=== PATIENT | female | born 1985 | race Two or more races ===

== ENCOUNTER 2020-07-13 16:27 | Emergency (ER) | payer OTHER, SELFPAY ==
[2020-07-13 17:40] VITALS: BP 117/70; PULSE 75; RESP 16; TEMP 37.1; O2SAT 98; BMI 28.8
--- NOTE | 2020-07-13 18:06 | ECG_ITS ---
Test Reason : BACK PAIN Blood Pressure : / mmHG Vent. Rate : 062 BPM Atrial Rate : 062 BPM P-R Int : 142 ms QRS Dur : 094 ms QT Int : 420 ms P-R-T Axes : 009 070 051 degrees QTc Int : 426 ms Normal sinus rhythm Normal ECG When compared with ECG of 04-APR-2009 21:45, No significant change was found Referred By: Lilo Cerda Electronically Signed By:ANGEL HOUSTON MD
--- NOTE | 2020-07-13 18:08 | ED_ITS ---
HPI - Back Pain/Injury General Chief Complaint: Back Pain/Injury <JIMMY Andujar - Last Filed: 07/13/20 19:07> Stated Complaint: BACK PAIN <JIMMY Andujar Last Filed: 07/13/20 19:07> Time Seen by Provider: 07/13/20 18:06 <JIMMY Andujar - Last Filed: 07/13/20 19:07> Source: patient <JIMMY Andujar Last Filed: 07/13/20 19:07> Mode of arrival: ambulatory <JIMMY Andujar - Last Filed: 07/13/20 19:07> History of Present Illness HPI Narrative: 35-year-old female with a past medical history of scoliosis, back surgery presented to ED complaining of 1 week of left-sided mid /upper back pain radiating down left arm /to chest. Reports pain worse with movement, deep breathing, lying on left side. Has been taking naproxen, and tramadol at home without relief. Denies known trauma / injury. denies numbness, tingling, weakness, incontinence, retention <JIMMY Andujar - Last Filed: 07/13/20 19:07> MD elicited complaint: back pain <JIMMY Andujar Last Filed: 07/13/20 19:07> Related Data Home Medications: Previous Rx's Medication Instructions Recorded acetaminophen [Tylenol Extra 500 mg PO Q6H PRN #20 tab 07/13/20 Strength] cyclobenzaprine 5 mg PO Q8H PRN 5 Days #14 tab 07/13/20 lidocaine [Lidoderm] 1 patch TOPICAL DAILY PRN #30 ea 07/13/20 MDD remove after 12 hours <JIMMY Andujar - Last Filed: 07/13/20 19:07> Allergies/Adverse Reactions: Allergies Allergy/AdvReac Type Severity Reaction Status Date / Time Penicillins Allergy Intermediate RASH Unverified 06/14/20 15:30 penicillin V Allergy Unknown unsure Verified 02/29/20 00:00 (childhood) penicillin Allergy Unknown Uncoded 04/30/20 00:00 <JIMMY Andujar Last Filed: 07/13/20 19:07> Review of Systems Review of Systems: Constitutional: No Weight loss, No Fever, No Chills Cardiovascular: No Chest Pain, No SOB Respiratory: No Cough, No Sputum Genitourinary: no urinary incontinence or retention Musculoskeletal: + back pain Skin: No Skin Lesions, No rash Neuro: No Weakness, No Numbness, No Paresthesias <JIMMY Andujar - Last Filed: 07/13/20 19:07> Yes all other systems are reviewed and are negative <JIMMY Andujar - Last Filed: 07/13/20 19:07> Neurologic: Denies Sensory deficit (Neuro) <JIMMY Andujar - Last Filed: 07/13/20 19:07> [facility] Past Medical History Attestation statement: The following information was validated with the patient. <JIMMY Andujar - Last Filed: 07/13/20 19:07> Medical History: Medical History (Updated 07/14/20 @ 00:01 by Ministerio Angel) Scoliosis <JIMMY Andujar - Last Filed: 07/13/20 19:07> Surgical History: Surgical History (Updated 07/13/20 @ 17:43 by Georgie Flor) Previous back surgery <JIMMY Andujar - Last Filed: 07/13/20 19:07> Social History Social History: Social History Advance Directives: No Advance Directives Information Provided: No <JIMMY Andujar - Last Filed: 07/13/20 19:07> Physical Exam Vital Signs: Vital Signs: Vital Signs Temp Pulse Resp BP Pulse Ox 07/13/20 17:40 98.7 F 75 16 117/70 98 Body Mass Index 28.8 <JIMMY Andujar - Last Filed: 07/13/20 19:07> Vital Signs: Vital Signs Temp Pulse Resp BP Pulse Ox 07/13/20 17:40 98.7 F 75 16 117/70 98 Body Mass Index 28.8 <Stephen Montgomery MD - Last Filed: 07/17/20 15:02> Const: General: cooperative and healthy appearing <JIMMY Andujar - Last Filed: 07/13/20 19:07> Orientation/consciousness: patient oriented x3 <JIMMY Andujar - Last Filed: 07/13/20 19:07> Limitations: no limitations <JIMMY Andujar - Last Filed: 07/13/20 19:07> HENMT: Head: Yes normal to inspection <Lilo Cerda, PA - Last Filed: 07/13/20 19:07> Ears: hearing grossly normal bilaterally <Lilo Cerda, PA - Last Filed: 07/13/20 19:07> General nose exam: Normal external nose present <Lilo Cerda PA - Last Filed: 07/13/20 19:07> Face and sinus: Yes normal facial exam <Lilo Cerda, PA - Last Filed: 07/13/20 19:07> Eyes: General: appearance normal, both eyes and all related structures <Lilo Zaida, PA - Last Filed: 07/13/20 19:07> EOM: EOMs intact bilaterally <Lilo Cerda, PA - Last Filed: 07/13/20 19:07> Neck: Other: no midline cervical spinous tenderness <Lilo Cerda, PA - Last Filed: 07/13/20 19:07> Neck: Yes normal visual inspection <Lilo Cerda PA - Last Filed: 07/13/20 19:07> Resp: Effort & Inspection: normal respiratory effort <Lilo Cerda, PA - Last Filed: 07/13/20 19:07> Cardio: Peripheral pulses: Peripheral pulses 2+ throughout <Lilo Cerda, PA - Last Filed: 07/13/20 19:07> Back/Spine/Pelvis: Other: old surgical scar noted. + left upper/ mid MSK back tenderness, reproducing patient's subjective complaint. No deformity. No midline thoracic / lumbar spinous tenderness <Lilo Cerda, PA - Last Filed: 07/13/20 19:07> Neuro: Other: No saddle anesthesia <Lilo Zaida, PA - Last Filed: 07/13/20 19:07> General: patient oriented x3 <Lilo Cerda, PA - Last Filed: 07/13/20 19:07> Gait exam (Neuro): Normal gait present <Lilo Cerda, PA - Last Filed: 07/13/20 19:07> Motor exam (neuro): 5/5 motor strength present throughout <Lilo Cerda PA - Last Filed: 07/13/20 19:07> Sensory Exam: No Sensory deficit (Neuro) <Lilo Zaida, PA - Last Filed: 07/13/20 19:07> Extrem: General: Yes normal to inspection <JIMMY Andujar - Last Filed: 07/13/20 19:07> Course Course Course Narrative: I have reviewed the chart <Stephen Montgomery MD - Last Filed: 07/17/20 15:02> MDM - Back Pain/Injury MDM Narrative Medical decision making narrative: likely MSK pain. Low concern for cauda equina / cord compression. Low concern for PE/ACS. will obtain EKG, give symptomatic treatment and DC home to follow up with PCP/case management <JIMMY Andujar - Last Filed: 07/13/20 19:07> ECG Data Attestation: I personally reviewed and interpreted this ECG as follows: <JIMMY Andujar - Last Filed: 07/13/20 19:07> ECG interpretation date: 07/13/20 <JIMMY Andujar - Last Filed: 07/13/20 19:07> Interpretation: normal sinus rhythm. Rate 62. no ischemic changes. Good tracing <JIMMY Andujar - Last Filed: 07/13/20 19:07> Discharge Plan Discharge Clinical Impression: Thoracic back pain <JIMMY Andujar - Last Filed: 07/13/20 19:07> Patient Disposition: Home, Self-Care <JIMMY Andujar - Last Filed: 07/13/20 19:07> Instructions: Back Pain (ED) <JIMMY Andujar - Last Filed: 07/13/20 19:07> Additional Instructions: your pain is likely musculoskeletal Continue taking naproxen at home You may also continue taking tramadol when pain is severe Flexeril as a muscle relaxer, take at night as it makes you drowsy, do not drive, drink alcohol, or operate machinery while taking In addition Lidoderm patches or numbing patches, apply to painful area Apply heating packs area If he develops numbness, tingling, weakness, urinary incontinence or retention return to the ED You to follow-up with her doctor and pain management <JIMMY Andujar - Last Filed: 07/13/20 19:07> Prescriptions: New acetaminophen [Tylenol Extra Strength] 500 mg tablet 500 mg PO Q6H PRN (Reason: pain or fever) Qty: 20 RF: 0 lidocaine [Lidoderm] 5 % adhesive patch,medicated 1 patch topical DAILY MDD remove after 12 hours PRN (Reason: pain) Qty: 30 RF: 0 cyclobenzaprine 5 mg tablet 5 mg PO Q8H PRN (Reason: pain (scale score 7-10)) 5 Days Qty: 14 RF: 0 <JIMMY Andujar - Last Filed: 07/13/20 19:07> Referrals: Erika Bowman MD [Primary Care Provider] - 2 days <JIMMY Andujar - Last Filed: 07/13/20 19:07> Interventions: ED Discharge Assessment Last Done: 07/13/20 19:31 <JIMMY Andujar - Last Filed: 07/13/20 19:07> Discharge Date/Time: 07/13/20 19:00 <JIMMY Andujar - Last Filed: 07/13/20 19:07>
[2020-07-13] MEDS: Cyclobenzaprine HCl 10 MG TABLET PO (18:39)
[2020-07-13] MEDS: Lidocaine 4 % Patch ADH..PATCH 1 PATCH TRANSDERMA (18:40)
== END 2020-07-13 19:00 | disposition home or self-care (01) ==
PROVIDERS: Emergency Provider Emergency Medicine; PCP Internal Medicine
DX: M41.9 Scoliosis, unspecified (principal); M54.6 Pain in thoracic spine; Z79.899 Other long term (current) drug therapy
CPT/HCPCS: 93005; 99283; 99284

== ENCOUNTER → 2020-07-19 14:46 | Outpatient (BNVA) | payer OTHER, SELFPAY | PROVIDERS: PCP Internal Medicine; Visit Provider Anesthesiology | DX: M96.1 Postlaminectomy syndrome, not elsewhere classified (principal); G89.4 Chronic pain syndrome; Z87.39 Personal history of other diseases of the musculoskeletal system and connective tissue; Z79.891 Long term (current) use of opiate analgesic | CPT/HCPCS: 99214 ==

== ENCOUNTER → 2020-08-09 14:28 | Outpatient (BNVA) | payer OTHER, SELFPAY | PROVIDERS: PCP Internal Medicine; Visit Provider Anesthesiology | DX: G89.4 Chronic pain syndrome (principal); M96.1 Postlaminectomy syndrome, not elsewhere classified; Z79.891 Long term (current) use of opiate analgesic; Z87.39 Personal history of other diseases of the musculoskeletal system and connective tissue | CPT/HCPCS: 99212 ==

== ENCOUNTER → 2020-08-20 15:22 | Outpatient (BNVA) | payer OTHER, SELFPAY | PROVIDERS: PCP Internal Medicine; Visit Provider Anesthesiology | DX: G89.4 Chronic pain syndrome (principal); M96.1 Postlaminectomy syndrome, not elsewhere classified; Z79.891 Long term (current) use of opiate analgesic; Z87.39 Personal history of other diseases of the musculoskeletal system and connective tissue | CPT/HCPCS: 99212 ==

== ENCOUNTER 2021-01-07 04:49 | Emergency (ER) | payer OTHER, SELFPAY ==
--- NOTE | ~2021-01-07 | CT_ITS ---
EXAMINATION: CT ABDOMEN AND PELVIS WITHOUT CONTRAST CLINICAL INFORMATION: Flank pain. COMPARISON: None. TECHNIQUE: Multidetector volumetric imaging was performed from the superior aspect of the liver through the pubic symphysis. Sagittal and coronal reformatted images were obtained on the technologist's workstation. This CT examination was performed using dose optimization techniques as appropriate, variously including the following: *Automated exposure control *Adjustment of mA and/or kV according to patient size (this includes techniques or standardized protocols for targeted exams where dose is matched to indication/reason for exam; i.e. extremities or head) *Use of iterative reconstruction technique DLP: 783 mGy-cm FINDINGS: LUNG BASES: The lung bases are clear. Heart size is normal. LIVER, GALLBLADDER, AND BILIARY TREE: The liver is normal in size, shape, and attenuation. No focal hepatic lesion or biliary ductal dilatation is present. There are multiple gallstones with central gas within the stones. No wall thickening seen. PANCREAS: Unremarkable. SPLEEN: Unremarkable. ADRENAL GLANDS: Unremarkable. KIDNEYS AND URETERS: The kidneys are normal in size, shape, and attenuation. No hydronephrosis, hydroureter, or calculi seen. No perinephric stranding. BLADDER: Unremarkable. GASTROINTESTINAL TRACT: There is scattered stool and gas seen throughout the colon without any significant distention. The small bowel loops are normal caliber. Appendix is normal caliber. ABDOMINAL WALL: No significant hernia is appreciated. LYMPH NODES: Normal. VASCULAR: Unremarkable. PELVIC VISCERA: There are tubal sterilization changes in the uterus is anteverted no free air or free fluid seen. OSSEOUS STRUCTURES: There are 2 Huizar rods in the thoracolumbar spine. Inferior end of the rods terminate at L2-L3 disc level. The cephalad extension of these rods is not in the [id number]. There is a mild dextroscoliosis. No lytic or sclerotic process seen. CT/CT abdomen pelvis wo con IMPRESSION: Cholelithiasis without wall thickening. No radiopaque renal calculi or hydronephrosis seen. Mild constipation.
[2021-01-07 05:03] VITALS: BP 131/61; PULSE 84; RESP 16; TEMP 36.9; O2SAT 97; BMI 28.8
[2021-01-07 06:11] LABS: Glucose Urine UA NEG (NEG); Leukocyte Esterase Urine NEG (NEG); Nitrite Urine NEG (NEG); Specific Gravity - Urine 1.025 (1.005-1.025); Urine Blood 1+ (NEG); Urine Ketones NEG (NEG); Urine Protein NEG (NEG-TRACE)
[2021-01-07 06:13] LABS: Appearance Urine CLEAR; Color Urine YELLOW
[2021-01-07 06:14] LABS: UPreg QC Valid YES; Urine Pregnancy NEGATIVE (NEGATIVE)
[2021-01-07 06:17] LABS: Bacteria Urine 1+ /LPF; RBC Urine 0-2 /HPF (0); Squamous Epithelial Cell Urine 3+ /LPF; WBC Urine 0-2 /HPF (0-4)
--- NOTE | 2021-01-07 06:54 | PC.NURSE ---
patient ambulated to CT at this time with a steady gait.
[2021-01-07 07:18] VITALS: BP 106/73; PULSE 69; RESP 15; TEMP 36.9; O2SAT 96
[2021-01-07] MEDS: Acetaminophen 325 MG TABLET 975 MG PO (07:22)
[2021-01-07] MEDS: Ketorolac Tromethamine 15 MG/ML VIAL IM (07:24)
[2021-01-07] MEDS: Lidocaine 4 % Patch ADH..PATCH 1 PATCH TRANSDERMA (07:25)
--- NOTE | 2021-01-07 07:55 | ED_ITS ---
HPI - Back Pain/Injury General Chief Complaint: Back Pain/Injury Stated Complaint: Back pain/Abd pain Time Seen by Provider: 01/07/21 04:56 Source: patient Mode of arrival: ambulatory History of Present Illness HPI Narrative: 35-year-old female with history of lower back pain now presents with acute exacerbation, atraumatic, denies any fevers, chills, nausea, vomiting, diarrhea, urinary pain/burning/frequency. In addition, she denies any urinary or fecal dysfunction. Related Data Previous Rx's Medication Instructions Recorded acetaminophen [Tylenol Extra 500 mg PO Q6H PRN #20 tab 07/13/20 Strength] cyclobenzaprine 5 mg PO Q8H PRN 5 Days #14 tab 07/13/20 oxycodone 5 mg tablet 5 mg PO TID PRN 30 Days #90 tab 08/20/20 ketorolac 10 mg PO Q6H PRN 5 Days #20 tab 01/07/21 Allergies Allergy/AdvReac Type Severity Reaction Status Date / Time Penicillins Allergy Intermediate RASH Verified 07/17/20 17:34 Review of Systems Review of Systems: Pertinent positives and negatives as stated in HPI and 10 point review of systems otherwise negative. [facility] Past Medical History Source: nursing notes reviewed Medical History Chronic back pain greater than 3 months duration Chronic pain syndrome prison (current) use of opiate analgesic Personal history of other diseases of the musculoskeletal system and connective tissue Postlaminectomy syndrome, not elsewhere classified Scoliosis Surgical History Previous back surgery Social History Social History Alcohol intake: never Smoking Status: Never smoker Use of substances other than those prescribed or required for medical reasons: No Advance Directives: No Advance Directives Information Provided: No Physical Exam Vital Signs: Vital Signs: Last Vital Signs Temp 98.4 F 01/07/21 07:18 Pulse 61 01/07/21 08:29 Resp 16 01/07/21 08:40 BP 120/67 01/07/21 08:29 Pulse Ox 99 01/07/21 08:29 Body Mass Index 28.8 VITAL SIGNS: Reviewed. GENERAL: Well developed, well nourished, mild distress. HEAD: Normocephalic/atraumatic EYES: PERRLA, EOMI OROPHARYNX: no oral lesions noted, posterior pharynx clear NECK: Supple, no adenopathy LUNGS: Normal breath sounds. No adventitious sounds or accessory muscle use. SpO2<99> CARDIOVASCULAR: Regular rate and rhythm without noted murmurs ABDOMEN: Soft, non-tender, non-distended with bowel sounds. BACK: NEUROLOGIC: Alert and oriented x 4. Strength and sensation to light touch were grossly intact x 4. Course Course Course Narrative: 35-year-old female with history and clinical presentation most consistent with acute on chronic lower back exacerbation. Patient had prior involvement with pain management but was suspended in August for missing an appointment and has not had any narcotic prescriptions since that time. She was provided with combination analgesics and initially was not getting much pain relief, however on secondary re-evaluation patient is noted be resting comfortably in her gurney. Urinalysis is negative for acute findings other than some trace blood so the decision was made to do a dry CT scan was done which was negative for any renal calculi. Patient was discharged home in stable [facility] - Back Pain/Injury Lab Data Labs: Lab Results 01/07/21 01/07/21 Range/Units 06:05 06:05 Urine Color YELLOW Urine Appearance CLEAR Urine pH 6.0 (5.0-8.0) Ur Specific [place] 1.025 (1.005-1.025) Urine Protein NEG (NEG-TRACE) MG/DL Urine Glucose (UA) NEG (NEG) MG/DL Urine Ketones NEG (NEG) MG/DL Urine Blood 1+ H (NEG) Urine Nitrite NEG (NEG) Ur Leukocyte Esterase NEG (NEG) Urine RBC 0-2 (0) /HPF Urine WBC 0-2 (0-4) /HPF Ur Squamous Epith Cells 3+ /LPF Urine Bacteria 1+ /LPF Urine Test NEGATIVE (NEGATIVE) Discharge Plan Discharge Clinical Impression: Acute exacerbation of chronic low back pain Patient Disposition: Home, Self-Care Additional Instructions: 1. Tylenol 1000 mg, orally, every 6 hours as needed for pain control. Do not exceed 4000 mg within 24 hours. 2. Lidocaine patch, these are available at every [facility]/[employer], apply to area of maximal tenderness as directed on the outside packaging. 3. Please follow up with primary care provider in the next 1-2 days for re- evaluation and discussion regarding management of your back pain. Do not hesitate to return to the emergency department should you experience any acute worsening of your symptoms. Prescriptions: New ketorolac 10 mg tablet 10 mg PO Q6H PRN (Reason: pain) 5 Days Qty: 20 RF: 0 No Action acetaminophen [Tylenol Extra Strength] 500 mg tablet 500 mg PO Q6H PRN (Reason: pain or fever) Qty: 20 RF: 0 cyclobenzaprine 5 mg tablet 5 mg PO Q8H PRN (Reason: pain (scale score 7-10)) 5 Days Qty: 14 RF: 0 oxycodone 5 mg tablet 5 mg PO TID PRN (Reason: pain) 30 Days Qty: 90 RF: 0 Referrals: Erika Bowman MD [Primary Care Provider] - 2 days (Re-evaluation outpatient management of acute on chronic lower back pain.) Interventions: ED Discharge Assessment Last Done: 01/07/21 09:11 Discharge Date/Time: 01/07/21 09:13 Print Language: Azeri
[2021-01-07 08:29] VITALS: BP 120/67; PULSE 61; RESP 20; O2SAT 99
[2021-01-07 08:39] VITALS: RESP 16
[2021-01-07 08:40] VITALS: RESP 16
== END 2021-01-07 09:13 | disposition home or self-care (01) ==
PROVIDERS: Emergency Provider Student in an Organized Health Care Education/Training Program; PCP Internal Medicine
DX: G89.11 Acute pain due to trauma (principal); G89.29 Other chronic pain; M54.5 Low back pain; Z79.891 Long term (current) use of opiate analgesic
CPT/HCPCS: 74176; 81001; 81025; 96372; 99284; J1885

== ENCOUNTER 2021-04-08 10:59 | Outpatient (REF) | payer OTHER, SELFPAY | END 2021-04-08 11:00 | disposition home or self-care (01) | LOC: HO.LAB 10:59 | PROVIDERS: PCP Internal Medicine; Visit Provider Anesthesiology | DX: G89.4 Chronic pain syndrome (principal); M96.1 Postlaminectomy syndrome, not elsewhere classified; M54.9 Dorsalgia, unspecified; Z87.891 Personal history of nicotine dependence; Z79.891 Long term (current) use of opiate analgesic; Z87.39 Personal history of other diseases of the musculoskeletal system and connective tissue | CPT/HCPCS: 99212 ==

== ENCOUNTER → 2021-04-24 10:06 | Outpatient (BNVA) | payer OTHER, SELFPAY | PROVIDERS: PCP Internal Medicine; Visit Provider Anesthesiology | DX: M96.1 Postlaminectomy syndrome, not elsewhere classified (principal); M54.9 Dorsalgia, unspecified; G89.29 Other chronic pain; G89.4 Chronic pain syndrome; Z79.891 Long term (current) use of opiate analgesic; Z87.39 Personal history of other diseases of the musculoskeletal system and connective tissue | CPT/HCPCS: 99212 ==

== ENCOUNTER → 2021-05-01 14:24 | Outpatient (BNVA) | payer OTHER, SELFPAY | PROVIDERS: PCP Internal Medicine; Referring Provider Internal Medicine; Visit Provider Surgery | DX: K80.20 Calculus of gallbladder without cholecystitis without obstruction (principal) | CPT/HCPCS: 99202 ==

== ENCOUNTER → 2021-05-09 08:03 | Outpatient (BNVA) | payer OTHER, SELFPAY | PROVIDERS: PCP Internal Medicine; Visit Provider Nurse Practitioner Family | DX: M96.1 Postlaminectomy syndrome, not elsewhere classified (principal); M54.9 Dorsalgia, unspecified; G89.29 Other chronic pain; Z79.891 Long term (current) use of opiate analgesic | CPT/HCPCS: 99212 ==

== ENCOUNTER 2021-05-31 06:48 | Day surgery (SDC) | payer OTHER, SELFPAY ==
[2021-05-27 10:38] VITALS: BMI 30.4
--- NOTE | 2021-05-30 09:22 | HO.ANESPROP2 ---
Documented by User: Bruna Woods NP 05/30/21 09:24 HPI - Anesthesia Eval Consult details Narrative: 36yo F for Cholecystectomy Laparoscopic, Poss Open opioids, chronic back pain PMFSH Active Problems Active Problems: All Active Problems (Updated 05/27/21 @ 10:37 by Liliya Godfrey RN) Obese (Acute) Cholelithiasis (Acute) Insomnia (Acute) [facility] (current) use of opiate analgesic (Acute) Personal history of other diseases of the musculoskeletal system and connective tissue (Acute) Chronic pain syndrome (Acute) Postlaminectomy syndrome, not elsewhere classified (Acute) Chronic back pain greater than 3 months duration (Acute) Past Medical History Medical History Anxiety Cholelithiasis Chronic back pain greater than 3 months duration Chronic pain syndrome Insomnia [facility] (current) use of opiate analgesic Obese Personal history of other diseases of the musculoskeletal system and connective tissue Postlaminectomy syndrome, not elsewhere classified Scoliosis Family History Family History Mother No problems noted. Father Diabetes Surgical History Surgical History (Updated 05/31/21 @ 06:54 by Radha Camilo RN) Hx of tubal ligation Previous back surgery Social History Social History (Updated 05/27/21 @ 10:35 by Liliya Godfrey RN) Housing: Apartment Are you a primary memory care program resident to a significant other at home: Yes (children ages-7,11,18) Do you presently have visiting nurse or other home services: Yes (Mon-Sat 1 hour per day) Alcohol intake: current Alcohol intake frequency: a few times a month Alcohol type: beer and hard liquor Patient Tobacco Use Status: Former Tobacco user Quit Date: 2010 Tobacco use type: Cigarette e-Cigarette/Vaping Use: Never Used Second Hand Smoke Exposure: No Use of substances other than those prescribed or required for medical reasons: No Have you been hit, kicked, punched, or otherwise hurt by someone within the past year? If so, by whom?: No Are you DNR?: No Advance Directives: No Advance Directives Information Provided: No Advance Directives on File: No Recently lost weight without trying: No Patient : No FDLMP: 05/09/2021 : No Poor oral hygiene: No (upper and lower partials) service: No Current occupational status: unemployed Meds Allergies Allergy/AdvReac Type Severity Reaction Status Date / Time Penicillins Allergy Unknown RASH Verified 05/31/21 06:54 Exam Exam Date and Time: May 30, [id number] Height,Weight and Vital Signs: Height 5 ft 8 in Weight 90.718 kg Narrative Narrative: EKG 06/2020 Vent. Rate : 062 BPM ? ? Atrial Rate : 062 BPM ?? P-R Int : 142 ms? QRS Dur : 094 ms ? ? QT Int : 420 ms ? ? ? P-R-T Axes : 009 070 051 degrees ?? QTc Int : 426 ms ? Normal sinus rhythm Normal ECG When compared with ECG of 04-APR-2009 21:45, No significant change was found Assessment and Plan Assessment Anesthesia Assessment: Chart Reviewed Documented by User: Miguelina Flores MD 05/31/21 07:30 [facility] Past Medical History Medical History Anxiety Cholelithiasis Chronic back pain greater than 3 months duration Chronic pain syndrome Insomnia [facility] (current) use of opiate analgesic Obese Personal history of other diseases of the musculoskeletal system and connective tissue Postlaminectomy syndrome, not elsewhere classified Scoliosis Functional capacity: independent ambulation Patient : No Family History Family History Mother No problems noted. Father Diabetes Family history of problems with anesthesia: No Surgical History Surgical History (Updated 05/31/21 @ 06:54 by Radha Camilo RN) Hx of tubal ligation Previous back surgery History of Problems with Anesthesia: No Social History Social History (Updated 05/27/21 @ 10:35 by Liliya Godfrey RN) Housing: Apartment Are you a primary memory care program resident to a significant other at home: Yes (children ages-7,11,18) Do you presently have visiting nurse or other home services: Yes (Mon-Sat 1 hour per day) Alcohol intake: current Alcohol intake frequency: a few times a month Alcohol type: beer and hard liquor Patient Tobacco Use Status: Former Tobacco user Quit Date: 2010 Tobacco use type: Cigarette e-Cigarette/Vaping Use: Never Used Second Hand Smoke Exposure: No Use of substances other than those prescribed or required for medical reasons: No Have you been hit, kicked, punched, or otherwise hurt by someone within the past year? If so, by whom?: No Are you DNR?: No Advance Directives: No Advance Directives Information Provided: No Advance Directives on File: No Recently lost weight without trying: No Patient : No FDLMP: 05/09/2021 : No Poor oral hygiene: No (upper and lower partials) service: No Current occupational status: unemployed Meds Allergies Allergy/AdvReac Type Severity Reaction Status Date / Time Penicillins Allergy Unknown RASH Verified 05/31/21 06:54 Exam Airway Mallampati Class: II TM Dist: >3cm Heart: RRR Lungs: CTA Assessment and Plan Final Anesthetic Review Family History of Problems with Anesthesia: No History of Problems with Anesthesia: No
[2021-05-31] VITALS (15 sets, daily range): BP systolic 102–128; BP diastolic 58–82; PULSE 63–77; RESP 13–20; TEMP 36.2–36.8; O2SAT 94–98
[2021-05-31] MEDS: Acetaminophen 325 MG TABLET 650 MG PO (07:23)
--- NOTE | 2021-05-31 07:30 | MHC.SHP ---
Pre-Procedural Eval Section A Date of Service: 05/31/21 Section B Chief Complaint: Cholelithiasis Allergies: Allergies Allergy/AdvReac Type Severity Reaction Status Date / Time Penicillins Allergy Unknown RASH Verified 05/31/21 06:54 Plan I have reviewed the history and physical and performed a pertinent physical examination on my patient. No changes have occurred unless specified.
[2021-05-31 07:31] LABS: COVID-19 Test Negative (Negative); IDNOW Serial# 55D5AD1C
[2021-05-31] MEDS: Lactated Ringers 1,000 ML 100 ML IVCONT (07:40)
[2021-05-31] MEDS: Scopolamine 1.5 MG PATCH.TD.3 EAR-BEHIND (08:20)
--- NOTE | 2021-05-31 09:52 | W.PM.OPN ---
Operative Note Operative Note Date of Service: 05/31/21 Narrative: Preop diagnosis: Symptomatic gallstones Postop diagnosis: the same Procedure: Laparoscopic cholecystectomy Surgeon: Dav Wiseman MD Mine Wedge Sawyer: IFEANYI Serrato The patient is a 36-year-old female who had in the ER at some point with abdominal pain and was noted gallstones. She did describe some occasional pain in the right upper quadrant so she wanted proceed with cholecystectomy. She understood the technique of laparoscopic cholecystectomy possible open. She was aware of the risks, benefits, and alternatives She was brought to the operating room placed supine on the table under general anesthesia via endotracheal tube. The abdomen was prepped and draped in the usual sterile fashion. A surgical time-out was done. The patient received Cefotan 2 g IV preoperatively I made a short incision on the supraumbilical margin using a blade 15. And this was carried down through the full-thickness of the skin and subcutaneous fat down to the fascia. The fascia was incised. The peritoneum was entered. Through this incision a Herb port was introduced. Pneumoperitoneum was introduced to a pressure of 15 mm hg. From here on, the rest of the procedure was done under vision with the laparoscope. With laparoscopic visualization, I placed a 5/12 mm port in the epigastric area below the subcostal margin through a small stab incision. 5 mm ports introduced through small incisions below the subcostal margin along the anterior axillary line and the midclavicular line. Graspers were placed through these working ports. The patient was placed in a head up and [id number] position. The gallbladder was seen. This was not inflamed nor distended. I applied a grasper at the fundus and this was used to retract the gallbladder cephalad. By doing so was able to expose the neck and the pouch of the gallbladder. Another grasper was applied on the pouch and this was used to retract the gallbladder laterally. At this point therefore the gallbladder was being retracted in a lateral and cephalad fashion to put the area of the cystic duct on stretch. I then proceeded to carefully dissect the neck of the gallbladder by stripping off its peritoneal layer and some fibrous tissue using the Maryland dissector. By doing so, I was able to see the cystic duct. We carefully dissected the cystic duct with the [place] dissector to confirm its confluence with the neck of the gallbladder. By doing so I was also able to achieve a critical view of the hepato cystic triangle. I could see what appeared to be the cystic artery within this triangle. There were no other structures. With confirmation of the cystic duct achieved, I proceeded to applyclips on this with 2 clips being applied distally. The cystic duct was transected between clips using Endo scissors. I then applied clips on the cystic artery as well with 2 clips being applied distally in the cystic artery and this was transected between clips with Endo scissors. We then continued to do this dissection with the Maryland dissector on the hilum to make sure that there were no other or vessels. There was 1 smaller band that appeared to be a branch fine branch of the cystic artery which we clipped and divided as well with Endo scissors. I then proceeded to divide across the hilum with electrocautery using the electrocautery spatula. I reached the interface of the gallbladder and the liver bed. I incised the peritoneum with electrocautery. I then proceeded to define a plane of dissection between the gallbladder wall and the liver bed. I proceeded to separate the gallbladder along this well-defined plane using a combination of blunt dissection with the tip of the spatula as well as electrocautery itself. I proceeded with this dissection all the way to the fundus until the entire gallbladder was completely and I retrieved the gallbladder through an endobag through the umbilical incision. I re-insufflated and reinserted all ports. There was note of some bile leak from a tear in the gallbladder wall earlier so we irrigated and suctioned this out. I then lifted the liver edge and we confirmed good hemostasis. I observed all 4 quadrants as well and there was no other pathology or any suggestion of any bowel injury I then re-examined the subhepatic space, and once hemostasis was ensured I desufflated through the port sites. I removed all ports under vision with the laparoscope. The umbilical port was removed last. The fascia of the umbilical incision was closed with [id number] Dexon 0 stitch. Skin closure was achieved on all incisions using Dexon 4-0 subcuticular running sutures. Steri-Strips and dressings were applied. All incisions were infiltrated with Marcaine 0.5% for postop analgesia and the procedure was completed. The patient tolerated the procedure well. There were no complications noted. Initial and final counts of sponges and instruments were correct. Estimated blood loss about 20 cc. The patient was extubated without difficulty and transferred to the recovery room with stable vital signs.
--- NOTE | 2021-05-31 10:01 | P.BOP_ITS ---
Brief Operative Note Date of Service: 05/31/21 Pre-op diagnosis: Symptomatic gallstones Post-op diagnosis: same Procedure: Laparoscopic cholecystectomy Surgeon: Dav Wiseman MD Anesthesia: GETA Was an Business Editor used for this Procedure?: No Estimated blood loss (mL): 20 Pathology: other (Gallbladder) Condition: stable Disposition: PACU
[2021-05-31] MEDS: ondansetron HCL 4 MG/2 ML VIAL IVPUSH (10:05)
[2021-05-31] MEDS: fentaNYL citrate/PF 100 MCG/2 ML VIAL 50 MCG IVPUSH ×3 (10:17→10:40)
[2021-05-31] MEDS: oxyCODONE HCl Immed Release 5 MG TABLET 10 MG PO (11:26)
== END 2021-05-31 13:50 | disposition home or self-care (01) ==
PROVIDERS: PCP Internal Medicine; Visit Provider Surgery
PROC: 0FT44ZZ Resection of Gallbladder, Percutaneous Endoscopic Approach (ICD-10-PCS; CPT 47562; principal; 2021-05-31 08:20)
DX: K80.10 Calculus of gallbladder with chronic cholecystitis without obstruction (principal); Z20.822 Contact with and (suspected) exposure to COVID-19
CPT/HCPCS: 47562; 36415; 87635; 88304; J1100; J1885; J2250; J2405; J2550; J3010

== ENCOUNTER 2021-06-04 16:19 | Emergency (ER) | payer OTHER, SELFPAY ==
--- NOTE | ~2021-06-04 | CT_ITS ---
EXAMINATION: CT ABDOMEN AND PELVIS WITH CONTRAST CLINICAL INFORMATION: Pain and fevers status post cholecystectomy. COMPARISON: CT abdomen pelvis January 07, 2021 TECHNIQUE: Multidetector volumetric images were obtained from the superior aspect of the liver through the pubic symphysis following administration 85 mL of Omnipaque 350 intravenous contrast. Sagittal and coronal reformatted images were obtained on the technologist's workstation. This CT examination was performed using dose optimization techniques as appropriate, variously including the following: *Automated exposure control *Adjustment of mA and/or kV according to patient size (this includes techniques or standardized protocols for targeted exams where dose is matched to indication/reason for exam; i.e. extremities or head) *Use of iterative reconstruction technique DLP: 658 mGy-cm FINDINGS: Visualized lung bases are well aerated. The liver demonstrates normal size, contour and attenuation. The gallbladder is surgically absent. There is some mild soft tissue stranding within the gallbladder fossa, however, no focal fluid collection is present. The pancreas, spleen and adrenal glands are unremarkable. Symmetrically enhancing kidneys. No hydronephrosis bilaterally. Normal caliber loops of small and large bowel. Normal appendix. Similar tiny fat-containing umbilical hernia. Normal caliber abdominal aorta. No retroperitoneal lymphadenopathy. The bladder is normal in appearance. Unremarkable CT appearance of the uterus. Trace free pelvic fluid, likely physiologic. Shotty bilateral inguinal lymph nodes. Scoliotic and degenerative changes of the spine. Partially visualized Huizar rods. CT/CT abdomen pelvis w con IMPRESSION: The gallbladder is surgically absent. There is some mild soft tissue stranding within the gallbladder fossa, however, no focal fluid collection is present.
[2021-06-04 16:58] VITALS: BP 115/66; PULSE 66; RESP 18; TEMP 36.1; O2SAT 100; BMI 30.4
[2021-06-04 17:29] LABS: Imm Gran Abs Auto 0.02 X10*3/uL (0.00-0.03); MANUAL DIFF FLAG NO; PLT CLUMP 1; Red Cell Distribution Width 12.1 % (11.0-16.0); SCAN SMEAR FLAG 1
[2021-06-04 17:31] LABS: Basophils Percent Auto 0.3 % (0-2); Eosinophils Absolute Auto 0.1 X10*3/uL (0.0-0.4); Eosinophils Percent Auto 1.4 % (0-4); Hematocrit 37.6 % (37-47); Hemoglobin 12.6 g/dl (12.0-16.0); Imm Gran Pct Auto 0.3 % (0.0-0.4); Lymphocytes Percent Auto 25.2 % (20-40); Mean Corpuscular HGB Conc 33.5 g/dl (31.0-35.0); Mean Corpuscular Volume 86.6 fL (80-98); Mean Platelet Volume 11.4 fL (9.4-12.3); Monocytes Absolute Auto 0.5 X10*3/uL (0.1-1.2); Monocytes Percent Auto 6.1 % (2-11); Neutrophils Absolute Auto 5.3 X10*3/uL (2.0-8.3); Neutrophils Percent Auto 66.7 % (45-73); Red Blood Count 4.34 X10*6/uL (4.20-5.50)
[2021-06-04 17:53] LABS: Alanine Aminotransferase 20 U/L (0-31); Albumin Level 4.1 g/dL (3.5-5.0); Alkaline Phosphatase 96 U/L (39-117); Anion Gap 11 (12-20); Aspartate Amino Transferase 15 U/L (5-31); Bilirubin Total 0.3 mg/dL (0.0-1.0); Blood Urea Nitrogen 13 mg/dL (9-16); Calcium 9.5 mg/dL (8.4-10.2); Carbon Dioxide 26 mmol/L (22-29); Chloride 104 mmol/L (96-108); Creatinine Clr Calc Pharmacy 136.7; Estimated Glomerular Filt Rate > 60; Glucose Random 86 mg/dL (60-115); Potassium 4.4 mmol/L (3.3-5.1); Sodium 137 mmol/L (135-145); Total Protein 7.4 g/dL (6.5-8.0)
[2021-06-04 18:02] LABS: Platelet Count 191 X10*3/uL (160-400)
--- NOTE | 2021-06-04 20:08 | ED.ABDPAIN ---
HPI - Abdominal Pain General Chief Complaint: Abdominal Pain Stated Complaint: post op pain Time Seen by Provider: 06/04/21 20:01 Source: patient Mode of arrival: ambulatory Limitations: no limitations History of Present Illness HPI narrative: 36-year-old female here with complaints of abdominal pain, nausea, subjective fevers, weakness for several days. Patient had a lap choly on May [address] Wiseman. She has been taking oxycodone every 6 hours 5 mg for pain as needed. She denies any vomiting. Her last bowel movement was yesterday and normal. Denies any urinary symptoms or upper respiratory symptoms. Related Data Previous Rx's Medication Instructions Recorded amitriptyline 25 mg tablet 25 mg PO BEDTIME 90 Days #90 tab 04/04/21 oxycodone 5 mg tablet 5 mg PO TID PRN 30 Days #90 tab 05/09/21 ibuprofen 600 mg tablet 600 mg PO Q6H PRN #30 tab 05/31/21 oxycodone-acetaminophen 5 mg-325 1 tab PO Q4-6H PRN #30 tab 05/31/21 mg tablet (Percocet) ondansetron 4 mg disintegrating 4 mg PO Q6H PRN #10 tab 06/04/21 tablet Allergies Allergy/AdvReac Type Severity Reaction Status Date / Time Penicillins Allergy Unknown RASH Verified 05/31/21 06:54 Review of Systems Review of Systems Yes all other systems are reviewed and are negative Constitutional: Reports no additional constitutional complaints, Denies body ache(s), Denies chills, Reports fever(s) (subjective ), Denies headache(s) and Reports weakness Eyes: Reports no additional eye complaints and Denies change in vision Reports system reviewed and no additional complaints, except as documented, Denies dizziness, Denies headache(s), Denies nasal congestion, Denies nasal discharge and Denies neck pain Cardiovascular: Reports no additional cardiovascular complaints, Denies chest pain, Denies leg edema and Denies dyspnea Respiratory: Reports no additional respiratory complaints, Denies cough and Denies dyspnea Gastrointestinal: Reports no additional gastrointestinal complaints, Reports abdominal pain, Denies diarrhea, Reports nausea and Denies vomiting Genitourinary: Reports no additional female genitourinary complaints and Denies urinary incontinence Musculoskeletal: Reports no additional musculoskeletal complaints, Denies back pain, Denies arthralgias, Denies joint swelling, Denies neck pain, Denies numbness and Denies tingling Skin/Breast: Reports system reviewed and no additional complaints, except as docu and Denies rash Reports system reviewed and no additional complaints, except as documented, Denies Abnormal speech present, Denies dizziness, Denies headache(s), Denies numbness, Denies tingling and Reports weakness Physical Exam Vital Signs: Vital Signs: Last Vital Signs Temp 98 F 06/04/21 22:26 Pulse 60 06/04/21 22:26 Resp 18 06/04/21 22:26 BP 114/68 06/04/21 22:26 Pulse Ox 98 06/04/21 22:26 Body Mass Index 30.4 Const: General: cooperative, healthy appearing, comfortable and no acute distress Orientation/consciousness: patient oriented x3 Limitations: no limitations HENMT: Head: Yes normal to inspection Ears: hearing grossly normal bilaterally General nose exam: Normal external nose present Face and sinus: Yes normal facial exam Mouth: Normal oral and palatal mucosa present Throat: Yes posterior oropharynx normal Eyes: General: appearance normal, both eyes and all related structures Pupils: Equal, round and reactive pupils present Neck: Neck: Yes normal visual inspection Chest: Chest palpation & inspection: normal inspection of the chest Resp: Effort & Inspection: normal respiratory effort Auscultation: clear to auscultation bilaterally Cardio: Rate: regular rate Rhythm: regular rhythm Peripheral pulses: Peripheral pulses 2+ throughout GI: Other: incision sites noted with no erythema, warmth Inspection: Yes normal to inspection Palpation (GI): Soft to palpation and Tenderness to palpation present (GI) (diffusely tender ) Auscultation: normal bowel sounds Back/Spine/Pelvis: Thoracic/Lumbar Spine: thoracic and lumbar spine normal to inspection Skin: General skin exam: no rashes or lesions noted Neuro: General: patient oriented x3, no focal motor deficits and normal sensation to monofilament Cranial nerves: Yes Equal, round and reactive pupils present Cognition (Neuro): normal cognition Speech: No Abnormal speech present Gait exam (Neuro): Normal gait present Motor exam (neuro): 5/5 motor strength present throughout Extrem: General: Yes normal to inspection, Yes no pedal edema and Yes no calf tenderness Course Course Course Narrative: 36 yo female here POD 4 after lap roxie here with complaints of diffuse abdominal pain, nausea, subjective fevers, gen weakness for several days. Exam mild diffuse tenderness. No fever here. Will check labs, UA, COVID screen. 2130-labs unremarkable. Urine screen is negative. COVID screen is negative. Discussed patient with Dr. Wiseman is from general surgery who recommended obtaining a CT abdomen and pelvis 2300- CT IMPRESSION: The gallbladder is surgically absent. There is some mild soft tissue stranding within the gallbladder fossa, however, no focal fluid collection is present.? Discussed with Dr. Wiseman. Patient can follow-up tomorrow in the office. I re-examined the patient. Her abdomen is soft. She does have some mild diffuse tenderness but is tolerating p.o.. She tells me she has adequate oxycodone at home. Reviewed worrisome signs and symptoms of when to return to the emergency department. Comfortable discharge home. MDM - Abdominal Pain Medical Records Attestation: I reviewed the patient's medical records. Lab Data Attestation: I reviewed the patient's lab results. Result diagrams: 06/04/21 17:24 06/04/21 17:24 Labs: Lab Results 06/04/21 06/04/21 06/04/21 Range/Units 17:24 17:24 20:39 WBC 8.0 (4.8-10.8) X10*3/uL RBC 4.34 (4.20-5.50) X10*6/uL Hgb 12.6 (12.0-16.0) g/dl Hct 37.6 (37-47) % MCV 86.6 (80-98) fL MCH 29.0 (27.0-33.0) pg MCHC 33.5 (31.0-35.0) g/dl RDW 12.1 (11.0-16.0) % Plt Count 191 (160-400) X10*3/uL MPV 11.4 (9.4-12.3) fL Immature Gran % (Auto) 0.3 (0.0-0.4) % Neut % (Auto) 66.7 (45-73) % Lymph % (Auto) 25.2 (20-40) % Hyde % (Auto) 6.1 (2-11) % Eos % (Auto) 1.4 (0-4) % Baso % (Auto) 0.3 (0-2) % Lymph # (Auto) 2.0 (1.2-4.9) X10*3/uL Hyde # (Auto) 0.5 (0.1-1.2) X10*3/uL Eos # (Auto) 0.1 (0.0-0.4) X10*3/uL Baso # (Auto) 0.0 (0.0-0.2) X10*3/uL Abs Immat Gran (auto) 0.02 (0.00-0.03) X10*3/uL Absolute Neuts (auto) 5.3 (2.0-8.3) X10*3/uL Absolute Nucleated RBC 0.000 (0.0-0.012) X10*3/uL Nucleated RBC % (auto) 0.0 (0.0-0.2) /100WBC Sodium 137 (135-145) mmol/L Potassium 4.4 (3.3-5.1) mmol/L Chloride 104 (96-108) mmol/L Carbon Dioxide 26 (22-29) mmol/L Anion Gap 11 L (12-20) BUN 13 (9-16) mg/dL Creatinine 0.67 (0.5-1.4) mg/dL Estim Creat Clear Calc 136.7 Estimated GFR > 60 Random Glucose 86 (60-115) mg/dL Calcium 9.5 (8.4-10.2) mg/dL Total Bilirubin 0.3 (0.0-1.0) mg/dL AST 15 (5-31) U/L ALT 20 (0-31) U/L Alkaline Phosphatase 96 (39-117) U/L Total Protein 7.4 (6.5-8.0) g/dL Albumin 4.1 (3.5-5.0) g/dL Urine Color Urine Appearance Urine pH (5.0-8.0) Ur Specific [place] (1.005-1.025) Urine Protein (NEG-TRACE) MG/DL Urine Glucose (UA) (NEG) MG/DL Urine Ketones (NEG) MG/DL Urine Blood (NEG) Urine Nitrite (NEG) Ur Leukocyte Esterase (NEG) Urine Test (NEGATIVE) COVID-19 (LOW) Negative (Negative) COVID-19 Clin Com See Note 06/04/21 06/04/21 Range/Units 20:39 20:40 WBC (4.8-10.8) X10*3/uL RBC (4.20-5.50) X10*6/uL Hgb (12.0-16.0) g/dl Hct (37-47) % MCV (80-98) fL MCH (27.0-33.0) pg MCHC (31.0-35.0) g/dl RDW (11.0-16.0) % Plt Count (160-400) X10*3/uL MPV (9.4-12.3) fL Immature Gran % (Auto) (0.0-0.4) % Neut % (Auto) (45-73) % Lymph % (Auto) (20-40) % Hyde % (Auto) (2-11) % Eos % (Auto) (0-4) % Baso % (Auto) (0-2) % Lymph # (Auto) (1.2-4.9) X10*3/uL Hyde # (Auto) (0.1-1.2) X10*3/uL Eos # (Auto) (0.0-0.4) X10*3/uL Baso # (Auto) (0.0-0.2) X10*3/uL Abs Immat Gran (auto) (0.00-0.03) X10*3/uL Absolute Neuts (auto) (2.0-8.3) X10*3/uL Absolute Nucleated RBC (0.0-0.012) X10*3/uL Nucleated RBC % (auto) (0.0-0.2) /100WBC Sodium (135-145) mmol/L Potassium (3.3-5.1) mmol/L Chloride (96-108) mmol/L Carbon Dioxide (22-29) mmol/L Anion Gap (12-20) BUN (9-16) mg/dL Creatinine (0.5-1.4) mg/dL Estim Creat Clear Calc Estimated GFR Random Glucose (60-115) mg/dL Calcium (8.4-10.2) mg/dL Total Bilirubin (0.0-1.0) mg/dL AST (5-31) U/L ALT (0-31) U/L Alkaline Phosphatase (39-117) U/L Total Protein (6.5-8.0) g/dL Albumin (3.5-5.0) g/dL Urine Color YELLOW Urine Appearance HAZY Urine pH 6.5 (5.0-8.0) Ur Specific [place] 1.020 (1.005-1.025) Urine Protein NEG (NEG-TRACE) MG/DL Urine Glucose (UA) NEG (NEG) MG/DL Urine Ketones NEG (NEG) MG/DL Urine Blood NEG (NEG) Urine Nitrite NEG (NEG) Ur Leukocyte Esterase NEG (NEG) Urine Test NEGATIVE (NEGATIVE) COVID-19 (LOW) (Negative) COVID-19 Clin Com Imaging Data CT scan - abdomen: Attestation: I personally reviewed and interpreted this imaging study as follows: Radiologist's impression: EXAMINATION: CT ABDOMEN AND PELVIS WITH CONTRAST? CLINICAL INFORMATION: Pain and fevers status post cholecystectomy.? COMPARISON: CT abdomen pelvis January 07, 2021? TECHNIQUE: Multidetector volumetric images were obtained from the superior aspect of the liver through the pubic symphysis following administration 85 mL of Omnipaque 350 intravenous contrast. Sagittal and coronal reformatted images were obtained on the technologist's workstation.? This CT examination was performed using dose optimization techniques as appropriate, variously including the following: *Automated exposure control *Adjustment of mA and/or kV according to patient size (this includes techniques or standardized protocols for targeted exams where dose is matched to indication/reason for exam; i.e. extremities or head) *Use of iterative reconstruction technique DLP: 658 mGy-cm FINDINGS: Visualized lung bases are well aerated. The liver demonstrates normal size, contour and attenuation. The gallbladder is surgically absent. There is some mild soft tissue stranding within the gallbladder fossa, however, no focal fluid collection is present. The pancreas, spleen and adrenal glands are unremarkable. Symmetrically enhancing kidneys. No hydronephrosis bilaterally. Normal caliber loops of small and large bowel. Normal appendix. Similar tiny fat-containing umbilical hernia. Normal caliber abdominal aorta. No retroperitoneal lymphadenopathy. The bladder is normal in appearance. Unremarkable CT appearance of the uterus. Trace free pelvic fluid, likely physiologic. Shotty bilateral inguinal lymph nodes. Scoliotic and degenerative changes of the spine. Partially visualized Huizar rods. CT/CT abdomen pelvis w con IMPRESSION: The gallbladder is surgically absent. There is some mild soft tissue stranding within the gallbladder fossa, however, no focal fluid collection is present.? Discharge Plan Discharge Clinical Impression: Abdominal pain Patient Disposition: Home, Self-Care Instructions: Abdominal Pain (ED) Additional Instructions: See Dr. wiseman tomorrow Prescriptions: New ondansetron 4 mg tablet,disintegrating 4 mg PO Q6H PRN (Reason: nausea and vomiting) Qty: 10 RF: 0 No Action oxycodone-acetaminophen [Percocet] 5-325 mg tablet 1 tab PO Q4-6H PRN (Reason: pain) Qty: 30 RF: 0 ibuprofen 600 mg tablet 600 mg PO Q6H PRN (Reason: pain) Qty: 30 RF: 0 amitriptyline 25 mg tablet 25 mg PO BEDTIME 90 Days Qty: 90 RF: 3 oxycodone 5 mg tablet 5 mg PO TID PRN (Reason: pain) 30 Days Qty: 90 RF: 0 Referrals: Dav Wiseman MD [Physician] - 2 days Interventions: ED Discharge Assessment Last Done: 06/04/21 23:01 Discharge Date/Time: 06/04/21 23:02 [facility], [facility] Past Medical History Attestation statement: The following information was validated with the patient. Source: old records reviewed and nursing notes reviewed Medical History Anxiety Cholelithiasis Chronic back pain greater than 3 months duration Chronic pain syndrome Insomnia penitentiary (current) use of opiate analgesic Obese Personal history of other diseases of the musculoskeletal system and connective tissue Postlaminectomy syndrome, not elsewhere classified Scoliosis Surgical History Hx of tubal ligation Previous back surgery Family History Family History Mother No problems noted. Father Diabetes Social History Social History Housing: Apartment Are you a primary overnight caregiver to a significant other at home: Yes (children ages-7,11,18) Do you presently have visiting nurse or other home services: Yes (Mon-Sat 1 hour per day) Alcohol intake: current Alcohol intake frequency: does not drink Alcohol type: beer and hard liquor Patient Tobacco Use Status: Former Tobacco user Quit Date: 2010 Tobacco use type: Cigarette e-Cigarette/Vaping Use: Never Used Second Hand Smoke Exposure: No Use of substances other than those prescribed or required for medical reasons: No Advance Directives: No Advance Directives Information Provided: No Patient : No service: No Current occupational status: unemployed
[2021-06-04 20:30] VITALS: BP 126/81; PULSE 65; RESP 16; TEMP 36.5; O2SAT 99
[2021-06-04 20:47] LABS: Glucose Urine UA NEG (NEG); Leukocyte Esterase Urine NEG (NEG); Nitrite Urine NEG (NEG); PH 6.5 (5.0-8.0); Urine Blood NEG (NEG); Urine Ketones NEG (NEG); Urine Protein NEG (NEG-TRACE)
[2021-06-04 20:49] LABS: UPreg QC Valid YES; Urine Pregnancy NEGATIVE (NEGATIVE)
[2021-06-04 20:49] LABS: Appearance Urine HAZY; Color Urine YELLOW
[2021-06-04 21:09] LABS: COVID-19 Test Negative (Negative); IDNOW Serial# 9DD0AD1C
[2021-06-04] MEDS: ondansetron HCL 4 MG/2 ML VIAL IVPUSH (21:55)
[2021-06-04] MEDS: iohexoL 350 MG/ML 100 ML INFUS..BTL IV (21:55)
[2021-06-04 22:26] VITALS: BP 114/68; PULSE 60; RESP 18; TEMP 36.6; O2SAT 98
== END 2021-06-04 23:02 | disposition home or self-care (01) ==
PROVIDERS: Nurse Practitioner Family; Emergency Provider Emergency Medicine; PCP Internal Medicine
DX: R10.9 Unspecified abdominal pain (principal); Z20.822 Contact with and (suspected) exposure to COVID-19; R11.0 Nausea; R53.1 Weakness; Z79.891 Long term (current) use of opiate analgesic; Z90.49 Acquired absence of other specified parts of digestive tract
CPT/HCPCS: 36415; 74177; 80053; 81003; 81025; 85025; 87635; 96374; 99284; J2405; Q9967

== ENCOUNTER → 2021-06-06 09:00 | Outpatient (BNVA) | payer OTHER, SELFPAY | PROVIDERS: PCP Internal Medicine; Visit Provider Anesthesiology | DX: Z51.81 Encounter for therapeutic drug level monitoring (principal); M96.1 Postlaminectomy syndrome, not elsewhere classified; M54.9 Dorsalgia, unspecified; G89.4 Chronic pain syndrome; G89.29 Other chronic pain; Z79.891 Long term (current) use of opiate analgesic | CPT/HCPCS: 99212 ==

== ENCOUNTER → 2021-07-03 09:29 | Outpatient (BNVA) | payer OTHER, SELFPAY | PROVIDERS: PCP Internal Medicine; Visit Provider Anesthesiology | DX: Z51.81 Encounter for therapeutic drug level monitoring (principal); M96.1 Postlaminectomy syndrome, not elsewhere classified; M54.9 Dorsalgia, unspecified; G89.4 Chronic pain syndrome; G89.29 Other chronic pain; Z79.891 Long term (current) use of opiate analgesic | CPT/HCPCS: 99212 ==

== ENCOUNTER → 2021-08-14 16:10 | Outpatient (BNVA) | payer OTHER, SELFPAY | PROVIDERS: PCP Internal Medicine; Visit Provider Anesthesiology | DX: M96.1 Postlaminectomy syndrome, not elsewhere classified (principal); G89.4 Chronic pain syndrome; M54.9 Dorsalgia, unspecified; E66.3 Overweight; Z68.30 Body mass index [BMI] 30.0-30.9, adult; Z87.891 Personal history of nicotine dependence; Z88.0 Allergy status to penicillin; Z79.891 Long term (current) use of opiate analgesic; Z79.899 Other long term (current) drug therapy | CPT/HCPCS: 99212 ==

== ENCOUNTER 2021-08-29 09:43 | Outpatient (REF) | payer OTHER, SELFPAY ==
--- NOTE | ~2021-08-29 | XR_ITS ---
EXAMINATION: CERVICAL SPINE WITH FLEXION-EXTENSION VIEWS. BILATERAL SHOULDERS CLINICAL INFORMATION: Neck pain and shoulder pain. COMPARISON: None TECHNIQUE: Cervical spine 7 views. 4 views each shoulder. FINDINGS: CERVICAL SPINE: There is mild straightening of cervical lordosis. The vertebral heights, alignment and disc heights are normal. On flexion-extension views there is no subluxation seen. However the the flexion and extension is limited on the exam. No acute fracture or dislocation seen. The prevertebral and paravertebral soft tissues are normal. RIGHT SHOULDER: There is no visible acute fracture, dislocation or subluxation. No bony erosive changes. The soft tissues are normal. LEFT SHOULDER: There is no visible acute fracture, dislocation or subluxation. The glenohumeral joint space is normal. The AC joint space is normal. The soft tissues are normal. Incidental finding of 2 Huizar primitivo seen within the thoracic spine. XR/XR cervical spine w flex/ext IMPRESSION: There is mild straightening of cervical lordosis with no subluxation seen on flexion-extension views however limited. Unremarkable bilateral shoulder exam.
--- NOTE | ~2021-08-29 | XR_ITS ---
EXAMINATION: CERVICAL SPINE WITH FLEXION-EXTENSION VIEWS. BILATERAL SHOULDERS CLINICAL INFORMATION: Neck pain and shoulder pain. COMPARISON: None TECHNIQUE: Cervical spine 7 views. 4 views each shoulder. FINDINGS: CERVICAL SPINE: There is mild straightening of cervical lordosis. The vertebral heights, alignment and disc heights are normal. On flexion-extension views there is no subluxation seen. However the the flexion and extension is limited on the exam. No acute fracture or dislocation seen. The prevertebral and paravertebral soft tissues are normal. RIGHT SHOULDER: There is no visible acute fracture, dislocation or subluxation. No bony erosive changes. The soft tissues are normal. LEFT SHOULDER: There is no visible acute fracture, dislocation or subluxation. The glenohumeral joint space is normal. The AC joint space is normal. The soft tissues are normal. Incidental finding of 2 Huizar primitivo seen within the thoracic spine. XR/XR shoulder LT min 2V IMPRESSION: There is mild straightening of cervical lordosis with no subluxation seen on flexion-extension views however limited. Unremarkable bilateral shoulder exam.
--- NOTE | ~2021-08-29 | XR_ITS ---
EXAMINATION: CERVICAL SPINE WITH FLEXION-EXTENSION VIEWS. BILATERAL SHOULDERS CLINICAL INFORMATION: Neck pain and shoulder pain. COMPARISON: None TECHNIQUE: Cervical spine 7 views. 4 views each shoulder. FINDINGS: CERVICAL SPINE: There is mild straightening of cervical lordosis. The vertebral heights, alignment and disc heights are normal. On flexion-extension views there is no subluxation seen. However the the flexion and extension is limited on the exam. No acute fracture or dislocation seen. The prevertebral and paravertebral soft tissues are normal. RIGHT SHOULDER: There is no visible acute fracture, dislocation or subluxation. No bony erosive changes. The soft tissues are normal. LEFT SHOULDER: There is no visible acute fracture, dislocation or subluxation. The glenohumeral joint space is normal. The AC joint space is normal. The soft tissues are normal. Incidental finding of 2 Huizar primitivo seen within the thoracic spine. XR/XR shoulder RT min 2V IMPRESSION: There is mild straightening of cervical lordosis with no subluxation seen on flexion-extension views however limited. Unremarkable bilateral shoulder exam.
[2021-08-29 09:55] LABS: MANUAL DIFF FLAG NO
[2021-08-29 10:17] LABS: Basophils Percent Auto 0.4 % (0-2); Eosinophils Absolute Auto 0.1 X10*3/uL (0.0-0.4); Eosinophils Percent Auto 1.4 % (0-4); Hematocrit 38.5 % (37.0-47.0); Hemoglobin 12.5 g/dl (12.0-16.0); Imm Gran Abs Auto 0.01 X10*3/uL (0.00-0.03); Imm Gran Pct Auto 0.1 % (0.0-0.4); Lymphocytes Absolute Auto 1.7 X10*3/uL (1.2-4.9); Lymphocytes Percent Auto 23.9 % (20-40); Mean Corpuscular HGB Conc 32.5 g/dl (31.0-35.0); Mean Corpuscular Hemoglobin 28.9 pg (27.0-33.0); Mean Corpuscular Volume 88.9 fL (80.0-98.0); Mean Platelet Volume 11.3 fL (9.4-12.3); Monocytes Absolute Auto 0.5 X10*3/uL (0.1-1.2); Monocytes Percent Auto 6.7 % (2-11); Neutrophils Absolute Auto 4.9 x10*3/uL (2.0-8.3); Neutrophils Percent Auto 67.5 % (45-73); Platelet Count 233 X10*3/uL (160-400); Red Blood Count 4.33 X10*6/uL (4.20-5.50); Red Cell Distribution Width 11.9 % (11.0-16.0); White Blood Count 7.3 X10*3/uL (4.8-10.8)
[2021-08-29 10:51] LABS: Anion Gap 11 (12-20); Blood Urea Nitrogen 11 mg/dL (9-16); Calcium 9.5 mg/dL (8.4-10.2); Carbon Dioxide 28 mmol/L (22-29); Chloride 103 mmol/L (96-108); Estimated Glomerular Filt Rate > 60; Glucose Random 95 mg/dL (60-115); Potassium 4.3 mmol/L (3.3-5.1); Sodium 138 mmol/L (135-145)
== END 2021-08-29 09:44 | disposition home or self-care (01) ==
LOC: HO.XRAY 09:43
PROVIDERS: PCP Internal Medicine; Visit Provider Nurse Practitioner Acute Care
DX: M54.2 Cervicalgia (principal); M25.511 Pain in right shoulder; M25.512 Pain in left shoulder; Z79.891 Long term (current) use of opiate analgesic
CPT/HCPCS: 36415; 72052; 73030; 80048; 85025

== ENCOUNTER → 2021-09-11 16:04 | Outpatient (BNVA) | payer OTHER, SELFPAY | PROVIDERS: PCP Internal Medicine; Visit Provider Anesthesiology | DX: Z51.81 Encounter for therapeutic drug level monitoring (principal); F11.20 Opioid dependence, uncomplicated; M54.9 Dorsalgia, unspecified; G89.4 Chronic pain syndrome; G89.29 Other chronic pain; Z79.891 Long term (current) use of opiate analgesic | CPT/HCPCS: 99212 ==

== ENCOUNTER → 2021-10-09 16:18 | Outpatient (BNVA) | payer OTHER, SELFPAY | PROVIDERS: PCP Internal Medicine; Visit Provider Anesthesiology | DX: Z51.81 Encounter for therapeutic drug level monitoring (principal); F11.20 Opioid dependence, uncomplicated; M96.1 Postlaminectomy syndrome, not elsewhere classified; M54.9 Dorsalgia, unspecified; G89.29 Other chronic pain; G89.4 Chronic pain syndrome; Z79.891 Long term (current) use of opiate analgesic | CPT/HCPCS: 99212 ==

== ENCOUNTER → 2021-11-06 15:59 | Outpatient (BNVA) | payer OTHER, SELFPAY | PROVIDERS: PCP Internal Medicine; Visit Provider Anesthesiology | DX: Z51.81 Encounter for therapeutic drug level monitoring (principal); M96.1 Postlaminectomy syndrome, not elsewhere classified; M54.9 Dorsalgia, unspecified; G89.29 Other chronic pain; Z79.891 Long term (current) use of opiate analgesic | CPT/HCPCS: 99212 ==

== ENCOUNTER → 2021-12-04 16:05 | Outpatient (BNVA) | payer OTHER, SELFPAY | PROVIDERS: PCP Internal Medicine; Visit Provider Anesthesiology ==

== ENCOUNTER → 2022-01-01 16:03 | Outpatient (BNVA) | payer OTHER, SELFPAY | PROVIDERS: PCP Internal Medicine; Visit Provider Anesthesiology | DX: Z79.891 Long term (current) use of opiate analgesic (principal) | CPT/HCPCS: 99211 ==

== ENCOUNTER → 2022-01-28 09:51 | Outpatient (BNVA) | payer OTHER, SELFPAY | PROVIDERS: PCP Internal Medicine; Visit Provider Anesthesiology | DX: Z51.81 Encounter for therapeutic drug level monitoring (principal); Z79.891 Long term (current) use of opiate analgesic | CPT/HCPCS: 99211 ==

== ENCOUNTER → 2022-03-03 10:00 | Outpatient (BNVA) | payer OTHER, SELFPAY | PROVIDERS: PCP Internal Medicine; Visit Provider Anesthesiology | DX: Z51.81 Encounter for therapeutic drug level monitoring (principal); F11.20 Opioid dependence, uncomplicated | CPT/HCPCS: 99211 ==

== ENCOUNTER → 2022-04-07 10:12 | Outpatient (BNVA) | payer OTHER, SELFPAY | PROVIDERS: PCP Internal Medicine; Visit Provider Anesthesiology | DX: Z51.81 Encounter for therapeutic drug level monitoring (principal); G89.4 Chronic pain syndrome; M96.1 Postlaminectomy syndrome, not elsewhere classified; M54.9 Dorsalgia, unspecified; Z79.891 Long term (current) use of opiate analgesic | CPT/HCPCS: 99212 ==

== ENCOUNTER → 2022-05-07 14:56 | Outpatient (BNVA) | payer OTHER, SELFPAY | PROVIDERS: PCP Internal Medicine; Visit Provider Anesthesiology | DX: G89.4 Chronic pain syndrome (principal); M96.1 Postlaminectomy syndrome, not elsewhere classified; G89.29 Other chronic pain; M54.9 Dorsalgia, unspecified; M54.2 Cervicalgia; M47.812 Spondylosis without myelopathy or radiculopathy, cervical region; Z79.891 Long term (current) use of opiate analgesic | CPT/HCPCS: 99212 ==

== ENCOUNTER 2022-05-27 16:21 | Outpatient (REF) | payer OTHER, SELFPAY ==
--- NOTE | ~2022-05-27 | MR_ITS ---
MR CERVICAL SPINE WITHOUT CONTRAST CLINICAL INFORMATION: Spondylosis without myelopathy or radiculopathy. COMPARISON: Cervical spine radiographs 08/29/2021. TECHNIQUE: MRI of the cervical spine was obtained using routine sequences without contrast. FINDINGS: Cervical alignment is normal. The vertebral body heights are maintained. The disc volumes are preserved. There is no bone marrow edema. There are no acute fractures. There is metallic artifact within the upper thoracic spine from the thoracic Huizar rods. There is anterior subluxation of T2 on T3 that along with uncovered disc osteophyte and advanced facet arthropathy result in severe right-sided foraminal stenosis at T2-T3 with compression of the exiting right nerve root. Mild narrowing of the central canal at this level. Partially imaged intracranial compartment is unremarkable. Cervical arterial flow voids are maintained. No significant extraspinal soft tissue findings. No cord signal changes. The cervical disc contours remain within normal limits. There is no central canal stenosis and there is no foraminal stenosis within the cervical spine. MR/MR cervical spine wo con IMPRESSION: - The cervical disc contours remain within normal limits. There is no central canal stenosis and there is no foraminal stenosis within the cervical spine. There is no cervical cord compression and there are no signal changes within the cervical spinal cord. - There is metallic artifact within the upper thoracic spine from thoracic Huizar rods. There is anterior subluxation of T2 on T3 that along with uncovered disc osteophyte and advanced facet arthropathy result in severe right-sided foraminal stenosis at T2-T3 with compression of the exiting right nerve root. Mild narrowing of the central canal at this level.
== END 2022-05-27 16:22 | disposition home or self-care (01) ==
LOC: HO.MRI 16:21
PROVIDERS: Visit Provider Anesthesiology
DX: M47.812 Spondylosis without myelopathy or radiculopathy, cervical region (principal); M54.2 Cervicalgia
CPT/HCPCS: 72141

== ENCOUNTER → 2022-06-04 10:48 | Outpatient (BNVA) | payer OTHER, SELFPAY | PROVIDERS: PCP Internal Medicine; Visit Provider Anesthesiology | DX: Z51.81 Encounter for therapeutic drug level monitoring (principal); F11.20 Opioid dependence, uncomplicated | CPT/HCPCS: 99211 ==

== ENCOUNTER → 2022-06-09 08:22 | Outpatient (BNVA) | payer OTHER, SELFPAY | PROVIDERS: PCP Internal Medicine; Visit Provider Anesthesiology | DX: M54.2 Cervicalgia (principal); M47.812 Spondylosis without myelopathy or radiculopathy, cervical region; M96.1 Postlaminectomy syndrome, not elsewhere classified; M54.9 Dorsalgia, unspecified; G89.4 Chronic pain syndrome; Z79.891 Long term (current) use of opiate analgesic | CPT/HCPCS: 99212 ==

== ENCOUNTER → 2022-07-09 14:00 | Outpatient (BNVA) | payer OTHER, SELFPAY | PROVIDERS: PCP Internal Medicine; Visit Provider Anesthesiology | DX: G89.4 Chronic pain syndrome (principal); M96.1 Postlaminectomy syndrome, not elsewhere classified; M54.9 Dorsalgia, unspecified; M54.2 Cervicalgia; M47.812 Spondylosis without myelopathy or radiculopathy, cervical region; Z79.891 Long term (current) use of opiate analgesic | CPT/HCPCS: 99212 ==

== ENCOUNTER → 2022-08-06 13:15 | Outpatient (BNVA) | payer OTHER, SELFPAY | PROVIDERS: PCP Internal Medicine; Visit Provider Anesthesiology | DX: Z51.81 Encounter for therapeutic drug level monitoring (principal); F11.20 Opioid dependence, uncomplicated | CPT/HCPCS: 99211 ==

== ENCOUNTER 2022-09-03 13:42 | Outpatient (REF) | payer OTHER, SELFPAY ==
--- NOTE | ~2022-09-03 | XR_ITS ---
EXAMINATION: XR SHOULDER, LEFT CLINICAL INFORMATION: Pain COMPARISON: August 29, 2021 TECHNIQUE: AP external rotation, Grashey, scapular Y, and axillary views of the left shoulder. FINDINGS: The bones and soft tissues are normal. No fracture. Glenohumeral and acromioclavicular alignment is anatomic with normal joint space. No abnormal soft tissue calcifications. Huizar rods noted within the thoracic spine. XR/XR shoulder LT min 2V IMPRESSION: No significant left shoulder abnormality identified.
== END 2022-09-03 13:43 | disposition home or self-care (01) ==
LOC: HO.HMGCX 13:42
PROVIDERS: PCP Internal Medicine; Visit Provider Nurse Practitioner Family
DX: M25.512 Pain in left shoulder (principal)
CPT/HCPCS: 73030

== ENCOUNTER → 2022-09-08 13:14 | Outpatient (BNVA) | payer OTHER, SELFPAY | PROVIDERS: PCP Internal Medicine; Visit Provider Anesthesiology | DX: G89.4 Chronic pain syndrome (principal); M96.1 Postlaminectomy syndrome, not elsewhere classified; G89.29 Other chronic pain; M54.9 Dorsalgia, unspecified; M54.2 Cervicalgia; M47.812 Spondylosis without myelopathy or radiculopathy, cervical region; Z79.891 Long term (current) use of opiate analgesic | CPT/HCPCS: 99212 ==

== ENCOUNTER → 2022-10-13 13:17 | Outpatient (BNVA) | payer OTHER, SELFPAY | PROVIDERS: PCP Internal Medicine; Visit Provider Anesthesiology | DX: M96.1 Postlaminectomy syndrome, not elsewhere classified (principal); G89.4 Chronic pain syndrome; M54.2 Cervicalgia; M47.812 Spondylosis without myelopathy or radiculopathy, cervical region; M46.1 Sacroiliitis, not elsewhere classified; M53.3 Sacrococcygeal disorders, not elsewhere classified; Z79.891 Long term (current) use of opiate analgesic | CPT/HCPCS: 99212 ==

== ENCOUNTER 2022-10-17 13:01 | Outpatient (REF) | payer OTHER, SELFPAY ==
[2022-10-18 04:34] LABS: CT PCR NOT DETECTED (Not Detect.); NG PCR NOT DETECTED (Not Detect.)
[2022-10-18 13:31] LABS: BV Int Neg Control Negative (Negative); BV Int Pos Control Positive (Positive)
[2022-10-27 03:19] LABS: HPV 16 RNA NOT DETECTED (NOT DETECTED); HPV mRNA E6/E7 rflx Detected (Not Detected)
== END 2022-10-17 13:02 | disposition home or self-care (01) ==
LOC: HO.LNP 13:01
PROVIDERS: PCP Internal Medicine; Visit Provider Advanced Practice Midwife
DX: Z01.419 Encounter for gynecological examination (general) (routine) without abnormal findings (principal); Z11.51 Encounter for screening for human papillomavirus (HPV); N92.0 Excessive and frequent menstruation with regular cycle; M54.9 Dorsalgia, unspecified; G89.29 Other chronic pain
CPT/HCPCS: 0353U; 87480; 87510; 87624; 87625; 87660; 88142

== ENCOUNTER 2022-10-29 13:00 | Outpatient (REF) | payer OTHER, SELFPAY ==
--- NOTE | ~2022-10-29 | US_ITS ---
EXAMINATION: US PELVIS CLINICAL INFORMATION: Excessive and frequent menstruation with irregular cycle. COMPARISON: None. TECHNIQUE: Ultrasound of the pelvis is performed using both transabdominal and transvaginal transducers along with Doppler. Transvaginal imaging is performed due to inadequate visualization transabdominally. FINDINGS: Uterus: The uterus is anteverted, anteflexed and measures 11.1 cm in length, 5.2 mL in AP and 6.0 cm in transverse dimension. The double wall endometrial thickness measures 1.6 cm.. The uterus is smooth in contour and has normal myometrial echogenicity. No visible fibroid. There are small nabothian cysts in cervix. Minimal free fluid suspected in the cervix. Adnexa: Both ovaries are visualized. There is normal color flow to the adnexa. There is no ovarian torsion. There is no pelvic ascites or fluid collection. Right ovary measures 2.9 x 1.3 x 1.8 cm and volume 2.5 mL. No focal lesion seen. Previously right ovary measured 2.6 x 3.1 x 2.4 cm. Left ovary measures 3.6 x 1.8 x 2.6 cm and volume 8.8 mL. There is anechoic cyst measuring 2.3 x 1.9 x 1.5 cm. Previously it measured 2.5 x 3.0 x 2.1 cm. There is no free fluid in the cul-de-sac. US/US pelvic and transvaginal IMPRESSION: Unremarkable uterus. Nabothian cysts in the cervix. Minimal fluid in the cervix. Simple cyst left ovary measuring 2.3 cm. Unremarkable right ovary.
[2022-10-29 14:25] LABS: Hematocrit 38.6 % (37.0-47.0); Hemoglobin 12.7 g/dl (12.0-16.0); Mean Corpuscular HGB Conc 32.9 g/dl (31.0-35.0); Mean Corpuscular Volume 88.1 fL (80.0-98.0); Mean Platelet Volume 11.6 fL (9.4-12.3); Platelet Count 223 X10*3/uL (160-400); Red Blood Count 4.38 X10*6/uL (4.20-5.50); Red Cell Distribution Width 12.3 % (11.0-16.0); White Blood Count 7.8 X10*3/uL (4.8-10.8)
[2022-10-29 15:25] LABS: Vitamin D 25-OH Total 15.6 ng/mL (>30)
[2022-10-29 15:29] LABS: Thyroid Stimulating Hormone 0.79 uIU/mL (0.32-4.0)
[2022-10-29 16:15] LABS: Alanine Aminotransferase 22 U/L (0-31); Albumin Level 4.2 g/dL (3.5-5.0); Alkaline Phosphatase 85 U/L (39-117); Anion Gap 9 (12-20); Aspartate Amino Transferase 19 U/L (5-31); Bilirubin Total 0.4 mg/dL (0.0-1.0); Blood Urea Nitrogen 10 mg/dL (9-16); Calcium 9.5 mg/dL (8.4-10.2); Carbon Dioxide 29 mmol/L (22-29); Chloride 103 mmol/L (96-108); Cholesterol 220 mg/dL; Estimated Glomerular Filt Rate > 60; Glucose Fasting 86 mg/dL (60-99); HDL Cholesterol 80 mg/dL; LDL Cholesterol Calculated 133 mg/dl; Sodium 137 mmol/L (135-145); Total Protein 7.1 g/dL (6.5-8.0); Triglycerides 37 mg/dL
== END 2022-10-29 13:01 | disposition home or self-care (01) ==
LOC: HO.US 13:00
PROVIDERS: Absent Provider Internal Medicine; PCP Internal Medicine; Visit Provider Advanced Practice Midwife
DX: Z00.00 Encounter for general adult medical examination without abnormal findings (principal); N92.0 Excessive and frequent menstruation with regular cycle; E55.9 Vitamin D deficiency, unspecified
CPT/HCPCS: 36415; 76830; 76856; 80053; 80061; 82306; 84443; 85027

== ENCOUNTER → 2022-11-10 15:22 | Outpatient (BNVA) | payer OTHER, SELFPAY | PROVIDERS: PCP Internal Medicine; Visit Provider Anesthesiology | DX: M46.1 Sacroiliitis, not elsewhere classified (principal); M96.1 Postlaminectomy syndrome, not elsewhere classified; G89.4 Chronic pain syndrome; M54.9 Dorsalgia, unspecified; M54.2 Cervicalgia; M53.3 Sacrococcygeal disorders, not elsewhere classified; M41.9 Scoliosis, unspecified; M47.812 Spondylosis without myelopathy or radiculopathy, cervical region; Z79.891 Long term (current) use of opiate analgesic | CPT/HCPCS: 99212 ==

== ENCOUNTER → 2022-11-25 13:25 | Outpatient (BNVA) | payer OTHER, SELFPAY | PROVIDERS: PCP Internal Medicine; Visit Provider Advanced Practice Midwife | DX: Z12.4 Encounter for screening for malignant neoplasm of cervix (principal); N92.0 Excessive and frequent menstruation with regular cycle; N83.209 Unspecified ovarian cyst, unspecified side | CPT/HCPCS: 99212 ==

== ENCOUNTER 2022-11-27 11:52 | Day surgery (SDC) | payer OTHER, SELFPAY ==
[2022-11-24 10:45] VITALS: BMI 30.4
--- NOTE | 2022-11-26 11:03 | HO.ANESPROP2 ---
Documented by User: Bruna Woods NP 11/26/22 11:04 HPI - Anesthesia Eval Consult details Narrative: 37yo F for Diagnostic Sacroiliac Joint Steroid Injection PMFSH Active Problems Active Problems: All Active Problems (Updated 11/25/22 @ 14:22 by Maria R Talbot CNM) Simple ovarian cyst (Acute) Neck pain (Acute) Shoulder pain, bilateral (Acute) Cervicalgia (Acute) Spondylosis of cervical joint without myelopathy (Acute) Physical exam (Acute) Acne (Acute) Sacroiliitis (Acute) Sacroiliac joint pain (Acute) Menorrhagia (Acute) Well woman exam with routine gynecological exam (Acute) Cervical cancer screening (Acute) Obese (Acute) Cholelithiasis (Acute) 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 (Acute) 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 (Acute) Personal history of other diseases of the musculoskeletal system and connective tissue (Acute) Chronic pain syndrome (Acute) Postlaminectomy syndrome, not elsewhere classified (Acute) Chronic back pain greater than 3 months duration (Acute) Past Medical History Medical History Anxiety Cholelithiasis Chronic back pain greater than 3 months duration Chronic pain syndrome Insomnia group home (current) use of opiate analgesic Obese Personal history of other diseases of the musculoskeletal system and connective tissue Postlaminectomy syndrome, not elsewhere classified Scoliosis Family History Family History Mother No problems noted. 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 ages-7,11,18) Do you presently have visiting nurse or other home services: Yes (Mon-Sat 1 hour per day) Alcohol intake: current Alcohol intake frequency: holidays/special occasions only Alcohol type: beer and hard liquor Patient Tobacco Use Status: Former Tobacco user Quit Date: 2010 Tobacco use type: Cigarette e-Cigarette/Vaping Use: Never Used Second Hand Smoke Exposure: No Use of substances other than those prescribed or required for medical reasons: No Are you DNR?: No Advance Directives: No Advance Directives Information Provided: Yes Recently lost weight without trying: No Nutrition Risks: No Nutritional Risk service: No Current occupational status: unemployed Cognitive needs: No Hearing needs: No Vision needs: No Meds Allergies Allergy/AdvReac Type Severity Reaction Status Date / Time Penicillins Allergy Unknown Hives Verified 11/27/22 12:11 Exam Exam Date and Time: November 26, 2022 1103 Height,Weight and Vital Signs: Height 5 ft 8 in Weight 90.718 kg Pertinent Lab Results Pertinent Lab Results: Laboratory Tests 10/29/22 10/29/22 13:55 13:55 WBC 7.8 Hgb 12.7 Hct 38.6 Plt Count 223 Sodium 137 Potassium 4.0 Chloride 103 Carbon Dioxide 29 BUN 10 Creatinine 0.67 Assessment and Plan Assessment Anesthesia Assessment: Chart Reviewed Final Anesthetic Review Family History of Problems with Anesthesia: No History of Problems with Anesthesia: No Documented by User: Martin Ibarra MD 11/27/22 13:33 PMFSH Past Medical History Medical History Anxiety Cholelithiasis Chronic back pain greater than 3 months duration Chronic pain syndrome Insomnia group home (current) use of opiate analgesic Obese Personal history of other diseases of the musculoskeletal system and connective tissue Postlaminectomy syndrome, not elsewhere classified Scoliosis Family History Family History Mother No problems noted. 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 (children ages-7,11,18) Do you presently have visiting nurse or other home services: Yes (Mon-Sat 1 hour per day) Alcohol intake: current Alcohol intake frequency: holidays/special occasions only Alcohol type: beer and hard liquor Patient Tobacco Use Status: Former Tobacco user Quit Date: 2010 Tobacco use type: Cigarette e-Cigarette/Vaping Use: Never Used Second Hand Smoke Exposure: No Use of substances other than those prescribed or required for medical reasons: No Are you DNR?: No Advance Directives: No Advance Directives Information Provided: Yes Recently lost weight without trying: No Nutrition Risks: No Nutritional Risk service: No Current occupational status: unemployed Cognitive needs: No Hearing needs: No Vision needs: No Meds Allergies Allergy/AdvReac Type Severity Reaction Status Date / Time Penicillins Allergy Unknown Hives Verified 11/27/22 12:11 Exam Airway Mallampati Class: II TM Dist: >3cm Neck ROM: Full Loose/Missing/Broken Teeth: No Assessment and Plan Assessment Anesthesia Assessment: Anesthesia Plan Discussed Final Anesthetic Review NPO: Yes ASA Class: II Final Preanesthetic Review: No Changes in Pt Med Stat, Meds/Allgs Chart Reviewed, Consent Obtained/Reviewed and Anes Risks/Benef Reviewed Patient Risk: Low Procedure Risk: Low Anesthetic Plan Anesthetic Plan: MAC: Disposition: Standard PACU
--- NOTE | ~2022-11-27 | FL_ITS ---
EXAMINATION: XR FLUOROSCOPY WITH IMAGES CLINICAL INFORMATION: Pain. Right SI joint injection for pain management. COMPARISON: CT pelvis 06/04/2021 TECHNIQUE: Fluoroscopy Supervised By: Dr. Anderson Musa. Fluoroscopy Time: 0.2. Cumulative Dose: 4.93 mGy. DAP: 4.37 Gycm2. Images: 1. FINDINGS: Spinal needle overlies mid right SI joint. There is contrast in the periarticular soft tissues with probable early intra-articular contrast. FL/FL guidance in OR IMPRESSION: Fluoroscopy for pain management procedure.
[2022-11-27 12:11] VITALS: BMI 29.5
[2022-11-27 12:17] VITALS: BP 109/60; PULSE 67; RESP 16; TEMP 36.6; O2SAT 97
[2022-11-27] MEDS: Lactated Ringers 1,000 ML 100 ML IVCONT (12:42)
--- NOTE | 2022-11-27 13:25 | MHC.SHP ---
Pre-Procedural Eval Section A Date of Service: 11/27/22 The patient is an INPATIENT: No Changes since office visit: Yes Patient answered all questions The History & Physical has been completed within 30 days and I have reviewed it.: No Section B Chief Complaint: Sacroiliitis, not elsewhere classified Details of Present Illness: as above Relevant Family History (Specify if Yes): No Relevant Social History: None Present Medications: see Short Stay Collaborative assessment Medical History: No relevant PMH History of Previous Operations: No relevant previous surgery Allergies: Allergies Allergy/AdvReac Type Severity Reaction Status Date / Time Penicillins Allergy Unknown Hives Verified 11/27/22 12:11 Review of Systems Sugical H&P ROS: Negative: Constitution, Cardiovascular, Respiratory, Neurological, Psychiatric, Hem-Onc, Allergic/Immunologic, Gastrointestinal, Genitourinary, Musculoskeletal, Integumentary, Endocrine and Eyes/Ears/Nose/Throat Exam Surgical H&P Exam: Normal: HEENT, Normal: Heart, Normal: Lungs, Normal: Extremities, Normal: Abdomen, Normal: Skin and Normal: Neurological Plan Diagnosis/Plan: Unchanged I have reviewed the history and physical and performed a pertinent physical examination on my patient. No changes have occurred unless specified. Time Spent With Patient Time: Total time managing care of this patient today ____ minutes.
--- NOTE | 2022-11-27 14:11 | PM.OP ---
Brief Operative Note Date of Service: 11/27/22 Pre-op diagnosis: sacroiliitis, Right SI joint pain Post-op diagnosis: same Procedure: Sacroiliac joint injection right Implants: none Surgeon: Anderson Musa MD Anesthesia: MAC Was an Voice Network Engineer used for this Procedure?: No Estimated blood loss (mL): 0 Condition: stable Disposition: PACU
--- NOTE | 2022-11-27 14:12 | P.OP_ITS ---
Operative Note Operative Note Date of Service: 11/27/22 Narrative: Right diagnostic sacroiliac joint injection Informed consent was explained thoroughly to the patient. All questions about benefits and risks for the procedure were answered. Patient came to the operating room and was positioned prone on the operating table with the pillow under her pelvis. ASA monitors were applied the matient was deeply sedated. Time out was performed delineating name and of the patient, site and side of the procedure, nature of the procedure and potential patient?s risks. The lower back of the patient and upper buttocks was prepped with ChloraPrep prepped and draped with sterile utility drapes. C-arm was brought over the operating field and square picture of patient's pelvis was demonstrated on the screen. Right SI joint insuffisuency is noted. For the right joint tilting C- arm contralateral to the site of the joint the posterior joint silhouette was superimposed on the anterior silhouette. Skin projection of the joint was chosen as a target of the injection and it was injected slightly medial to the location of the joint with 25 gauge needle using local lidocaine 2% mixed with ropivacaine 1:1. After that 22 gauge 3 and 1/2 inch needle was driven to the joint silhouette in tunnel vision fashion. When needle entered the joint capsule injection of the contrast was performed demonstrating intra-articular spread of the contrast. After that 5 cc. of ropivacaine 0.5% was injected into the joint. Upon completion of the injections the needle was removed and sterile dressing was applied. Upon completion of the injection patient was taken outside of the o perating room to the recovery room where she recovered uneventfully
[2022-11-27 14:19] VITALS: BP 120/71; PULSE 68; RESP 16; TEMP 36.5; O2SAT 95
[2022-11-27 14:34] VITALS: BP 128/70; PULSE 60; RESP 14; O2SAT 100
[2022-11-27 14:49] VITALS: BP 126/74; PULSE 57; RESP 16; TEMP 36.4; O2SAT 100
== END 2022-11-27 15:25 | disposition home or self-care (01) ==
PROVIDERS: PCP Internal Medicine; Visit Provider Anesthesiology
PROC: 3E0U33Z Introduction of Anti-inflammatory into Joints, Percutaneous Approach (ICD-10-PCS; CPT 27096; principal; 2022-11-27 13:30)
DX: M46.1 Sacroiliitis, not elsewhere classified (principal); M53.3 Sacrococcygeal disorders, not elsewhere classified; M96.1 Postlaminectomy syndrome, not elsewhere classified; G89.4 Chronic pain syndrome; M41.9 Scoliosis, unspecified; Z79.891 Long term (current) use of opiate analgesic; Z79.899 Other long term (current) drug therapy; Z88.0 Allergy status to penicillin; Z87.891 Personal history of nicotine dependence
CPT/HCPCS: 27096; J2250; J2795; J3010; Q9967

== ENCOUNTER 2022-12-01 12:22 | Emergency (ER) | payer OTHER, SELFPAY ==
[2022-12-01 12:48] VITALS: BP 114/72; PULSE 88; RESP 18; TEMP 36.9; O2SAT 99; BMI 30.4
--- NOTE | 2022-12-01 12:49 | ED.BACK ---
HPI - Back Pain/Injury General Chief Complaint: Back Pain/Injury <JIMMY Ford - Last Filed: 12/01/22 12:51> Stated Complaint: Injection done thursday/Back pain <JIMMY Ford - Last Filed: 12/01/22 12:51> Time Seen by Provider: 12/01/22 17:42 <JIMMY Ford - Last Filed: 12/01/22 12:51> History of Present Illness HPI Narrative: 37-year-old female with history of chronic back pain presents with acute on chronic severe back pain.? The back pain is lumbar in nature.? Radiates down the right leg associated with decreased sensation down left leg.? Pain is worse with movement.? The pain is constant.? It is not associated with loss of bowel or bladder control.? She denies saddle paresthesias.? She denies any intravenous drug abuse or fevers.? She did have recent epidural injection performed by pain management.? She took 2 oxycodone at home earlier today without improvement in her symptoms.? Patient denies any new trauma, falls or twisting injuries. <Raffy Morocho MD - Last Filed: 12/01/22 18:57> Related Data Home Medications: Previous Rx's Medication Instructions Recorded amitriptyline 25 mg tablet 25 mg PO BEDTIME 90 days #90 tabs 02/26/22 cholecalciferol (vitamin D3) 50 50 mcg PO DAILY 90 days #90 caps 10/29/22 mcg (2,000 unit) capsule oxycodone 5 mg tablet 5 mg PO Q6H PRN pain 30 days #120 11/15/22 tabs doxycycline hyclate 100 mg tablet 100 mg PO BID 30 days #60 tabs 11/26/22 cyclobenzaprine 10 mg tablet 10 mg PO TID PRN muscle spasm #10 12/01/22 tabs hydromorphone 2 mg tablet 2 mg PO .bid prn PRN pain #7 tabs 12/01/22 (Dilaudid) lidocaine 5 % topical patch 1 patch topical DAILY #15 ea 12/01/22 methylprednisolone 4 mg tablets in 4 mg PO DAILY #21 ea 12/01/22 a dose pack (Medrol (Evelio)) <JIMMY Ford - Last Filed: 03/06/23 12:51> Allergies/Adverse Reactions: Allergies Allergy/AdvReac Type Severity Reaction Status Date / Time Penicillins Allergy Unknown Hives Verified 12/01/22 12:48 <JIMMY Ford - Last Filed: 12/01/22 12:51> [facility] Past Medical History Medical History: Medical History Anxiety Cholelithiasis Chronic back pain greater than 3 months duration Chronic pain syndrome Insomnia halfway (current) use of opiate analgesic Obese Personal history of other diseases of the musculoskeletal system and connective tissue Postlaminectomy syndrome, not elsewhere classified Scoliosis <JIMMY Ford - Last Filed: 12/01/22 12:51> Surgical History: Surgical History Hx of cholecystectomy Hx of tubal ligation Previous back surgery <JIMMY Ford - Last Filed: 12/01/22 12:51> Family History Family History: Family History Mother No problems noted. Father Diabetes <JIMMY Ford - Last Filed: 12/01/22 12:51> Social History Social History: Social History Housing: Apartment Are you a primary hearing care practitioner to a significant other at home: Yes (children ages-7,11,18) Do you presently have visiting nurse or other home services: Yes (Mon-Sat 1 hour per day) Alcohol intake: current Alcohol intake frequency: holidays/special occasions only Alcohol type: beer and hard liquor Patient Tobacco Use Status: Former Tobacco user Quit Date: 2010 Tobacco use type: Cigarette e-Cigarette/Vaping Use: Never Used Second Hand Smoke Exposure: No Advance Directives: No Advance Directives Information Provided: No service: No Current occupational status: unemployed Cognitive needs: No Hearing needs: No Vision needs: No <JIMMY Ford - Last Filed: 12/01/22 12:51> Physical Exam Vital Signs: Vital Signs: Last Vital Signs Temp 98.7 F 12/01/22 19:19 Pulse 84 12/01/22 19:19 Resp 16 12/01/22 19:19 BP 109/61 12/01/22 19:19 Pulse Ox 96 12/01/22 19:19 O2 Del Method 12/01/22 19:19 BMI result Body Mass Index 30.4 <JIMMY Ford - Last Filed: 12/01/22 12:51> Vital Signs: Last Vital Signs Temp 98.7 F 12/01/22 19:19 Pulse 84 12/01/22 19:19 Resp 16 12/01/22 19:19 BP 109/61 12/01/22 19:19 Pulse Ox 96 12/01/22 19:19 O2 Del Method 12/01/22 19:19 BMI result Body Mass Index 30.4 <Raffy Morocho MD - Last Filed: 12/01/22 18:57> GEN: Well developed, no acute distress, alert, oriented HEENT: Normocephalic, atraumatic, normal external ears, nose appears normal Eyes: Normal to appearance Neck: Supple, no lymphadenopathy Respiratory: Talks in complete sentences, no respiratory distress Extremities: No clubbing cyanosis or edema Neurologic: No focal neurologic deficits, cranial nerves 2-12 intact, gait normal Skin: No rash Back:? Previous scar from surgical approach, no midline tenderness, no erythematous skin changes or evidence of cellulitis, bilateral paraspinous tenderness, strength is 4/5 bilateral although the right is slightly weaker than the left.? She has negative Babinski, <Raffy Morocho MD - Last Filed: 12/01/22 18:57> Course Course Course Narrative: RME - 37 yo female presents to the ER for evaluation of worsening low back pain since she had injections with Dr. Musa on 11/27. Taking Percocet but no improvement in the pain. Pain is worse on the right side, worse with sitting, standing, walking and any movement. She has a phone appointment with Dr. Musa at 3:45 today. Plan - evaluate in [facility], follow up with Dr. Musa. She wants to stay in the ER despite having her phone appointment with Dr. Musa today. <JIMMY Ford - Last Filed: 12/01/22 12:51> Reevaluation(s) Reevaluation #1: 37-year-old female presents with severe lumbar radiculopathy.? Examination is consistent with radiculopathy.? She is followed by pain management.? There have been no new traumatic injuries.? She denies loss of bowel or bladder control or saddle paresthesias to suggest a diagnosis of acute cauda equina syndrome.? She has no fevers or chills no midline tenderness no obvious focal neurologic deficits to suggest epidural abscess.? At this point, I would recommend a course of aggressive pain management to see if we can get the patient discharged.? Treatment will include Dilaudid, Toradol, Tylenol, Lidoderm, Decadron, muscle relaxer. Patient is feeling much better at this time. She is ready to go home. We discussed the course of back pain and she is aware that her pain will be persistent over the next several days. Our goal of treatment is to manage her pain rather than to eliminate her pain. She should follow-up with her pain specialist over the next 48 hours. <Raffy Morocho MD - Last Filed: 12/01/22 18:57> Time: 18:53 <Raffy Morocho MD - Last Filed: 12/01/22 18:57> Medications Administered Discontinued Medications Generic Name Dose Route Start Last Admin Trade Name Freq PRN Reason Stop Dose Admin Acetaminophen 975 mg 12/01/22 17:53 12/01/22 18:20 Acetaminophen 325 Mg Tablet PO 12/01/22 17:54 975 mg ONCE ONE Administration Cyclobenzaprine HCl 10 mg 12/01/22 17:53 12/01/22 18:22 Cyclobenzaprine Hcl 10 Mg Tablet PO 12/01/22 17:54 10 mg ONCE ONE Administration Dexamethasone 10 mg 12/01/22 17:53 12/01/22 18:21 Dexamethasone 2 Mg Tablet PO 12/01/22 17:54 10 mg ONCE ONE Administration Hydromorphone HCl 1 mg 12/01/22 17:53 12/01/22 18:23 Hydromorphone Hcl 1 Mg/Ml Syringe IM 12/01/22 17:54 1 mg ONCE ONE Administration Protocol Ketorolac Tromethamine 30 mg 12/01/22 17:53 12/01/22 18:23 Ketorolac Tromethamine 30 Mg/Ml Vial IM 12/01/22 17:54 30 mg ONCE ONE Administration Lidocaine 2 patch 12/01/22 17:53 12/01/22 18:20 Lidocaine 4 % Patch Adh..Patch TRANSDERMA 12/01/22 17:54 2 patch ONCE ONE Administration Protocol <JIMMY Ford - Last Filed: 12/01/22 12:51> Medications Administered Discontinued Medications Generic Name Dose Route Start Last Admin Trade Name Cuca PRN Reason Stop Dose Admin Acetaminophen 975 mg 12/01/22 17:53 12/01/22 18:20 Acetaminophen 325 Mg Tablet PO 12/01/22 17:54 975 mg ONCE ONE Administration Cyclobenzaprine HCl 10 mg 12/01/22 17:53 12/01/22 18:22 Cyclobenzaprine Hcl 10 Mg Tablet PO 12/01/22 17:54 10 mg ONCE ONE Administration Dexamethasone 10 mg 12/01/22 17:53 12/01/22 18:21 Dexamethasone 2 Mg Tablet PO 12/01/22 17:54 10 mg ONCE ONE Administration Hydromorphone HCl 1 mg 12/01/22 17:53 12/01/22 18:23 Hydromorphone Hcl 1 Mg/Ml Syringe IM 12/01/22 17:54 1 mg ONCE ONE Administration Protocol Ketorolac Tromethamine 30 mg 12/01/22 17:53 12/01/22 18:23 Ketorolac Tromethamine 30 Mg/Ml Vial IM 12/01/22 17:54 30 mg ONCE ONE Administration Lidocaine 2 patch 12/01/22 17:53 12/01/22 18:20 Lidocaine 4 % Patch Adh..Patch TRANSDERMA 12/01/22 17:54 2 patch ONCE ONE Administration Protocol <Raffy Morocho MD - Last Filed: 12/01/22 18:57> Medical Decision Making Medical Decision Making MDM Narrative: 37-year-old female presents with severe lumbar radiculopathy.? Examination is consistent with radiculopathy.? She is followed by pain management.? There have been no new traumatic injuries.? She denies loss of bowel or bladder control or saddle paresthesias to suggest a diagnosis of acute cauda equina syndrome.? She has no fevers or chills no midline tenderness no obvious focal neurologic deficits to suggest epidural abscess.? At this point, I would recommend a course of aggressive pain management to see if we can get the patient discharged.? Treatment will include Dilaudid, Toradol, Tylenol, Lidoderm, Decadron, muscle relaxer. <Raffy Morocho MD - Last Filed: 12/01/22 18:57> Differential Diagnosis Differential Diagnoses: The differential diagnosis associated with the presentation includes (The differential diagnosis associated with the presentation includes (Lumbar radiculopathy, spinal stenosis, disc impingement, muscle spasm)) <Raffy Morocho MD - Last Filed: 12/01/22 18:57> Lumbar radiculopathy <Raffy Morocho MD - Last Filed: 12/01/22 18:57> Admission/Observation Consideration of admission/observation: Escalation of care including admission/observation considered <Raffy Morocho MD - Last Filed: 12/01/22 18:57> External Record Review External record reviewed: Office record and Outpatient record <Raffy Morocho MD - Last Filed: 12/01/22 18:57> Tests considered The following testing was considered but not selected: X-ray, MRI <Raffy Morocho MD - Last Filed: 12/01/22 18:57> Prescription Management I considered prescription management with: Pain Medication <Raffy Morocho MD - Last Filed: 12/01/22 18:57> Discharge Plan Discharge Clinical Impression: Sacroiliac joint pain, Postlaminectomy syndrome, not elsewhere classified, Lumbar radiculopathy <JIMMY Ford - Last Filed: 12/01/22 12:51> Patient Disposition: Home, Self-Care <JIMMY Ford - Last Filed: 12/01/22 12:51> Instructions: Acute Low Back Pain (ED), Lumbar Radiculopathy (ED), Sacroiliitis (ED) <JIMMY Ford - Last Filed: 12/01/22 12:51> Additional Instructions: You were seen today for lumbar radiculopathy, sacroiliitis and post-laminectomy syndrome. Her pain moderate to some degree while in the emergency department. We can expect her pain to persist over the next several days but hopefully this will moderate to point they are able to function better at home. For ear pain regimen, I am recommending the following treatment Options. 1. Meloxicam daily for 10 days 2. Tylenol 1000 mg every 6 hours as needed for additional pain relief 3. Cyclobenzaprine 10 mg every 8 hours as needed for muscle spasm, can cause drowsiness 4. Dilaudid 2 mg oral tablet every 12 hours as needed for severe pain, may cause drowsiness and constipation. Recommending a stool softener like MiraLax 1 capful daily in 8 oz of water 5. Lidocaine patches every 12 hours as needed for pain relief 6. Steroid Dosepak as prescribed 7. Heating pad 20-30 minutes on at a time, never fall asleep with a heating pad Additionally, I am recommending close follow-up with her pain specialist within 24-48 hours You have been given a prescription for oxycodone in the past, I am recommending not taking this medication while taking Dilaudid <JIMMY Ford - Last Filed: 12/01/22 12:51> Prescriptions: New hydromorphone [Dilaudid] 2 mg tablet 2 mg PO .bid prn PRN (Reason: pain) Qty: 7 0RF Rx Instructions: Partial Fill upon patient request. cyclobenzaprine 10 mg tablet 10 mg PO TID PRN (Reason: muscle spasm) Qty: 10 0RF methylprednisolone [Medrol (Evelio)] 4 mg tablets,dose pack 4 mg PO DAILY Qty: 21 0RF Rx Instructions: Take as directed lidocaine 5 % adhesive patch,medicated 1 patch topical DAILY Qty: 15 0RF Rx Instructions: leave on most painful area for up to 12 hrs No Action amitriptyline 25 mg tablet 25 mg PO BEDTIME 90 Days Qty: 90 3RF cholecalciferol (vitamin D3) 50 mcg (2,000 unit) capsule 50 mcg PO DAILY 90 Days Qty: 90 1RF doxycycline hyclate 100 mg tablet 100 mg PO BID 30 Days Qty: 60 0RF oxycodone 5 mg tablet 5 mg PO Q6H PRN (Reason: pain) 30 Days Qty: 120 0RF Rx Instructions: Do not fill till 11/28/2022 <JIMMY Ford - Last Filed: 12/01/22 12:51> Referrals: Erika Bowman MD [Primary Care Provider] - 2 days <JIMMY Ford - Last Filed: 12/01/22 12:51> Interventions: ED Discharge Assessment Last Done: 12/01/22 19:23 <JIMMY Ford - Last Filed: 12/01/22 12:51> Discharge Date/Time: 12/01/22 19:28 <JIMMY Ford - Last Filed: 12/01/22 12:51>
--- NOTE | 2022-12-01 16:21 | PC.NURSE ---
spoke w [facility] to get report from follow up appt, per clinic pt's appt was cancelled.
--- NOTE | 2022-12-01 17:56 | ED.BACK ---
HPI - Back Pain/Injury General Chief Complaint: Back Pain/Injury Stated Complaint: Injection done thursday/Back pain Time Seen by Provider: 12/01/22 17:42 Source: patient Mode of arrival: ambulatory Limitations: no limitations History of Present Illness HPI Narrative: 37-year-old female with history of chronic back pain presents with acute on chronic severe back pain. The back pain is lumbar in nature. Radiates down the right leg associated with decreased sensation down left leg. Pain is worse with movement. The pain is constant. It is not associated with loss of bowel or bladder control. She denies saddle paresthesias. She denies any intravenous drug abuse or fevers. She did have recent epidural injection performed by pain management. She took 2 oxycodone at home earlier today without improvement in her symptoms. Patient denies any new trauma, falls or twisting injuries. Related Data Previous Rx's Medication Instructions Recorded amitriptyline 25 mg tablet 25 mg PO BEDTIME 90 days #90 tabs 02/26/22 cholecalciferol (vitamin D3) 50 50 mcg PO DAILY 90 days #90 caps 10/29/22 mcg (2,000 unit) capsule oxycodone 5 mg tablet 5 mg PO Q6H PRN pain 30 days #120 11/15/22 tabs doxycycline hyclate 100 mg tablet 100 mg PO BID 30 days #60 tabs 11/26/22 cyclobenzaprine 10 mg tablet 10 mg PO TID PRN muscle spasm #10 12/01/22 tabs hydromorphone 2 mg tablet 2 mg PO .bid prn PRN pain #7 tabs 12/01/22 (Dilaudid) lidocaine 5 % topical patch 1 patch topical DAILY #15 ea 12/01/22 methylprednisolone 4 mg tablets in 4 mg PO DAILY #21 ea 12/01/22 a dose pack (Medrol (Evelio)) Allergies Allergy/AdvReac Type Severity Reaction Status Date / Time Penicillins Allergy Unknown Hives Verified 12/01/22 12:48 Review of Systems Review of Systems: CONSTITUTIONAL: Denies weight loss, fever and chills. HEENT: Denies changes in vision and hearing. RESPIRATORY: Denies SOB and cough. CV: Denies palpitations no CP. GI: Denies abdominal pain, nausea, vomiting and diarrhea. : Denies dysuria and urinary frequency. MSK: Denies myalgia and joint pain. Back pain SKIN: Denies rash and pruritus. NEUROLOGICAL: Denies headache and syncope. PSYCHIATRIC: Denies recent changes in mood. Denies anxiety and depression. All other ROS are negative unless in HPI PMFSH Past Medical History Medical History Anxiety Cholelithiasis Chronic back pain greater than 3 months duration Chronic pain syndrome Insomnia halfway (current) use of opiate analgesic Obese Personal history of other diseases of the musculoskeletal system and connective tissue Postlaminectomy syndrome, not elsewhere classified Scoliosis Surgical History Hx of cholecystectomy Hx of tubal ligation Previous back surgery Family History Family History Mother No problems noted. Father Diabetes Social History Social History Housing: Apartment Are you a primary long term acute care registered nurse to a significant other at home: Yes (children ages-7,11,18) Do you presently have visiting nurse or other home services: Yes (Mon-Sat 1 hour per day) Alcohol intake: current Alcohol intake frequency: holidays/special occasions only Alcohol type: beer and hard liquor Patient Tobacco Use Status: Former Tobacco user Quit Date: 2010 Tobacco use type: Cigarette e-Cigarette/Vaping Use: Never Used Second Hand Smoke Exposure: No Advance Directives: No Advance Directives Information Provided: No service: No Current occupational status: unemployed Cognitive needs: No Hearing needs: No Vision needs: No Physical Exam Vital Signs: Vital Signs: Last Vital Signs Temp 98.5 F 12/01/22 12:48 Pulse 88 12/01/22 12:48 Resp 18 12/01/22 12:48 BP 114/72 12/01/22 12:48 Pulse Ox 99 12/01/22 12:48 O2 Del Method 12/01/22 12:48 BMI result Body Mass Index 30.4 GEN: Well developed, no acute distress, alert, oriented HEENT: Normocephalic, atraumatic, normal external ears, nose appears normal Eyes: Normal to appearance Neck: Supple, no lymphadenopathy Respiratory: Talks in complete sentences, no respiratory distress Extremities: No clubbing cyanosis or edema Neurologic: No focal neurologic deficits, cranial nerves 2-12 intact, gait normal Skin: No rash Back: Previous scar from surgical approach, no midline tenderness, no erythematous skin changes or evidence of cellulitis, bilateral paraspinous tenderness, strength is 4/5 bilateral although the right is slightly weaker than the left. She has negative Babinski, Course Course Course Narrative: 37-year-old female presents with severe lumbar radiculopathy. Examination is consistent with radiculopathy. She is followed by pain management. There have been no new traumatic injuries. She denies loss of bowel or bladder control or saddle paresthesias to suggest a diagnosis of acute cauda equina syndrome. She has no fevers or chills no midline tenderness no obvious focal neurologic deficits to suggest epidural abscess. At this point, I would recommend a course of aggressive pain management to see if we can get the patient discharged. Treatment will include Dilaudid, Toradol, Tylenol, Lidoderm, Decadron, muscle relaxer. Reevaluation(s) Reevaluation #1: The workup is complete at this time. Patient is feeling mild to moderately improved. She is comfortable with being discharged. Her expectation is to manage pain as opposed to be pain free. I have recommended close follow-up with her animated cartoons painter. If discussed the pain management procedure at home that she can expect to have significant symptoms over the next 24-48 hours. Per new neurologic complaints, uncontrolled pain, patient was instructed to return to the emergency department. Time: 18:58 Medications Administered Discontinued Medications Generic Name Dose Route Start Last Admin Trade Name Cuca PRN Reason Stop Dose Admin Acetaminophen 975 mg 12/01/22 17:53 12/01/22 18:20 Acetaminophen 325 Mg Tablet PO 12/01/22 17:54 975 mg ONCE ONE Administration Cyclobenzaprine HCl 10 mg 12/01/22 17:53 12/01/22 18:22 Cyclobenzaprine Hcl 10 Mg Tablet PO 12/01/22 17:54 10 mg ONCE ONE Administration Dexamethasone 10 mg 12/01/22 17:53 12/01/22 18:21 Dexamethasone 2 Mg Tablet PO 12/01/22 17:54 10 mg ONCE ONE Administration Hydromorphone HCl 1 mg 12/01/22 17:53 12/01/22 18:23 Hydromorphone Hcl 1 Mg/Ml Syringe IM 12/01/22 17:54 1 mg ONCE ONE Administration Protocol Ketorolac Tromethamine 30 mg 12/01/22 17:53 12/01/22 18:23 Ketorolac Tromethamine 30 Mg/Ml Vial IM 12/01/22 17:54 30 mg ONCE ONE Administration Lidocaine 2 patch 12/01/22 17:53 12/01/22 18:20 Lidocaine 4 % Patch Adh..Patch TRANSDERMA 12/01/22 17:54 2 patch ONCE ONE Administration Protocol Medical Decision Making Medical Decision Making MDM Narrative: 37-year-old female presents with severe lumbar radiculopathy. Examination is consistent with radiculopathy. She is followed by pain management. There have been no new traumatic injuries. She denies loss of bowel or bladder control or saddle paresthesias to suggest a diagnosis of acute cauda equina syndrome. She has no fevers or chills no midline tenderness no obvious focal neurologic deficits to suggest epidural abscess. At this point, I would recommend a course of aggressive pain management to see if we can get the patient discharged. Treatment will include Dilaudid, Toradol, Tylenol, Lidoderm, Decadron, muscle relaxer. Differential Diagnosis Differential Diagnoses: The differential diagnosis associated with the presentation includes (Lumbar radiculopathy, spinal stenosis, disc impingement, muscle spasm) Post-laminectomy syndrome, lumbar radiculopathy, sacroiliitis Admission/Observation Consideration of admission/observation: Escalation of care including admission/observation considered (Pending response to medications) External Record Review External record reviewed: Office record (Therapeutic procedure on November 27, injection of SI joint, office visit 11/10/2022 patient likely has post laminectomy syndrome) Tests considered The following testing was considered but not selected: MRI Prescription Management I considered prescription management with: Pain Medication Discharge Plan Discharge Clinical Impression: Sacroiliac joint pain, Postlaminectomy syndrome, not elsewhere classified, Lumbar radiculopathy Patient Disposition: Home, Self-Care Instructions: Acute Low Back Pain (ED), Lumbar Radiculopathy (ED), Sacroiliitis (ED) Additional Instructions: You were seen today for lumbar radiculopathy, sacroiliitis and post-laminectomy syndrome. Her pain moderate to some degree while in the emergency department. We can expect her pain to persist over the next several days but hopefully this will moderate to point they are able to function better at home. For ear pain regimen, I am recommending the following treatment Options. 1. Meloxicam daily for 10 days 2. Tylenol 1000 mg every 6 hours as needed for additional pain relief 3. Cyclobenzaprine 10 mg every 8 hours as needed for muscle spasm, can cause drowsiness 4. Dilaudid 2 mg oral tablet every 12 hours as needed for severe pain, may cause drowsiness and constipation. Recommending a stool softener like MiraLax 1 capful daily in 8 oz of water 5. Lidocaine patches every 12 hours as needed for pain relief 6. Steroid Dosepak as prescribed 7. Heating pad 20-30 minutes on at a time, never fall asleep with a heating pad Additionally, I am recommending close follow-up with her pain specialist within 24-48 hours You have been given a prescription for oxycodone in the past, I am recommending not taking this medication while taking Dilaudid Prescriptions: New hydromorphone [Dilaudid] 2 mg tablet 2 mg PO .bid prn PRN (Reason: pain) Qty: 7 0RF Rx Instructions: Partial Fill upon patient request. cyclobenzaprine 10 mg tablet 10 mg PO TID PRN (Reason: muscle spasm) Qty: 10 0RF methylprednisolone [Medrol (Evelio)] 4 mg tablets,dose pack 4 mg PO DAILY Qty: 21 0RF Rx Instructions: Take as directed lidocaine 5 % adhesive patch,medicated 1 patch topical DAILY Qty: 15 0RF Rx Instructions: leave on most painful area for up to 12 hrs No Action amitriptyline 25 mg tablet 25 mg PO BEDTIME 90 Days Qty: 90 3RF cholecalciferol (vitamin D3) 50 mcg (2,000 unit) capsule 50 mcg PO DAILY 90 Days Qty: 90 1RF doxycycline hyclate 100 mg tablet 100 mg PO BID 30 Days Qty: 60 0RF oxycodone 5 mg tablet 5 mg PO Q6H PRN (Reason: pain) 30 Days Qty: 120 0RF Rx Instructions: Do not fill till 11/28/2022 Referrals: Erika Bowman MD [Primary Care Provider] - 2 days
[2022-12-01] MEDS: Lidocaine 4 % Patch ADH..PATCH 2 PATCH TRANSDERMA (18:20)
[2022-12-01] MEDS: Acetaminophen 325 MG TABLET 975 MG PO (18:20)
[2022-12-01] MEDS: dexAMETHasone 2 MG TABLET 10 MG PO (18:21)
[2022-12-01] MEDS: Cyclobenzaprine HCl 10 MG TABLET PO (18:22)
[2022-12-01] MEDS: HYDROmorphone HCl 1 MG/ML SYRINGE IM (18:23)
[2022-12-01] MEDS: Ketorolac Tromethamine 30 MG/ML VIAL IM (18:23)
[2022-12-01 19:19] VITALS: BP 109/61; PULSE 84; RESP 16; TEMP 37.1; O2SAT 96
== END 2022-12-01 19:28 | disposition home or self-care (01) ==
PROVIDERS: Emergency Provider Emergency Medicine; PCP Internal Medicine
DX: M53.3 Sacrococcygeal disorders, not elsewhere classified (principal); M54.16 Radiculopathy, lumbar region; M96.1 Postlaminectomy syndrome, not elsewhere classified; G89.29 Other chronic pain; M54.50 Low back pain, unspecified
CPT/HCPCS: 96372; 99284; J1170; J1885; J8540

== ENCOUNTER → 2022-12-10 14:28 | Outpatient (BNVA) | payer OTHER, SELFPAY | PROVIDERS: PCP Internal Medicine; Visit Provider Anesthesiology | DX: M46.1 Sacroiliitis, not elsewhere classified (principal); M96.1 Postlaminectomy syndrome, not elsewhere classified; G89.4 Chronic pain syndrome; M54.9 Dorsalgia, unspecified; M54.2 Cervicalgia; M47.812 Spondylosis without myelopathy or radiculopathy, cervical region; Z79.891 Long term (current) use of opiate analgesic | CPT/HCPCS: 99212 ==

== ENCOUNTER → 2023-01-07 13:10 | Outpatient (BNVA) | payer OTHER, SELFPAY | PROVIDERS: PCP Internal Medicine; Visit Provider Anesthesiology | DX: M96.1 Postlaminectomy syndrome, not elsewhere classified (principal); M47.812 Spondylosis without myelopathy or radiculopathy, cervical region; M46.1 Sacroiliitis, not elsewhere classified; M53.3 Sacrococcygeal disorders, not elsewhere classified; G89.4 Chronic pain syndrome; Z79.891 Long term (current) use of opiate analgesic | CPT/HCPCS: 99212 ==

== ENCOUNTER → 2023-02-04 13:00 | Outpatient (BNVA) | payer OTHER, SELFPAY | PROVIDERS: PCP Internal Medicine; Visit Provider Anesthesiology | DX: Z51.81 Encounter for therapeutic drug level monitoring (principal); F11.20 Opioid dependence, uncomplicated | CPT/HCPCS: 99211 ==

== ENCOUNTER 2023-02-20 14:06 | Outpatient (REF) | payer OTHER, SELFPAY | END 2023-02-20 14:07 | disposition home or self-care (01) | LOC: HO.LNP 14:06 | PROVIDERS: PCP Internal Medicine; Visit Provider Obstetrics & Gynecology | DX: R87.810 Cervical high risk human papillomavirus (HPV) DNA test positive (principal); R87.610 Atypical squamous cells of undetermined significance on cytologic smear of cervix (ASC-US) | CPT/HCPCS: 57454; 88305 ==

== ENCOUNTER → 2023-03-04 15:58 | Outpatient (BNVA) | payer OTHER, SELFPAY | PROVIDERS: PCP Internal Medicine; Visit Provider Obstetrics & Gynecology | DX: N87.1 Moderate cervical dysplasia (principal); Z98.890 Other specified postprocedural states | CPT/HCPCS: 99212 ==

== ENCOUNTER → 2023-03-11 13:18 | Outpatient (BNVA) | payer OTHER, SELFPAY | PROVIDERS: PCP Internal Medicine; Visit Provider Registered Nurse Emergency | DX: G89.4 Chronic pain syndrome (principal); M54.9 Dorsalgia, unspecified; M54.2 Cervicalgia; M47.812 Spondylosis without myelopathy or radiculopathy, cervical region; M96.1 Postlaminectomy syndrome, not elsewhere classified; M46.1 Sacroiliitis, not elsewhere classified; M53.3 Sacrococcygeal disorders, not elsewhere classified; Z79.891 Long term (current) use of opiate analgesic | CPT/HCPCS: 99212 ==

== ENCOUNTER 2023-04-10 11:13 | Day surgery (SDC) | payer OTHER, SELFPAY ==
[2023-04-08 09:47] VITALS: BMI 30.4
[2023-04-10] VITALS (7 sets, daily range): BP systolic 92–109; BP diastolic 50–62; PULSE 56–69; RESP 16–18; TEMP 36.3–36.7; O2SAT 97–100; BMI 28.9
--- NOTE | 2023-04-10 11:34 | P.CONAN_ITS ---
[facility] Active Problems Active Problems: All Active Problems (Updated 04/08/23 @ 09:43 by Aislinn Whitley RN) Neck pain (Acute) Shoulder pain, bilateral (Acute) Cervicalgia (Acute) Spondylosis of cervical joint without myelopathy (Acute) Physical exam (Acute) Acne (Acute) Sacroiliitis (Acute) Sacroiliac joint pain (Acute) Menorrhagia (Acute) Well woman exam with routine gynecological exam (Acute) Cervical cancer screening (Acute) Simple ovarian cyst (Acute) ASCUS with positive high risk HPV cervical (Acute) JEIMY II (cervical intraepithelial neoplasia II) (Acute) Obese (Acute) Cholelithiasis (Acute) Insomnia (Acute) nursing home (current) use of opiate analgesic (Acute) Personal history of other diseases of the musculoskeletal system and connective tissue (Acute) Chronic pain syndrome (Acute) Postlaminectomy syndrome, not elsewhere classified (Acute) Chronic back pain greater than 3 months duration (Acute) Past Medical History Medical History (Updated 04/08/23 @ 09:43 by Aislinn Whitley RN) Anxiety Cholelithiasis Chronic back pain greater than 3 months duration Chronic pain syndrome 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 Father Diabetes Family history of problems with anesthesia: No Surgical History Surgical History Hx of cholecystectomy Hx of tubal ligation Previous back surgery History of Problems with Anesthesia: No Social History Social History Housing: Apartment Are you a primary care program resident to a significant other at home: Yes (children ages-7,11,18) Do you presently have visiting nurse or other home services: Yes (Mon-Sat 1 hour per day) Alcohol intake: current Alcohol intake frequency: holidays/special occasions only Alcohol type: beer and hard liquor Patient Tobacco Use Status: Former Tobacco user Quit Date: 2010 Tobacco use type: Cigarette e-Cigarette/Vaping Use: Never Used Second Hand Smoke Exposure: No Advance Directives: No Advance Directives Information Provided: Yes service: No Current occupational status: unemployed Cognitive needs: No Hearing needs: No Vision needs: No Meds Allergies Allergy/AdvReac Type Severity Reaction Status Date / Time Penicillins Allergy Unknown Hives Verified 03/11/23 13:19 Active Medications: Current Medications Lactated Ringer's (Lr) 1,000 mls @ 100 mls/hr IVCONT .Q10H OBIE Exam Exam Date and Time: April 10, 2023 1134 Height,Weight and Vital Signs: Height 5 ft 8 in Weight 90.718 kg Airway Mallampati Class: I TM Dist: >3cm Neck ROM: Full Assessment and Plan Assessment Anesthesia Assessment: Anesthesia Plan Discussed and Chart Reviewed Final Anesthetic Review Family History of Problems with Anesthesia: No History of Problems with Anesthesia: No NPO: Yes ASA Class: II Final Preanesthetic Review: No Changes in Pt Med Stat, Meds/Allgs Chart Re viewed, Consent Obtained/Reviewed and Anes Risks/Benef Reviewed Patient Risk: Low Procedure Risk: Low Anesthetic Plan Anesthetic Plan: GA Disposition: Standard PACU
--- NOTE | 2023-04-10 11:46 | MHC.SHP ---
Pre-Procedural Eval Section A Date of Service: 04/10/23 The patient is an INPATIENT: No Changes since office visit: No Cold of Flu in the past 2 weeks, No New Medical Problems, No Changes in Medication and No Patient answered all questions The History & Physical has been completed within 30 days and I have reviewed it.: Yes Section B Chief Complaint: Moderate cervical dysplasia Allergies: Allergies Allergy/AdvReac Type Severity Reaction Status Date / Time Penicillins Allergy Unknown Hives Verified 03/11/23 13:19 Plan Diagnosis/Plan: Unchanged I have reviewed the history and physical and performed a pertinent physical examination on my patient. No changes have occurred unless specified. Time Spent With Patient Time: Total time managing care of this patient today ____ minutes.
--- NOTE | 2023-04-10 13:28 | P.BOP_ITS ---
Brief Operative Note Date of Service: 04/10/23 Pre-op diagnosis: JEIMY 2 Post-op diagnosis: same Procedure: LEEP cone was post cone ECC Surgeon: Jonny Anthony MD Anesthesia: GLMA and other (Paracervical block) Was an Overhead Crane Technician used for this Procedure?: No Estimated blood loss (mL): 0 Pathology: other (Anterior cervical lip, posterior cervical lip, endocervix, Post cone ECC) Condition: stable Disposition: other (Home)
--- NOTE | 2023-04-10 13:29 | P.OP_ITS ---
Operative Note Operative Note Date of Service: 04/10/23 Narrative: Pre op diagnosis: JEIMY 2 Operation: Colposcopy, Loop electrical excision procedure cone, with post cone ECC Postop diagnosis: the same Quantitative blood loss: 50 cc Surgeon: Jonny Anthony MD, FACOG Physics Technician: None Pathology: Anterior and posterior cervical lip, endo cervical excision, post cone endo cervical curettage Complications: none Anesthesia: GLMA and Para cervical block Procedure: The patient was put in a dorsal lithotomy position, scrubbed and draped in the usual sterile fashion. A speculum was inserted inside the patient's vagina. The cervix is assessed using the colposcope with acetic acid , the lesions were seen, and at least 1 cm of the squamocolumnar junction was observed. 20 x 5 mm size loop was selected based upon the diameter of the lesion. Lugol solution was used to outline the lesions and area of the transformation zone order to be removed 10 cc of xylocaine with epinephrine were injected submucosally into the surface of the cervix (ectocervix) at the 3, 6, 9, and 12 o'clock positions. The electrosurgical generator is set at 40 brown on blend 1. The loop is carefully passed simultaneously around and under the transformation zone, in order to ensure excising it making sure the lesion is at least 5 mm far from the specimen margins, for post anterior and posterior cervical lips . Additional tissue was excised from this area with a smaller-diameter loop , endo cervical excision was performed, then endo cervical curettage is performed following completion of excision, and hemostasis is obtained with a Ball electrode or regular tip cautery. At the end, Monsel's solution was applied to the cone bed. The patient tolerated the procedure well and, all instruments were taken out of the patient vaginal cavity, and the patient was transferred to the PACU in stable condition.
== END 2023-04-10 14:47 | disposition home or self-care (01) ==
PROVIDERS: PCP Internal Medicine; Visit Provider Obstetrics & Gynecology
PROC: 0UBC7ZZ Excision of Cervix, Via Natural or Artificial Opening (ICD-10-PCS; CPT 57522; principal; 2023-04-10 13:00)
DX: N87.1 Moderate cervical dysplasia (principal); F41.1 Generalized anxiety disorder; M54.9 Dorsalgia, unspecified; M41.9 Scoliosis, unspecified; G89.4 Chronic pain syndrome; M96.1 Postlaminectomy syndrome, not elsewhere classified; Z79.891 Long term (current) use of opiate analgesic; Z88.0 Allergy status to penicillin; Z98.890 Other specified postprocedural states; Z87.891 Personal history of nicotine dependence
CPT/HCPCS: 57461; 88305; 88307; J1100; J1885; J2250; J2405

== ENCOUNTER → 2023-04-10 11:13 | Outpatient (BNV) | payer OTHER, SELFPAY | PROVIDERS: PCP Internal Medicine; Visit Provider Obstetrics & Gynecology | DX: N87.1 Moderate cervical dysplasia (principal) | CPT/HCPCS: 57461 ==

== ENCOUNTER 2023-04-22 12:52 | Outpatient (AMB) | payer OTHER, SELFPAY ==
--- NOTE | 2023-04-22 13:08 | MHC.OFFVIS ---
Intake Vital Signs 04/22/23 13:09 Height 5 ft 8 in Weight 190 lb BMI 28.9 BP 120/74 Blood Pressure Location Lt brachial Position Sitting Respiration 18 Pulse 68 Pulse Source Pulse Oximeter Pulse Oximetry (%) 98 Oxygen Delivery Method Room Air Intake Visit Reasons: Pill count Allergies Penicillins Allergy (Unknown, Verified 04/22/23 13:35) Hives HPI HPI Comments History of Present Illness Details Tierra is a very pleasant 38 year old female who presents to the office for follow up chronic pain and chronic opioid therapy management. Patient is prescribed oxycodone 5mg tablets Q6H PRN. Patient arrived today with the expectation of having 52 pills, she presented 56 pills which were counted in the presence of two staff members and returned to the patient in the original prescription bottle. This demonstrates responsible attitude toward patient's opioid medications. Pain is reported today as 7/10 and last dose of pain medication was taken at 08:00 this morning. Pain is adequately managed on current opioid regimen. Patient denies any recent changes or exacerbations of chronic back pain and states she is able to engage in activities of daily living with minimal interruption due to chronic pain. Today patient also c/o bilateral upper back pain that has been ongoing for awhile . Denies inciting injury, denies recent fall or accident. She states no new physical activity or manual labor. Muscles are tight and tender to the touch. I feel like they need to be stretched . She has not been to PT for this pain and is not interested in PT at this time. 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 Father Diabetes Social History Housing: Apartment Are you a primary lead caregiver to a significant other at home: Yes (children ages-7,11,18) Do you presently have visiting nurse or other home services: Yes (Mon-Sat 1 hour per day) Alcohol intake: current Alcohol intake frequency: holidays/special occasions only Alcohol type: beer and hard liquor Patient Tobacco Use Status: Former Tobacco user Quit Date: 2010 Tobacco use type: Cigarette e-Cigarette/Vaping Use: Never Used Second Hand Smoke Exposure: No service: No Current occupational status: unemployed Cognitive needs: No Hearing needs: No Vision needs: No Female Reproductive History Menstrual Age of Menarche: 11 Review of Systems Const All systems reviewed & are unremarkable except as noted in HPI and below Physical Exam Vital Signs: Last Vital Signs Pulse 68 04/22/23 13:09 Resp 18 04/22/23 13:09 BP 120/74 04/22/23 13:09 Pulse Ox 98 04/22/23 13:09 Oxygen Delivery Method Room Air 04/22/23 13:09 BMI result Body Mass Index 28.9 General: awake, alert, oriented. Answers questions appropriately. Fully engaged in examination. Skin: warm, dry, intact without visible rashes or lesions. HEENT: Normocephalic. Conjuntivae clear without exudate. Sclera non-icteric. Hearing intact. Cardiac: External chest normal in appearance. Respiratory: No signs of trauma. No signs of respiratory distress. No cough, audible wheezing or stridor. Abdomen: without gross distension. MS: No obvious swelling or deformities. Ambulates with steady gait, unassisted. Tenderness to palpation across bilateral middle trapezius with palpable tight bands. Neurological: Oriented to person, place, time and situation. Thought process intact. No gait abnormalities appreciated. Psychiatric: Appropriate mood and affect. Good judgment and insight. 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 (2) Chronic pain syndrome: Code(s): G89.4 - Chronic pain syndrome (3) Postlaminectomy syndrome, not elsewhere classified: Code(s): M96.1 - Postlaminectomy syndrome, not elsewhere classified (4) Chronic back pain greater than 3 months duration: Code(s): M54.9 - Dorsalgia, unspecified; G89.29 - Other chronic pain (5) Cervicalgia: Code(s): M54.2 - Cervicalgia (6) Spondylosis of cervical joint without myelopathy: Code(s): M47.812 - Spondylosis without myelopathy or radiculopathy, cervical region (7) Sacroiliitis: Code(s): M46.1 - Sacroiliitis, not elsewhere classified (8) Sacroiliac joint pain: Code(s): M53.3 - Sacrococcygeal disorders, not elsewhere classified (9) Trapezius muscle strain: Code(s): S46.819A - Strain of other muscles, fascia and tendons at shoulder and upper arm level, unspecified arm, initial encounter [facility]. No obvious signs of diversion, abuse or misuse of the opioid medications. Will send in prescription for oxycodone 5mg po QID PRN with an advanced date of 05/06/2023. Patient declines PT for Trapezius muscle strain. Jessica tens/ifc unit ordered, instructions for use with handout provided to patient. Patient considering interventional management which was discussed previously with Dr Musa: Sacroiliac joint injection on the right resulted in 100% pain improvement from the lower back.? That improvement lasted for more than 6 hours.? I think major pain generator was found for her lower back and is right sacroiliac joint. Sacroiliac joint fusion versus SI joint innervation stimulation was offered to the patient. She declines scheduling at this time. Patient to follow-up in the office in 1 month, sooner if needed. All questions and concerns have been answered and patient agrees with the plan. 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
[2023-04-22 13:09] VITALS: BP 120/74; PULSE 68; RESP 18; O2SAT 98; BMI 28.9
== END 2023-04-22 13:08 | disposition home or self-care (01) ==
PROVIDERS: PCP Internal Medicine; Visit Provider Registered Nurse Emergency
DX: G89.4 Chronic pain syndrome (principal); Z79.891 Long term (current) use of opiate analgesic; M96.1 Postlaminectomy syndrome, not elsewhere classified; M54.9 Dorsalgia, unspecified; G89.29 Other chronic pain; M54.2 Cervicalgia; M47.812 Spondylosis without myelopathy or radiculopathy, cervical region; M46.1 Sacroiliitis, not elsewhere classified; M53.3 Sacrococcygeal disorders, not elsewhere classified; S46.819A Strain of other muscles, fascia and tendons at shoulder and upper arm level, unspecified arm, initial encounter
CPT/HCPCS: 99214

== ENCOUNTER → 2023-04-22 12:52 | Outpatient (BNVA) | payer OTHER, SELFPAY | PROVIDERS: PCP Internal Medicine; Visit Provider Registered Nurse Emergency | DX: N87.1 Moderate cervical dysplasia (principal); Z51.81 Encounter for therapeutic drug level monitoring; M96.1 Postlaminectomy syndrome, not elsewhere classified; M54.9 Dorsalgia, unspecified; M54.2 Cervicalgia; M47.812 Spondylosis without myelopathy or radiculopathy, cervical region; M46.1 Sacroiliitis, not elsewhere classified; M53.3 Sacrococcygeal disorders, not elsewhere classified; G89.29 Other chronic pain; Z79.891 Long term (current) use of opiate analgesic | CPT/HCPCS: 99212 ==

== ENCOUNTER 2023-04-22 13:17 | Outpatient (AMB) | payer OTHER, SELFPAY ==
[2023-04-22 13:32] VITALS: BP 112/66; BMI 28.9
--- NOTE | 2023-04-22 13:32 | MHC.OFFVIS ---
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 The patient has no complaints. Pathology showed the following: A. Cervix, anterior lip, LEEP excision: Mildly inflamed cervical transformation zone mucosa with reactive changes. B. Cervix, posterior lip, LEEP excision: Mildly inflamed endocervical and squamous mucosa with reactive changes. C. Endocervix, LEEP excision: Endocervical mucosa within normal limits. D. Endocervix, post cone curettage: Superficial strips of endocervical epithelium within normal limits. [facility] Medical History Anxiety Cholelithiasis Chronic back pain greater than 3 months duration Chronic pain syndrome Insomnia [facility] (current) use of opiate analgesic Obese Personal history of other diseases of the musculoskeletal system and connective tissue Postlaminectomy syndrome, not elsewhere classified Scoliosis Surgical History Hx of cholecystectomy Hx of tubal ligation Previous back surgery Family History Mother No problems noted. Father Diabetes Social History Housing: Apartment Are you a primary care information associate to a significant other at home: Yes (children ages-7,11,18) Do you presently have visiting nurse or other home services: Yes (Mon-Sat 1 hour per day) Alcohol intake: current Alcohol intake frequency: holidays/special occasions only Alcohol type: beer and hard liquor Patient Tobacco Use Status: Former Tobacco user Quit Date: 2010 Tobacco use type: Cigarette e-Cigarette/Vaping Use: Never Used Second Hand Smoke Exposure: No service: No Current occupational status: unemployed Cognitive needs: No Hearing needs: No Vision needs: No Female Reproductive History Menstrual Age of Menarche: 11 Date of last menstrual period: 04/21/23 Date of last pap smear: 10/20/22 Review of Systems Const All systems reviewed & are unremarkable except as noted in HPI and below Reports as per HPI and Reports no additional complaints GI Reports no additional complaints Reports no additional complaints Physical Exam Vital Signs: Last Vital Signs BP 112/66 04/22/23 13:32 BMI result Body Mass Index 28.9 Assessment & Plan Assessment & Plan (1) JEIMY II (cervical intraepithelial neoplasia II): Code(s): N87.1 - Moderate cervical dysplasia Plan: Discussed with the patient the results the pathology showing no evidence of residual disease, high-grade lesion, JEIMY 2+, as seen on colposcopic biopsy/ECC pathology. Explained to the patient the following data: -A negative LEEP following a biopsy diagnosis of JEIMY 2+ occurs 14-17% of the time. -Possible reasons include but not limited to: Complete removal of the lesion from the colposcopic biopsy, destruction or regression of the dysplasia by post biopsy inflammation, over reading of the colposcopic biopsy, failure to capture a dysplastic lesion by the LEEP -The risk of recurrence of JEIMY 2+ after LEEP is similar whether residual disease were present or not in the LEEP. It occurs in 13% of patients with residual disease in the LEEP versus 10% of patients with a negative LEEP. -Patients with and without residual disease in the LEEP pathology should be followed up within 6 months of Co testing. Instructions given the patient to schedule 6 months co testing appointment. All questions answered, the patient verbalized understanding, Coding Level of Care Code Est Pt Level 3 (58150) Diagnoses JEIMY II (cervical intraepithelial neoplasia II) N87.1
== END 2023-04-22 14:09 | disposition home or self-care (01) ==
LOC: HO.HWS 13:17
PROVIDERS: PCP Internal Medicine; Visit Provider Obstetrics & Gynecology
DX: N87.1 Moderate cervical dysplasia (principal)
CPT/HCPCS: 99213

== ENCOUNTER → 2023-05-20 12:48 | Outpatient (BNVA) | payer OTHER, SELFPAY | PROVIDERS: PCP Internal Medicine; Visit Provider Registered Nurse Emergency | DX: Z79.891 Long term (current) use of opiate analgesic (principal) | CPT/HCPCS: 99211 ==

== ENCOUNTER 2023-06-17 12:49 | Outpatient (AMB) | payer OTHER, SELFPAY ==
[2023-06-17 13:09] VITALS: BP 105/58; PULSE 66; RESP 14; O2SAT 100; BMI 13.1
--- NOTE | 2023-06-17 13:09 | MHC.OFFVIS ---
Intake Vital Signs 06/17/23 13:09 Height 5 ft 8 in Weight 86 lb BMI 13.1 BP 105/58 L Blood Pressure Location Lt brachial Position Sitting Respiration 14 Pulse 66 Pulse Source Pulse Oximeter Pulse Oximetry (%) 100 Oxygen Delivery Method Room Air Intake Visit Reasons: Pill count/Confirmed Allergies Penicillins Allergy (Unknown, Verified 06/17/23 13:10) Hives HPI HPI Comments History of Present Illness Details Tierra is a very pleasant 38 year old female who presents to the office today for follow up chronic pain and chronic opioid therapy management. Patient is prescribed oxycodone 5mg tablets Q6H PRN. Patient arrived today with the expectation of having 72 pills, she presented 72 pills which were counted in the presence of two staff members and returned to the patient in the original prescription bottle. This demonstrates responsible attitude toward patient's opioid medications. Pain is reported today as 6/10 and last dose of pain medication was taken at 11:00 this morning. Pain is adequately managed on current opioid regimen. Patient reports she is able to engage in activities of daily living with minimal interruption due to chronic pain. Patient denies side effects including somnolence, abd pain, constipation, nausea or weakness. Patient also c/o continued bilateral upper back pain that has been ongoing for several months. Denies inciting injury, denies recent fall or accident. She states no new physical activity or manual labor. 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 Father Diabetes Social History Housing: Apartment Are you a primary child caregiver to a significant other at home: Yes (children ages-7,11,18) Do you presently have visiting nurse or other home services: Yes (Mon-Sat 1 hour per day) Alcohol intake: current Alcohol intake frequency: holidays/special occasions only Alcohol type: beer and hard liquor Patient Tobacco Use Status: Former Tobacco user Quit Date: 2010 Tobacco use type: Cigarette e-Cigarette/Vaping Use: Never Used Second Hand Smoke Exposure: No service: No Current occupational status: unemployed Cognitive needs: No Hearing needs: No Vision needs: No Female Reproductive History Menstrual Age of Menarche: 11 Review of Systems Const All systems reviewed & are unremarkable except as noted in HPI and below Physical Exam Vital Signs: Last Vital Signs Pulse 66 06/17/23 13:09 Resp 14 06/17/23 13:09 BP 105/58 L 06/17/23 13:09 Pulse Ox 100 06/17/23 13:09 Oxygen Delivery Method Room Air 06/17/23 13:09 BMI result Body Mass Index 13.1 General: awake, alert, oriented. Answers questions appropriately. Fully engaged in examination. Skin: warm, dry, intact without visible rashes or lesions. HEENT: Normocephalic. Conjuntivae clear without exudate. Sclera non-icteric. Hearing intact. Cardiac: External chest normal in appearance. Respiratory: No signs of trauma. No signs of respiratory distress. No cough, audible wheezing or stridor. Abdomen: without gross distension. MS: No obvious swelling or deformities. Ambulates with steady gait, unassisted. Tenderness to palpation across bilateral middle trapezius with palpable tight bands. Neurological: Oriented to person, place, time and situation. Thought process intact. No gait abnormalities appreciated. Psychiatric: Appropriate mood and affect. Good judgment and insight. Const Other: Assessment & Plan Assessment & Plan (1) Trapezius muscle strain: Code(s): S46.819A - Strain of other muscles, fascia and tendons at shoulder and upper arm level, unspecified arm, initial encounter (2) half-way (current) use of opiate analgesic: Code(s): Z79.891 - half-way (current) use of opiate analgesic (3) Chronic pain syndrome: Code(s): G89.4 - Chronic pain syndrome (4) Postlaminectomy syndrome, not elsewhere classified: Code(s): M96.1 - Postlaminectomy syndrome, not elsewhere classified (5) Chronic back pain greater than 3 months duration: Code(s): M54.9 - Dorsalgia, unspecified; G89.29 - Other chronic pain (6) Cervicalgia: Code(s): M54.2 - Cervicalgia (7) Spondylosis of cervical joint without myelopathy: Code(s): M47.812 - Spondylosis without myelopathy or radiculopathy, cervical region (8) Sacroiliitis: Code(s): M46.1 - Sacroiliitis, not elsewhere classified (9) Sacroiliac joint pain: Code(s): M53.3 - Sacrococcygeal disorders, not elsewhere classified Plan [facility] was reviewed and without concerns. No obvious signs of diversion, abuse or misuse of the opioid medications. Will send in prescription for oxycodone 5mg po QID PRN with an advanced date of 07/06/2023. PT eval and treat ordered for patients trapezius muscle strain. Patient to follow-up in the office in 1 month, sooner if needed. All questions and concerns have been answered and patient agrees with the plan. 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
== END 2023-06-17 13:12 | disposition home or self-care (01) ==
PROVIDERS: PCP Internal Medicine; Visit Provider Registered Nurse Emergency
DX: G89.4 Chronic pain syndrome (principal); S46.819A Strain of other muscles, fascia and tendons at shoulder and upper arm level, unspecified arm, initial encounter; Z79.891 Long term (current) use of opiate analgesic; M46.1 Sacroiliitis, not elsewhere classified; M96.1 Postlaminectomy syndrome, not elsewhere classified; M54.9 Dorsalgia, unspecified; M54.2 Cervicalgia; M47.812 Spondylosis without myelopathy or radiculopathy, cervical region; M53.3 Sacrococcygeal disorders, not elsewhere classified
CPT/HCPCS: 99213

== ENCOUNTER → 2023-06-17 12:49 | Outpatient (BNVA) | payer OTHER, SELFPAY | PROVIDERS: PCP Internal Medicine; Visit Provider Registered Nurse Emergency | DX: Z51.81 Encounter for therapeutic drug level monitoring (principal); F11.20 Opioid dependence, uncomplicated; S46.819A Strain of other muscles, fascia and tendons at shoulder and upper arm level, unspecified arm, initial encounter; M96.1 Postlaminectomy syndrome, not elsewhere classified; M54.2 Cervicalgia; M54.9 Dorsalgia, unspecified; M47.812 Spondylosis without myelopathy or radiculopathy, cervical region; M53.3 Sacrococcygeal disorders, not elsewhere classified; M46.1 Sacroiliitis, not elsewhere classified; G89.29 Other chronic pain; Z79.891 Long term (current) use of opiate analgesic | CPT/HCPCS: 99212 ==

== ENCOUNTER 2023-07-15 12:58 | Outpatient (AMB) | payer OTHER, SELFPAY ==
[2023-07-15 13:08] VITALS: BP 117/61; PULSE 86; RESP 16; O2SAT 97; BMI 28.0
--- NOTE | 2023-07-15 13:08 | MHC.OFFVIS ---
Intake Vital Signs 07/15/23 13:08 Height 5 ft 8 in Weight 184 lb 6 oz BMI 28.0 BP 117/61 Blood Pressure Location Lt brachial Position Sitting Respiration 16 Pulse 86 Pulse Source Pulse Oximeter Pulse Oximetry (%) 97 Oxygen Delivery Method Room Air Intake Visit Reasons: Pill count Allergies Penicillins Allergy (Unknown, Verified 06/17/23 13:10) Hives HPI HPI Comments History of Present Illness Details Tierra is a very pleasant 38 year old female who presents to the office today for follow up chronic pain and chronic opioid therapy management. Patient is prescribed oxycodone 5mg tablets Q6H PRN. Patient arrived today with the expectation of having 76 pills, she presented 83 pills which were counted in the presence of two staff members and returned to the patient in the original prescription bottle. This demonstrates responsible attitude toward patient's opioid medications. Pain is reported today as 7/10 and last dose of pain medication was taken at 10:00 this morning. Pain is adequately managed on current opioid regimen. Patient reports she is able to engage in activities of daily living with minimal interruption due to chronic pain. Patient denies side effects including somnolence, abd pain, constipation, nausea or weakness. She continues with bilateral upper back pain that has been ongoing for several months. Denies inciting injury, denies recent fall or accident. She is scheduled to start PT next week. 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 Father Diabetes Social History Housing: Apartment Are you a primary medicare contact specialist to a significant other at home: Yes (children ages-7,11,18) Do you presently have visiting nurse or other home services: Yes (Mon-Sat 1 hour per day) Alcohol intake: current Alcohol intake frequency: holidays/special occasions only Alcohol type: beer and hard liquor Patient Tobacco Use Status: Former Tobacco user Quit Date: 2010 Tobacco use type: Cigarette e-Cigarette/Vaping Use: Never Used Second Hand Smoke Exposure: No service: No Current occupational status: unemployed Cognitive needs: No Hearing needs: No Vision needs: No Female Reproductive History Menstrual Age of Menarche: 11 Review of Systems Const All systems reviewed & are unremarkable except as noted in HPI and below Physical Exam Vital Signs: Last Vital Signs Pulse 86 07/15/23 13:08 Resp 16 07/15/23 13:08 BP 117/61 07/15/23 13:08 Pulse Ox 97 07/15/23 13:08 Oxygen Delivery Method Room Air 07/15/23 13:08 BMI result Body Mass Index 28.0 General: awake, alert, oriented. Answers questions appropriately. Fully engaged in examination. Skin: warm, dry, intact without visible rashes or lesions. HEENT: Normocephalic. Conjuntivae clear without exudate. Sclera non-icteric. Hearing intact. Cardiac: External chest normal in appearance. Respiratory: No signs of trauma. No signs of respiratory distress. No cough, audible wheezing or stridor. Abdomen: without gross distension. MS: No obvious swelling or deformities. Ambulates with steady gait, unassisted. Tenderness to palpation across bilateral middle trapezius with palpable tight bands. Neurological: Oriented to person, place, time and situation. Thought process intact. No gait abnormalities appreciated. Psychiatric: Appropriate mood and affect. Good judgment and insight. Const Other: Assessment & Plan Assessment & Plan (1) Trapezius muscle strain: Code(s): S46.819A - Strain of other muscles, fascia and tendons at shoulder and upper arm level, unspecified arm, initial encounter (2) snf (current) use of opiate analgesic: Code(s): Z79.891 - snf (current) use of opiate analgesic (3) Chronic pain syndrome: Code(s): G89.4 - Chronic pain syndrome (4) Postlaminectomy syndrome, not elsewhere classified: Code(s): M96.1 - Postlaminectomy syndrome, not elsewhere classified (5) Chronic back pain greater than 3 months duration: Code(s): M54.9 - Dorsalgia, unspecified; G89.29 - Other chronic pain (6) Cervicalgia: Code(s): M54.2 - Cervicalgia (7) Spondylosis of cervical joint without myelopathy: Code(s): M47.812 - Spondylosis without myelopathy or radiculopathy, cervical region (8) Sacroiliitis: Code(s): M46.1 - Sacroiliitis, not elsewhere classified (9) Sacroiliac joint pain: Code(s): M53.3 - Sacrococcygeal disorders, not elsewhere classified Plan [facility] was reviewed and without concerns. No obvious signs of diversion, abuse or misuse of the opioid medications. Will send in prescription for oxycodone 5mg po QID PRN with an advanced date of 08/04/2023. C/W plan for PT as scheduled next week. Patient to follow-up in the office in 1 month, sooner if needed. All questions and concerns have been answered and patient agrees with the plan. 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
== END 2023-07-15 13:15 | disposition home or self-care (01) ==
PROVIDERS: PCP Internal Medicine; Visit Provider Registered Nurse Emergency
DX: S46.819A Strain of other muscles, fascia and tendons at shoulder and upper arm level, unspecified arm, initial encounter (principal); Z79.891 Long term (current) use of opiate analgesic; G89.4 Chronic pain syndrome; M96.1 Postlaminectomy syndrome, not elsewhere classified; M54.9 Dorsalgia, unspecified; G89.29 Other chronic pain; M54.2 Cervicalgia; M47.812 Spondylosis without myelopathy or radiculopathy, cervical region; M46.1 Sacroiliitis, not elsewhere classified; M53.3 Sacrococcygeal disorders, not elsewhere classified
CPT/HCPCS: 99213

== ENCOUNTER → 2023-07-15 12:58 | Outpatient (BNVA) | payer OTHER, SELFPAY | PROVIDERS: PCP Internal Medicine; Visit Provider Registered Nurse Emergency | DX: Z51.81 Encounter for therapeutic drug level monitoring (principal); F11.20 Opioid dependence, uncomplicated; S46.819A Strain of other muscles, fascia and tendons at shoulder and upper arm level, unspecified arm, initial encounter; M96.1 Postlaminectomy syndrome, not elsewhere classified; M54.9 Dorsalgia, unspecified; M54.2 Cervicalgia; M47.812 Spondylosis without myelopathy or radiculopathy, cervical region; M46.1 Sacroiliitis, not elsewhere classified; M53.3 Sacrococcygeal disorders, not elsewhere classified; G89.29 Other chronic pain; Z79.891 Long term (current) use of opiate analgesic | CPT/HCPCS: 99212 ==

== ENCOUNTER 2023-08-03 10:00 | Outpatient (RCR) | payer OTHER, SELFPAY | END 2023-08-25 10:43 | disposition home or self-care (01) | LOC: HO.PT 10:00 | PROVIDERS: PCP Internal Medicine; Visit Provider Registered Nurse Emergency | DX: S46.811D Strain of other muscles, fascia and tendons at shoulder and upper arm level, right arm, subsequent encounter (principal); S46.812D Strain of other muscles, fascia and tendons at shoulder and upper arm level, left arm, subsequent encounter | CPT/HCPCS: 97110; 97161 ==

== ENCOUNTER 2023-08-12 13:25 | Outpatient (AMB) | payer OTHER, SELFPAY ==
--- NOTE | 2023-08-12 13:33 | A.OFFVIS_ITS ---
Intake Vital Signs 08/12/23 13:34 Height 5 ft 8 in Weight 187 lb BMI 28.4 BP 121/62 Blood Pressure Location Lt brachial Position Sitting Respiration 16 Pulse 77 Pulse Source Pulse Oximeter Pulse Oximetry (%) 98 Oxygen Delivery Method Room Air Intake Visit Reasons: PILL COUNT - Confirmed Allergies Penicillins Allergy (Unknown, Verified 08/12/23 13:33) Hives HPI HPI Comments History of Present Illness Details Tierra is a very pleasant 38 year old female who presents to the office today for follow up chronic pain and chronic opioid therapy management. Patient is prescribed oxycodone 5mg tablets Q6H PRN. Patient arrived today with the expectation of having 84 pills, she presented 93 pills which were counted in the presence of two staff members and returned to the patient in the original prescription bottle. This demonstrates responsible attitude toward patient's opioid medications. Pain is reported today as 6/10 and last dose of pain medication was taken at 9:00 this morning. Pain is adequately managed on current opioid regimen. Patient reports she is able to engage in activities of daily living with minimal interruption due to chronic pain. Patient denies side effects including somnolence, abd pain, constipation, nausea or weakness. 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 Father Diabetes Social History Housing: Apartment Are you a primary home 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 other at home: Yes (children ages-7,11,18) Do you presently have visiting nurse or other home services: Yes (Mon-Sat 1 hour per day) Alcohol intake: current Alcohol intake frequency: holidays/special occasions only Alcohol type: beer and hard liquor Patient Tobacco Use Status: Former Tobacco user Quit Date: 2010 Tobacco use type: Cigarette e-Cigarette/Vaping Use: Never Used Second Hand Smoke Exposure: No service: No Current occupational status: unemployed Cognitive needs: No Hearing needs: No Vision needs: No Female Reproductive History Menstrual Age of Menarche: 11 Review of Systems Const All systems reviewed & are unremarkable except as noted in HPI and below Physical Exam Vital Signs: Last Vital Signs Pulse 77 08/12/23 13:34 Resp 16 08/12/23 13:34 BP 121/62 08/12/23 13:34 Pulse Ox 98 08/12/23 13:34 Oxygen Delivery Method Room Air 08/12/23 13:34 BMI result Body Mass Index 28.4 General: awake, alert, oriented. Answers questions appropriately. Fully engaged in examination. Skin: warm, dry, intact without visible rashes or lesions. HEENT: Normocephalic. Conjuntivae clear without exudate. Sclera non-icteric. Hearing intact. Cardiac: External chest normal in appearance. Respiratory: No signs of trauma. No signs of respiratory distress. No cough, audible wheezing or stridor. Abdomen: without gross distension. MS: No obvious swelling or deformities. Ambulates with steady gait, unassisted. Neurological: Oriented to person, place, time and situation. Thought process intact. No gait abnormalities appreciated. Psychiatric: Appropriate mood and affect. Good judgment and insight. 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 (3) Chronic pain syndrome: Code(s): G89.4 - Chronic pain syndrome (4) Postlaminectomy syndrome, not elsewhere classified: Code(s): M96.1 - Postlaminectomy syndrome, not elsewhere classified (5) Chronic back pain greater than 3 months duration: Code(s): M54.9 - Dorsalgia, unspecified; G89.29 - Other chronic pain (6) Cervicalgia: Code(s): M54.2 - Cervicalgia (7) Spondylosis of cervical joint without myelopathy: Code(s): M47.812 - Spondylosis without myelopathy or radiculopathy, cervical region (8) Sacroiliitis: Code(s): M46.1 - Sacroiliitis, not elsewhere classified (9) Sacroiliac joint pain: Code(s): M53.3 - Sacrococcygeal disorders, not elsewhere classified Plan [facility] was reviewed and without concerns. No obvious signs of diversion, abuse or misuse of the opioid medications. Will send in prescription for oxycodone 5mg po QID PRN with an advanced date of 09/02/2023. Patient to follow-up in the office in 1 month, sooner if needed. All questions and concerns have been answered and patient agrees with the plan. 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
[2023-08-12 13:34] VITALS: BP 121/62; PULSE 77; RESP 16; O2SAT 98; BMI 28.4
== END 2023-08-12 13:42 | disposition home or self-care (01) ==
PROVIDERS: PCP Internal Medicine; Visit Provider Registered Nurse Emergency
DX: G89.4 Chronic pain syndrome (principal); S46.819A Strain of other muscles, fascia and tendons at shoulder and upper arm level, unspecified arm, initial encounter; Z79.891 Long term (current) use of opiate analgesic; M96.1 Postlaminectomy syndrome, not elsewhere classified; M54.9 Dorsalgia, unspecified; G89.29 Other chronic pain; M54.2 Cervicalgia; M47.812 Spondylosis without myelopathy or radiculopathy, cervical region; M46.1 Sacroiliitis, not elsewhere classified; M53.3 Sacrococcygeal disorders, not elsewhere classified
CPT/HCPCS: 99214

== ENCOUNTER → 2023-08-12 13:25 | Outpatient (BNVA) | payer OTHER, SELFPAY | PROVIDERS: PCP Internal Medicine; Visit Provider Registered Nurse Emergency | DX: Z51.81 Encounter for therapeutic drug level monitoring (principal); F11.20 Opioid dependence, uncomplicated; S46.819D Strain of other muscles, fascia and tendons at shoulder and upper arm level, unspecified arm, subsequent encounter; M96.1 Postlaminectomy syndrome, not elsewhere classified; M54.9 Dorsalgia, unspecified; M54.2 Cervicalgia; M47.812 Spondylosis without myelopathy or radiculopathy, cervical region; M46.1 Sacroiliitis, not elsewhere classified; M53.3 Sacrococcygeal disorders, not elsewhere classified; G89.29 Other chronic pain; Z79.891 Long term (current) use of opiate analgesic | CPT/HCPCS: 99212 ==

== ENCOUNTER 2023-09-01 10:20 | Outpatient (AMB) | payer OTHER, SELFPAY ==
--- NOTE | 2023-09-01 10:24 | A.OFFPC_ITS ---
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 Allergies Penicillins Allergy (Unknown, Verified 09/01/23 10:36) Hives Medication List - Last Reconciled 09/01/23 by RIVAS Mendes amitriptyline 25 mg PO BEDTIME 90 days cholecalciferol (vitamin D3) 50 mcg PO DAILY 90 days cyclobenzaprine 10 mg PO BID PRN 30 days doxycycline hyclate 100 mg PO BID 30 days lidocaine 5% 1 patch topical DAILY oxycodone 5 mg PO Q6H PRN 30 days Tobacco use date assessed: 09/01/23 Dental Screening Dental Screen Date: 09/01/23 HPI Dermatology Referral-Breaking Out on Face HPI Details Patient is a 38-year-old female who presents today for dermatology referral due to facial acne for many years now. Patient of Dr. Lara. Currently patient is on antibiotics with no much improvement in acne, she also reports using acne facial wash with no much improvement. In addition, patient reports hard time sleeping at night, reports that amitriptyline is not helping her much anymore. 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 Father Diabetes Social History Housing: Apartment Are you a primary career services coordinator to a significant other at home: Yes (children ages-7,11,18) Do you presently have visiting nurse or other home services: Yes (Mon-Sat 1 hour per day) Alcohol intake: current Alcohol intake frequency: holidays/special occasions only Alcohol type: beer and hard liquor Patient Tobacco Use Status: Former Tobacco user Quit Date: 2010 Tobacco use type: Cigarette e-Cigarette/Vaping Use: Never Used Second Hand Smoke Exposure: No service: No Current occupational status: unemployed Cognitive needs: No Hearing needs: No Vision needs: No Female Reproductive History Menstrual Age of Menarche: 11 Questionnaire PHQ-9 Over the last 2 weeks, how often have you been bothered by any of the following problems? 1. Little interest or pleasure in doing things: not at all 2. Feeling down, depressed, or hopeless: not at all 3. Trouble falling or staying asleep, or sleeping too much: not at all 4. Feeling tired or having little energy: not at all 5. Poor appetite or overeating: not at all 6. Feeling bad about yourself - or that you are a failure or have let yourself or your family down: not at all 7. Trouble concentrating on things, such as reading the newspaper or watching television: not at all 8. Moving or speaking so slowly that other people could have noticed. Or the opposite - being so fidgety or restless that you have been moving around a lot more than usual: not at all 9. Thoughts that you would be better off or of hurting yourself in some way: not at all Total score: 0 Depression Screening Interpretation: Negative Depression Screening Done: Yes 16027 - PHQ-9 Billing: Yes Source: Developed by Drs. Chandler Daley, Lakeisha Godfrey, Evaristo Coker and colleagues, with an educational bella from [employer]. Thrive Questionnaire Date Thrive assessed: 09/01/23 I am a: Patient What is your living situation today?: I have a steady place to live Within the past 12 months, did the food you bought not last and you didn't have the money to get more?: Never true Within the past 12 months, did you worry whether your food would run out before you got money to buy more?: Never true Currently or been in a relationship where the following occur: no concerns reported AUDIT C Alcohol Use Questionnaire (AUDIT-C) 1. How often do you have a drink containing alcohol?: Monthly or less 2. How many drinks containing alcohol do you have on a typical day when you are drinking?: 1 or 2 3. How often do you have six or more drinks on one occasion?: Never Total Score: 1 Score Reviewed/Action Taken: No AMANDA-7 AMB Questionnaire AMANDA-7 Date AMANDA - 7 assessed: 10/08/22 Source: Developed by Drs. Chandler Daley, Lakeisha Godfrey, Evaristo Coker and colleagues, with an educational bella from [employer]. Review of Systems Const Denies body aches, Denies chills, Reports difficulty sleeping, Denies fever(s) and Denies headache(s) ENT Denies dizziness, Denies otalgia, Denies headache(s), Denies nasal discharge, Denies sinus pain and Denies sore throat Card Denies chest pain, Denies lightheadedness and Denies dyspnea Resp Denies cough, Denies dyspnea and Denies wheezing GI Denies abdominal pain Musc Denies myalgias Skin/Breast Reports as per HPI Neuro Denies dizziness and Denies headache(s) Aller/Immun Denies wheezing Physical exam (Primary Care) Vital Signs: Last Vital Signs Pulse 64 09/01/23 10:25 BP 104/70 09/01/23 10:25 Pulse Ox 99 09/01/23 10:25 Oxygen Delivery Method Room Air 09/01/23 10:25 BMI result Body Mass Index 28.4 Tobacco/Smoking Status: Tobacco use Status Tobacco use date assessed 09/01/23 09/01/23 10:26 Patient Tobacco Use Status Former Tobacco user 09/01/23 10:26 Tobacco use type Cigarette 09/01/23 10:26 e-Cigarette/Vaping Use Never Used 09/01/23 10:26 PHQ-9: PHQ-9 Score PHQ-9: Total score 0 09/01/23 10:26 Depression Screening Interpretation: Negative Thrive Assessment: Date of Thrive Assessment Date Thrive assessed 09/01/23 09/01/23 10:26 Currently or been in a relationship where the following occur: no concerns reported Const General: cooperative and no acute distress Orientation/consciousness: patient oriented x3 HENMT Head: Yes normocephalic and Yes atraumatic Throat: Yes posterior oropharynx normal Eyes General: appearance normal, both eyes and all related structures Neck Neck: Yes normal visual inspection and Yes full ROM Resp Effort & Inspection: normal respiratory effort and able to speak in complete sentences Auscultation: clear to auscultation bilaterally, no crackles, no rales, no rhonchi and no wheezes Cardio Rate: regular rate Rhythm: regular rhythm Heart sounds: S1 normal heart sound present and S2 normal heart sound present GI Auscultation: normal bowel sounds Skin Other: Generalized face with multiple acne noted Neuro General: patient oriented x3 Gait exam (Neuro): Normal gait present Extrem General: Yes full ROM Assessment and Plan Assessment & Plan (1) Acne: Code(s): L70.9 - Acne, unspecified Plan: Dermatology referral Patient is to continue doxycycline as prescribed (2) Insomnia: Code(s): G47.00 - Insomnia, unspecified Plan: Reinforced sleep hygiene Continue amitriptyline at bedtime Start hydroxyzine at bedtime p.r.n.-educated about drowsiness Orders: Referrals Dermatology Referral L70.9 - Acne, unspecified Medications: New hydroxyzine HCl 25 mg PO BEDTIME PRN 14 tabs 0RF insomnia G47.00 - Insomnia, unspecified Coding Level of Care Code Est Pt Level 3 (46187) Diagnoses Acne L70.9 Insomnia G47.00
[2023-09-01 10:25] VITALS: BP 104/70; PULSE 64; O2SAT 99; BMI 28.4
== END 2023-09-01 11:27 | disposition home or self-care (01) ==
PROVIDERS: PCP Internal Medicine; Visit Provider Nurse Practitioner Family
DX: L70.9 Acne, unspecified (principal); G47.00 Insomnia, unspecified; Z79.891 Long term (current) use of opiate analgesic
CPT/HCPCS: 99213

== ENCOUNTER 2023-09-23 12:57 | Outpatient (AMB) | payer OTHER, SELFPAY ==
[2023-09-23 12:59] VITALS: BP 118/74; PULSE 60; O2SAT 96; BMI 28.0
--- NOTE | 2023-09-23 12:59 | MHC.OFFVIS ---
Intake Vital Signs 09/23/23 12:59 Height 5 ft 8 in Weight 184 lb BMI 28.0 BP 118/74 Blood Pressure Location Rt brachial Position Sitting Pulse 60 Pulse Source Pulse Oximeter Pulse Oximetry (%) 96 Oxygen Delivery Method Room Air Intake Visit Reasons: Medication Count/confirmed Intake Note: Pt reports last taking her medication morning of 09/23/23 around 9 am and a pain level of 6. She says her neck and shoulders have been hurting the most. 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 Patient is prescribed oxycodone 5mg tablets Q6H PRN. Patient arrived today with the expectation of having 36 pills, she presented 36 pills which were counted in the presence of two staff members and returned to the patient in the original prescription bottle. This demonstrates responsible attitude toward patient's opioid medications. Pain is reported today as 6/10 and last dose of pain medication was taken at 9:00 this morning. Pain is adequately managed on current opioid regimen. Patient reports she is able to engage in activities of daily living with minimal interruption due to chronic pain. Patient denies side effects including somnolence, abd pain, constipation, nausea or weakness. Patient also complaining of muscle spasms in upper back and neck. States has been having her help her stretch and massage the muscles at home with some relief. 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 Father Diabetes Social History Housing: Apartment Are you a primary spiritual care coordinator to a significant other at home: Yes (children ages-7,11,18) Do you presently have visiting nurse or other home services: Yes (Mon-Sat 1 hour per day) Alcohol intake: current Alcohol intake frequency: holidays/special occasions only Alcohol type: beer and hard liquor Patient Tobacco Use Status: Former Tobacco user Quit Date: 2010 Tobacco use type: Cigarette e-Cigarette/Vaping Use: Never Used Second Hand Smoke Exposure: No service: No Current occupational status: unemployed Cognitive needs: No Hearing needs: No Vision needs: No Female Reproductive History Menstrual Age of Menarche: 11 Review of Systems Const All systems reviewed & are unremarkable except as noted in HPI and below Physical Exam Vital Signs: Last Vital Signs Pulse 60 09/23/23 12:59 BP 118/74 09/23/23 12:59 Pulse Ox 96 09/23/23 12:59 Oxygen Delivery Method Room Air 09/23/23 12:59 BMI result Body Mass Index 28.0 General: awake, alert, oriented. Answers questions appropriately. Fully engaged in examination. Skin: warm, dry, intact without visible rashes or lesions. HEENT: Normocephalic. Conjuntivae clear without exudate. Sclera non-icteric. Hearing intact. Cardiac: External chest normal in appearance. Respiratory: No signs of trauma. No signs of respiratory distress. No cough, audible wheezing or stridor. Abdomen: without gross distension. MS: No obvious swelling or deformities. Ambulates with steady gait, unassisted. Neurological: Oriented to person, place, time and situation. Thought process intact. No gait abnormalities appreciated. Psychiatric: Appropriate mood and affect. Good judgment and insight. Const Other: Results Reviewed Results Reviewed: MRI cervical spine 05/27/2022. Comparison cervical spine radiograph 08/29/2021. Findings: Cervical alignment is normal. Vertebral body heights are maintained. The disc Epifanio are preserved. There is no bone marrow edema. There is no acute fractures. There is metallic artifact within the upper thoracic spine from the thoracic Huizar rods. There is anterior subluxation of L2 on L3 that along with vertebral osteophyte and advanced facet arthropathy results in severe right-sided foraminal stenosis at T2-T3 with compression of the exiting right nerve root. Mild narrowing of central canal at this level. Partially imaged intracranial compartment is unremarkable. Cervical arterial flow voids are maintained. No significant extra-spinal soft tissue findings. Not cord signal changes. Cervical disc contour remains normal. No central canal stenosis and there is no foraminal stenosis within the cervical spine. Assessment & Plan Assessment & Plan (1) Trapezius muscle strain: Code(s): S46.819A - Strain of other muscles, fascia and tendons at shoulder and upper arm level, unspecified arm, initial encounter (2) jail (current) use of opiate analgesic: Code(s): Z79.891 - jail (current) use of opiate analgesic (3) Chronic pain syndrome: Code(s): G89.4 - Chronic pain syndrome (4) Postlaminectomy syndrome, not elsewhere classified: Code(s): M96.1 - Postlaminectomy syndrome, not elsewhere classified (5) Chronic back pain greater than 3 months duration: Code(s): M54.9 - Dorsalgia, unspecified; G89.29 - Other chronic pain (6) Cervicalgia: Code(s): M54.2 - Cervicalgia (7) Spondylosis of cervical joint without myelopathy: Code(s): M47.812 - Spondylosis without myelopathy or radiculopathy, cervical region (8) Sacroiliitis: Code(s): M46.1 - Sacroiliitis, not elsewhere classified (9) Sacroiliac joint pain: Code(s): M53.3 - Sacrococcygeal disorders, not elsewhere classified Plan [place] was reviewed and without concerns. No obvious signs of diversion, abuse or misuse of the opioid medications. Will send in prescription for oxycodone 5mg po QID PRN with an advanced date of 10/03/2023. Tizanidine 2mg po TID as needed for muscle spasm. Patient advised on cautions for use. Patient to follow-up in the office in 1 month, sooner if needed. All questions and concerns have been answered and patient agrees with the plan. 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
== END 2023-09-23 13:17 | disposition home or self-care (01) ==
PROVIDERS: PCP Internal Medicine; Visit Provider Registered Nurse Emergency
DX: Z79.891 Long term (current) use of opiate analgesic (principal); M96.1 Postlaminectomy syndrome, not elsewhere classified; S46.819A Strain of other muscles, fascia and tendons at shoulder and upper arm level, unspecified arm, initial encounter; G89.4 Chronic pain syndrome; M54.9 Dorsalgia, unspecified; G89.29 Other chronic pain; M54.2 Cervicalgia; M47.812 Spondylosis without myelopathy or radiculopathy, cervical region; M46.1 Sacroiliitis, not elsewhere classified; M53.3 Sacrococcygeal disorders, not elsewhere classified
CPT/HCPCS: 99214

== ENCOUNTER → 2023-09-23 12:57 | Outpatient (BNVA) | payer OTHER, SELFPAY | PROVIDERS: PCP Internal Medicine; Visit Provider Registered Nurse Emergency | DX: Z51.81 Encounter for therapeutic drug level monitoring (principal); F11.20 Opioid dependence, uncomplicated; S46.819A Strain of other muscles, fascia and tendons at shoulder and upper arm level, unspecified arm, initial encounter; M96.1 Postlaminectomy syndrome, not elsewhere classified; M54.9 Dorsalgia, unspecified; M54.2 Cervicalgia; M47.812 Spondylosis without myelopathy or radiculopathy, cervical region; M46.1 Sacroiliitis, not elsewhere classified; M53.3 Sacrococcygeal disorders, not elsewhere classified; G89.29 Other chronic pain; Z79.891 Long term (current) use of opiate analgesic | CPT/HCPCS: 99212 ==

== ENCOUNTER 2023-10-15 12:47 | Outpatient (AMB) | payer OTHER, SELFPAY ==
--- NOTE | 2023-10-15 12:53 | A.OFFPC_ITS ---
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 Required: No Accompanied by: Self / Same As Patient Allergies Penicillins Allergy (Unknown, Verified 10/15/23 13:13) Hives Medication List - Last Reconciled 10/15/23 by Erika Khalil MD amitriptyline 25 mg PO BEDTIME 90 days cholecalciferol (vitamin D3) 50 mcg PO DAILY 90 days cyclobenzaprine 10 mg PO BID PRN 30 days doxycycline hyclate 100 mg PO BID 30 days hydroxyzine HCl 25 mg PO BEDTIME PRN lidocaine 5% 1 patch topical DAILY oxycodone 5 mg PO Q6H PRN 30 days tizanidine 2 mg PO TID PRN Tobacco use date assessed: 10/15/23 Dental Screening Dental Screen Date: 10/15/23 Did you have a dental visit in the last 12 months?: Yes Did you have a dental problem in the last 6 months where you did not have access to dental care?: No Was dental information given to patient?: Patient has dentist HPI HPI Comments History of Present Illness Details This is 38-year-old female that comes for her physical exam. She has mild major depression on amitriptyline and I will refer her to counseling. No chest pain or shortness of breath. Last Pap smear was 2022. 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 Personal history of other diseases of the musculoskeletal system and connective tissue Chronic pain syndrome Postlaminectomy syndrome, not elsewhere classified Chronic back pain greater than 3 months duration Scoliosis Surgical History Hx of cholecystectomy Hx of tubal ligation Previous back surgery Family History (Updated 10/15/23 @ 13:16 by Erika Khalil MD) Mother Diabetes Father Diabetes Social History Housing: Apartment Are you a primary acute care certified nursing assistant to a significant other at home: Yes (children ages-7,11,18) Do you presently have visiting nurse or other home services: Yes (Mon-Sat 1 hour per day) Alcohol intake: current Alcohol intake frequency: holidays/special occasions only Alcohol type: beer and hard liquor Patient Tobacco Use Status: Former Tobacco user Quit Date: 2010 Tobacco use type: Cigarette e-Cigarette/Vaping Use: Never Used Second Hand Smoke Exposure: No service: No Current occupational status: unemployed Cognitive needs: No Hearing needs: No Vision needs: No Female Reproductive History Menstrual Age of Menarche: 11 Questionnaire PHQ-9 Over the last 2 weeks, how often have you been bothered by any of the following problems? 1. Little interest or pleasure in doing things: several days 2. Feeling down, depressed, or hopeless: nearly every day 3. Trouble falling or staying asleep, or sleeping too much: nearly every day 4. Feeling tired or having little energy: nearly every day 5. Poor appetite or overeating: more than half the days 6. Feeling bad about yourself - or that you are a failure or have let yourself or your family down: not at all 7. Trouble concentrating on things, such as reading the newspaper or watching t elevision: not at all 8. Moving or speaking so slowly that other people could have noticed. Or the opposite - being so fidgety or restless that you have been moving around a lot more than usual: not at all 9. Thoughts that you would be better off or of hurting yourself in some way: not at all Total score: 12 Depression Screening Interpretation: Positive Depression Screening Follow-up: Existing condition and In treatment Depression Screening Done: Yes 79182 - PHQ-9 Billing: Yes Source: Developed by Drs. Chandler Daley, Lakeisha Godfrey, Evaristo Coker and colleagues, with an educational bella from [employer]. Thrive Questionnaire Date Thrive assessed: 10/15/23 I am a: Patient What is your living situation today?: I have a steady place to live Within the past 12 months, did the food you bought not last and you didn't have the money to get more?: Never true Within the past 12 months, did you worry whether your food would run out before you got money to buy more?: Never true Do you have trouble paying for medicines?: No Do you have trouble getting transportation to medical appointments?: No Do you have trouble paying your heating and electricity bill?: No Do you have trouble taking care of your child, family member or friend?: No Do you have trouble with day-to-day activities such as bathing, preparing meals, shopping, managing finances, etc.?: No Are you currently unemployed and looking for a job?: No Are you interested in more education?: No Please select the resources that you would like help with: None Currently or been in a relationship where the following occur: no concerns reported AUDIT C Alcohol Use Questionnaire (AUDIT-C) 1. How often do you have a drink containing alcohol?: Monthly or less 2. How many drinks containing alcohol do you have on a typical day when you are drinking?: 1 or 2 3. How often do you have six or more drinks on one occasion?: Never Total Score: 1 Score Reviewed/Action Taken: No AMANDA-7 AMB Questionnaire AMANDA-7 Date AMANDA - 7 assessed: 10/15/23 Feeling nervous, anxious, or on edge: 0 = Not at all Not being able to stop or control worryin = Not at all Worrying too much about different things: 0 = Not at all Trouble relaxin = Not at all Being so restless that it is hard to sit still: 0 = Not at all Becoming easily annoyed or irritable: 0 = Not at all Feeling afraid as if something awful might happen: 0 = Not at all Total AMANDA-7 score (0-4 normal; 5-9 mild; 10-14 moderate; 15-21 severe): 0 Source: Developed by Drs. Chandler Daley, Lakeisha Godfrey, Evaristo Coker and colleagues, with an educational bella from [employer]. AMANDA-7 Assessment Billing AMANDA-7 Assessment Tool: AMANDA-7 Assessment 75306 Review of Systems Const All systems reviewed & are unremarkable except as noted in HPI and below Eyes Reports no additional complaints, Denies change in vision and Denies other visual disturbances Card Denies chest pain at rest, Denies chest pain with activity, Denies edema, Denies irregular heart rhythm, Denies claudication, Denies dyspnea, Denies dyspnea on exertion, Denies orthopnea, Denies paroxysmal nocturnal dyspnea and Denies slow heart rate Resp Denies cough, Denies dyspnea and Denies dyspnea on exertion GI Denies abdominal pain, Denies change in bowel habits, Denies excessive flatus, Denies nausea and Denies vomiting Denies urinary incontinence, Denies urinary hesitancy and Denies urinary urgency Musc Denies abnormal gait, Denies atrophy, Denies deformity and Denies limited range of motion Skin/Breast Denies bleeding lesions, Denies changing lesions and Denies rash Neuro Denies abnormal gait, Denies behavioral changes, Denies confusion and Denies lack of coordination Psych Reports anxiety, Denies behavioral changes, Denies confusion and Reports depression Physical exam (Primary Care) Vital Signs: Last Vital Signs BP 112/76 10/15/23 12:54 BMI result Body Mass Index 28.9 Tobacco/Smoking Status: Tobacco use Status Tobacco use date assessed 10/15/23 10/15/23 13:01 Patient Tobacco Use Status Former Tobacco user 10/15/23 12:59 Tobacco use type Cigarette 10/15/23 12:59 e-Cigarette/Vaping Use Never Used 10/15/23 12:59 PHQ-9: PHQ-9 Score PHQ-9: Total score 12 10/15/23 13:18 Depression Screening Interpretation: Positive Depression Screening Follow-up: Existing condition and In treatment Thrive Assessment: Date of Thrive Assessment Date Thrive assessed 10/15/23 10/15/23 12:59 Currently or been in a relationship where the following occur: no concerns reported Const General: No confusion Orientation/consciousness: patient oriented x3 and No confusion HENMT Head: Yes normal to inspection, Yes normocephalic and Yes atraumatic Ears: external ears normal Eyes General: appearance normal, both eyes and all related structures Eyelids: Yes eyelids normal Conjunctivae: conjunctivae normal Neck Neck: Yes normal visual inspection and Yes supple Resp Effort & Inspection: normal respiratory effort Auscultation: clear to auscultation bilaterally Cardio Jugular venous distension: no JVD Rate: regular rate Rhythm: regular rhythm Heart sounds: S1 normal heart sound present and S2 normal heart sound present GI Inspection: Yes normal to inspection Palpation (GI): Soft to palpation and nontender Auscultation: normal bowel sounds Skin General skin exam: no rashes or lesions noted Neuro General: patient oriented x3, no focal motor deficits and No confusion Extrem General: Yes full ROM Psych Appearance: grossly normal Office Procedures Flu Questionnaire Does the patient have a severe egg allergy?: No Immunizations flu vacc [id number] 6mos up(PF) 60 mcg(15 mcgx4)/0.5 mL IM syringe Performing Provider: Erika Khalil MD [place] [facility] [facility] Documented (not given) by: AURORA Arroyo on 10/15/23 13:26 Reason Not Given: Not Given Assessment and Plan Assessment & Plan (1) Physical exam: Code(s): Z00.00 - Encounter for general adult medical examination without abnormal findings Plan: Repeat in a year. (2) Mild major depression: Code(s): F32.0 - Major depressive disorder, single episode, mild Plan: Continue amitriptyline. Referred to counseling. Orders: Orders Lipid Panel Today E78.5 - Hyperlipidemia, unspecified Comprehensive [place]. Panel Fast Today M54.2 - Cervicalgia Referrals Counseling Referral F32.0 - Major depressive disorder, single episode, mild, F41.9 - Anxiety disorder, unspecified, F42.9 - Obsessive-compulsive disorder, unspecified Coding Level of Care Code Est Pt Prev Care 18-39y(57450) Diagnoses Physical exam Z00.00 Mild major depression F32.0 Additional Codes AMANDA-7 Assessment Billing - AMANDA-7 Assessment Tool: AMANDA-7 Assessment 82639 ([id number]) Time Spent (min) 32
[2023-10-15 12:54] VITALS: BP 112/76; BMI 28.9
== END 2023-10-15 13:21 | disposition home or self-care (01) ==
PROVIDERS: Visit Provider Internal Medicine
DX: Z00.00 Encounter for general adult medical examination without abnormal findings (principal); F32.0 Major depressive disorder, single episode, mild; Z79.891 Long term (current) use of opiate analgesic; E55.9 Vitamin D deficiency, unspecified
CPT/HCPCS: 99395

== ENCOUNTER 2023-10-21 13:17 | Outpatient (AMB) | payer OTHER, SELFPAY ==
[2023-10-21 13:36] VITALS: BP 115/63; PULSE 65; RESP 16; O2SAT 99; BMI 28.9
--- NOTE | 2023-10-21 13:36 | A.OFFVIS_ITS ---
Intake Vital Signs 10/21/23 13:36 Height 5 ft 8 in Weight 190 lb BMI 28.9 BP 115/63 Blood Pressure Location Lt brachial Position Sitting Respiration 16 Pulse 65 Pulse Source Pulse Oximeter Pulse Oximetry (%) 99 Oxygen Delivery Method Room Air Intake Visit Reasons: Pill count - Confirmed Allergies Penicillins Allergy (Unknown, Verified 10/21/23 13:35) Hives HPI HPI Comments History of Present Illness Details Tierra is a very pleasant 38 year old female who presents to the office today for follow up chronic pain and chronic opioid therapy management. Patient is prescribed oxycodone 5mg tablets Q6H PRN. Patient arrived today with the expectation of having 48 pills, she presented 45 pills which were counted in the presence of two staff members and returned to the patient in the original prescription bottle. This demonstrates responsible attitude toward patient's opioid medications. Pain is reported today as 8/10 and last dose of pain medication was taken at 11:00 this morning. Patient reports she is able to engage in activities of daily living with minimal interruption due to chronic pain. Patient denies side effects including somnolence, abd pain, constipation, nausea or weakness. Continues with pain in her neck. Taking muscle relaxers with minimal relief, mostly they just make her drowsy. Pain does not radiate down either arm, denies numbness, tingling, weakness of either upper extremity. 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 Personal history of other diseases of the musculoskeletal system and connective tissue Chronic pain syndrome Postlaminectomy syndrome, not elsewhere classified Chronic back pain greater than 3 months duration Scoliosis Surgical History Hx of cholecystectomy Hx of tubal ligation Previous back surgery Family History (Updated 10/15/23 @ 13:16 by Erika Khalil MD) Mother Diabetes Father Diabetes Social History Housing: Apartment Are you a primary career counselor to a significant other at home: Yes (children ages-7,11,18) Do you presently have visiting nurse or other home services: Yes (Mon-Sat 1 hour per day) Alcohol intake: current Alcohol intake frequency: holidays/special occasions only Alcohol type: beer and hard liquor Patient Tobacco Use Status: Former Tobacco user Quit Date: 2010 Tobacco use type: Cigarette e-Cigarette/Vaping Use: Never Used Second Hand Smoke Exposure: No service: No Current occupational status: unemployed Cognitive needs: No Hearing needs: No Vision needs: No Female Reproductive History Menstrual Age of Menarche: 11 Review of Systems Const All systems reviewed & are unremarkable except as noted in HPI and below Physical Exam Vital Signs: Last Vital Signs Pulse 65 10/21/23 13:36 Resp 16 10/21/23 13:36 BP 115/63 10/21/23 13:36 Pulse Ox 99 10/21/23 13:36 Oxygen Delivery Method Room Air 10/21/23 13:36 BMI result Body Mass Index 28.9 General: awake, alert, oriented. Answers questions appropriately. Fully engaged in examination. Skin: warm, dry, intact without visible rashes or lesions. HEENT: Normocephalic. Conjuntivae clear without exudate. Sclera non-icteric. Hearing intact. Cardiac: External chest normal in appearance. Respiratory: No signs of trauma. No signs of respiratory distress. No cough, audible wheezing or stridor. Abdomen: without gross distension. MS: No obvious swelling or deformities. Ambulates with steady gait, unassisted. decreased cervical ROM in all planes Tenderness to palpation midline vertebrae and paraspinal muscles Spurling positive Neurological: Oriented to person, place, time and situation. Thought process intact. No gait abnormalities appreciated. Psychiatric: Appropriate mood and affect. Good judgment and insight. Const Other: Results Reviewed Results Reviewed: MRI cervical spine 05/27/2022. Comparison cervical spine radiograph 08/29/2021. Findings: Cervical alignment is normal. Vertebral body heights are maintained. The disc Epifanio are preserved. There is no bone marrow edema. There is no acute fractures. There is metallic artifact within the upper thoracic spine from the thoracic Huizar rods. There is anterior subluxation of L2 on L3 that along with vertebral osteophyte and advanced facet arthropathy results in severe right-sided foraminal stenosis at T2-T3 with compression of the exiting right nerve root. Mild narrowing of central canal at this level. Partially imaged intracranial compartment is unremarkable. Cervical arterial flow voids are maintained. No significant extra-spinal soft tissue findings. Not cord signal changes. Cervical disc contour remains normal. No central canal stenosis and there is no foraminal stenosis within the cervical spine. 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: Code(s): Z79.891 - skilled nursing (current) use of opiate analgesic (4) Chronic pain syndrome: Code(s): G89.4 - Chronic pain syndrome (5) Postlaminectomy syndrome, not elsewhere classified: Code(s): M96.1 - Postlaminectomy syndrome, not elsewhere classified (6) Chronic back pain greater than 3 months duration: Code(s): M54.9 - Dorsalgia, unspecified; G89.29 - Other chronic pain (7) Cervicalgia: Code(s): M54.2 - Cervicalgia (8) Sacroiliitis: Code(s): M46.1 - Sacroiliitis, not elsewhere classified (9) Sacroiliac joint pain: Code(s): M53.3 - Sacrococcygeal disorders, not elsewhere classified Plan Masspat was reviewed and without concerns. No obvious signs of diversion, abuse or misuse of the opioid medications. Will send in prescription for oxycodone 5mg po QID PRN with an advanced date of 11/03/2023. C/W Tizanidine 2mg po TID as needed for muscle spasm. Xray CS ordered for evaluation Will schedule for fluoroscopy guided bilateral C4, C5, C6 MBBs with local anesthetic. Plan for Sprint PNS vs RFA pending results of diagnostic injection. Patient to follow-up in the office in 1 month, sooner if needed. All questions and concerns have been answered and patient agrees with the plan. 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
== END 2023-10-21 13:41 | disposition home or self-care (01) ==
PROVIDERS: PCP Internal Medicine; Visit Provider Registered Nurse Emergency
DX: G89.4 Chronic pain syndrome (principal); M47.812 Spondylosis without myelopathy or radiculopathy, cervical region; S46.819A Strain of other muscles, fascia and tendons at shoulder and upper arm level, unspecified arm, initial encounter; Z79.891 Long term (current) use of opiate analgesic; M96.1 Postlaminectomy syndrome, not elsewhere classified; M54.9 Dorsalgia, unspecified; G89.29 Other chronic pain; M54.2 Cervicalgia; M46.1 Sacroiliitis, not elsewhere classified; M53.3 Sacrococcygeal disorders, not elsewhere classified
CPT/HCPCS: 99214

== ENCOUNTER → 2023-10-21 13:17 | Outpatient (BNVA) | payer OTHER, SELFPAY | PROVIDERS: PCP Internal Medicine; Visit Provider Registered Nurse Emergency | DX: Z51.81 Encounter for therapeutic drug level monitoring (principal); F11.20 Opioid dependence, uncomplicated; M47.812 Spondylosis without myelopathy or radiculopathy, cervical region; M96.1 Postlaminectomy syndrome, not elsewhere classified; S46.819D Strain of other muscles, fascia and tendons at shoulder and upper arm level, unspecified arm, subsequent encounter; G89.4 Chronic pain syndrome; Z79.891 Long term (current) use of opiate analgesic; M54.9 Dorsalgia, unspecified; M54.2 Cervicalgia; M46.1 Sacroiliitis, not elsewhere classified; M53.3 Sacrococcygeal disorders, not elsewhere classified; G89.29 Other chronic pain | CPT/HCPCS: 99212 ==

== ENCOUNTER 2023-10-28 10:08 | Outpatient (REF) | payer OTHER, SELFPAY ==
[2023-11-03 04:38] LABS: HPV mRNA E6/E7 rflx Not Detected (Not Detected)
== END 2023-10-28 10:09 | disposition home or self-care (01) ==
LOC: HO.LNP 10:08
PROVIDERS: PCP Internal Medicine; Visit Provider Obstetrics & Gynecology
DX: N87.1 Moderate cervical dysplasia (principal)
CPT/HCPCS: 87624; 88142; 99212

== ENCOUNTER 2023-10-28 10:08 | Outpatient (AMB) | payer OTHER, SELFPAY ==
--- NOTE | 2023-10-28 10:10 | MHC.OFFVIS ---
Intake Vital Signs 10/28/23 10:13 Height 5 ft 8 in Weight 189 lb 9.561 oz BMI 28.8 BP 110/76 Intake Visit Reasons: 6 month cotesting Human Resource Professional Required: No Information Interpreted: non-clinical & clinical Fire Code Inspector: Fire Code Inspector Present (Fernanda Young [employer]) Accompanied by: Self / Same As Patient Allergies Penicillins Allergy (Unknown, Verified 10/28/23 10:13) Hives Is last menstrual period known: Yes Last menstrual period: 10/13/23 HPI HPI Comments History of Present Illness Details Presenting for 6 months co testing for JEIMY 2 status post LEEP cone with post cone ECC with no residual dysplasia PFSH Medical History Anxiety Obese Cholelithiasis Insomnia assisted (current) use of opiate analgesic Personal history of other diseases of the musculoskeletal system and connective tissue Chronic pain syndrome Postlaminectomy syndrome, not elsewhere classified Chronic back pain greater than 3 months duration Scoliosis Surgical History Hx of cholecystectomy Hx of tubal ligation Previous back surgery Family History Mother Diabetes Father Diabetes Social History Housing: Apartment Are you a primary rn coronary care unit to a significant other at home: Yes (children ages-7,11,18) Do you presently have visiting nurse or other home services: Yes (Mon-Sat 1 hour per day) Alcohol intake: current Alcohol intake frequency: holidays/special occasions only Alcohol type: beer and hard liquor Patient Tobacco Use Status: Former Tobacco user Quit Date: 2010 Tobacco use type: Cigarette e-Cigarette/Vaping Use: Never Used Second Hand Smoke Exposure: No service: No Current occupational status: unemployed Cognitive needs: No Hearing needs: No Vision needs: No Female Reproductive History Menstrual Age of Menarche: 11 Date of last menstrual period: 10/13/23 Review of Systems Const All systems reviewed & are unremarkable except as noted in HPI and below Physical Exam Vital Signs: Last Vital Signs BP 110/76 10/28/23 10:13 BMI result Body Mass Index 28.8 General: Yes no CVA tenderness External Female Exam: normal external appearance and normal appearance of the urethra Speculum Exam - Vagina: normal appearance of the vagina, normal palpation, no lesions and no masses Speculum Exam - Cervix: normal appearance of the cervix, normal palpation, no lesions, no masses and nontender Bimanual exam- vagina & uterus: normal bimanual exam, normal palpation, uterine size normal, normal palpation, uterine shape normal, No Cervical tenderness present and non-tender Bimanual Exam- Adnexa, other: normal adnexae Back/Spine/Pelvis Back: no CVA tenderness Assessment & Plan Assessment & Plan (1) JEIMY II (cervical intraepithelial neoplasia II): Comment: Status post LEEP cone with post cone ECC was no residual dysplasia Code(s): N87.1 - Moderate cervical dysplasia Plan: Co testing done, if negative recommended to the patient to repeat co testing in a year, if abnormal will proceed with colposcopy /biopsy/ECC. Instructions given the patient to schedule an appointment in a year for repeat co testing preop All questions answered, the patient verbalized understanding Coding Level of Care Code Est Pt Level 3 (84938) Diagnoses JEIMY II (cervical intraepithelial neoplasia II) N87.1
[2023-10-28 10:13] VITALS: BP 110/76; BMI 28.8
== END 2023-10-28 10:32 | disposition home or self-care (01) ==
LOC: HO.HWS 10:08
PROVIDERS: PCP Internal Medicine; Visit Provider Obstetrics & Gynecology
DX: N87.1 Moderate cervical dysplasia (principal)
CPT/HCPCS: 99213

== ENCOUNTER 2023-11-08 23:12 | Emergency (ER) | payer OTHER, SELFPAY ==
[2023-11-08 23:15] VITALS: BP 128/68; PULSE 67; RESP 20; TEMP 37.1; O2SAT 99; BMI 27.4
--- NOTE | 2023-11-08 23:42 | ED.NAVMDI ---
HPI - Nausea/Vomiting/Diarrhea General Chief complaint: Nausea/Vomiting/Diarrhea Stated complaint: stomach pain, n/v Time Seen by Provider: 11/08/23 23:42 Source: patient Mode of arrival: ambulatory Limitations: no limitations History of Present Illness HPI Narrative: Patient came here complaining of upper abdominal pain after drinking alcohol had 3 -4 beers and some Tequila having nausea and vomited few times patient is status post cholecystectomy no history of gastritis in the past no history of pancreatitis Related Data Home Medications Medication Instructions Recorded Confirmed albuterol sulfate 90 mcg/actuation 2 puff inhalation Q4-6H PRN 10/21/23 aerosol inhaler (Ventolin HFA) Previous Rx's Medication Instructions Recorded amitriptyline 25 mg tablet 25 mg PO BEDTIME 90 days #90 tabs 02/26/22 cholecalciferol (vitamin D3) 50 50 mcg PO DAILY 90 days #90 caps 10/29/22 mcg (2,000 unit) capsule cyclobenzaprine 10 mg tablet 10 mg PO BID PRN muscle spasm 30 12/12/22 days #90 tabs lidocaine 5 % topical patch 1 patch topical DAILY #15 ea 04/22/23 hydroxyzine HCl 25 mg tablet 25 mg PO BEDTIME PRN insomnia #14 09/01/23 tabs tizanidine 2 mg tablet 2 mg PO TID PRN muscle spasticity 09/23/23 #90 tabs oxycodone 5 mg tablet 5 mg PO Q6H PRN pain 30 days #120 10/21/23 tabs doxycycline hyclate 100 mg tablet 100 mg PO BID 30 days #60 tabs 10/29/23 omeprazole 40 mg capsule,delayed 40 mg PO DAILY #20 caps 11/09/23 release ondansetron 4 mg disintegrating 4 mg PO Q6-8H PRN nausea and 11/09/23 tablet vomiting #7 tabs Allergies Allergy/AdvReac Type Severity Reaction Status Date / Time Penicillins Allergy Unknown Hives Verified 11/08/23 23:15 Review of Systems Review of Systems: Yes all other systems are reviewed and are negative PMFSH Past Medical History Medical History Anxiety Obese Cholelithiasis Insomnia detention (current) use of opiate analgesic Personal history of other diseases of the musculoskeletal system and connective tissue Chronic pain syndrome Postlaminectomy syndrome, not elsewhere classified Chronic back pain greater than 3 months duration Scoliosis Surgical History Hx of cholecystectomy Hx of tubal ligation Previous back surgery Family History Family History Mother Diabetes Father Diabetes Social History Social History Housing: Apartment Are you a primary youth care specialist to a significant other at home: Yes (children ages-7,11,18) Do you presently have visiting nurse or other home services: Yes (Mon-Sat 1 hour per day) Alcohol intake: current Alcohol intake frequency: holidays/special occasions only Alcohol type: beer and hard liquor Patient Tobacco Use Status: Former Tobacco user Quit Date: 2010 Tobacco use type: Cigarette Smoked in Last 30 Days: No e-Cigarette/Vaping Use: Never Used Second Hand Smoke Exposure: No Use of substances other than those prescribed or required for medical reasons: No Advance Directives: No Advance Directives Information Provided: Yes Patient : No service: No Current occupational status: unemployed Cognitive needs: No Hearing needs: No Vision needs: No Physical Exam Vital Signs: Vital Signs: Last Vital Signs Temp 97.4 F 11/09/23 01:10 Pulse 60 11/09/23 01:10 Resp 18 11/09/23 01:10 BP 133/77 11/09/23 01:10 Pulse Ox 98 11/09/23 01:10 O2 Del Method Room Air 11/09/23 01:10 BMI result Body Mass Index 27.4 Appearance: Alert. Oriented X3. No acute distress. Eyes: PERRLA, No Nystagmus ENT: Pharynx normal. Oral Mucosa moist Neck: Normal inspection. Neck supple. CVS: Normal heart rate and rhythm. Pulses normal. Respiratory: No respiratory distress. Equal air entry bilateral, no wheezing/rales/rhonchi Abdomen: Soft, mild epigastric tenderness Bowel sounds are present, no mass palpable, no CVA tenderness Skin: Skin warm and dry. Normal skin color. Normal skin turgor. Extremities: No lower extremity edema. No calf tenderness Neuro: Oriented X 3. No motor deficit. No sensory deficit.No cerebellar signs , cranial nerves II-XII intact Medications Administered Discontinued Medications Generic Name Dose Route Start Last Admin Trade Name Freq PRN Reason Stop Dose Admin Al Hydroxide/Mg Hydroxide 30 ml 11/09/23 00:22 11/09/23 01:09 Magnesium Hydrox/Alum Hydrox 30 Ml Oral.Susp PO 11/09/23 00:23 30 ml ONCE ONE Administration Famotidine 20 mg 11/08/23 23:45 11/08/23 23:56 Famotidine/Pf 20 Mg/2 Ml Vial IVPUSH 11/08/23 23:46 20 mg ONCE ONE Administration Sodium Chloride 1,000 mls @ 999 mls/hr 11/08/23 23:45 11/09/23 02:16 Ns IV 11/09/23 00:45 Infused .Q1H1M ONE Infusion Sodium Chloride 1,000 mls @ 999 mls/hr 11/09/23 01:11 11/09/23 03:38 Ns IV 11/09/23 02:11 Infused .Q1H1M ONE Infusion Lidocaine HCl 15 ml 11/09/23 00:22 11/09/23 01:05 Lidocaine Hcl Viscous 2 % 15 Ml Solution MUCOUS MEM 11/09/23 00:23 15 ml ONCE ONE Administration Morphine Sulfate 2 mg 11/09/23 00:36 11/09/23 00:39 Morphine Sulfate 2 Mg/Ml Cartridge IVPUSH 11/09/23 00:37 2 mg ONCE ONE Administration Protocol Ondansetron HCl 4 mg 11/08/23 23:45 11/08/23 23:56 Ondansetron Hcl 4 Mg/2 Ml Vial IVPUSH 11/08/23 23:46 4 mg ONCE ONE Administration Prochlorperazine Edisylate 10 mg 11/09/23 02:30 11/09/23 02:38 Prochlorperazine Edisylate 10 Mg/2 Ml Vial IVPUSH 11/09/23 02:31 10 mg ONCE ONE Administration Medical Decision Making Medical Decision Making [facility] Narrative: Patient with acute alcoholic gastritis labs are stable improved after IV fluids and nausea medication and Pepcid will discharge patient home Differential Diagnosis Differential Diagnoses: The differential diagnosis associated with the presentation includes Alcoholic gastritis/peptic ulcer disease/pancreatitis Lab Data [facility] Lab Attestation statement: I reviewed the patient's lab results. 11/08/23 23:59 11/08/23 23:59 Labs: Lab Results 11/08/23 Range/Units 23:59 WBC 8.3 (4.8-10.8) X10*3/uL RBC 4.39 (4.20-5.50) X10*6/uL Hgb 12.7 (12.0-16.0) g/dl Hct 36.7 L (37.0-47.0) % MCV 83.6 (80.0-98.0) fL MCH 28.9 (27.0-33.0) pg MCHC 34.6 (31.0-35.0) g/dl RDW 12.2 (11.0-16.0) % Plt Count 189 (160-400) X10*3/uL MPV 11.5 (9.4-12.3) fL Immature Gran % (Auto) 0.2 (0.0-0.4) % Neut % (Auto) 83.1 H (45-73) % Lymph % (Auto) 13.4 L (20-40) % Jewell % (Auto) 2.8 (2-11) % Eos % (Auto) 0.1 (0-4) % Baso % (Auto) 0.4 (0-2) % Lymph # (Auto) 1.1 L (1.2-4.9) X10*3/uL Jewell # (Auto) 0.2 (0.1-1.2) X10*3/uL Eos # (Auto) 0.0 (0.0-0.4) X10*3/uL Baso # (Auto) 0.0 (0.0-0.2) X10*3/uL Abs Immat Gran (auto) 0.02 (0.00-0.03) X10*3/uL Absolute Neuts (auto) 6.9 (2.0-8.3) x10*3/uL Absolute Nucleated RBC 0.000 (0.0-0.012) X10*3/uL Nucleated RBC % (auto) 0.0 (0.0-0.2) /100WBC Sodium 141 (135-145) mmol/L Potassium 3.4 (3.3-5.1) mmol/L Chloride 108 (96-108) mmol/L Carbon Dioxide 21 L (22-29) mmol/L Anion Gap 15 (12-20) BUN 14 (9-16) mg/dL Creatinine 0.72 (0.5-1.4) mg/dL Estim Creat Clear Calc 118.7 Estimated GFR > 60 Random Glucose 152 H (60-115) mg/dL Calcium 9.6 (8.4-10.2) mg/dL Total Bilirubin 0.3 (0.0-1.0) mg/dL AST 15 (5-31) U/L ALT 14 (0-31) U/L Alkaline Phosphatase 74 (39-117) U/L Total Protein 7.8 (6.5-8.0) g/dL Albumin 4.4 (3.5-5.0) g/dL Lipase 12 (8-78) U/L Ethyl Alcohol 12 mg/dL Discharge Plan Discharge Clinical Impression: Acute alcoholic gastritis Patient Disposition: Home, Self-Care Instructions: Gastritis (ED) Additional Instructions: Drink plenty of fluid Prilosec daily Medicine for nausea Avoid drinking alcohol Prescriptions: New ondansetron 4 mg tablet,disintegrating 4 mg PO Q6-8H PRN (Reason: nausea and vomiting) Qty: 7 0RF omeprazole 40 mg capsule,delayed release(DR/EC) 40 mg PO DAILY Qty: 20 0RF No Action amitriptyline 25 mg tablet 25 mg PO BEDTIME 90 Days Qty: 90 3RF cholecalciferol (vitamin D3) 50 mcg (2,000 unit) capsule 50 mcg PO DAILY 90 Days Qty: 90 1RF cyclobenzaprine 10 mg tablet 10 mg PO BID PRN (Reason: muscle spasm) 30 Days Qty: 90 6RF doxycycline hyclate 100 mg tablet 100 mg PO BID 30 Days Qty: 60 6RF hydroxyzine HCl 25 mg tablet 25 mg PO BEDTIME PRN (Reason: insomnia) Qty: 14 0RF lidocaine 5 % adhesive patch,medicated 1 patch topical DAILY Qty: 15 0RF Rx Instructions: leave on most painful area for up to 12 hrs albuterol sulfate [Ventolin HFA] 90 mcg/actuation HFA aerosol inhaler 2 puff inhalation Q4-6H PRN oxycodone 5 mg tablet 5 mg PO Q6H PRN (Reason: pain) 30 Days Qty: 120 0RF tizanidine 2 mg tablet 2 mg PO TID PRN (Reason: muscle spasticity) Qty: 90 1RF Interventions: ED Discharge Assessment Last Done: 11/09/23 03:52 Discharge Date/Time: 11/09/23 03:56
[2023-11-08] MEDS: Famotidine/PF 20 MG/2 ML VIAL IVPUSH (23:56)
[2023-11-08] MEDS: ondansetron HCL 4 MG/2 ML VIAL IVPUSH (23:56)
[2023-11-08 23:59] LABS: MANUAL DIFF FLAG NO
[2023-11-09 00:01] LABS: Basophils Percent Auto 0.4 % (0-2); Eosinophils Percent Auto 0.1 % (0-4); Hematocrit 36.7 % (37.0-47.0); Hemoglobin 12.7 g/dl (12.0-16.0); Imm Gran Abs Auto 0.02 X10*3/uL (0.00-0.03); Imm Gran Pct Auto 0.2 % (0.0-0.4); Lymphocytes Absolute Auto 1.1 X10*3/uL (1.2-4.9); Lymphocytes Percent Auto 13.4 % (20-40); Mean Corpuscular HGB Conc 34.6 g/dl (31.0-35.0); Mean Corpuscular Hemoglobin 28.9 pg (27.0-33.0); Mean Corpuscular Volume 83.6 fL (80.0-98.0); Mean Platelet Volume 11.5 fL (9.4-12.3); Monocytes Absolute Auto 0.2 X10*3/uL (0.1-1.2); Monocytes Percent Auto 2.8 % (2-11); Neutrophils Absolute Auto 6.9 x10*3/uL (2.0-8.3); Neutrophils Percent Auto 83.1 % (45-73); Platelet Count 189 X10*3/uL (160-400); Red Blood Count 4.39 X10*6/uL (4.20-5.50); Red Cell Distribution Width 12.2 % (11.0-16.0); White Blood Count 8.3 X10*3/uL (4.8-10.8)
[2023-11-09 00:17] LABS: Alanine Aminotransferase 14 U/L (0-31); Albumin Level 4.4 g/dL (3.5-5.0); Alkaline Phosphatase 74 U/L (39-117); Anion Gap 15 (12-20); Aspartate Amino Transferase 15 U/L (5-31); Bilirubin Total 0.3 mg/dL (0.0-1.0); Blood Urea Nitrogen 14 mg/dL (9-16); Calcium 9.6 mg/dL (8.4-10.2); Carbon Dioxide 21 mmol/L (22-29); Chloride 108 mmol/L (96-108); Creatinine Clr Calc Pharmacy 118.7; Estimated Glomerular Filt Rate > 60; Ethanol 12 mg/dL; Glucose Random 152 mg/dL (60-115); Lipase 12 U/L (8-78); Potassium 3.4 mmol/L (3.3-5.1); Sodium 141 mmol/L (135-145); Total Protein 7.8 g/dL (6.5-8.0)
[2023-11-09] MEDS: Morphine Sulfate 2 MG/ML CARTRIDGE IVPUSH (00:39)
[2023-11-09] MEDS: Lidocaine HCl Viscous 2 % 15 ML SOLUTION MUCOUS MEM (01:05)
[2023-11-09] MEDS: Magnesium Hydrox/Alum Hydrox 30 ML ORAL.SUSP PO (01:09)
[2023-11-09 01:10] VITALS: BP 133/77; PULSE 60; RESP 18; TEMP 36.3; O2SAT 98
--- NOTE | 2023-11-09 01:13 | PC.NURSE ---
PT immediately vomited up Maalox and Lidocaine viscous, and reports remains 07/07. Dr. Shelli forde.
[2023-11-09] MEDS: 0.9 % Sodium Chloride 1,000 ML 999 ML IV ×2 (02:15)
[2023-11-09] MEDS: Prochlorperazine Edisylate 10 MG/2 ML VIAL IVPUSH (02:38)
== END 2023-11-09 03:56 | disposition home or self-care (01) ==
PROVIDERS: Emergency Provider Internal Medicine
DX: K29.20 Alcoholic gastritis without bleeding (principal); R11.2 Nausea with vomiting, unspecified; R10.10 Upper abdominal pain, unspecified; Z79.899 Other long term (current) drug therapy
CPT/HCPCS: 36415; 80053; 80307; 83690; 85025; 96361; 96374; 96375; 99284; J0737; J2270; J2405

== ENCOUNTER 2023-11-09 16:21 | Emergency (ER) | payer OTHER, SELFPAY ==
--- NOTE | ~2023-11-09 | CT_ITS ---
EXAMINATION: CT ABDOMEN AND PELVIS WITH CONTRAST CLINICAL INFORMATION: epigastric, LUQ pain, tenderness, N/V COMPARISON: 06/04/2021 TECHNIQUE: Multidetector volumetric imaging was performed from the superior aspect of the liver through the pubic symphysis following administration of 85 mL Omnipaque 300 intravenous contrast. Sagittal and coronal reformatted images were obtained on the technologist workstation.. This CT examination was performed using dose optimization techniques as appropriate, variously including the following: *Automated exposure control *Adjustment of mA and/or kV according to patient size (this includes techniques or standardized protocols for targeted exams where dose is matched to indication/reason for exam; i.e. extremities or head) *Use of iterative reconstruction technique DLP: 578 mGy-cm FINDINGS: LUNG BASES: The visualized lung bases are unremarkable. LIVER, GALLBLADDER, AND BILIARY TREE: The liver is normal in size, shape, and attenuation. No focal hepatic lesion or biliary ductal dilatation is present. The gallbladder surgically absent PANCREAS: Unremarkable. SPLEEN: Unremarkable. ADRENAL GLANDS: Unremarkable. KIDNEYS AND URETERS: The kidneys are normal in size, shape, and attenuation. No hydronephrosis, hydroureter, or perinephric stranding. No calculi. BLADDER: Unremarkable. GASTROINTESTINAL TRACT: Colon is decompressed with a few scattered colonic diverticula but no colonic wall thickening or pericolonic inflammatory change to suggest diverticulitis. Retrocecal appendix noted. Visualized small bowel unremarkable ABDOMINAL WALL: No significant hernia is appreciated. LYMPHOVASCULAR STRUCTURES: No lymphadenopathy. The aorta is unremarkable. PELVIC VISCERA: Physiologic changes OSSEOUS STRUCTURES: Spinal hardware again noted. CT/CT abdomen pelvis w IV con IMPRESSION: Chronic appearing changes similar to the 06/04/2021 study. I do not appreciate any acute intra-abdominal process.
--- NOTE | ~2023-11-09 | XR_ITS ---
EXAMINATION: XR ABDOMEN KUB CLINICAL INDICATION: Abdominal pain. COMPARISON: CT abdomen pelvis dated 06/04/2021. TECHNIQUE: 2 radiographs of the abdomen. FINDINGS: The bowel gas pattern is nonobstructive. There are cholecystectomy clips. There are pelvic phleboliths. There are Huizar rods overlying the thoracolumbar spine. There is thoracolumbar scoliosis. The visualized lung bases are clear. The sacroiliac joints are intact. There are sclerotic changes at the symphysis pubis. XR/XR KUB IMPRESSION: Nonobstructive bowel gas pattern.
[2023-11-09 17:11] VITALS: BP 132/56; BP 158/70; PULSE 67; PULSE 70; RESP 20; TEMP 36.8; O2SAT 97; O2SAT 98; BMI 27.2
--- NOTE | 2023-11-09 17:11 | ED_ITS ---
HPI - General Adult General Chief complaint: Abdominal Pain Stated complaint: SHARP ABD PAIN IN CENTER X2DAYS, N/V Time Seen by Provider: 11/09/23 20:00 Source: patient Mode of arrival: EMS Limitations: no limitations History of Present Illness HPI narrative: Patient is a 38-year-old female who presents emergency department for evaluation of mid epigastric/supraumbilical abdominal pain. Sharp in nature. Onset was yesterday evening. She states that she came to the emergency department and had no relief from the medications she received was advised that this was alcoholic gastritis and was discharged home. She reports the pain has persisted all day without relief. She is having nausea with multiple episodes of bilious vomiting reports at least 3 episodes while in the waiting room. Also reporting a substernal chest pain described as sharp burning pain. Denies fevers, chills, shortness of breath, genitourinary symptoms, numbness or tingling of the extremities. Denies any known sick contacts. Related Data Home Medications Medication Instructions Recorded Confirmed albuterol sulfate 90 mcg/actuation 2 puff inhalation Q4-6H PRN 10/21/23 aerosol inhaler (Ventolin HFA) Previous Rx's Medication Instructions Recorded amitriptyline 25 mg tablet 25 mg PO BEDTIME 90 days #90 tabs 02/26/22 cholecalciferol (vitamin D3) 50 50 mcg PO DAILY 90 days #90 caps 10/29/22 mcg (2,000 unit) capsule cyclobenzaprine 10 mg tablet 10 mg PO BID PRN muscle spasm 30 12/12/22 days #90 tabs lidocaine 5 % topical patch 1 patch topical DAILY #15 ea 04/22/23 hydroxyzine HCl 25 mg tablet 25 mg PO BEDTIME PRN insomnia #14 09/01/23 tabs tizanidine 2 mg tablet 2 mg PO TID PRN muscle spasticity 09/23/23 #90 tabs oxycodone 5 mg tablet 5 mg PO Q6H PRN pain 30 days #120 10/21/23 tabs doxycycline hyclate 100 mg tablet 100 mg PO BID 30 days #60 tabs 10/29/23 omeprazole 40 mg capsule,delayed 40 mg PO DAILY #20 caps 11/09/23 release ondansetron 4 mg disintegrating 4 mg PO Q6-8H PRN nausea and 11/09/23 tablet vomiting #7 tabs aluminum-mag hydroxide-simethicone 10 ml PO QID PRN dyspepsia #3,000 11/10/23 200 mg-200 mg-20 mg/5 mL oral susp mL (Maalox Advanced) dicyclomine 10 mg capsule 10 mg PO TID #20 caps 11/10/23 Allergies Allergy/AdvReac Type Severity Reaction Status Date / Time Penicillins Allergy Unknown Hives Verified 11/08/23 23:15 Review of Systems 2 Review of Systems: Yes all other systems are reviewed and are negative FOR[facility]LY [facility], [facility] Past Medical History Attestation statement: The following information was validated with the patient. 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 other at home: Yes (children ages-7,11,18) Do you presently have visiting nurse or other home services: Yes (Mon-Sat 1 hour per day) Alcohol intake: current Alcohol intake frequency: holidays/special occasions only Alcohol type: beer and hard liquor Patient Tobacco Use Status: Former Tobacco user Quit Date: 2010 Tobacco use type: Cigarette e-Cigarette/Vaping Use: Never Used Second Hand Smoke Exposure: No Advance Directives: No Advance Directives Information Provided: No service: No Current occupational status: unemployed Cognitive needs: No Hearing needs: No Vision needs: No Physical Exam ED Vital Signs: Vital Signs - 24 hr 11/09/23 17:11 11/09/23 22:00 11/09/23 23:48 Temperature 98.3 F 98.2 F 98.3 F Pulse Rate 70 60 58 Respiratory Rate 20 14 16 Blood Pressure 132/56 L 99/55 L 108/62 Pulse Oximetry 98 95 97 Oxygen Delivery Method Room Air Room Air Room Air BMI result Body Mass Index 27.2 Appearance: Alert.?Oriented to person, place and time. No acute distress.?Normal affect. Eyes: Pupils equal, round and reactive to light.? ENT: Pharynx normal.?? Neck: Normal inspection.? Neck supple.?? CVS: Heart sounds normal. Normal heart rate and rhythm.? Pulses normal.?? Respiratory: No respiratory distress.? Lung sounds clear to auscultation bilaterally?? Abdomen: Soft with diffuse upper abdominal tenderness upon palpation predominantly epigastric/left upper quadrant. Normoactive bowel sounds. No pulsatile mass.?? Skin: Skin warm and dry.? Normal skin color.? Extremities: No lower extremity edema.? Neuro: Moves all extremities spontaneously. Sensation intact bilaterally. No focal neuro deficits. Ambulates with normal steady gait. Course Course Course Narrative: RME performed by Elmira Corey PA-C. Patient is a 38 year old assigned female at presenting to the emergency department with abdominal pain. Patient was seen here last night and the medication she got while in the department did not help. 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 Labs ordered. Patient placed back in the waiting room pending room availability and results. Reevaluation(s) Reevaluation #1: Pain 8/10 minimally changed from Dilaudid, CT abdomen and pelvis is without acute pathology. Will trial elixir Time: 23:53 Reevaluation #2: Asleep on stretcher. Awakes easily. Reports significant improvement in symptoms, discomfort is currently 2/10. Tolerating oral intake. At this time I feel that she is stable for discharge home, suspect symptoms most consistent with gastritis, possibly food related. Sent prescriptions to patient's pharmacy. Discussed worrisome signs and symptoms that would warrant re- evaluation in the emergency department. Outpatient follow-up with primary care provider. Time: 01:33 Medications Administered Discontinued Medications Generic Name Dose Route Start Last Admin Trade Name Freq PRN Reason Stop Dose Admin Belladonna Alkaloids/Phenobarbital 10 ml 11/09/23 23:51 11/10/23 00:22 Phenobarb/Hyoscy/Atropine/Scop 10 Ml Elixir PO 11/09/23 23:52 10 ml ONCE ONE Administration Hydromorphone HCl 0.5 mg 11/09/23 20:41 11/09/23 21:09 Hydromorphone Hcl 0.5 Mg/0.5 Ml Syringe IVPUSH 11/09/23 20:42 0.5 mg ONCE ONE Administration Protocol Sodium Chloride 1,000 mls @ 999 mls/hr 11/09/23 20:45 11/09/23 21:10 Ns IV 11/09/23 21:45 999 mls/hr .Q1H1M OBIE Administration Iohexol 85 ml 11/09/23 21:58 11/09/23 21:58 Iohexol 350 Mg/Ml 100 Ml Infus..Btl IV 11/09/23 21:59 85 ml ONCE ONE Administration Ketorolac Tromethamine 15 mg 11/10/23 00:40 11/10/23 00:52 Ketorolac Tromethamine 15 Mg/Ml Vial IVPUSH 11/10/23 00:41 15 mg ONCE ONE Administration Metoclopramide HCl 10 mg 11/09/23 20:41 11/09/23 21:09 Metoclopramide Hcl 10 Mg/2 Ml Vial IVPUSH 11/09/23 20:42 10 mg ONCE ONE Administration Medical Decision Making Medical Decision Making [facility] Narrative: Patient 38-year-old female who presents emergency department for evaluation of abdominal pain as per HPI. Notable physical exam findings include epigastric/left upper quadrant tenderness upon palpation, no rigidity, no guarding, no rebound tenderness, has history of cholecystectomy.. She appears very uncomfortable upon exam. Vitals however stable, afebrile without tachycardia tachypnea or hypoxia. Reviewed ED notes from visit yesterday, she received Maalox, famotidine, lidocaine viscous, morphine and Zofran which per patient did not alleviate any of her symptoms. Differential Diagnosis Differential Diagnoses: The differential diagnosis associated with the presentation includes (Gastritis, GERD, PUD, pancreatitis. No risk factors for ACS. PERC negative, unlikely PE) Admission/Observation Consideration of admission/observation: Escalation of care including admission/observation considered (See narrative above and course narrative for further detail) Lab Data [facility] Lab Attestation statement: I reviewed the patient's lab results. CBC reveals mild leukocytosis of 11. Unremarkable CMP. Lipase within normal limits. High sensitive troponin below detectable limits. 11/09/23 18:04 11/09/23 18:04 Labs: Lab Results 11/09/23 Range/Units 18:04 WBC 11.0 H (4.8-10.8) X10*3/uL RBC 4.34 (4.20-5.50) X10*6/uL Hgb 12.8 (12.0-16.0) g/dl Hct 37.0 (37.0-47.0) % MCV 85.3 (80.0-98.0) fL MCH 29.5 (27.0-33.0) pg MCHC 34.6 (31.0-35.0) g/dl RDW 12.4 (11.0-16.0) % Plt Count 202 (160-400) X10*3/uL MPV 11.9 (9.4-12.3) fL Immature Gran % (Auto) 1.3 H (0.0-0.4) % Neut % (Auto) 79.1 H (45-73) % Lymph % (Auto) 12.1 L (20-40) % [place] % (Auto) 7.3 (2-11) % Eos % (Auto) 0.0 (0-4) % Baso % (Auto) 0.2 (0-2) % Lymph # (Auto) 1.3 (1.2-4.9) X10*3/uL [place] # (Auto) 0.8 (0.1-1.2) X10*3/uL Eos # (Auto) 0.0 (0.0-0.4) X10*3/uL Baso # (Auto) 0.0 (0.0-0.2) X10*3/uL Abs Immat Gran (auto) 0.14 H (0.00-0.03) X10*3/uL Absolute Neuts (auto) 8.7 H (2.0-8.3) x10*3/uL Absolute Nucleated RBC 0.000 (0.0-0.012) X10*3/uL Nucleated RBC % (auto) 0.0 (0.0-0.2) /100WBC Sodium 141 (135-145) mmol/L Potassium 3.6 (3.3-5.1) mmol/L Chloride 106 (96-108) mmol/L Carbon Dioxide 24 (22-29) mmol/L Anion Gap 15 (12-20) BUN 14 (9-16) mg/dL Creatinine 0.69 (0.5-1.4) mg/dL Estim Creat Clear Calc 123.6 Estimated GFR > 60 Random Glucose 107 (60-115) mg/dL Calcium 9.7 (8.4-10.2) mg/dL Magnesium 2.1 (1.6-2.6) mg/dL Total Bilirubin 0.5 (0.0-1.0) mg/dL AST 14 (5-31) U/L ALT 14 (0-31) U/L Alkaline Phosphatase 79 (39-117) U/L Troponin I High Sens < 2.7 (<3.5-17.0) ng/L Total Protein 7.9 (6.5-8.0) g/dL Albumin 4.4 (3.5-5.0) g/dL Lipase 12 (8-78) U/L Beta HCG, Quant < 2 mIU/mL Independent Interpretation I performed an independent interpretation of an: Plain X-Ray (I personally interpreted KUB agree with radiologist impression, nonobstructive bowel pattern) Radiology Impression Discussion of test interpretation with radiology: I have reviewed the radiologist's reading. Radiologist Impression: XR/XR KUB IMPRESSION: Nonobstructive bowel gas pattern. CT/CT abdomen pelvis w IV con IMPRESSION: Chronic appearing changes similar to the 06/04/2021 study. I do not appreciate any acute intra-abdominal process. External Record Review External record reviewed: Outpatient record Discharge Plan Discharge Clinical Impression: Gastritis Patient Disposition: Home, Self-Care Instructions: Gastritis (ED) Additional Instructions: Introduce a bland diet including crackers, bananas, rice, soup, toast, and boiled vegetables. This may progress to plain baked or boiled chicken or turkey. Avoid dairy products or foods high in fat or grease. Continue all other medications as prescribed. Follow-up with your primary care provider within 3 days. Return back to emergency department any new or worsening symptoms or concerns. Prescriptions: New alum-mag hydroxide-simeth [Maalox Advanced] 200-200-20 mg/5 mL suspension 10 ml PO QID PRN (Reason: dyspepsia) Qty: 3000 0RF Rx Instructions: administer between meals and at bedtime dicyclomine 10 mg capsule 10 mg PO TID Qty: 20 0RF No Action amitriptyline 25 mg tablet 25 mg PO BEDTIME 90 Days Qty: 90 3RF cholecalciferol (vitamin D3) 50 mcg (2,000 unit) capsule 50 mcg PO DAILY 90 Days Qty: 90 1RF cyclobenzaprine 10 mg tablet 10 mg PO BID PRN (Reason: muscle spasm) 30 Days Qty: 90 6RF doxycycline hyclate 100 mg tablet 100 mg PO BID 30 Days Qty: 60 6RF ondansetron 4 mg tablet,disintegrating 4 mg PO Q6-8H PRN (Reason: nausea and vomiting) Qty: 7 0RF omeprazole 40 mg capsule,delayed release(DR/EC) 40 mg PO DAILY Qty: 20 0RF hydroxyzine HCl 25 mg tablet 25 mg PO BEDTIME PRN (Reason: insomnia) Qty: 14 0RF lidocaine 5 % adhesive patch,medicated 1 patch topical DAILY Qty: 15 0RF Rx Instructions: leave on most painful area for up to 12 hrs albuterol sulfate [Ventolin HFA] 90 mcg/actuation HFA aerosol inhaler 2 puff inhalation Q4-6H PRN oxycodone 5 mg tablet 5 mg PO Q6H PRN (Reason: pain) 30 Days Qty: 120 0RF tizanidine 2 mg tablet 2 mg PO TID PRN (Reason: muscle spasticity) Qty: 90 1RF Referrals: Physician,Unknown J [Primary Care Provider] -
[2023-11-09 18:08] LABS: MANUAL DIFF FLAG NO
[2023-11-09 18:27] LABS: Basophils Percent Auto 0.2 % (0-2); Hemoglobin 12.8 g/dl (12.0-16.0); Imm Gran Abs Auto 0.14 X10*3/uL (0.00-0.03); Imm Gran Pct Auto 1.3 % (0.0-0.4); Lymphocytes Absolute Auto 1.3 X10*3/uL (1.2-4.9); Lymphocytes Percent Auto 12.1 % (20-40); Mean Corpuscular HGB Conc 34.6 g/dl (31.0-35.0); Mean Corpuscular Hemoglobin 29.5 pg (27.0-33.0); Mean Corpuscular Volume 85.3 fL (80.0-98.0); Mean Platelet Volume 11.9 fL (9.4-12.3); Monocytes Absolute Auto 0.8 X10*3/uL (0.1-1.2); Monocytes Percent Auto 7.3 % (2-11); Neutrophils Absolute Auto 8.7 x10*3/uL (2.0-8.3); Neutrophils Percent Auto 79.1 % (45-73); Platelet Count 202 X10*3/uL (160-400); Red Blood Count 4.34 X10*6/uL (4.20-5.50); Red Cell Distribution Width 12.4 % (11.0-16.0)
[2023-11-09 18:30] LABS: Alanine Aminotransferase 14 U/L (0-31); Albumin Level 4.4 g/dL (3.5-5.0); Alkaline Phosphatase 79 U/L (39-117); Anion Gap 15 (12-20); Aspartate Amino Transferase 14 U/L (5-31); Bilirubin Total 0.5 mg/dL (0.0-1.0); Blood Urea Nitrogen 14 mg/dL (9-16); Calcium 9.7 mg/dL (8.4-10.2); Carbon Dioxide 24 mmol/L (22-29); Chloride 106 mmol/L (96-108); Creatinine Clr Calc Pharmacy 123.6; Estimated Glomerular Filt Rate > 60; Glucose Random 107 mg/dL (60-115); Magnesium 2.1 mg/dL (1.6-2.6); Potassium 3.6 mmol/L (3.3-5.1); Sodium 141 mmol/L (135-145); Total Protein 7.9 g/dL (6.5-8.0)
[2023-11-09 18:31] LABS: HCG Quantitative < 2 mIU/mL
[2023-11-09 20:21] LABS: Lipase 12 U/L (8-78)
--- NOTE | 2023-11-09 20:49 | ECG_ITS ---
Test Reason : CP Blood Pressure : / mmHG Vent. Rate : 053 BPM Atrial Rate : 053 BPM P-R Int : 146 ms QRS Dur : 096 ms QT Int : 480 ms P-R-T Axes : 060 072 062 degrees QTc Int : 450 ms Sinus bradycardia with sinus arrhythmia Otherwise normal ECG When compared with ECG of 13-JUL-2020 18:56, No significant change was found Referred By: Arlette Catalan Electronically Signed By:John Garrido
[2023-11-09] MEDS: HYDROmorphone HCl 0.5 MG/0.5 ML SYRINGE IVPUSH (21:09)
[2023-11-09] MEDS: Metoclopramide HCl 10 MG/2 ML VIAL IVPUSH (21:09)
[2023-11-09] MEDS: 0.9 % Sodium Chloride 1,000 ML 999 ML IV (21:10)
[2023-11-09 21:11] LABS: Troponin-I High Sensitivity < 2.7 ng/L (<3.5-17.0)
[2023-11-09] MEDS: iohexoL 350 MG/ML 100 ML INFUS..BTL 85 ML IV (21:58)
[2023-11-09 22:00] VITALS: BP 99/55; PULSE 60; RESP 14; TEMP 36.8; O2SAT 95
[2023-11-09 23:48] VITALS: BP 108/62; PULSE 58; RESP 16; TEMP 36.8; O2SAT 97
[2023-11-10] MEDS: PHENobarb/Hyoscy/Atropine/Scop 10 ML ELIXIR PO (00:22)
[2023-11-10] MEDS: Ketorolac Tromethamine 15 MG/ML VIAL IVPUSH (00:52)
--- NOTE | 2023-11-10 02:16 | PC.NURSE ---
Late entry: PT alert and oriented brought in from waiting room. PT tearful and guarding. Family at bedside. Reports 10/10 abdominal pain. was treated here 11/09/23 for similar pain but it returned. IV line place in Left ac. Medications administer as per NOV. pt pain now reduced to 4/10. Discharge summary and instructions given. PT verbalized understanding.
== END 2023-11-10 02:18 | disposition home or self-care (01) ==
PROVIDERS: Nurse Practitioner Family; Physician Assistant Medical; Emergency Provider Emergency Medicine
DX: K29.70 Gastritis, unspecified, without bleeding (principal); R10.12 Left upper quadrant pain; R00.1 Bradycardia, unspecified; R10.13 Epigastric pain; R07.89 Other chest pain; R11.2 Nausea with vomiting, unspecified; Z79.899 Other long term (current) drug therapy
CPT/HCPCS: 36415; 74018; 74177; 80053; 83690; 83735; 84484; 84702; 85025; 93005; 96361; 96374; 96375; 99284; 99285; J1170; J1885; J2765; Q9967

== ENCOUNTER → 2023-11-09 20:49 | Outpatient (BNV) | payer OTHER, SELFPAY | PROVIDERS: Emergency Provider Emergency Medicine; Visit Provider Internal Medicine Cardiovascular Disease | DX: R07.9 Chest pain, unspecified (principal) | CPT/HCPCS: 93010 ==

== ENCOUNTER 2023-11-16 10:20 | Outpatient (AMB) | payer OTHER, SELFPAY ==
[2023-11-16 10:37] VITALS: BP 120/70; BMI 27.2
--- NOTE | 2023-11-16 10:37 | MHC.PC.OV ---
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 Accompanied by: Self / Same As Patient Allergies Penicillins Allergy (Unknown, Verified 11/16/23 10:46) Hives Medication List - Last Reconciled 11/16/23 by Erika Khalil MD albuterol sulfate 90 mcg/actuation (Ventolin HFA) 2 puffs inhalation Q4-6H PRN alum-mag hydroxide-simeth 200-200-20 mg/5 mL (Maalox Advanced) 10 mL PO QID PRN amitriptyline 25 mg PO BEDTIME 90 days cholecalciferol (vitamin D3) 50 mcg PO DAILY 90 days cyclobenzaprine 10 mg PO BID PRN 30 days dicyclomine 10 mg PO TID doxycycline hyclate 100 mg PO BID 30 days hydroxyzine HCl 25 mg PO BEDTIME PRN lidocaine 5% 1 patch topical DAILY omeprazole 40 mg PO DAILY ondansetron 4 mg PO Q6-8H PRN oxycodone 5 mg PO Q6H PRN 30 days tizanidine 2 mg PO TID PRN Tobacco use date assessed: 10/15/23 Dental Screening Dental Screen Date: 11/16/23 Did you have a dental visit in the last 12 months?: Yes Did you have a dental problem in the last 6 months where you did not have access to dental care?: No Was dental information given to patient?: Patient has dentist HPI HPI Comments History of Present Illness Details This is a 38-year-old female with mild major depression, anxiety and sacroiliitis that comes today as a hospital discharge follow-up with discharge date 11/09/2023 due to abdominal pain associated with intractable vomiting for 2 days before going to ER. Labs, x-ray KUB and CT scan of abdomen and pelvis were done. There was no significant abnormality to explain this pain. The pain is still present but less intense and is associated with any type of food. She is compliant with omeprazole and dicyclomine. I will add Carafate and refer her to Gastroenterology. She has been constipated also. Depression and anxiety stable with medications. On chronic opiate use due to sacroiliitis which has markedly improved her low back pain. 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 child care centre director to a significant other at home: Yes (children ages-7,11,18) Do you presently have visiting nurse or other home services: Yes (Mon-Sat 1 hour per day) Alcohol intake: current Alcohol intake frequency: holidays/special occasions only Alcohol type: beer and hard liquor Patient Tobacco Use Status: Former Tobacco user Quit Date: 2010 Tobacco use type: Cigarette e-Cigarette/Vaping Use: Never Used Second Hand Smoke Exposure: No service: No Current occupational status: unemployed Cognitive needs: No Hearing needs: No Vision needs: No Female Reproductive History Menstrual Age of Menarche: 11 Questionnaire Thrive Questionnaire Date Thrive assessed: 10/15/23 AMANDA-7 AMB Questionnaire AMANDA-7 Date AMANDA - 7 assessed: 10/15/23 Source: Developed by Drs. Chandler Daley, Lakeisha Godfrey, Evaristo Coker and colleagues, with an educational bella from [employer]. Review of Systems Const All systems reviewed & are unremarkable except as noted in HPI and below Eyes Reports no additional complaints, Denies change in vision and Denies other visual disturbances Card Denies chest pain at rest, Denies chest pain with activity, Denies edema, Denies irregular heart rhythm, Denies claudication, Denies dyspnea, Denies dyspnea on exertion, Denies orthopnea, Denies paroxysmal nocturnal dyspnea and Denies slow heart rate Resp Denies cough, Denies dyspnea and Denies dyspnea on exertion GI Reports abdominal pain, Denies change in bowel habits, Reports constipation, Denies excessive flatus, Reports nausea and Reports vomiting Denies urinary incontinence, Denies urinary hesitancy and Denies urinary urgency Musc Denies abnormal gait, Denies atrophy, Denies deformity and Denies limited range of motion Skin/Breast Denies bleeding lesions, Denies changing lesions and Denies rash Neuro Denies abnormal gait, Denies behavioral changes and Denies lack of coordination Psych Denies behavioral changes Physical exam (Primary Care) Vital Signs: Last Vital Signs BP 120/70 11/16/23 10:37 BMI result Body Mass Index 27.2 Tobacco/Smoking Status: Tobacco use Status Tobacco use date assessed 10/15/23 11/16/23 10:41 Patient Tobacco Use Status Former Tobacco user 11/16/23 10:41 Tobacco use type Cigarette 11/16/23 10:41 e-Cigarette/Vaping Use Never Used 11/16/23 10:41 Thrive Assessment: Date of Thrive Assessment Date Thrive assessed 10/15/23 11/16/23 10:41 Eyes General: appearance normal, both eyes and all related structures Eyelids: Yes eyelids normal Conjunctivae: conjunctivae normal Neck Neck: Yes normal visual inspection and Yes supple Resp Effort & Inspection: normal respiratory effort Auscultation: clear to auscultation bilaterally Cardio Jugular venous distension: no JVD Rate: regular rate Rhythm: regular rhythm Heart sounds: S1 normal heart sound present and S2 normal heart sound present GI Inspection: Yes normal to inspection Palpation (GI): Soft to palpation and Tenderness to palpation present (GI) in the epigastrum, in the LLQ, in the RLQ, in the LUQ, in the RUQ and periumbilically Auscultation: normal bowel sounds Skin General skin exam: no rashes or lesions noted Extrem General: Yes full ROM Psych Appearance: grossly normal Assessment and Plan Assessment & Plan (1) Hospital discharge follow-up: Code(s): Z09 - Encounter for follow-up examination after completed treatment for conditions other than malignant neoplasm Plan: Labs, KUB and CT of abdomen and pelvis done showing no significant abnormality. Discharge date 11/09/2023. Vomiting resolved. Abdominal pain still present associated with food. (2) Abdominal pain: Code(s): R10.9 - Unspecified abdominal pain Qualifiers: Abdominal location: generalized Qualified Code(s): R10.84 - Generalized abdominal pain Plan: Referral to gastroenterology. Upper GI series ordered. Start Carafate. (3) Mild major depression: Code(s): F32.0 - Major depressive disorder, single episode, mild Plan: Continue amitriptyline. (4) Sacroiliitis: Code(s): M46.1 - Sacroiliitis, not elsewhere classified Plan: Continue oxycodone as needed. (5) Anxiety: Code(s): F41.9 - Anxiety disorder, unspecified Plan: Continue hydroxyzine as needed. Orders: Orders [place] upper GI series Today R10.9 - Unspecified abdominal pain Referrals Gastroenterology Referral R10.9 - Unspecified abdominal pain Medications: New sucralfate 1 g PO BID 10 days 20 tabs 0RF Coding Level of Care Code TCM Mod MDM <= 7 Days Diagnoses Hospital discharge follow-up Z09 Generalized abdominal pain R10.84 Abdominal location: generalized Mild major depression F32.0 Sacroiliitis M46.1 Anxiety F41.9 Time Spent (min) 24
== END 2023-11-16 10:55 | disposition home or self-care (01) ==
PROVIDERS: Visit Provider Internal Medicine
DX: Z09 Encounter for follow-up examination after completed treatment for conditions other than malignant neoplasm (principal); R10.84 Generalized abdominal pain; F32.0 Major depressive disorder, single episode, mild; M46.1 Sacroiliitis, not elsewhere classified; F41.9 Anxiety disorder, unspecified
CPT/HCPCS: 99214

== ENCOUNTER 2023-11-18 11:34 | Outpatient (AMB) | payer OTHER, SELFPAY ==
[2023-11-18 11:44] VITALS: BP 138/78; PULSE 75; RESP 18; O2SAT 97; BMI 26.6
--- NOTE | 2023-11-18 11:44 | MHC.OFFVIS ---
Intake Vital Signs 11/18/23 11:44 Height 5 ft 8 in Weight 175 lb 4 oz BMI 26.6 BP 138/78 Blood Pressure Location Lt brachial Position Sitting Respiration 18 Pulse 75 Pulse Source Pulse Oximeter Pulse Oximetry (%) 97 Oxygen Delivery Method Room Air Intake Visit Reasons: Pill Count - Confirmed Allergies Penicillins Allergy (Unknown, Verified 11/18/23 11:44) Hives HPI HPI Comments History of Present Illness Details Tierra presents back to the office today for follow up chronic back pain and chronic opioid medication management. Patient is prescribed oxycodone 5mg tablets Q6H PRN. Patient arrived today with the expectation of having 64 pills, she presented 61 pills which were counted in the presence of two staff members and returned to the patient in the original prescription bottle. Patient was short 3 pills today, this is an acceptable discrepancy per her contract. She reports her neck pain has been worsening recently, she has been using TENs unit and taking muscle relaxers with minimal relief. She has an xray ordered, will complete that today. Admits to taking an extra pill a couple times d/t the neck pain. She is aware of the rules stated in the contract and the possibility of being suspended from the program should the discrepancy exceed the allotted quantity. Pain is reported today as 7/10 and last dose of pain medication was taken at 9:00 this morning. Prior: Tierra is a very pleasant 38 year old female who presents to the office today for follow up chronic pain and chronic opioid therapy management. Patient is prescribed oxycodone 5mg tablets Q6H PRN. Patient arrived today with the expectation of having 48 pills, she presented 45 pills which were counted in the presence of two staff members and returned to the patient in the original prescription bottle. This demonstrates responsible attitude toward patient's opioid medications. Pain is reported today as 8/10 and last dose of pain medication was taken at 11:00 this morning. Patient reports she is able to engage in activities of daily living with minimal interruption due to chronic pain. Patient denies side effects including somnolence, abd pain, constipation, nausea or weakness. Continues with pain in her neck. Taking muscle relaxers with minimal relief, mostly they just make her drowsy. Pain does not radiate down either arm, denies numbness, tingling, weakness of either upper extremity. 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 at 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: Yes (children ages-7,11,18) Do you presently have visiting nurse or other home services: Yes (Mon-Sat 1 hour per day) Alcohol intake: current Alcohol intake frequency: holidays/special occasions only Alcohol type: beer and hard liquor Patient Tobacco Use Status: Former Tobacco user Quit Date: 2010 Tobacco use type: Cigarette e-Cigarette/Vaping Use: Never Used Second Hand Smoke Exposure: No service: No Current occupational status: unemployed Cognitive needs: No Hearing needs: No Vision needs: No Female Reproductive History Menstrual Age of Menarche: 11 Review of Systems Const All systems reviewed & are unremarkable except as noted in HPI and below Physical Exam Vital Signs: Last Vital Signs Pulse 75 11/18/23 11:44 Resp 18 11/18/23 11:44 BP 138/78 11/18/23 11:44 Pulse Ox 97 11/18/23 11:44 Oxygen Delivery Method Room Air 11/18/23 11:44 BMI result Body Mass Index 26.6 General: awake, alert, oriented. Answers questions appropriately. Fully engaged in examination. Skin: warm, dry, intact without visible rashes or lesions. HEENT: Normocephalic. Conjuntivae clear without exudate. Sclera non-icteric. Hearing intact. Cardiac: External chest normal in appearance. Respiratory: No signs of trauma. No signs of respiratory distress. No cough, audible wheezing or stridor. Abdomen: without gross distension. MS: No obvious swelling or deformities. Ambulates with steady gait, unassisted. decreased cervical ROM in all planes Tenderness to palpation midline cervical vertebrae and cervical paraspinal muscles Spurling positive Neurological: Oriented to person, place, time and situation. Thought process intact. No gait abnormalities appreciated. Psychiatric: Appropriate mood and affect. Good judgment and insight. Const Other: Results Reviewed Results Reviewed: MRI cervical spine 05/27/2022. Comparison cervical spine radiograph 08/29/2021. Findings: Cervical alignment is normal. Vertebral body heights are maintained. The disc Epifanio are preserved. There is no bone marrow edema. There is no acute fractures. There is metallic artifact within the upper thoracic spine from the thoracic Huizar rods. There is anterior subluxation of L2 on L3 that along with vertebral osteophyte and advanced facet arthropathy results in severe right-sided foraminal stenosis at T2-T3 with compression of the exiting right nerve root. Mild narrowing of central canal at this level. Partially imaged intracranial compartment is unremarkable. Cervical arterial flow voids are maintained. No significant extra-spinal soft tissue findings. Not cord signal changes. Cervical disc contour remains normal. No central canal stenosis and there is no foraminal stenosis within the cervical spine. 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: Code(s): Z79.891 - group home (current) use of opiate analgesic (4) Chronic pain syndrome: Code(s): G89.4 - Chronic pain syndrome (5) Postlaminectomy syndrome, not elsewhere classified: Code(s): M96.1 - Postlaminectomy syndrome, not elsewhere classified (6) Chronic back pain greater than 3 months duration: Code(s): M54.9 - Dorsalgia, unspecified; G89.29 - Other chronic pain (7) Cervicalgia: Code(s): M54.2 - Cervicalgia (8) Sacroiliitis: Code(s): M46.1 - Sacroiliitis, not elsewhere classified (9) Sacroiliac joint pain: Code(s): M53.3 - Sacrococcygeal disorders, not elsewhere classified Plan [facility] was reviewed and without concerns. No obvious signs of diversion, abuse or misuse of the opioid medications. Will send in prescription for oxycodone 5mg po QID PRN with an advanced date of 12/02/2023. Discontinue tizanidine. Will try methocarbamol 500 mg p.o. t.i.d. as needed for muscle spasm. Patient advised on cautions for use Xray CS ordered for evaluation at last visit, to complete before next visit She would like to complete x-ray and try before proceeding with injections. If pain persists at follow-up will plan for fluoroscopy guided bilateral C4, C5, C6 MBBs with local anesthetic. Sprint PNS vs RFA pending results of diagnostic injection. All questions and concerns have been answered and patient agrees with the plan. Patient to follow-up in the office in 1 month, sooner if needed. Medications: New methocarbamol Discontinue use of Cyclobenzaprine/Tizanidine No driving while taking this medication. Do no take with alcohol or other [employer] Depressants 500 mg PO TID PRN 90 tabs 1RF muscle spasm Refilled oxycodone 5 mg PO Q6H 30 days PRN 120 tabs 0RF pain G89.4 - Chronic pain syndrome, M46.1 - Sacroiliitis, not elsewhere classified, M47.812 - Spondylosis without myelopathy or radiculopathy, cervical region, M53.3 - Sacrococcygeal disorders, not elsewhere classified, M54.2 - Cervicalgia, M96.1 - Postlaminectomy syndrome, not elsewhere classified, Z79.891 - group home (current) use of opiate analgesic oxycodone 5 mg PO Q6H 30 days PRN 120 tabs 0RF pain G89.4 - Chronic pain syndrome, M46.1 - Sacroiliitis, not elsewhere classified, M47.812 - Spondylosis without myelopathy or radiculopathy, cervical region, M53.3 - Sacrococcygeal disorders, not elsewhere classified, M54.2 - Cervicalgia, M96.1 - Postlaminectomy syndrome, not elsewhere classified, Z79.891 - 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 Discontinued cyclobenzaprine Discontinued Reason: Doctor's Order 10 mg PO BID 30 days PRN 90 tabs 6RF muscle spasm tizanidine Discontinued Reason: Doctor's Order 2 mg PO TID PRN 90 tabs 1RF muscle spasticity Coding Level of Care Code Est Pt Level 4 (97221) Diagnoses Spondylosis of cervical joint without myelopathy M47.812 Trapezius muscle strain S46.819A 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
== END 2023-11-18 11:56 | disposition home or self-care (01) ==
PROVIDERS: PCP Internal Medicine; Visit Provider Registered Nurse Emergency
DX: M47.812 Spondylosis without myelopathy or radiculopathy, cervical region (principal); S46.819A Strain of other muscles, fascia and tendons at shoulder and upper arm level, unspecified arm, initial encounter; Z79.891 Long term (current) use of opiate analgesic; G89.4 Chronic pain syndrome; M96.1 Postlaminectomy syndrome, not elsewhere classified; M54.9 Dorsalgia, unspecified; G89.29 Other chronic pain; M54.2 Cervicalgia; M46.1 Sacroiliitis, not elsewhere classified; M53.3 Sacrococcygeal disorders, not elsewhere classified
CPT/HCPCS: 99214

== ENCOUNTER → 2023-11-18 11:34 | Outpatient (BNVA) | payer OTHER, SELFPAY | PROVIDERS: PCP Internal Medicine; Visit Provider Registered Nurse Emergency | DX: Z51.81 Encounter for therapeutic drug level monitoring (principal); S46.819D Strain of other muscles, fascia and tendons at shoulder and upper arm level, unspecified arm, subsequent encounter; M47.812 Spondylosis without myelopathy or radiculopathy, cervical region; M96.1 Postlaminectomy syndrome, not elsewhere classified; M54.9 Dorsalgia, unspecified; M54.2 Cervicalgia; M46.1 Sacroiliitis, not elsewhere classified; M53.3 Sacrococcygeal disorders, not elsewhere classified; G89.29 Other chronic pain; Z79.891 Long term (current) use of opiate analgesic | CPT/HCPCS: 99212 ==

== ENCOUNTER 2023-12-10 09:50 | Outpatient (AMB) | payer OTHER, SELFPAY ==
--- NOTE | 2023-12-10 09:49 | A.OFFVIS_ITS ---
Intake Vital Signs 12/10/23 09:56 Height 5 ft 8 in Weight 178 lb BMI 27.1 BP 140/85 H Blood Pressure Location Rt brachial Position Sitting Pulse 82 Pulse Source Pulse Oximeter Pulse Oximetry (%) 99 Oxygen Delivery Method Room Air Intake Visit Reasons: Pill Count Intake Note: Tierra comes in today for a pill count to oxycodone, patient should have 84 tablets and presents with 83 tablets which she last took today 12/10/23 at 8am. 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 Patient is prescribed oxycodone 5mg tablets Q6H PRN. Patient arrived today with the expectation of having 84 pills, she presented 83 pills which were counted in the presence of two staff members and returned to the patient in the original prescription bottle. This demonstrates responsible attitude toward patient's opioid medications. Continues with neck pain has been worsening recently, she has been using TENs unit and taking muscle relaxers with minimal relief. Has not been to complete xray. too much going on at home right now that need to be taken care of first. Pain is reported today as 7/10 and last dose of pain medication was taken at 8:00 this morning. Prior: Tierra is a very pleasant 38 year old female who presents to the office today for follow up chronic pain and chronic opioid therapy management. Patient is prescribed oxycodone 5mg tablets Q6H PRN. Patient arrived today with the expectation of having 48 pills, she presented 45 pills which were counted in the presence of two staff members and returned to the patient in the original prescription bottle. This demonstrates responsible attitude toward patient's opioid medications. Pain is reported today as 8/10 and last dose of pain medication was taken at 11:00 this morning. Patient reports she is able to engage in activities of daily living with minimal interruption due to chronic p ain. Patient denies side effects including somnolence, abd pain, constipation, nausea or weakness. Continues with pain in her neck. Taking muscle relaxers with minimal relief, mostly they just make her drowsy. Pain does not radiate down either arm, denies numbness, tingling, weakness of either upper extremity. 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: Yes (children ages-7,11,18) Do you presently have visiting nurse or other home services: Yes (Mon-Sat 1 hour per day) Alcohol intake: current Alcohol intake frequency: holidays/special occasions only Alcohol type: beer and hard liquor Patient Tobacco Use Status: Former Tobacco user Quit Date: 2010 Tobacco use type: Cigarette e-Cigarette/Vaping Use: Never Used Second Hand Smoke Exposure: No service: No Current occupational status: unemployed Cognitive needs: No Hearing needs: No Vision needs: No Female Reproductive History Menstrual Age of Menarche: 11 Review of Systems Const All systems reviewed & are unremarkable except as noted in HPI and below Physical Exam Vital Signs: Last Vital Signs Pulse 82 12/10/23 09:56 BP 140/85 H 12/10/23 09:56 Pulse Ox 99 12/10/23 09:56 Oxygen Delivery Method Room Air 12/10/23 09:56 BMI result Body Mass Index 27.1 General: awake, alert, oriented. Answers questions appropriately. Fully engaged in examination. Skin: warm, dry, intact without visible rashes or lesions. HEENT: Normocephalic. Conjuntivae clear without exudate. Sclera non-icteric. Hearing intact. Cardiac: External chest normal in appearance. Respiratory: No signs of trauma. No signs of respiratory distress. No cough, audible wheezing or stridor. Abdomen: without gross distension. MS: No obvious swelling or deformities. Ambulates with steady gait, unassisted. Neurological: Oriented to person, place, time and situation. Thought process intact. No gait abnormalities appreciated. Psychiatric: Appropriate mood and affect. Good judgment and insight. Const Other: Results Reviewed Results Reviewed: MRI cervical spine 05/27/2022. Comparison cervical spine radiograph 08/29/2021. Findings: Cervical alignment is normal. Vertebral body heights are maintained. The disc Epifanio are preserved. There is no bone marrow edema. There is no acute fractures. There is metallic artifact within the upper thoracic spine from the thoracic Huizar rods. There is anterior subluxation of L2 on L3 that along with vertebral osteophyte and advanced facet arthropathy results in severe right-sided foraminal stenosis at T2-T3 with compression of the exiting right nerve root. Mild narrowing of central canal at this level. Partially imaged intracranial compartment is unremarkable. Cervical arterial flow voids are maintained. No significant extra-spinal soft tissue findings. Not cord signal changes. Cervical disc contour remains normal. No central canal stenosis and there is no foraminal stenosis within the cervical spine. 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: Code(s): Z79.891 - prison (current) use of opiate analgesic (4) Chronic pain syndrome: Code(s): G89.4 - Chronic pain syndrome (5) Postlaminectomy syndrome, not elsewhere classified: Code(s): M96.1 - Postlaminectomy syndrome, not elsewhere classified (6) Chronic back pain greater than 3 months duration: Code(s): M54.9 - Dorsalgia, unspecified; G89.29 - Other chronic pain (7) Cervicalgia: Code(s): M54.2 - Cervicalgia (8) Sacroiliitis: Code(s): M46.1 - Sacroiliitis, not elsewhere classified (9) Sacroiliac joint pain: Code(s): M53.3 - Sacrococcygeal disorders, not elsewhere classified Plan [facility] was reviewed and without concerns. No obvious signs of diversion, abuse or misuse of the opioid medications. Will send in prescription for oxycodone 5mg po QID PRN with an advanced date of 12/31/2023. Continue with methocarbamol 500 mg p.o. t.i.d. as needed for muscle spasm. Patient advised on cautions for use Xray has been pending, patient to complete. Pending review of xray, plan for fluoroscopy guided bilateral C4, C5, C6 MBBs with local anesthetic. Sprint PNS vs RFA pending results of diagnostic injection. All questions and concerns have been answered and patient agrees with the plan. Patient to follow-up in the office in 1 month, sooner if needed. 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
[2023-12-10 09:56] VITALS: BP 140/85; PULSE 82; O2SAT 99; BMI 27.1
== END 2023-12-10 10:03 | disposition home or self-care (01) ==
PROVIDERS: PCP Internal Medicine; Visit Provider Registered Nurse Emergency
DX: G89.4 Chronic pain syndrome (principal); M47.812 Spondylosis without myelopathy or radiculopathy, cervical region; M96.1 Postlaminectomy syndrome, not elsewhere classified; Z79.891 Long term (current) use of opiate analgesic; M54.9 Dorsalgia, unspecified; S46.819A Strain of other muscles, fascia and tendons at shoulder and upper arm level, unspecified arm, initial encounter; G89.29 Other chronic pain; M54.2 Cervicalgia; M46.1 Sacroiliitis, not elsewhere classified; M53.3 Sacrococcygeal disorders, not elsewhere classified
CPT/HCPCS: 99214

== ENCOUNTER → 2023-12-10 09:50 | Outpatient (BNVA) | payer OTHER, SELFPAY | PROVIDERS: PCP Internal Medicine; Visit Provider Registered Nurse Emergency | DX: M47.812 Spondylosis without myelopathy or radiculopathy, cervical region (principal); M96.1 Postlaminectomy syndrome, not elsewhere classified; M46.1 Sacroiliitis, not elsewhere classified; M53.3 Sacrococcygeal disorders, not elsewhere classified; G89.4 Chronic pain syndrome; S46.819A Strain of other muscles, fascia and tendons at shoulder and upper arm level, unspecified arm, initial encounter; Z51.81 Encounter for therapeutic drug level monitoring; Z79.891 Long term (current) use of opiate analgesic; X58.XXXA Exposure to other specified factors, initial encounter; Y93.9 Activity, unspecified; Y92.9 Unspecified place or not applicable; Y99.9 Unspecified external cause status | CPT/HCPCS: 99212 ==

== ENCOUNTER 2024-01-07 09:51 | Outpatient (REF) | payer OTHER, SELFPAY ==
--- NOTE | ~2024-01-07 | XR_ITS ---
EXAMINATION: XR CERVICAL SPINE XR RIGHT KNEE CLINICAL INFORMATION: Spondylolysis without myelopathy or radiculopathy cervical. Pain in right knee. TECHNIQUE: 8 views of the cervical spine. 4 views of the right knee. COMPARISON: Cervical spine August 29, 2021 radiographs. Cervical spine MR 05/27/2022. FINDINGS: CERVICAL SPINE: Limited visualization of C7 due to overlying soft tissues. Cervical disc space heights are preserved. Mild retrolisthesis of C4 on C5 with extension reduces with flexion. RIGHT KNEE: No significant joint effusion. Mild narrowing of the medial compartment. Minimal tricompartmental osteophytes. XR/XR knee RT 4V IMPRESSION: 1. Mild retrolisthesis of C4 on C5 with extension reduces with flexion. 2. Mild degenerative changes right knee.
--- NOTE | ~2024-01-07 | XR_ITS ---
EXAMINATION: XR CERVICAL SPINE XR RIGHT KNEE CLINICAL INFORMATION: Spondylolysis without myelopathy or radiculopathy cervical. Pain in right knee. TECHNIQUE: 8 views of the cervical spine. 4 views of the right knee. COMPARISON: Cervical spine August 29, 2021 radiographs. Cervical spine MR 05/27/2022. FINDINGS: CERVICAL SPINE: Limited visualization of C7 due to overlying soft tissues. Cervical disc space heights are preserved. Mild retrolisthesis of C4 on C5 with extension reduces with flexion. RIGHT KNEE: No significant joint effusion. Mild narrowing of the medial compartment. Minimal tricompartmental osteophytes. XR/XR cervical spine w flex/ext IMPRESSION: 1. Mild retrolisthesis of C4 on C5 with extension reduces with flexion. 2. Mild degenerative changes right knee.
== END 2024-01-07 09:52 | disposition home or self-care (01) ==
LOC: HO.XRAY 09:51
PROVIDERS: PCP Internal Medicine; Visit Provider Registered Nurse Emergency
DX: M25.561 Pain in right knee (principal); M47.812 Spondylosis without myelopathy or radiculopathy, cervical region; G89.4 Chronic pain syndrome; M96.1 Postlaminectomy syndrome, not elsewhere classified; M46.1 Sacroiliitis, not elsewhere classified; M53.3 Sacrococcygeal disorders, not elsewhere classified; S46.819A Strain of other muscles, fascia and tendons at shoulder and upper arm level, unspecified arm, initial encounter; X58.XXXA Exposure to other specified factors, initial encounter; Y93.9 Activity, unspecified; Y92.9 Unspecified place or not applicable; Y99.9 Unspecified external cause status; Z79.891 Long term (current) use of opiate analgesic
CPT/HCPCS: 72052; 73564; 99212

== ENCOUNTER 2024-01-07 09:51 | Outpatient (AMB) | payer OTHER, SELFPAY ==
--- NOTE | 2024-01-07 09:55 | A.OFFVIS_ITS ---
Intake Vital Signs 01/07/24 10:04 Height 5 ft 8 in Weight 177 lb 2 oz BMI 26.9 BP 118/67 Blood Pressure Location Rt brachial Position Sitting Pulse 75 Pulse Source Pulse Oximeter Pulse Oximetry (%) 99 Oxygen Delivery Method Room Air Intake Visit Reasons: PILL COUNT Intake Note: Tierra comes in today for a pill count to oxycodone, patient should have 92 tablets and presents with 91 tablets which she last took today 01/06/23 at 8am. Pain today 04/06. 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 Patient is prescribed oxycodone 5mg tablets Q6H PRN. Patient arrived today with the expectation of having 92 pills, she presented 91 pills which were counted in the presence of two staff members and returned to the patient in the original prescription bottle. This demonstrates responsible attitude toward patient's opioid medications. Pain is reported today as 04/06 and last dose of pain medication was taken at 8:00 this morning. Patient reports the medication allows her to engage in activities of daily living with minimal interruption due to chronic pain. Patient denies side effects including somnolence, abd pain, constipation, nausea or weakness. Continues with midline cervical neck pain. Muscle relaxers are helping some. She has not been able to complete the xray but will do that today. Pain does not radiate down either arm, denies numbness, tingling, weakness of either upper extremity. She completed PT for her neck several months ago without improvement Patient also reports 2 weeks of right knee pain, worse with flexion and walking. Prior: Tierra presents back to the office today for follow up chronic back pain and chronic opioid medication management. Patient is prescribed oxycodone 5mg tablets Q6H PRN. Patient arrived today with the expectation of having 84 pills, she presented 83 pills which were counted in the presence of two staff members and returned to the patient in the original prescription bottle. This demonstrates responsible attitude toward patient's opioid medications. Continues with neck pain has been worsening recently, she has been using TENs unit and taking muscle relaxers with minimal relief. Has not been to complete xray. too much going on at home right now that need to be taken care of first. Pain is reported today as 7/10 and last dose of pain medication was taken at 8:00 this morning. 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,11,18) Do you presently have visiting nurse or other home services: Yes (Mon-Sat 1 hour per day) Alcohol intake: current Alcohol intake frequency: holidays/special occasions only Alcohol type: beer and hard liquor Patient Tobacco Use Status: Former Tobacco user Quit Date: 2010 Tobacco use type: Cigarette e-Cigarette/Vaping Use: Never Used Second Hand Smoke Exposure: No service: No Current occupational status: unemployed Cognitive needs: No Hearing needs: No Vision needs: No Female Reproductive History Menstrual Age of Menarche: 11 Review of Systems Const All systems reviewed & are unremarkable except as noted in HPI and below Physical Exam General: awake, alert, oriented. Answers questions appropriately. Fully engaged in examination. Skin: warm, dry, intact without visible rashes or lesions. HEENT: Normocephalic. Conjuntivae clear without exudate. Sclera non-icteric. Hearing intact. Cardiac: External chest normal in appearance. Respiratory: No signs of trauma. No signs of respiratory distress. No cough, audible wheezing or stridor. Abdomen: without gross distension. MS: No obvious swelling or deformities. Ambulates with steady gait, unassisted. decreased cervical ROM in all planes Tenderness to palpation midline cervical vertebrae and cervical paraspinal muscles Spurling positive right knee: pain with flexion. diffuse tenderness to palpation Neurological: Oriented to person, place, time and situation. Thought process intact. No gait abnormalities appreciated. Psychiatric: Appropriate mood and affect. Good judgment and insight. Const Other: Results Reviewed Results Reviewed: MRI cervical spine 05/27/2022. Comparison cervical spine radiograph 08/29/2021. Findings: Cervical alignment is normal. Vertebral body heights are maintained. The disc Epifanio are preserved. There is no bone marrow edema. There is no acute fractures. There is metallic artifact within the upper thoracic spine from the thoracic Huizar rods. There is anterior subluxation of L2 on L3 that along with vertebral osteophyte and advanced facet arthropathy results in severe right-sided foraminal stenosis at T2-T3 with compression of the exiting right nerve root. Mild narrowing of central canal at this level. Partially imaged intracranial compartment is unremarkable. Cervical arterial flow voids are maintained. No significant extra-spinal soft tissue findings. Not cord signal changes. Cervical disc contour remains normal. No central canal stenosis and there is no foraminal stenosis within the cervical spine. 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 No obvious signs of diversion, abuse or misuse of the opioid medications. Will send in prescription for oxycodone 5mg po QID PRN with an advanced date of 01/30/2024. Narcan prescribed, patient instructed on use. Continue with methocarbamol 500 mg p.o. t.i.d. as needed for muscle spasm. Patient advised on cautions for use Diclofenac 1% apply to most painful area twice daily as needed Xray C/S has been pending, patient to complete. Xray right knee ordered for eval Pending review of xray, plan for fluoroscopy guided bilateral C4, C5, C6 MBBs with local anesthetic. Sprint PNS vs RFA pending results of diagnostic injection. All questions and concerns have been answered and patient agrees with the plan. Patient to follow-up in the office in 1 month, sooner if needed. Orders: Orders XR knee RT 4V Today M25.561 - Pain in right knee Medications: New diclofenac sodium 1% (Arthritis Pain (diclofenac)) apply to single knee, ankle, foot; for foot includes sole/toes/top of foot 4 grams topical QID 100 grams 0RF naloxone 4 mg/actuation (Narcan) spray 1 dose into ONE nostril; alternate nostrils w each dose until help arrives 4 mg intranasal Q2M PRN 2 ea 1RF opioid overdose Refilled oxycodone 5 mg PO Q6H 30 days PRN 120 tabs 0RF pain G89.4 - Chronic pain syndrome, M46.1 - Sacroiliitis, not elsewhere classified, M47.812 - Spondylosis without myelopathy or radiculopathy, cervical region, M53.3 - Sacrococcygeal disorders, not elsewhere classified, M54.2 - Cervicalgia, M96.1 - Postlaminectomy syndrome, not elsewhere classified, Z79.891 - 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
[2024-01-07 10:04] VITALS: BP 118/67; PULSE 75; O2SAT 99; BMI 26.9
== END 2024-01-07 10:15 | disposition home or self-care (01) ==
PROVIDERS: PCP Internal Medicine; Visit Provider Registered Nurse Emergency
DX: M25.561 Pain in right knee (principal); M47.812 Spondylosis without myelopathy or radiculopathy, cervical region; S46.819A Strain of other muscles, fascia and tendons at shoulder and upper arm level, unspecified arm, initial encounter; Z79.891 Long term (current) use of opiate analgesic; G89.4 Chronic pain syndrome; M96.1 Postlaminectomy syndrome, not elsewhere classified; M54.9 Dorsalgia, unspecified; G89.29 Other chronic pain; M54.2 Cervicalgia; M46.1 Sacroiliitis, not elsewhere classified; M53.3 Sacrococcygeal disorders, not elsewhere classified
CPT/HCPCS: 99214

== ENCOUNTER 2024-02-16 09:30 | Outpatient (AMB) | payer OTHER, SELFPAY ==
[2024-02-16 09:39] VITALS: BP 116/66; PULSE 66; RESP 18; O2SAT 99; BMI 26.8
--- NOTE | 2024-02-16 09:39 | MHC.OFFVIS ---
Vital Signs 02/16/24 09:39 Height 5 ft 8 in Weight 176 lb 8 oz BMI 26.8 BP 116/66 Blood Pressure Location Lt brachial Position Sitting Respiration 18 Pulse 66 Pulse Source Pulse Oximeter Pulse Oximetry (%) 99 Oxygen Delivery Method Room Air Intake Visit Reasons: PILL COUNT Allergies Penicillins Allergy (Unknown, Verified 01/07/24 09:56) Hives HPI Comments Details: Tierra presents to the office today for follow up chronic pain and chronic opioid medication management. Patient is prescribed oxycodone 5mg tablets Q6H PRN. Patient arrived today with the expectation of having 52 pills, she presented 64 pills which were counted in the presence of two staff members and returned to the patient in the original prescription bottle. This demonstrates responsible attitude toward patient's opioid medications. Patient denies side effects including somnolence, abd pain, nausea or weakness. Recently has been suffering with some constipation, working on dietary modifications. Has increased water intake. Denies abd pain or bleeding from rectum. Review of recent XR cspine and knee, results as per below. Has been taking muscle relaxers with good effect. Pain is reported today as 7/10 and last dose of pain medication was taken at 8:00 this morning. Prior: Tierra is a very pleasant 38 year old female who presents to the office today for follow up chronic pain and chronic opioid therapy management. Patient is prescribed oxycodone 5mg tablets Q6H PRN. Patient arrived today with the expectation of having 92 pills, she presented 91 pills which were counted in the presence of two staff members and returned to the patient in the original prescription bottle. This demonstrates responsible attitude toward patient's opioid medications. Pain is reported today as 7/10 and last dose of pain medication was taken at 8:00 this morning. Patient reports the medication allows her to engage in activities of daily living with minimal interruption due to chronic pain. Patient denies side effects including somnolence, abd pain, constipation, nausea or weakness. Continues with midline cervical neck pain. Muscle relaxers are helping some. She has not been able to complete the xray but will do that today. Pain does not radiate down either arm, denies numbness, tingling, weakness of either upper extremity. She completed PT for her neck several months ago without improvement Patient also reports 2 weeks of right knee pain, worse with flexion and walking. 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,11,18) Do you presently have visiting nurse or other home services: Yes (Mon-Sat 1 hour per day) Alcohol intake: current Alcohol intake frequency: holidays/special occasions only Alcohol type: beer and hard liquor Patient Tobacco Use Status: Former Tobacco user Quit Date: 2010 Tobacco use type: Cigarette e-Cigarette/Vaping Use: Never Used Second Hand Smoke Exposure: No service: No Current occupational status: unemployed Cognitive needs: No Hearing needs: No Vision needs: No Female Reproductive History Menstrual Age of Menarche: 11 Review of Systems Const All systems reviewed & are unremarkable except as noted in HPI and below Physical Exam Vital Signs: Last Vital Signs Pulse 66 02/16/24 09:39 Resp 18 02/16/24 09:39 BP 116/66 02/16/24 09:39 Pulse Ox 99 02/16/24 09:39 Oxygen Delivery Method Room Air 02/16/24 09:39 BMI result Body Mass Index 26.8 General: awake, alert, oriented. Answers questions appropriately. Fully engaged in examination. Skin: warm, dry, intact without visible rashes or lesions. HEENT: Normocephalic. Conjuntivae clear without exudate. Sclera non-icteric. Hearing intact. Cardiac: External chest normal in appearance. Respiratory: No signs of trauma. No signs of respiratory distress. No cough, audible wheezing or stridor. Abdomen: without gross distension. MS: No obvious swelling or deformities. Ambulates with steady gait, unassisted. Neurological: Oriented to person, place, time and situation. Thought process intact. Psychiatric: Appropriate mood and affect. Good judgment and insight. Const Other: Results Reviewed Results Reviewed: 01/07/24 CERVICAL SPINE: Limited visualization of C7 due to overlying soft tissues. Cervical disc space heights are preserved. Mild retrolisthesis of C4 on C5 with extension reduces with flexion. RIGHT KNEE: No significant joint effusion. Mild narrowing of the medial compartment. Minimal tricompartmental osteophytes. IMPRESSION: 1. Mild retrolisthesis of C4 on C5 with extension reduces with flexion. 2. Mild degenerative changes right knee. 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 Category: Medical (5) Chronic pain syndrome: Code(s): G89.4 - Chronic pain syndrome Category: Medical (6) Postlaminectomy syndrome, not elsewhere classified: Code(s): M96.1 - Postlaminectomy syndrome, not elsewhere classified Category: Medical (7) Chronic back pain greater than 3 months duration: Code(s): M54.9 - Dorsalgia, unspecified; G89.29 - Other chronic pain Category: Medical (8) Cervicalgia: Code(s): M54.2 - Cervicalgia Category: Medical (9) Sacroiliitis: Code(s): M46.1 - Sacroiliitis, not elsewhere classified Category: Medical (10) Sacroiliac joint pain: Code(s): M53.3 - Sacrococcygeal disorders, not elsewhere classified Category: Medical Plan [employer] was reviewed and without concerns. No obvious signs of diversion, abuse or misuse of the opioid medications. Will send in prescription for oxycodone 5mg po QID PRN with an advanced date of 02/2024. Continue with methocarbamol 500 mg p.o. t.i.d. as needed for muscle spasm. sennosides-docusate sodium 8.6-50 mg (Senna Plus) for constipation. increase water intake, recommend increasing dietary fiber via fruits and vegetables. Patient would like to hold on fluoroscopy guided bilateral C4, C5, C6 MBBs with local anesthetic at this time. She will plan for this once life is more settled. All questions and concerns have been answered and patient agrees with the plan. Patient to follow-up in the office in 1 month, sooner if needed. 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
== END 2024-02-16 09:50 | disposition home or self-care (01) ==
PROVIDERS: PCP Internal Medicine; Visit Provider Registered Nurse Emergency
DX: M25.561 Pain in right knee (principal); M47.812 Spondylosis without myelopathy or radiculopathy, cervical region; S46.819A Strain of other muscles, fascia and tendons at shoulder and upper arm level, unspecified arm, initial encounter; Z79.891 Long term (current) use of opiate analgesic; G89.4 Chronic pain syndrome; M96.1 Postlaminectomy syndrome, not elsewhere classified; M54.9 Dorsalgia, unspecified; G89.29 Other chronic pain; M54.2 Cervicalgia; M46.1 Sacroiliitis, not elsewhere classified; M53.3 Sacrococcygeal disorders, not elsewhere classified
CPT/HCPCS: 99214

== ENCOUNTER → 2024-02-16 09:30 | Outpatient (BNVA) | payer OTHER, SELFPAY | PROVIDERS: PCP Internal Medicine; Visit Provider Registered Nurse Emergency | DX: Z51.81 Encounter for therapeutic drug level monitoring (principal); M25.561 Pain in right knee; M47.812 Spondylosis without myelopathy or radiculopathy, cervical region; M96.1 Postlaminectomy syndrome, not elsewhere classified; M54.9 Dorsalgia, unspecified; M54.2 Cervicalgia; M46.1 Sacroiliitis, not elsewhere classified; M53.3 Sacrococcygeal disorders, not elsewhere classified; S46.819A Strain of other muscles, fascia and tendons at shoulder and upper arm level, unspecified arm, initial encounter; G89.29 Other chronic pain; Z79.891 Long term (current) use of opiate analgesic | CPT/HCPCS: 99212 ==

== ENCOUNTER 2024-03-16 14:00 | Outpatient (AMB) | payer OTHER, SELFPAY ==
--- NOTE | 2024-03-16 14:07 | MHC.OFFVIS ---
Vital Signs 03/16/24 14:12 Height 5 ft 8 in Weight 171 lb 8 oz BMI 26.1 BP 111/66 Blood Pressure Location Rt brachial Position Sitting Pulse 76 Pulse Source Pulse Oximeter Pulse Oximetry (%) 98 Oxygen Delivery Method Room Air Intake Visit Reasons: Pill Count Allergies Penicillins Allergy (Unknown, Verified 03/16/24 14:15) Hives HPI Comments Details: Tierra presents back to the office today for follow up chronic pain and chronic opioid medication management. Patient is prescribed oxycodone 5mg tablets Q6H PRN. Patient arrived today with the expectation of having 56 pills, she presented 53 pills which were counted in the presence of two staff members and returned to the patient in the original prescription bottle. This demonstrates responsible attitude toward patient's opioid medications. Pain is reported today as 7/10 and last dose of pain medication was taken at 9:00 this morning. Patient denies side effects including somnolence, abd pain, nausea or weakness. Continues with constipation, working on dietary modifications. Prescribed at last visit, does not feel like has been any improvement Denies abd pain or bleeding from rectum. States she has still not ready to commit to injections at this time Previous: Tierra is a very pleasant 38 year old female who presents to the office today for follow up chronic pain and chronic opioid therapy management. Patient is prescribed oxycodone 5mg tablets Q6H PRN. Patient arrived today with the expectation of having 92 pills, she presented 91 pills which were counted in the presence of two staff members and returned to the patient in the original prescription bottle. This demonstrates responsible attitude toward patient's opioid medications. Pain is reported today as 7/10 and last dose of pain medication was taken at 8:00 this morning. Patient reports the medication allows her to engage in activities of daily living with minimal interruption due to chronic pain. Patient denies side effects including somnolence, abd pain, constipation, nausea or weakness. Continues with midline cervical neck pain. Muscle relaxers are helping some. She has not been able to complete the xray but will do that today. Pain does not radiate down either arm, denies numbness, tingling, weakness of either upper extremity. She completed PT for her neck several months ago without improvement Patient also reports 2 weeks of right knee pain, worse with flexion and walking. 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 at home: Yes (children ages-7,11,18) Do you presently have visiting nurse or other home services: Yes (Mon-Sat 1 hour per day) Alcohol intake: current Alcohol intake frequency: holidays/special occasions only Alcohol type: beer and hard liquor Patient Tobacco Use Status: Former Tobacco user Tobacco use type: Cigarette e-Cigarette/Vaping Use: Never Used Second Hand Smoke Exposure: No service: No Current occupational status: unemployed Cognitive needs: No Hearing needs: No Vision needs: No Female Reproductive History Menstrual Age of Menarche: 11 Review of Systems Const All systems reviewed & are unremarkable except as noted in HPI and below Physical Exam Vital Signs: Last Vital Signs Pulse 76 03/16/24 14:12 BP 111/66 03/16/24 14:12 Pulse Ox 98 03/16/24 14:12 Oxygen Delivery Method Room Air 03/16/24 14:12 BMI result Body Mass Index 26.1 General: awake, alert, oriented. Answers questions appropriately. Fully engaged in examination. Skin: warm, dry, intact without visible rashes or lesions. HEENT: Normocephalic. Conjuntivae clear without exudate. Sclera non-icteric. Hearing intact. Cardiac: External chest normal in appearance. Respiratory: No signs of trauma. No signs of respiratory distress. No cough, audible wheezing or stridor. Abdomen: without gross distension. MS: No obvious swelling or deformities. Ambulates with steady gait, unassisted. Neurological: Oriented to person, place, time and situation. Thought process intact. Psychiatric: Appropriate mood and affect. Good judgment and insight. Const Other: Results Reviewed Results Reviewed: 01/07/24 CERVICAL SPINE: Limited visualization of C7 due to overlying soft tissues. Cervical disc space heights are preserved. Mild retrolisthesis of C4 on C5 with extension reduces with flexion. RIGHT KNEE: No significant joint effusion. Mild narrowing of the medial compartment. Minimal tricompartmental osteophytes. IMPRESSION: 1. Mild retrolisthesis of C4 on C5 with extension reduces with flexion. 2. Mild degenerative changes right knee. 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: Code(s): Z79.891 - residential (current) use of opiate analgesic Category: Medical (5) Chronic pain syndrome: Code(s): G89.4 - Chronic pain syndrome Category: Medical (6) Postlaminectomy syndrome, not elsewhere classified: Code(s): M96.1 - Postlaminectomy syndrome, not elsewhere classified Category: Medical (7) Chronic back pain greater than 3 months duration: Code(s): M54.9 - Dorsalgia, unspecified; G89.29 - Other chronic pain Category: Medical (8) Cervicalgia: Code(s): M54.2 - Cervicalgia Category: Medical (9) Sacroiliitis: Code(s): M46.1 - Sacroiliitis, not elsewhere classified Category: Medical (10) Sacroiliac joint pain: Code(s): M53.3 - Sacrococcygeal disorders, not elsewhere classified Category: Medical Plan [place] was reviewed and without concerns. No obvious signs of diversion, abuse or misuse of the opioid medications. Will send in prescription for oxycodone 5mg po QID PRN. Continue with methocarbamol 500 mg p.o. t.i.d. as needed for muscle spasm. Continue with dietary modifications, increased fluid intake. Recommend smooth move tea daily as needed for constipation Patient would like to hold on fluoroscopy guided bilateral C4, C5, C6 MBBs with local anesthetic at this time. Not yet ready to commit, will let the office know when she would like to schedule All questions and concerns have been answered and patient agrees with the plan. Patient to follow-up in the office in 1 month, sooner if needed. Medications: Refilled oxycodone 5 mg PO Q6H 30 days PRN 120 tabs 0RF pain G89.4 - Chronic pain syndrome, M46.1 - Sacroiliitis, not elsewhere classified, M47.812 - Spondylosis without myelopathy or radiculopathy, cervical region, M53.3 - Sacrococcygeal disorders, not elsewhere classified, M54.2 - Cervicalgia, M96.1 - Postlaminectomy syndrome, not elsewhere classified, Z79.891 - residential (current) use of opiate analgesic Coding Level of Care Code Est Pt Level 4 (02321) Diagnoses Right knee pain M25.561 Spondylosis of cervical joint without myelopathy M47.812 Trapezius muscle strain S46.819A 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
[2024-03-16 14:12] VITALS: BP 111/66; PULSE 76; O2SAT 98; BMI 26.1
== END 2024-03-16 14:30 | disposition home or self-care (01) ==
PROVIDERS: PCP Internal Medicine; Visit Provider Registered Nurse Emergency
DX: M25.561 Pain in right knee (principal); M47.812 Spondylosis without myelopathy or radiculopathy, cervical region; S46.819A Strain of other muscles, fascia and tendons at shoulder and upper arm level, unspecified arm, initial encounter; Z79.891 Long term (current) use of opiate analgesic; G89.4 Chronic pain syndrome; M96.1 Postlaminectomy syndrome, not elsewhere classified; M54.9 Dorsalgia, unspecified; G89.29 Other chronic pain; M54.2 Cervicalgia; M46.1 Sacroiliitis, not elsewhere classified; M53.3 Sacrococcygeal disorders, not elsewhere classified
CPT/HCPCS: 99214

== ENCOUNTER → 2024-03-16 14:00 | Outpatient (BNVA) | payer OTHER, SELFPAY | PROVIDERS: PCP Internal Medicine; Visit Provider Registered Nurse Emergency | DX: Z51.81 Encounter for therapeutic drug level monitoring (principal); M25.561 Pain in right knee; M47.812 Spondylosis without myelopathy or radiculopathy, cervical region; M96.1 Postlaminectomy syndrome, not elsewhere classified; M54.9 Dorsalgia, unspecified; M54.2 Cervicalgia; M46.1 Sacroiliitis, not elsewhere classified; M53.3 Sacrococcygeal disorders, not elsewhere classified; Z79.891 Long term (current) use of opiate analgesic; G89.29 Other chronic pain; S46.819A Strain of other muscles, fascia and tendons at shoulder and upper arm level, unspecified arm, initial encounter | CPT/HCPCS: 99212 ==

== ENCOUNTER 2024-04-14 10:18 | Outpatient (AMB) | payer OTHER, SELFPAY ==
--- NOTE | 2024-04-14 10:24 | A.OFFVIS_ITS ---
Vital Signs 04/14/24 10:25 Height 5 ft 8 in Weight 174 lb BMI 26.5 BP 119/71 Blood Pressure Location Rt brachial Position Sitting Pulse 69 Pulse Source Pulse Oximeter Pulse Oximetry (%) 96 Oxygen Delivery Method Room Air Intake Visit Reasons: Pill Count Allergies Penicillins Allergy (Unknown, Verified 03/16/24 14:15) Hives HPI Comments Details: Tierra presents back to the office today for follow up chronic pain and chronic opioid medication management. Patient is prescribed oxycodone 5mg tablets Q6H PRN. Patient arrived today with the expectation of having 60 pills, she presented 61 pills which were counted in the presence of two staff members and returned to the patient in the original prescription bottle. This demonstrates responsible attitude toward patient's opioid medications. Pain is reported today as 6/10 and last dose of pain medication was taken at 8:00 this morning. Patient denies side effects including somnolence, abd pain, nausea or weakness. Taking muscle relaxers, ibuprofen and using TENS machine for trapezius muscle pain not ready to commit to injections at this time Previous: Tierra is a very pleasant 38 year old female who presents to the office today for follow up chronic pain and chronic opioid therapy management. Patient is prescribed oxycodone 5mg tablets Q6H PRN. Patient arrived today with the expectation of having 92 pills, she presented 91 pills which were counted in the presence of two staff members and returned to the patient in the original prescription bottle. This demonstrates responsible attitude toward patient's opioid medications. Pain is reported today as 7/10 and last dose of pain medication was taken at 8:00 this morning. Patient reports the medication allows her to engage in activities of daily living with minimal interruption due to chronic pain. Patient denies side effects including somnolence, abd pain, constipation, nausea or weakness. Continues with midline cervical neck pain. Muscle relaxers are helping some. She has not been able to complete the xray but will do that today. Pain does not radiate down either arm, denies numbness, tingling, weakness of either upper extremity. She completed PT for her neck several months ago without improvement Patient also reports 2 weeks of right knee pain, worse with flexion and walking. [facility] Medical History Anxiety Obese Cholelithiasis Insomnia half-way (current) use of opiate analgesic Personal history of other diseases of the musculoskeletal system and connective tissue Chronic pain syndrome Postlaminectomy syndrome, not elsewhere classified Chronic back pain greater than 3 months duration Scoliosis Surgical History Hx of cholecystectomy Hx of tubal ligation Previous back surgery Family History Mother Diabetes Father Diabetes Social History Housing: Apartment Are you a primary manager managed care to a significant other at home: Yes (children ages-7,11,18) Do you presently have visiting nurse or other home services: Yes (Mon-Sat 1 hour per day) Alcohol intake: current Alcohol intake frequency: holidays/special occasions only Alcohol type: beer and hard liquor Patient Tobacco Use Status: Former Tobacco user Tobacco use type: Cigarette e-Cigarette/Vaping Use: Never Used Second Hand Smoke Exposure: No service: No Current occupational status: unemployed Cognitive needs: No Hearing needs: No Vision needs: No Female Reproductive History Menstrual Age of Menarche: 11 Review of Systems Const All systems reviewed & are unremarkable except as noted in HPI and below Physical Exam Vital Signs: Last Vital Signs Pulse 69 04/14/24 10:25 BP 119/71 04/14/24 10:25 Pulse Ox 96 04/14/24 10:25 Oxygen Delivery Method Room Air 04/14/24 10:25 BMI result Body Mass Index 26.5 General: awake, alert, oriented. Answers questions appropriately. Fully engaged in examination. Skin: warm, dry, intact without visible rashes or lesions. HEENT: Normocephalic. Conjuntivae clear without exudate. Sclera non-icteric. Hearing intact. Cardiac: External chest normal in appearance. Respiratory: No signs of trauma. No signs of respiratory distress. No cough, audible wheezing or stridor. Abdomen: without gross distension. MS: No obvious swelling or deformities. Ambulates with steady gait, unassisted. Tender to palpation across bilateral trapezius Neurological: Oriented to person, place, time and situation. Thought process intact. Psychiatric: Appropriate mood and affect. Good judgment and insight. Const Other: Results Reviewed Results Reviewed: 01/07/24 CERVICAL SPINE: Limited visualization of C7 due to overlying soft tissues. Cervical disc space heights are preserved. Mild retrolisthesis of C4 on C5 with extension reduces with flexion. RIGHT KNEE: No significant joint effusion. Mild narrowing of the medial compartment. Minimal tricompartmental osteophytes. IMPRESSION: 1. Mild retrolisthesis of C4 on C5 with extension reduces with flexion. 2. Mild degenerative changes right knee. 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: Code(s): Z79.891 - half-way (current) use of opiate analgesic Category: Medical (5) Chronic pain syndrome: Code(s): G89.4 - Chronic pain syndrome Category: Medical (6) Postlaminectomy syndrome, not elsewhere classified: Code(s): M96.1 - Postlaminectomy syndrome, not elsewhere classified Category: Medical (7) Chronic back pain greater than 3 months duration: Code(s): M54.9 - Dorsalgia, unspecified; G89.29 - Other chronic pain Category: Medical (8) Cervicalgia: Code(s): M54.2 - Cervicalgia Category: Medical (9) Sacroiliitis: Code(s): M46.1 - Sacroiliitis, not elsewhere classified Category: Medical (10) Sacroiliac joint pain: Code(s): M53.3 - Sacrococcygeal disorders, not elsewhere classified Category: Medical [facility]. No obvious signs of diversion, abuse or misuse of the opioid medications. Will send in prescription for oxycodone 5mg po QID PRN. Continue with methocarbamol 500 mg p.o. t.i.d. as needed for muscle spasm. Not yet ready to commit to fluoroscopy guided bilateral C4, C5, C6 MBBs at this time. Will let the office know when she would like to schedule All questions and concerns have been answered and patient agrees with the plan. Patient to follow-up in the office in 1 month, sooner if needed. 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
[2024-04-14 10:25] VITALS: BP 119/71; PULSE 69; O2SAT 96; BMI 26.5
== END 2024-04-14 10:41 | disposition home or self-care (01) ==
PROVIDERS: PCP Internal Medicine; Visit Provider Registered Nurse Emergency
DX: G89.4 Chronic pain syndrome (principal); M25.561 Pain in right knee; M47.812 Spondylosis without myelopathy or radiculopathy, cervical region; Z79.891 Long term (current) use of opiate analgesic; S46.819A Strain of other muscles, fascia and tendons at shoulder and upper arm level, unspecified arm, initial encounter; M96.1 Postlaminectomy syndrome, not elsewhere classified; M54.9 Dorsalgia, unspecified; G89.29 Other chronic pain; M54.2 Cervicalgia; M46.1 Sacroiliitis, not elsewhere classified; M53.3 Sacrococcygeal disorders, not elsewhere classified
CPT/HCPCS: 99214

== ENCOUNTER → 2024-04-14 10:18 | Outpatient (BNVA) | payer OTHER, SELFPAY | PROVIDERS: PCP Internal Medicine; Visit Provider Registered Nurse Emergency | DX: M25.561 Pain in right knee (principal); M47.812 Spondylosis without myelopathy or radiculopathy, cervical region; S46.819A Strain of other muscles, fascia and tendons at shoulder and upper arm level, unspecified arm, initial encounter; G89.4 Chronic pain syndrome; M96.1 Postlaminectomy syndrome, not elsewhere classified; G89.29 Other chronic pain; M54.9 Dorsalgia, unspecified; M54.2 Cervicalgia; M53.3 Sacrococcygeal disorders, not elsewhere classified; X58.XXXA Exposure to other specified factors, initial encounter; Y93.9 Activity, unspecified; Y92.9 Unspecified place or not applicable; Y99.9 Unspecified external cause status; Z51.81 Encounter for therapeutic drug level monitoring; Z79.891 Long term (current) use of opiate analgesic | CPT/HCPCS: 99212 ==

== ENCOUNTER 2024-04-19 14:04 | Outpatient (AMB) | payer OTHER, SELFPAY ==
--- NOTE | 2024-04-19 14:05 | A.OFFPC_ITS ---
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 Accompanied by: Self / Same As Patient Allergies Penicillins Allergy (Unknown, Verified 04/19/24 14:12) Hives Medication List - Last Reconciled 04/19/24 by Erika Khalil MD albuterol sulfate 90 mcg/actuation (Ventolin HFA) 2 puffs inhalation Q4-6H PRN alum-mag hydroxide-simeth 200-200-20 mg/5 mL (Maalox Advanced) 10 mL PO QID PRN amitriptyline 25 mg PO BEDTIME 90 days cane As directed cholecalciferol (vitamin D3) 50 mcg PO DAILY 90 days ciprofloxacin HCl (Cipro) 250 mg PO BID 3 days diclofenac sodium 1% (Arthritis Pain (diclofenac)) 4 grams topical QID dicyclomine 10 mg PO TID docusate sodium 100 mg PO DAILY doxycycline hyclate 100 mg PO BID 30 days hydroxyzine HCl 25 mg PO BEDTIME PRN lidocaine 5% 1 patch topical DAILY methocarbamol 500 mg PO TID PRN naloxone 4 mg/actuation (Narcan) 4 mg intranasal Q2M PRN omeprazole 40 mg PO DAILY ondansetron 4 mg PO Q6-8H PRN oxycodone 5 mg PO Q6H PRN 30 days sennosides-docusate sodium 8.6-50 mg (Senna Plus) 1 tab-cap PO BEDTIME sucralfate 1 g PO BID 10 days Tobacco use date assessed: 10/15/23 Dental Screening Dental Screen Date: 11/16/23 HPI HPI Comments History of Present Illness Details This is a 39-year-old female with GERD and sacroiliitis comes today complaining of bilateral breast pain more prominent in the right breast that started few weeks ago and has persist. Declines any family history of breast cancer. Declines and in nipple retraction or discharge. No breast skin changes. No masses. She also has persistent headaches almost every day that has been present for over 2 weeks and an MRI will be order as well as Neurology referral. GERD stable with PPIs. Sacroiliitis follow by pain management and is on opiates. [facility] Medical History (Updated 04/19/24 @ 14:32 by Erika Khalil MD) Anxiety Obese Cholelithiasis Insomnia halfway (current) use of opiate analgesic Personal history of other diseases of the musculoskeletal system and connective tissue Chronic pain syndrome Postlaminectomy syndrome, not elsewhere classified Chronic back pain greater than 3 months duration Scoliosis Surgical History Hx of cholecystectomy Hx of tubal ligation Previous back surgery Family History Mother Diabetes Father Diabetes Social History (Updated 04/19/24 @ 14:17 by Erika Khalil MD) Housing: Apartment 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: Yes (children ages-7,11,18) Do you presently have visiting nurse or other home services: Yes (Mon-Sat 1 hour per day) Alcohol intake: former Patient Tobacco Use Status: Former Tobacco user Tobacco use type: Cigarette e-Cigarette/Vaping Use: Never Used Second Hand Smoke Exposure: No service: No Current occupational status: unemployed Cognitive needs: No Hearing needs: No Vision needs: No Female Reproductive History Menstrual Age of Menarche: 11 Questionnaire Thrive Questionnaire Date Thrive assessed: 10/15/23 AMANDA-7 AMB Questionnaire AMANDA-7 Date AMANDA - 7 assessed: 10/15/23 Source: Developed by Drs. Chandler Daley, Lakeisha Godfrey, Evaristo Coker and colleagues, with an educational bella from [employer]. Review of Systems Const All systems reviewed & are unremarkable except as noted in HPI and below Reports headache(s) ENT Reports headache(s) Card Denies chest pain at rest, Denies chest pain with activity, Denies edema, Denies irregular heart rhythm, Denies claudication, Denies dyspnea, Denies dyspnea on exertion, Denies orthopnea, Denies paroxysmal nocturnal dyspnea and Denies slow heart rate Resp Denies cough, Denies dyspnea and Denies dyspnea on exertion GI Denies abdominal pain, Denies change in bowel habits, Denies excessive flatus, Denies nausea and Denies vomiting Skin/Breast Reports breast pain Neuro Reports headache(s) Physical exam (Primary Care) Vital Signs: Last Vital Signs BP 112/70 07/23/24 14:07 BMI result Body Mass Index 26.9 Tobacco/Smoking Status: Tobacco use Status Tobacco use date assessed 10/15/23 04/19/24 14:06 Patient Tobacco Use Status Former Tobacco user 04/19/24 14:06 Tobacco use type Cigarette 04/19/24 14:06 e-Cigarette/Vaping Use Never Used 04/19/24 14:06 Thrive Assessment: Date of Thrive Assessment Date Thrive assessed 10/15/23 04/19/24 14:06 Chest Breast/axilla inspection: normal inspection of the breasts and normal inspection of the axillae Breast/axilla palpation: normal palpation of the axillae and abnormal palpation of the breast bilateral tenderness (Both left and right at 09:00 o'clock) Resp Effort & Inspection: normal respiratory effort Auscultation: clear to auscultation bilaterally Cardio Jugular venous distension: no JVD Rate: regular rate Rhythm: regular rhythm Heart sounds: S1 normal heart sound present and S2 normal heart sound present Extrem General: Yes full ROM Assessment and Plan Assessment & Plan (1) Persistent headaches: Code(s): R51.9 - Headache, unspecified Plan: MRI of the head order. Referred to neurology. (2) Breast pain: Code(s): N64.4 - Mastodynia Plan: Mammogram and ultrasound of the breast ordered. (3) Sacroiliitis: Code(s): M46.1 - Sacroiliitis, not elsewhere classified Plan: Follow-up with pain management. Continue obese as needed. (4) GERD (gastroesophageal reflux disease): Code(s): K21.9 - Gastro-esophageal reflux disease without esophagitis Plan: Continue PPIs. Orders: Orders MM diagnostic mammo BI Today N64.4 - Mastodynia US breast LT complete Today N64.4 - Mastodynia MR head/brain wo con Today R51.9 - Headache, unspecified US breast RT complete Today N64.4 - Mastodynia Referrals Neurology Referral R51.9 - Headache, unspecified Coding Level of Care Code Est Pt Level 4 (95465) Complex EM visit Add On G2211 Diagnoses Persistent headaches R51.9 Breast pain N64.4 Sacroiliitis M46.1 GERD (gastroesophageal reflux disease) K21.9 Time Spent (min) 23
[2024-04-19 14:07] VITALS: BP 112/70; BMI 26.9
== END 2024-04-19 14:26 | disposition home or self-care (01) ==
PROVIDERS: PCP Internal Medicine; Visit Provider Internal Medicine
DX: R51.9 Headache, unspecified (principal); N64.4 Mastodynia; M46.1 Sacroiliitis, not elsewhere classified; K21.9 Gastro-esophageal reflux disease without esophagitis
CPT/HCPCS: 99214; G2211

== ENCOUNTER 2024-05-18 13:03 | Outpatient (REF) | payer OTHER, SELFPAY ==
--- NOTE | ~2024-05-18 | US_ITS ---
EXAMINATION: MM DIAGNOSTIC DIGITAL BREAST TOMOSYNTHESIS, BILATERAL US BREAST LIMITED, BILATERAL MAMMOGRAPHY: CLINICAL INFORMATION: Baseline examination. 39-year-old female complaining of upper outer breast pain bilaterally. COMPARISON: Mammography: None. Baseline exam. TECHNIQUE: Digital breast tomosynthesis is performed in both the craniocaudal and mediolateral oblique views along with computer-aided detection (CAD). Synthesized 2D images are generated from the tomosynthesis. FINDINGS: The breasts are heterogeneously dense, which may obscure small masses (ACR BI-RADS breast composition Category c). There are no suspicious masses, suspicious grouped calcifications, or areas of architectural distortion in either breast. The parenchymal pattern is stable from prior exams. There is no skin or axillary abnormality. There is bilateral nipple jewelry. No mammographic abnormality is evident either breast upper outer quadrant to correlate with regions of breast pain. ULTRASOUND: CLINICAL INFORMATION: Bilateral upper outer quadrant breast pain. COMPARISON: None TECHNIQUE: Targeted sonographic evaluation bilateral breasts was performed using a high frequency linear transducer. Attention was given to the upper outer quadrant of both breasts as indicated by the patient. Selected archived documentation. FINDINGS: RIGHT BREAST: There is a mixture of fatty and fibroglandular tissue. No suspicious mass is seen. There is no pathologic acoustic shadowing. There are no cystic abnormalities. LEFT BREAST: There is a mixture of fatty and fibroglandular tissue. No suspicious mass is seen. There is no pathologic acoustic shadowing. There are no cystic abnormalities. No sonographic abnormality in either breast upper outer quadrant to correlate with breast pain. US/US breast RT limited mamm only IMPRESSION: There are no findings suspicious for malignancy in either breast. There are no mammographic or sonographic abnormalities to correlate with upper-outer breast pain bilaterally. Recommend clinical management and follow-up. Otherwise, recommend patient resume routine annual screening in one year. OVERALL ASSESSMENT: Mammography: BI-RADS 1 - Negative Ultrasound: BI-RADS 1 - Negative RECOMMENDATION: 1. Patient should be managed based on the clinical impression. 2. Otherwise, routine annual screening mammography. This patient's information was entered into a reminder system with a target due date for their next mammogram. Electronically signed by: Agustín Sanders MD 05/18/2024 04:16 PM EDT
== END 2024-05-18 13:04 | disposition home or self-care (01) ==
LOC: HO.MAMMO 13:03
PROVIDERS: PCP Internal Medicine; Visit Provider Internal Medicine
DX: N64.4 Mastodynia (principal)
CPT/HCPCS: 76642; 77062; 77066

== ENCOUNTER → 2024-05-18 13:30 | Outpatient (BNV) | payer OTHER, SELFPAY | PROVIDERS: PCP Internal Medicine; Visit Provider Radiology Diagnostic Radiology | DX: N64.4 Mastodynia (principal) | CPT/HCPCS: 76642; 77062; 77066 ==

== ENCOUNTER 2024-05-19 10:55 | Outpatient (AMB) | payer OTHER, SELFPAY ==
--- NOTE | 2024-05-19 11:04 | MHC.OFFVIS ---
Vital Signs 05/19/24 11:05 Height 5 ft 8 in Weight 178 lb BMI 27.1 BP 112/63 Blood Pressure Location Rt brachial Position Sitting Pulse 65 Pulse Source Pulse Oximeter Pulse Oximetry (%) 99 Oxygen Delivery Method Room Air Intake Visit Reasons: PILL COUNT Allergies Penicillins Allergy (Unknown, Verified 04/19/24 14:12) Hives HPI Comments Details: Tierra presents back to the office today for follow up chronic pain and chronic opioid medication management. Patient is prescribed oxycodone 5mg tablets Q6H PRN. Patient arrived today with the expectation of having 36 pills, she presented 36 pills which were counted in the presence of two staff members and returned to the patient in the original prescription bottle. This demonstrates responsible attitude toward patient's opioid medications. Pain is reported today as 6/10 and last dose of pain medication was taken at 9:00 this morning. Patient denies side effects including somnolence, abd pain, nausea or weakness. Continues with bilateral neck pain without radiation down either arm. Taking muscle relaxers, ibuprofen and using TENS machine all without improvement of her pain. Completed physical therapy less than 6 months ago without improvement of her pain. She was ready to proceed with interventional options including injections. Prior: Tierra presents back to the office today for follow up chronic pain and chronic opioid medication management. Patient is prescribed oxycodone 5mg tablets Q6H PRN. Patient arrived today with the expectation of having 60 pills, she presented 61 pills which were counted in the presence of two staff members and returned to the patient in the original prescription bottle. This demonstrates responsible attitude toward patient's opioid medications. Pain is reported today as 6/10 and last dose of pain medication was taken at 8:00 this morning. Patient denies side effects including somnolence, abd pain, nausea or weakness. Taking muscle relaxers, ibuprofen and using TENS machine for trapezius muscle pain not ready to commit to injections at this time Previous: Tierra is a very pleasant 38 year old female who presents to the office today for follow up chronic pain and chronic opioid therapy management. Patient is prescribed oxycodone 5mg tablets Q6H PRN. Patient arrived today with the expectation of having 92 pills, she presented 91 pills which were counted in the presence of two staff members and returned to the patient in the original prescription bottle. This demonstrates responsible attitude toward patient's opioid medications. Pain is reported today as 7/10 and last dose of pain medication was taken at 8:00 this morning. Patient reports the medication allows her to engage in activities of daily living with minimal interruption due to chronic pain. Patient denies side effects including somnolence, abd pain, constipation, nausea or weakness. Continues with midline cervical neck pain. Muscle relaxers are helping some. She has not been able to complete the xray but will do that today. Pain does not radiate down either arm, denies numbness, tingling, weakness of either upper extremity. She completed PT for her neck several months ago without improvement Patient also reports 2 weeks of right knee pain, worse with flexion and walking. 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 (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 ages-7,11,18) Do you presently have visiting nurse or other home services: Yes (Mon-Sat 1 hour per day) Alcohol intake: former Patient Tobacco Use Status: Former Tobacco user Tobacco use type: Cigarette e-Cigarette/Vaping Use: Never Used Second Hand Smoke Exposure: No service: No Current occupational status: unemployed Cognitive needs: No Hearing needs: No Vision needs: No Female Reproductive History Menstrual Age of Menarche: 11 Review of Systems Const All systems reviewed & are unremarkable except as noted in HPI and below Physical Exam Vital Signs: Last Vital Signs Pulse 65 05/19/24 11:05 BP 112/63 05/19/24 11:05 Pulse Ox 99 05/19/24 11:05 Oxygen Delivery Method Room Air 05/19/24 11:05 BMI result Body Mass Index 27.1 General: awake, alert, oriented. Answers questions appropriately. Fully engaged in examination. Skin: warm, dry, intact without visible rashes or lesions. HEENT: Normocephalic. Conjuntivae clear without exudate. Sclera non-icteric. Hearing intact. Cardiac: External chest normal in appearance. Respiratory: No signs of trauma. No signs of respiratory distress. No cough, audible wheezing or stridor. Abdomen: without gross distension. MS: No obvious swelling or deformities. Ambulates with steady gait, unassisted. Tender to palpation across bilateral trapezius Neurological: Oriented to person, place, time and situation. Thought process intact. Psychiatric: Appropriate mood and affect. Good judgment and insight. Const Other: Results Reviewed Results Reviewed: 01/07/24 CERVICAL SPINE: Limited visualization of C7 due to overlying soft tissues. Cervical disc space heights are preserved. Mild retrolisthesis of C4 on C5 with extension reduces with flexion. RIGHT KNEE: No significant joint effusion. Mild narrowing of the medial compartment. Minimal tricompartmental osteophytes. IMPRESSION: 1. Mild retrolisthesis of C4 on C5 with extension reduces with flexion. 2. Mild degenerative changes right knee. 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: Code(s): Z79.891 - skilled nursing (current) use of opiate analgesic Category: Medical (5) Chronic pain syndrome: Code(s): G89.4 - Chronic pain syndrome Category: Medical (6) Postlaminectomy syndrome, not elsewhere classified: Code(s): M96.1 - Postlaminectomy syndrome, not elsewhere classified Category: Medical (7) Chronic back pain greater than 3 months duration: Code(s): M54.9 - Dorsalgia, unspecified; G89.29 - Other chronic pain Category: Medical (8) Cervicalgia: Code(s): M54.2 - Cervicalgia Category: Medical (9) Sacroiliitis: Code(s): M46.1 - Sacroiliitis, not elsewhere classified Category: Medical (10) Sacroiliac joint pain: Code(s): M53.3 - Sacrococcygeal disorders, not elsewhere classified Category: Medical Plan Masspat was reviewed and without concerns. No obvious signs of diversion, abuse or misuse of the opioid medications. Will send in prescription for oxycodone 5mg po QID PRN. Continue with methocarbamol 500 mg p.o. t.i.d. as needed for muscle spasm. Schedule for fluoroscopy guided bilateral diagnostic C4, C5, C6 MBBs with local anesthetic. Patient has exhausted greater than 6 months of conservative therapy including physical therapy, muscle relaxers, NSAIDs and using TENS machine. All questions and concerns have been answered and patient agrees with the plan. Patient to follow-up in the office in 1 month, sooner if needed. Medications: Refilled oxycodone 5 mg PO Q6H 30 days PRN 120 tabs 0RF pain G89.4 - Chronic pain syndrome, M46.1 - Sacroiliitis, not elsewhere classified, M47.812 - Spondylosis without myelopathy or radiculopathy, cervical region, M53.3 - Sacrococcygeal disorders, not elsewhere classified, M54.2 - Cervicalgia, M96.1 - Postlaminectomy syndrome, not elsewhere classified, Z79.891 - skilled nursing (current) use of opiate analgesic Coding Level of Care Code Est Pt Level 4 (57464) Diagnoses Right knee pain M25.561 Spondylosis of cervical joint without myelopathy M47.812 Trapezius muscle strain S46.819A 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
[2024-05-19 11:05] VITALS: BP 112/63; PULSE 65; O2SAT 99; BMI 27.1
== END 2024-05-19 11:20 | disposition home or self-care (01) ==
PROVIDERS: PCP Internal Medicine; Visit Provider Registered Nurse Emergency
DX: G89.4 Chronic pain syndrome (principal); M25.561 Pain in right knee; M47.812 Spondylosis without myelopathy or radiculopathy, cervical region; Z79.891 Long term (current) use of opiate analgesic; S46.819A Strain of other muscles, fascia and tendons at shoulder and upper arm level, unspecified arm, initial encounter; M96.1 Postlaminectomy syndrome, not elsewhere classified; M54.9 Dorsalgia, unspecified; G89.29 Other chronic pain; M54.2 Cervicalgia; M46.1 Sacroiliitis, not elsewhere classified; M53.3 Sacrococcygeal disorders, not elsewhere classified
CPT/HCPCS: 99214

== ENCOUNTER → 2024-05-19 10:55 | Outpatient (BNVA) | payer OTHER, SELFPAY | PROVIDERS: PCP Internal Medicine; Visit Provider Registered Nurse Emergency | DX: G89.4 Chronic pain syndrome (principal); M54.9 Dorsalgia, unspecified; M54.2 Cervicalgia; M25.561 Pain in right knee; M47.812 Spondylosis without myelopathy or radiculopathy, cervical region; M46.1 Sacroiliitis, not elsewhere classified; M96.1 Postlaminectomy syndrome, not elsewhere classified; M53.3 Sacrococcygeal disorders, not elsewhere classified; Z79.891 Long term (current) use of opiate analgesic | CPT/HCPCS: 99212 ==

== ENCOUNTER 2024-06-16 10:56 | Outpatient (AMB) | payer OTHER, SELFPAY ==
[2024-06-16 11:00] VITALS: BP 110/67; PULSE 71; O2SAT 99; BMI 26.8
--- NOTE | 2024-06-16 11:00 | MHC.OFFVIS ---
Vital Signs 06/16/24 11:00 Height 5 ft 8 in Weight 176 lb 5.917 oz BMI 26.8 BP 110/67 Blood Pressure Location Rt brachial Position Sitting Pulse 71 Pulse Source Pulse Oximeter Pulse Oximetry (%) 99 Oxygen Delivery Method Room Air Intake Visit Reasons: PILL COUNT Allergies Penicillins Allergy (Unknown, Verified 06/16/24 11:01) Hives Medication List - Last Reconciled 06/16/24 by Eva Kinsey albuterol sulfate 90 mcg/actuation (Ventolin HFA) 2 puffs inhalation Q4-6H PRN alum-mag hydroxide-simeth 200-200-20 mg/5 mL (Maalox Advanced) 10 mL PO QID PRN amitriptyline 25 mg PO BEDTIME 90 days cane As directed cholecalciferol (vitamin D3) 50 mcg PO DAILY 90 days ciprofloxacin HCl (Cipro) 250 mg PO BID 3 days diclofenac sodium 1% (Arthritis Pain (diclofenac)) 4 grams topical QID dicyclomine 10 mg PO TID docusate sodium 100 mg PO DAILY doxycycline hyclate 100 mg PO BID 30 days hydroxyzine HCl 25 mg PO BEDTIME PRN lidocaine 5% 1 patch topical DAILY methocarbamol 500 mg PO TID PRN naloxone 4 mg/actuation (Narcan) 4 mg intranasal Q2M PRN omeprazole 40 mg PO DAILY ondansetron 4 mg PO Q6-8H PRN oxycodone 5 mg PO Q6H PRN 30 days sennosides-docusate sodium 8.6-50 mg (Senna Plus) 1 tab-cap PO BEDTIME sucralfate 1 g PO BID 10 days HPI Comments Details: Tierra presents back to the office today for follow up chronic pain and chronic opioid medication management. Patient is prescribed oxycodone 5mg tablets Q6H PRN. Patient arrived today with the expectation of having 36 pills, she presented 35 pills which were counted in the presence of two staff members and returned to the patient in the original prescription bottle. This demonstrates responsible attitude toward patient's opioid medications. Pain is reported today as 5/10 and last dose of pain medication was taken at 9:00 this morning. Patient denies side effects including somnolence, abd pain, nausea or weakness. Injection appointment for her bilateral neck pain. Scheduled for next month [facility] Medical History Anxiety Obese Cholelithiasis Insomnia [facility] (current) use of opiate analgesic Personal history of other diseases of the musculoskeletal system and connective tissue Chronic pain syndrome Postlaminectomy syndrome, not elsewhere classified Chronic back pain greater than 3 months duration Scoliosis Surgical History Hx of cholecystectomy Hx of tubal ligation Previous back surgery Family History Mother Diabetes Father Diabetes Social History (Updated 04/19/24 @ 14:17 by Erika Khalil MD) Housing: Apartment 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 (children ages-7,11,18) Do you presently have visiting nurse or other home services: Yes (Mon-Sat 1 hour per day) Alcohol intake: former Patient Tobacco Use Status: Former Tobacco user Tobacco use type: Cigarette e-Cigarette/Vaping Use: Never Used Second Hand Smoke Exposure: No service: No Current occupational status: unemployed Cognitive needs: No Hearing needs: No Vision needs: No Female Reproductive History Menstrual Age of Menarche: 11 Review of Systems Const All systems reviewed & are unremarkable except as noted in HPI and below Physical Exam Vital Signs: Last Vital Signs Pulse 71 06/16/24 11:00 BP 110/67 06/16/24 11:00 Pulse Ox 99 06/16/24 11:00 Oxygen Delivery Method Room Air 06/16/24 11:00 BMI result Body Mass Index 26.8 General: awake, alert, oriented. Answers questions appropriately. Fully engaged in examination. Skin: warm, dry, intact without visible rashes or lesions. HEENT: Normocephalic. Conjuntivae clear without exudate. Sclera non-icteric. Hearing intact. Cardiac: External chest normal in appearance. Respiratory: No signs of trauma. No signs of respiratory distress. No cough, audible wheezing or stridor. Abdomen: without gross distension. MS: No obvious swelling or deformities. Ambulates with steady gait, unassisted. Neurological: Oriented to person, place, time and situation. Thought process intact. Psychiatric: Appropriate mood and affect. Good judgment and insight. Const Other: Results Reviewed Results Reviewed: 01/07/24 CERVICAL SPINE: Limited visualization of C7 due to overlying soft tissues. Cervical disc space heights are preserved. Mild retrolisthesis of C4 on C5 with extension reduces with flexion. RIGHT KNEE: No significant joint effusion. Mild narrowing of the medial compartment. Minimal tricompartmental osteophytes. IMPRESSION: 1. Mild retrolisthesis of C4 on C5 with extension reduces with flexion. 2. Mild degenerative changes right knee. 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: Code(s): Z79.891 - [facility] (current) use of opiate analgesic Category: Medical (5) Chronic pain syndrome: Code(s): G89.4 - Chronic pain syndrome Category: Medical (6) Postlaminectomy syndrome, not elsewhere classified: Code(s): M96.1 - Postlaminectomy syndrome, not elsewhere classified Category: Medical (7) Chronic back pain greater than 3 months duration: Code(s): M54.9 - Dorsalgia, unspecified; G89.29 - Other chronic pain Category: Medical (8) Cervicalgia: Code(s): M54.2 - Cervicalgia Category: Medical (9) Sacroiliitis: Code(s): M46.1 - Sacroiliitis, not elsewhere classified Category: Medical (10) Sacroiliac joint pain: Code(s): M53.3 - Sacrococcygeal disorders, not elsewhere classified Category: Medical Plan Masspat was reviewed and without concerns. No obvious signs of diversion, abuse or misuse of the opioid medications. Will send in prescription for oxycodone 5mg po QID PRN. Continue with for fluoroscopy guided bilateral diagnostic C4, C5, C6 MBBs with local anesthetic scheduled next. All questions and concerns have been answered and patient agrees with the plan. Patient to follow-up in the office in 1 month, sooner if needed. Medications: Refilled oxycodone 5 mg PO Q6H PRN 120 tabs 0RF pain 30 days G89.4 - Chronic pain syndrome, M46.1 - Sacroiliitis, not elsewhere classified, M47.812 - Spondylosis without myelopathy or radiculopathy, cervical region, M53.3 - Sacrococcygeal disorders, not elsewhere classified, M54.2 - Cervicalgia, M96.1 - Postlaminectomy syndrome, not elsewhere classified, Z79.891 - [facility] (current) use of opiate analgesic Coding Level of Care Code Est Pt Level 4 (21283) Complex EM visit Add On G2211 Diagnoses Right knee pain M25.561 Spondylosis of cervical joint without myelopathy M47.812 Trapezius muscle strain S46.819A [facility] (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
== END 2024-06-16 11:14 | disposition home or self-care (01) ==
PROVIDERS: PCP Internal Medicine; Visit Provider Registered Nurse Emergency
DX: M25.561 Pain in right knee (principal); M47.812 Spondylosis without myelopathy or radiculopathy, cervical region; S46.819A Strain of other muscles, fascia and tendons at shoulder and upper arm level, unspecified arm, initial encounter; Z79.891 Long term (current) use of opiate analgesic; G89.4 Chronic pain syndrome; M96.1 Postlaminectomy syndrome, not elsewhere classified; M54.9 Dorsalgia, unspecified; G89.29 Other chronic pain; M54.2 Cervicalgia; M46.1 Sacroiliitis, not elsewhere classified; M53.3 Sacrococcygeal disorders, not elsewhere classified
CPT/HCPCS: 99214; G2211

== ENCOUNTER → 2024-06-16 10:56 | Outpatient (BNVA) | payer OTHER, SELFPAY | PROVIDERS: PCP Internal Medicine; Visit Provider Registered Nurse Emergency | DX: Z51.81 Encounter for therapeutic drug level monitoring (principal); M47.812 Spondylosis without myelopathy or radiculopathy, cervical region; M25.561 Pain in right knee; M96.1 Postlaminectomy syndrome, not elsewhere classified; M54.9 Dorsalgia, unspecified; M54.2 Cervicalgia; M46.1 Sacroiliitis, not elsewhere classified; M53.3 Sacrococcygeal disorders, not elsewhere classified; S46.819A Strain of other muscles, fascia and tendons at shoulder and upper arm level, unspecified arm, initial encounter; G89.29 Other chronic pain; Z79.891 Long term (current) use of opiate analgesic | CPT/HCPCS: 99212 ==

== ENCOUNTER 2024-07-12 06:23 | Outpatient (REF) | payer OTHER, SELFPAY | END 2024-07-12 06:24 | disposition home or self-care (01) | LOC: CF 06:23 | PROVIDERS: Visit Provider Anesthesiology | DX: M47.812 Spondylosis without myelopathy or radiculopathy, cervical region (principal) | CPT/HCPCS: 64490; 64491; J2003; J2795; Q9967 ==

== ENCOUNTER 2024-07-12 10:35 | Outpatient (AMB) | payer OTHER, SELFPAY ==
--- NOTE | 2024-07-12 10:39 | MHC.OFFVIS ---
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 Personal history of other diseases of the musculoskeletal system and connective tissue Chronic pain syndrome Postlaminectomy syndrome, not elsewhere classified Chronic back pain greater than 3 months duration Scoliosis Surgical History Hx of cholecystectomy Hx of tubal ligation Previous back surgery Family History Mother Diabetes Father Diabetes Social History (Updated 04/19/24 @ 14:17 by Erika Khalil MD) Housing: Apartment 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 (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 ages-7,11,18) Do you presently have visiting nurse or other home services: Yes (Mon-Sat 1 hour per day) Alcohol intake: former Patient Tobacco Use Status: Former Tobacco user Tobacco use type: Cigarette e-Cigarette/Vaping Use: Never Used Second Hand Smoke Exposure: No service: No Current occupational status: unemployed Cognitive needs: No Hearing needs: No Vision needs: No Female Reproductive History Menstrual Age of Menarche: 11 Physical Exam Vital Signs: Last Vital Signs Pulse 60 07/12/24 11:38 Resp 16 07/12/24 11:38 BP 145/83 H 07/12/24 11:38 Pulse Ox 100 07/12/24 11:38 Oxygen Delivery Method Room Air 07/12/24 11:38 BMI result Body Mass Index 26.8 Assessment & Plan Assessment & Plan (1) Spondylosis of cervical joint without myelopathy: Code(s): M47.812 - Spondylosis without myelopathy or radiculopathy, cervical region Category: Medical Plan Diagnostic medial branch block C4-C5 C6 bilateral. ? ?Informed consent was explained to the patient. All questions were explained and? answered.? The patient was taken inside the operating room where she was positioned prone on the operating table. Time-out was performed delineating correct site, side, the nature of the procedure, patient's allergy, . All operating room staff was participating in OR time-out procedure. ? ? The upper back in back of the neck were prepped with ChloraPrep and draped with sterile towels.? C-arm was brought over the operating field and sq picture of C4-C5 C6 vertebra was were delineated on the screen.? Point of interest were delineated as lateral masses of C4-C5 C6 bilaterally, the waistline of the each lateral mass was chosen as the target of the injection. The projection of the point of interest to the skin was injected with mixture of 2% lidocaine and 0.5% ropivacaine one-to-one. ? After that 22 gauge 3.5 inch spinal needle was driven sequentially to the points of interest in tunnel vision fashion. After needles gently contacted the bone at the point of interests the needle was injected with small amount of the contrast.? The injection of the contrast did not demonstrate any intravascular or intrathecal spread of the contrast.? After that injection of the? ropivacaine 0.5%-1cc was performed at each needle location.??after that the needles were removed and Bandaids were applied. ? Upon completion of the injections? needle was? removed and sterile Band-Aids were applied.? The patient tolerated procedure very well. Orders: Orders [place] guidance in treatment room Today M47.812 - Spondylosis without myelopathy or radiculopathy, cervical region Coding Level of Care Code Procedure Only Diagnoses Spondylosis of cervical joint without myelopathy M47.812
[2024-07-12 11:37] VITALS: BP 115/78; PULSE 67; RESP 16; O2SAT 98; BMI 26.8
[2024-07-12 11:38] VITALS: BP 145/83; PULSE 60; RESP 16; O2SAT 100; BMI 26.8
== END 2024-07-12 12:24 | disposition home or self-care (01) ==
LOC: HO.PMCPRC 10:35
PROVIDERS: PCP Internal Medicine; Visit Provider Anesthesiology
DX: M47.812 Spondylosis without myelopathy or radiculopathy, cervical region (principal)
CPT/HCPCS: 64490; 64491

== ENCOUNTER 2024-07-15 10:41 | Outpatient (AMB) | payer OTHER, SELFPAY ==
[2024-07-15 10:57] VITALS: BP 129/64; PULSE 64; O2SAT 97; BMI 25.8
--- NOTE | 2024-07-15 10:57 | A.OFFVIS_ITS ---
Vital Signs 07/15/24 10:57 Height 5 ft 8 in Weight 170 lb BMI 25.8 BP 129/64 Blood Pressure Location Rt brachial Position Sitting Pulse 64 Pulse Source Pulse Oximeter Pulse Oximetry (%) 97 Oxygen Delivery Method Room Air Intake Visit Reasons: BILATERAL DX C4, C5, C6 MBB/PILL COUNT Allergies Penicillins Allergy (Unknown, Verified 07/12/24 10:45) Hives HPI Comments Details: Tierra presents back to the office today for follow up bilateral cervical medial branch blocks and chronic opioid medication management Patient is prescribed oxycodone 5mg tablets Q6H PRN. Patient arrived today with the expectation of having 40 pills, she presented 38 pills which were counted in the presence of two staff members and returned to the patient in the original prescription bottle. This demonstrates responsible attitude toward patient's opioid medications. Pain is reported today as 9/10 and last dose of pain medication was taken at 8:00 this morning. Patient denies side effects including somnolence, abd pain, nausea or weakness. Her lower back pain is exacerbated today, she believes this is due to the weather she has been taking methocarbamol with some improvement. 3 days status post bilateral C4-C5 C6 medial branch blocks with local anesthetic She reports 70% improvement in her pain during the 8 hours after the procedure. Denies any untoward effects. 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 Personal history of other diseases of the musculoskeletal system and connective tissue Chronic pain syndrome Postlaminectomy syndrome, not elsewhere classified Chronic back pain greater than 3 months duration Scoliosis Surgical History Hx of cholecystectomy Hx of tubal ligation Previous back surgery Family History Mother Diabetes Father Diabetes Social History (Updated 04/19/24 @ 14:17 by Erika Khalil MD) Housing: Apartment Are you a primary director of career resources to a significant other at home: Yes (children ages-7,11,18) Do you presently have visiting nurse or other home services: Yes (Mon-Sat 1 hour per day) Alcohol intake: former Patient Tobacco Use Status: Former Tobacco user Tobacco use type: Cigarette e-Cigarette/Vaping Use: Never Used Second Hand Smoke Exposure: No service: No Current occupational status: unemployed Cognitive needs: No Hearing needs: No Vision needs: No Female Reproductive History Menstrual Age of Menarche: 11 Review of Systems Const All systems reviewed & are unremarkable except as noted in HPI and below Physical Exam Vital Signs: Last Vital Signs Pulse 64 07/15/24 10:57 BP 129/64 07/15/24 10:57 Pulse Ox 97 07/15/24 10:57 Oxygen Delivery Method Room Air 07/15/24 10:57 BMI result Body Mass Index 25.8 General: awake, alert, oriented. Answers questions appropriately. Fully engaged in examination. Skin: warm, dry, intact without visible rashes or lesions. HEENT: Normocephalic. Conjuntivae clear without exudate. Sclera non-icteric. Hearing intact. Cardiac: External chest normal in appearance. Respiratory: No signs of trauma. No signs of respiratory distress. No cough, audible wheezing or stridor. Abdomen: without gross distension. MS: No obvious swelling or deformities. Ambulates with steady gait, unassisted. Neurological: Oriented to person, place, time and situation. Thought process intact. Psychiatric: Appropriate mood and affect. Good judgment and insight. Const Other: Results Reviewed Results Reviewed: 01/07/24 CERVICAL SPINE: Limited visualization of C7 due to overlying soft tissues. Cervical disc space heights are preserved. Mild retrolisthesis of C4 on C5 with extension reduces with flexion. RIGHT KNEE: No significant joint effusion. Mild narrowing of the medial compartment. Minimal tricompartmental osteophytes. IMPRESSION: 1. Mild retrolisthesis of C4 on C5 with extension reduces with flexion. 2. Mild degenerative changes right knee. 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: Code(s): Z79.891 - custodial (current) use of opiate analgesic Category: Medical (5) Chronic pain syndrome: Code(s): G89.4 - Chronic pain syndrome Category: Medical (6) Postlaminectomy syndrome, not elsewhere classified: Code(s): M96.1 - Postlaminectomy syndrome, not elsewhere classified Category: Medical (7) Chronic back pain greater than 3 months duration: Code(s): M54.9 - Dorsalgia, unspecified; G89.29 - Other chronic pain Category: Medical (8) Cervicalgia: Code(s): M54.2 - Cervicalgia Category: Medical (9) Sacroiliitis: Code(s): M46.1 - Sacroiliitis, not elsewhere classified Category: Medical (10) Sacroiliac joint pain: Code(s): M53.3 - Sacrococcygeal disorders, not elsewhere classified Category: Medical Plan [facility] was reviewed and without concerns. No obvious signs of diversion, abuse or misuse of the opioid medications. Will send in prescription for oxycodone 5mg po QID PRN. Increase methocarbamol to 750 mg p.o. t.i.d. as needed for muscle spasm. New prescription for Celebrex 50 mg p.o. twice daily. Patient advised on cautions for use. Take with food. Do not take with any other nonsteroidal a nti-inflammatory medications. Schedule for fluoroscopy guided bilateral C5 sprintPati PNS local anesthetic. Will start with left side, right side to follow after 2 weeks. Patient has exhausted greater than 6 months of conservative therapy including physical therapy, muscle relaxers, NSAIDs and using TENS machine. All questions and concerns have been answered and patient agrees with the plan. Patient to follow-up in the office in 1 month, sooner if needed. Medications: New celecoxib 50 mg PO BID 60 caps 3RF Changed From methocarbamol Discontinue use of Cyclobenzaprine/Tizanidine No driving while taking this medication. Do no take with alcohol or other SPRAY DRY OPERATOR Depressants 500 mg PO TID PRN 90 tabs 1RF muscle spasm To methocarbamol No driving while taking this medication. 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
== END 2024-07-15 11:20 | disposition home or self-care (01) ==
PROVIDERS: PCP Internal Medicine; Visit Provider Registered Nurse Emergency
DX: M25.561 Pain in right knee (principal); M47.812 Spondylosis without myelopathy or radiculopathy, cervical region; S46.819A Strain of other muscles, fascia and tendons at shoulder and upper arm level, unspecified arm, initial encounter; Z79.891 Long term (current) use of opiate analgesic; G89.4 Chronic pain syndrome; M96.1 Postlaminectomy syndrome, not elsewhere classified; M54.9 Dorsalgia, unspecified; G89.29 Other chronic pain; M54.2 Cervicalgia; M46.1 Sacroiliitis, not elsewhere classified; M53.3 Sacrococcygeal disorders, not elsewhere classified
CPT/HCPCS: 99214; G2211

== ENCOUNTER → 2024-07-15 10:41 | Outpatient (BNVA) | payer OTHER, SELFPAY | PROVIDERS: PCP Internal Medicine; Visit Provider Registered Nurse Emergency | DX: M54.9 Dorsalgia, unspecified (principal); G89.4 Chronic pain syndrome; M25.561 Pain in right knee; M47.812 Spondylosis without myelopathy or radiculopathy, cervical region; M96.1 Postlaminectomy syndrome, not elsewhere classified; Z79.891 Long term (current) use of opiate analgesic; Z51.81 Encounter for therapeutic drug level monitoring | CPT/HCPCS: 99212 ==

== ENCOUNTER 2024-08-12 11:24 | Outpatient (AMB) | payer OTHER, SELFPAY ==
--- NOTE | 2024-08-12 11:37 | A.OFFVIS_ITS ---
Vital Signs 08/12/24 11:38 Height 5 ft 8 in Weight 171 lb 15.369 oz BMI 26.1 BP 124/77 Blood Pressure Location Rt brachial Position Sitting Pulse 62 Pulse Source Pulse Oximeter Pulse Oximetry (%) 97 Oxygen Delivery Method Room Air Intake Visit Reasons: PILL COUNT/ Random UDS Allergies Penicillins Allergy (Unknown, Verified 08/12/24 11:38) Hives Medication List - Last Reconciled 08/12/24 by Eva Kinsey albuterol sulfate 90 mcg/actuation (Ventolin HFA) 2 puffs inhalation Q4-6H PRN alum-mag hydroxide-simeth 200-200-20 mg/5 mL (Maalox Advanced) 10 mL PO QID PRN amitriptyline 25 mg PO BEDTIME 90 days cane As directed celecoxib 50 mg PO BID cholecalciferol (vitamin D3) 50 mcg PO DAILY 90 days ciprofloxacin HCl (Cipro) 250 mg PO BID 3 days diclofenac sodium 1% (Arthritis Pain (diclofenac)) 4 grams topical QID dicyclomine 10 mg PO TID docusate sodium 100 mg PO DAILY doxycycline hyclate 100 mg PO BID 30 days hydroxyzine HCl 25 mg PO BEDTIME PRN lidocaine 5% 1 patch topical DAILY methocarbamol 750 mg PO TID PRN naloxone 4 mg/actuation (Narcan) 4 mg intranasal Q2M PRN omeprazole 40 mg PO DAILY ondansetron 4 mg PO Q6-8H PRN oxycodone 5 mg PO Q6H PRN 30 days sennosides-docusate sodium 8.6-50 mg (Senna Plus) 1 tab-cap PO BEDTIME sucralfate 1 g PO BID 10 days HPI Comments Details: Tierra presents back to the office today for follow chronic opioid medication management Patient is prescribed oxycodone 5mg tablets Q6H PRN. Patient arrived today with the expectation of having 48 pills, she presented 48 pills which were counted in the presence of two staff members and returned to the patient in the original prescription bottle. This demonstrates responsible attitude toward patient's opioid medications. Pain is reported today as 7/10 and last dose of pain medication was taken at 9:00 this morning. Patient denies side effects including somnolence, abd pain, nausea or weakness. Status post bilateral diagnostic C4-C5 C6 medial branch blocks, reported 70% imp rovement in her pain during the 8 hours after the procedure. Plan was for sprint pns, this was denied by her insurance. 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 ocular care technologist to a significant other at home: Yes (children ages-7,11,18) Do you presently have visiting nurse or other home services: Yes (Mon-Sat 1 hour per day) Alcohol intake: former Patient Tobacco Use Status: Former Tobacco user Tobacco use type: Cigarette e-Cigarette/Vaping Use: Never Used Second Hand Smoke Exposure: No service: No Current occupational status: unemployed Cognitive needs: No Hearing needs: No Vision needs: No Female Reproductive History Menstrual Age of Menarche: 11 Review of Systems Const All systems reviewed & are unremarkable except as noted in HPI and below Physical Exam Vital Signs: Last Vital Signs Pulse 62 08/12/24 11:38 BP 124/77 08/12/24 11:38 Pulse Ox 97 08/12/24 11:38 Oxygen Delivery Method Room Air 08/12/24 11:38 BMI result Body Mass Index 26.1 General: awake, alert, oriented. Answers questions appropriately. Fully engaged in examination. Skin: warm, dry, intact without visible rashes or lesions. HEENT: Normocephalic. Conjuntivae clear without exudate. Sclera non-icteric. Hearing intact. Cardiac: External chest normal in appearance. Respiratory: No signs of trauma. No signs of respiratory distress. No cough, audible wheezing or stridor. Abdomen: without gross distension. MS: No obvious swelling or deformities. Ambulates with steady gait, unassisted. Neurological: Oriented to person, place, time and situation. Thought process intact. Psychiatric: Appropriate mood and affect. Good judgment and insight. Const Other: Results Reviewed Results Reviewed: 01/07/24 CERVICAL SPINE: Limited visualization of C7 due to overlying soft tissues. Cervical disc space heights are preserved. Mild retrolisthesis of C4 on C5 with extension reduces with flexion. RIGHT KNEE: No significant joint effusion. Mild narrowing of the medial compartment. Minimal tricompartmental osteophytes. IMPRESSION: 1. Mild retrolisthesis of C4 on C5 with extension reduces with flexion. 2. Mild degenerative changes right knee. 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 Category: Medical (5) Chronic pain syndrome: Code(s): G89.4 - Chronic pain syndrome Category: Medical (6) Postlaminectomy syndrome, not elsewhere classified: Code(s): M96.1 - Postlaminectomy syndrome, not elsewhere classified Category: Medical (7) Chronic back pain greater than 3 months duration: Code(s): M54.9 - Dorsalgia, unspecified; G89.29 - Other chronic pain Category: Medical (8) Cervicalgia: Code(s): M54.2 - Cervicalgia Category: Medical (9) Sacroiliitis: Code(s): M46.1 - Sacroiliitis, not elsewhere classified Category: Medical (10) Sacroiliac joint pain: Code(s): M53.3 - Sacrococcygeal disorders, not elsewhere classified Category: Medical Plan [place] was reviewed and without concerns. No obvious signs of diversion, abuse or misuse of the opioid medications. Will send in prescription for oxycodone 5mg po QID PRN. Sprint PNS denied by insurance. Discussed options for therapeutic injections versus radiofrequency ablation. Patient would like to consider these before making a decision. She will let us know once she is ready to proceed with either option. All questions and concerns have been answered and patient agrees with the plan. Patient to follow-up in the office in 1 month, sooner if needed. 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
[2024-08-12 11:38] VITALS: BP 124/77; PULSE 62; O2SAT 97; BMI 26.1
== END 2024-08-12 11:56 | disposition home or self-care (01) ==
PROVIDERS: PCP Internal Medicine; Visit Provider Registered Nurse Emergency
DX: M25.561 Pain in right knee (principal); M47.812 Spondylosis without myelopathy or radiculopathy, cervical region; S46.819A Strain of other muscles, fascia and tendons at shoulder and upper arm level, unspecified arm, initial encounter; Z79.891 Long term (current) use of opiate analgesic; G89.4 Chronic pain syndrome; M96.1 Postlaminectomy syndrome, not elsewhere classified; M54.9 Dorsalgia, unspecified; G89.29 Other chronic pain; M54.2 Cervicalgia; M46.1 Sacroiliitis, not elsewhere classified; M53.3 Sacrococcygeal disorders, not elsewhere classified
CPT/HCPCS: 99214; G2211

== ENCOUNTER → 2024-08-12 11:24 | Outpatient (BNVA) | payer OTHER, SELFPAY | PROVIDERS: PCP Internal Medicine; Visit Provider Registered Nurse Emergency | DX: Z51.81 Encounter for therapeutic drug level monitoring (principal); S46.819D Strain of other muscles, fascia and tendons at shoulder and upper arm level, unspecified arm, subsequent encounter; M25.561 Pain in right knee; M47.812 Spondylosis without myelopathy or radiculopathy, cervical region; M96.1 Postlaminectomy syndrome, not elsewhere classified; M54.9 Dorsalgia, unspecified; M54.2 Cervicalgia; M46.1 Sacroiliitis, not elsewhere classified; M53.3 Sacrococcygeal disorders, not elsewhere classified; G89.29 Other chronic pain; Z79.891 Long term (current) use of opiate analgesic | CPT/HCPCS: 99212 ==

== ENCOUNTER 2024-09-09 11:25 | Outpatient (AMB) | payer OTHER, SELFPAY ==
--- NOTE | 2024-09-09 11:33 | A.OFFVIS_ITS ---
Vital Signs 09/09/24 11:39 Height 5 ft 8 in Weight 188 lb 2 oz BMI 28.6 BP 129/79 Blood Pressure Location Rt brachial Position Sitting Pulse 69 Pulse Source Pulse Oximeter Pulse Oximetry (%) 98 Oxygen Delivery Method Room Air Intake Visit Reasons: PILL COUNT Intake Note: Tierra comes in today for a pill count to oxycodone, patient should have 56 tablets and presents with 60 tablets which she last took today 09/09/24 at 9am. Pain today 04/06 Music Department Chair Required: No Accompanied by: Self / Same As Patient Allergies Penicillins Allergy (Unknown, Verified 09/09/24 11:39) Hives HPI Comments Details: Tierra presents back to the office today for follow chronic opioid medication management Patient is prescribed oxycodone 5mg tablets Q6H PRN. Patient arrived today with the expectation of having 56 pills, she presented 60 pills which were counted in the presence of two staff members and returned to the patient in the original prescription bottle. This demonstrates responsible attitude toward patient's opioid medications. Pain is reported today as 04/06 and last dose of pain medication was taken at 9:00 this morning. Patient denies side effects including somnolence, abd pain, nausea or weakness. Continues with muscle relaxers and NSAIDs with minimal improvement. 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 to a significant other at home: Yes (children ages-7,11,18) Do you presently have visiting nurse or other home services: Yes (Mon-Sat 1 hour per day) Alcohol intake: former Patient Tobacco Use Status: Former Tobacco user Tobacco use type: Cigarette e-Cigarette/Vaping Use: Never Used Second Hand Smoke Exposure: No service: No Current occupational status: unemployed Cognitive needs: No Hearing needs: No Vision needs: No Female Reproductive History Menstrual Age of Menarche: 11 Review of Systems Const All systems reviewed & are unremarkable except as noted in HPI and below Physical Exam Vital Signs: Last Vital Signs Pulse 69 09/09/24 11:39 BP 129/79 09/09/24 11:39 Pulse Ox 98 09/09/24 11:39 Oxygen Delivery Method Room Air 09/09/24 11:39 BMI result Body Mass Index 28.6 General: awake, alert, oriented. Answers questions appropriately. Fully engaged in examination. Skin: warm, dry, intact without visible rashes or lesions. HEENT: Normocephalic. Conjuntivae clear without exudate. Sclera non-icteric. Hearing intact. Cardiac: External chest normal in appearance. Respiratory: No signs of trauma. No signs of respiratory distress. No cough, audible wheezing or stridor. Abdomen: without gross distension. MS: No obvious swelling or deformities. Ambulates with steady gait, unassisted. Neurological: Oriented to person, place, time and situation. Thought process intact. Psychiatric: Appropriate mood and affect. Good judgment and insight. Const Other: Results Reviewed Results Reviewed: 01/07/24 CERVICAL SPINE: Limited visualization of C7 due to overlying soft tissues. Cervical disc space heights are preserved. Mild retrolisthesis of C4 on C5 with extension reduces with flexion. RIGHT KNEE: No significant joint effusion. Mild narrowing of the medial compartment. Minimal tricompartmental osteophytes. IMPRESSION: 1. Mild retrolisthesis of C4 on C5 with extension reduces with flexion. 2. Mild degenerative changes right knee. 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: Code(s): Z79.891 - alf (current) use of opiate analgesic Category: Medical (5) Chronic pain syndrome: Code(s): G89.4 - Chronic pain syndrome Category: Medical (6) Postlaminectomy syndrome, not elsewhere classified: Code(s): M96.1 - Postlaminectomy syndrome, not elsewhere classified Category: Medical (7) Chronic back pain greater than 3 months duration: Code(s): M54.9 - Dorsalgia, unspecified; G89.29 - Other chronic pain Category: Medical (8) Cervicalgia: Code(s): M54.2 - Cervicalgia Category: Medical (9) Sacroiliitis: Code(s): M46.1 - Sacroiliitis, not elsewhere classified Category: Medical (10) Sacroiliac joint pain: Code(s): M53.3 - Sacrococcygeal disorders, not elsewhere classified Category: Medical Plan [place] was reviewed and without concerns. No obvious signs of diversion, abuse or misuse of the opioid medications. Will send in prescription for oxycodone 5mg po QID PRN. Will increase Celebrex to 100 mg p.o. twice daily. Patient advised on cautions for use. Take with food, do not take with any other nonsteroidal anti- inflammatory medications. All questions and concerns have been answered and patient agrees with the plan. Patient to follow-up in the office in 1 month, sooner if needed. Medications: Changed From celecoxib 50 mg PO BID 60 caps 3RF To celecoxib 100 mg PO BID 60 caps 3RF Refilled oxycodone 5 mg PO Q6H PRN 120 tabs 0RF pain 30 days G89.4 - Chronic pain syndrome, M46.1 - Sacroiliitis, not elsewhere classified, M47.812 - Spondylosis without myelopathy or radiculopathy, cervical region, M53.3 - Sacrococcygeal disorders, not elsewhere classified, M54.2 - Cervicalgia, M96.1 - Postlaminectomy syndrome, not elsewhere classified, Z79.891 - alf (current) use of opiate analgesic Coding Level of Care Code Est Pt Level 4 (35535) Complex EM visit Add On G2211 Diagnoses Right knee pain M25.561 Spondylosis of cervical joint without myelopathy M47.812 Trapezius muscle strain S46.819A alf (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
[2024-09-09 11:39] VITALS: BP 129/79; PULSE 69; O2SAT 98; BMI 28.6
== END 2024-09-09 11:58 | disposition home or self-care (01) ==
PROVIDERS: PCP Internal Medicine; Visit Provider Registered Nurse Emergency
DX: M25.561 Pain in right knee (principal); M47.812 Spondylosis without myelopathy or radiculopathy, cervical region; S46.819A Strain of other muscles, fascia and tendons at shoulder and upper arm level, unspecified arm, initial encounter; Z79.891 Long term (current) use of opiate analgesic; G89.4 Chronic pain syndrome; M96.1 Postlaminectomy syndrome, not elsewhere classified; M54.9 Dorsalgia, unspecified; G89.29 Other chronic pain; M54.2 Cervicalgia; M46.1 Sacroiliitis, not elsewhere classified; M53.3 Sacrococcygeal disorders, not elsewhere classified
CPT/HCPCS: 99214; G2211

== ENCOUNTER → 2024-09-09 11:25 | Outpatient (BNVA) | payer OTHER, SELFPAY | PROVIDERS: PCP Internal Medicine; Visit Provider Registered Nurse Emergency | DX: Z51.81 Encounter for therapeutic drug level monitoring (principal); S46.819A Strain of other muscles, fascia and tendons at shoulder and upper arm level, unspecified arm, initial encounter; M25.561 Pain in right knee; M47.812 Spondylosis without myelopathy or radiculopathy, cervical region; M54.2 Cervicalgia; M54.9 Dorsalgia, unspecified; M46.1 Sacroiliitis, not elsewhere classified; M53.3 Sacrococcygeal disorders, not elsewhere classified; M96.1 Postlaminectomy syndrome, not elsewhere classified; G89.29 Other chronic pain; Z79.891 Long term (current) use of opiate analgesic | CPT/HCPCS: 99212 ==

== ENCOUNTER 2024-10-07 11:17 | Outpatient (AMB) | payer OTHER, SELFPAY ==
--- NOTE | 2024-10-07 11:24 | A.OFFVIS_ITS ---
Vital Signs 10/07/24 11:25 Height 5 ft 8 in Weight 182 lb BMI 27.7 BP 122/77 Blood Pressure Location Lt brachial Position Sitting Respiration 16 Pulse 75 Pulse Source Pulse Oximeter Pulse Oximetry (%) 96 Oxygen Delivery Method Room Air Intake Visit Reasons: PILL COUNT Intake Note: Pt states she last took oxy 10/07/24 @ 10am Allergies Penicillins Allergy (Unknown, Verified 10/07/24 11:27) Hives Medication List - Last Reconciled 10/07/24 by Elmira Riley LPN albuterol sulfate 90 mcg/actuation (Ventolin HFA) 2 puffs inhalation Q4-6H PRN alum-mag hydroxide-simeth 200-200-20 mg/5 mL (Maalox Advanced) 10 mL PO QID PRN amitriptyline 25 mg PO BEDTIME 90 days cane As directed celecoxib 100 mg PO BID cholecalciferol (vitamin D3) 50 mcg PO DAILY 90 days diclofenac sodium 1% (Arthritis Pain (diclofenac)) 4 grams topical QID dicyclomine 10 mg PO TID docusate sodium 100 mg PO DAILY doxycycline hyclate 100 mg PO BID 30 days hydroxyzine HCl 25 mg PO BEDTIME PRN lidocaine 5% 1 patch topical DAILY methocarbamol 750 mg PO TID PRN naloxone 4 mg/actuation (Narcan) 4 mg intranasal Q2M PRN omeprazole 40 mg PO DAILY ondansetron 4 mg PO Q6-8H PRN oxycodone 5 mg PO Q6H PRN 30 days sennosides-docusate sodium 8.6-50 mg (Senna Plus) 1 tab-cap PO BEDTIME spironolactone 50 mg PO BID sucralfate 1 g PO BID 10 days HPI Comments Details: Tierra presents back to the office today for follow chronic opioid medication management Patient is prescribed oxycodone 5mg tablets Q6H PRN. Patient arrived today with the expectation of having 64 pills, she presented 62 pills which were counted in the presence of two staff members and returned to the patient in the original prescription bottle. This demonstrates responsible attitude toward patient's opioid medications. Pain is reported today as 8/10 and last dose of pain medication was taken at 9:00 this morning. Patient denies side effects including dizziness, somnolence, abd pain, nausea or weakness. Some improvement with increased methocarbamol does. She has also been taking nonsteroidal anti-inflammatory medications with minimal improvement.. 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 (children ages-7,11,18) Do you presently have visiting nurse or other home services: Yes (Mon-Sat 1 hour per day) Alcohol intake: former Patient Tobacco Use Status: Former Tobacco user Tobacco use type: Cigarette e-Cigarette/Vaping Use: Never Used Second Hand Smoke Exposure: No service: No Current occupational status: unemployed Cognitive needs: No Hearing needs: No Vision needs: No Female Reproductive History Menstrual Age of Menarche: 11 Review of Systems Const All systems reviewed & are unremarkable except as noted in HPI and below Physical Exam Vital Signs: Last Vital Signs Pulse 75 10/07/24 11:25 Resp 16 10/07/24 11:25 BP 122/77 10/07/24 11:25 Pulse Ox 96 10/07/24 11:25 Oxygen Delivery Method Room Air 10/07/24 11:25 BMI result Body Mass Index 27.7 General: awake, alert, oriented. Answers questions appropriately. Fully engaged in examination. Skin: warm, dry, intact without visible rashes or lesions. HEENT: Normocephalic. Conjuntivae clear without exudate. Sclera non-icteric. Hearing intact. Cardiac: External chest normal in appearance. Respiratory: No signs of trauma. No signs of respiratory distress. No cough, audible wheezing or stridor. Abdomen: without gross distension. MS: No obvious swelling or deformities. Ambulates with steady gait, unassisted. Neurological: Oriented to person, place, time and situation. Thought process intact. Psychiatric: Appropriate mood and affect. Good judgment and insight. Const Other: Results Reviewed Results Reviewed: 01/07/24 CERVICAL SPINE: Limited visualization of C7 due to overlying soft tissues. Cervical disc space heights are preserved. Mild retrolisthesis of C4 on C5 with extension reduces with flexion. RIGHT KNEE: No significant joint effusion. Mild narrowing of the medial compartment. Minimal tricompartmental osteophytes. IMPRESSION: 1. Mild retrolisthesis of C4 on C5 with extension reduces with flexion. 2. Mild degenerative changes right knee. Assessment & Plan Assessment & Plan (1) Right knee pain: Code(s): M25.561 - Pain in right knee Category: Medical (2) Spondylosis of cervical joint without myelopathy: Code(s): M47.812 - Spondylosis without myelopathy or radiculopathy, cervical region Category: Medical (3) Trapezius muscle strain: Code(s): S46.819A - Strain of other muscles, fascia and tendons at shoulder and upper arm level, unspecified arm, initial encounter Category: Medical (4) retirement (current) use of opiate analgesic: Code(s): Z79.891 - retirement (current) use of opiate analgesic Category: Medical (5) Chronic pain syndrome: Code(s): G89.4 - Chronic pain syndrome Category: Medical (6) Postlaminectomy syndrome, not elsewhere classified: Code(s): M96.1 - Postlaminectomy syndrome, not elsewhere classified Category: Medical (7) Chronic back pain greater than 3 months duration: Code(s): M54.9 - Dorsalgia, unspecified; G89.29 - Other chronic pain Category: Medical (8) Cervicalgia: Code(s): M54.2 - Cervicalgia Category: Medical (9) Sacroiliitis: Code(s): M46.1 - Sacroiliitis, not elsewhere classified Category: Medical (10) Sacroiliac joint pain: Code(s): M53.3 - Sacrococcygeal disorders, not elsewhere classified Category: Medical Plan [place] was reviewed and without concerns. No obvious signs of diversion, abuse or misuse of the opioid medications. Will send in prescription for oxycodone 5mg po QID PRN. Continue with Celebrex methocarbamol as prescribed Discussed options for treatment including diagnostic interventional testing, epidural steroid injections, peripheral nerve stimulation with Sprint, RFA and more permanent neuromodulation. Patient would like to consider cervical SCS trial. We will discuss further at next visit. All questions and concerns have been answered and patient agrees with the plan. Patient to follow-up in the office in 1 month, sooner if needed. 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
[2024-10-07 11:25] VITALS: BP 122/77; PULSE 75; RESP 16; O2SAT 96; BMI 27.7
== END 2024-10-07 11:45 | disposition home or self-care (01) ==
PROVIDERS: PCP Internal Medicine; Visit Provider Registered Nurse Emergency
DX: M25.561 Pain in right knee (principal); M47.812 Spondylosis without myelopathy or radiculopathy, cervical region; S46.819A Strain of other muscles, fascia and tendons at shoulder and upper arm level, unspecified arm, initial encounter; Z79.891 Long term (current) use of opiate analgesic; G89.4 Chronic pain syndrome; M96.1 Postlaminectomy syndrome, not elsewhere classified; M54.9 Dorsalgia, unspecified; G89.29 Other chronic pain; M54.2 Cervicalgia; M46.1 Sacroiliitis, not elsewhere classified; M53.3 Sacrococcygeal disorders, not elsewhere classified
CPT/HCPCS: 99214; G2211

== ENCOUNTER → 2024-10-07 11:17 | Outpatient (BNVA) | payer OTHER, SELFPAY | PROVIDERS: PCP Internal Medicine; Visit Provider Registered Nurse Emergency | DX: Z51.81 Encounter for therapeutic drug level monitoring (principal); Z79.891 Long term (current) use of opiate analgesic; M25.561 Pain in right knee; M47.812 Spondylosis without myelopathy or radiculopathy, cervical region; M96.1 Postlaminectomy syndrome, not elsewhere classified; M54.9 Dorsalgia, unspecified; M54.2 Cervicalgia; M46.1 Sacroiliitis, not elsewhere classified; M53.3 Sacrococcygeal disorders, not elsewhere classified; G89.29 Other chronic pain; S46.819D Strain of other muscles, fascia and tendons at shoulder and upper arm level, unspecified arm, subsequent encounter | CPT/HCPCS: 99212 ==

== ENCOUNTER 2024-10-11 06:55 | Emergency (ER) | payer OTHER, SELFPAY ==
--- NOTE | 2024-10-11 | ECG_ITS ---
Test Reason : EPIGASTRIC PAIN Blood Pressure : */* mmHG Vent. Rate : 58 BPM Atrial Rate : 58 BPM P-R Int : 152 ms QRS Dur : 94 ms QT Int : 436 ms P-R-T Axes : 65 72 46 degrees QTcB Int : 428 ms Sinus bradycardia Otherwise normal ECG When compared with ECG of 09-Nov-2023 21:24, No significant change was found Referred By: Generic ED Physician Electronically Signed By: John Garrido
--- NOTE | ~2024-10-11 | CT_ITS ---
EXAMINATION: CT ABDOMEN AND PELVIS WITHOUT CONTRAST CLINICAL INFORMATION: Abdominal pain. Right lower quadrant pain. COMPARISON: CT dated November 09, 2023. TECHNIQUE: Multidetector volumetric imaging was performed from the superior aspect of the liver through the pubic symphysis. Sagittal and coronal reformatted images were obtained on the technologist's workstation. This CT examination was performed using dose optimization techniques as appropriate, variously including the following: *Automated exposure control *Adjustment of mA and/or kV according to patient size (this includes techniques or standardized protocols for targeted exams where dose is matched to indication/reason for exam; i.e. extremities or head) *Use of iterative reconstruction technique. DLP: 536 mGy centimeter. FINDINGS: Inadequate evaluation of the intra-abdominal organs and vascular structures due to lack of IV contrast. LUNG BASES: No acute airspace disease in the included lungs. LIVER, GALLBLADDER, AND BILIARY TREE: Liver measures 15 cm. Status post cholecystectomy, likely laparoscopic. No intrahepatic or extrahepatic biliary ductal dilatation. PANCREAS: No peripancreatic fluid collections. No main pancreatic ductal dilatation. SPLEEN: 10 cm. ADRENAL GLANDS: No nodular lesions. KIDNEYS AND URETERS: Questionable 1 mm calcification in the upper pole left pelvicalyceal system and the upper pole/mid right pelvicalyceal system. No hydronephrosis in the either kidney. BLADDER: Fluid-filled. GASTROINTESTINAL TRACT: Appendix is normal. Abundant stool, large intestine. No intestinal obstruction pattern. No pneumatosis intestinalis. No pneumoperitoneum. No ascites. Increased density within the lumen of the left hemicolon likely related to residual oral contrast from prior imaging exam. ABDOMINAL WALL: Diastases abdominal rectus muscles in the periumbilical region resulting in protrusion of the intra-abdominal organs. LYMPH NODES: Nonspecific prominent lymph nodes, mesenteric, retroperitoneum and inguinal. VASCULAR: No aneurysm, abdominal aorta. PELVIC VISCERA: Probable status post tubal ligation. There is intraluminal vagina tampon. OSSEOUS STRUCTURES: A levoconvex curvature of the lumbar spine apex at L1-2 level. Beam hardening artifact secondary to metallic hardware thoracolumbar fusion anchor at posterior elements of L2. CT/CT abdomen pelvis wo IV con IMPRESSION: Appendix is normal. Questionable 1 mm nonobstructing nephrolithiasis, bilaterally Diastases abdominal rectus muscles, periumbilical region. Fleischner guidelines were followed. Electronically signed by: Ulises Nava MD 10/11/2024 12:14 PM [facility]
--- NOTE | ~2024-10-11 | US_ITS ---
EXAMINATION: US PELVIS CLINICAL INFORMATION: Epigastric pain. Rule out ovarian torsion. COMPARISON: CT examination without contrast performed earlier same day. Pelvic ultrasound 10/29/2022. TECHNIQUE: Ultrasound of the pelvis is performed using both transabdominal and transvaginal transducers along with Doppler. Transvaginal imaging is performed due to inadequate visualization transabdominally. FINDINGS: Uterus: The uterus is anteverted and measures 9.4 x 4.9 x 5.4 cm. There are nabothian cervical cysts. Cervix is otherwise normal. The double wall endometrial thickness is 0.2 mm. The uterus is smooth in contour and has normal myometrial echogenicity. No visible fibroid. Adnexa: Both ovaries are visualized. There is normal color flow to the adnexa. There is no ovarian torsion. There is no pelvic ascites or fluid collection. There are no adnexal masses. Right ovary measures 3.5 x 1.4 x 1.6 cm. Volume = 4.1 mL. Normal sonographic appearance. Left ovary measures 2.3 x 1.9 x 1.9 cm. Volume = 4.4 mL. Normal sonographic appearance. US/US pelvic and transvaginal IMPRESSION: Normal pelvic ultrasound without evidence of ovarian torsion. Electronically signed by: Agustín Sanders MD 10/11/2024 03:35 PM [facility]
--- NOTE | ~2024-10-11 | US_ITS ---
EXAMINATION: US PELVIS CLINICAL INFORMATION: Epigastric pain. Rule out ovarian torsion. COMPARISON: CT examination without contrast performed earlier same day. Pelvic ultrasound 10/29/2022. TECHNIQUE: Ultrasound of the pelvis is performed using both transabdominal and transvaginal transducers along with Doppler. Transvaginal imaging is performed due to inadequate visualization transabdominally. FINDINGS: Uterus: The uterus is anteverted and measures 9.4 x 4.9 x 5.4 cm. There are nabothian cervical cysts. Cervix is otherwise normal. The double wall endometrial thickness is 0.2 mm. The uterus is smooth in contour and has normal myometrial echogenicity. No visible fibroid. Adnexa: Both ovaries are visualized. There is normal color flow to the adnexa. There is no ovarian torsion. There is no pelvic ascites or fluid collection. There are no adnexal masses. Right ovary measures 3.5 x 1.4 x 1.6 cm. Volume = 4.1 mL. Normal sonographic appearance. Left ovary measures 2.3 x 1.9 x 1.9 cm. Volume = 4.4 mL. Normal sonographic appearance. US/US pelvic ovarian doppler IMPRESSION: Normal pelvic ultrasound without evidence of ovarian torsion. Electronically signed by: Agustín Sanders MD 10/11/2024 03:35 PM [facility]
[2024-10-11 07:14] VITALS: BP 121/34; PULSE 67; RESP 16; TEMP 36.5; O2SAT 97; BMI 28.9
[2024-10-11] MEDS: Ondansetron ODT 4 MG TAB.RAPDIS TRANSLINGU (07:19)
[2024-10-11 07:45] LABS: MANUAL DIFF FLAG NO
[2024-10-11 07:46] LABS: Basophils Percent Auto 0.5 % (0-2); Eosinophils Absolute Auto 0.1 X10*3/uL (0.0-0.4); Eosinophils Percent Auto 1.4 % (0-4); Hematocrit 35.3 % (37.0-47.0); Hemoglobin 12.2 g/dl (12.0-16.0); Imm Gran Abs Auto 0.01 X10*3/uL (0.00-0.03); Imm Gran Pct Auto 0.2 % (0.0-0.4); Lymphocytes Absolute Auto 1.8 X10*3/uL (1.2-4.9); Mean Corpuscular HGB Conc 34.6 g/dl (31.0-35.0); Mean Corpuscular Hemoglobin 29.9 pg (27.0-33.0); Mean Corpuscular Volume 86.5 fL (80.0-98.0); Mean Platelet Volume 11.3 fL (9.4-12.3); Monocytes Absolute Auto 0.5 X10*3/uL (0.1-1.2); Monocytes Percent Auto 7.2 % (2-11); Neutrophils Percent Auto 62.7 % (45-73); Platelet Count 178 X10*3/uL (160-400); Red Blood Count 4.08 X10*6/uL (4.20-5.50); Red Cell Distribution Width 11.9 % (11.0-16.0); White Blood Count 6.3 X10*3/uL (4.8-10.8)
[2024-10-11 08:01] LABS: Alanine Aminotransferase 14 U/L (0-31); Alkaline Phosphatase 73 U/L (39-117); Anion Gap 7 (12-20); Aspartate Amino Transferase 16 U/L (5-31); Bilirubin Total 0.4 mg/dL (0.0-1.0); Blood Urea Nitrogen 12 mg/dL (9-16); Calcium 8.4 mg/dL (8.4-10.2); Carbon Dioxide 27 mmol/L (22-29); Chloride 108 mmol/L (96-108); Creatinine Clr Calc Pharmacy 117.3; Estimated Glomerular Filt Rate > 60; Glucose Random 91 mg/dL (60-115); Potassium 3.7 mmol/L (3.3-5.1); Sodium 138 mmol/L (135-145); Total Protein 6.9 g/dL (6.5-8.0)
[2024-10-11 08:11] LABS: Troponin-I High Sensitivity < 2.7 ng/L (<3.5-17.0)
[2024-10-11 08:48] LABS: Influenza A PCR NEGATIVE (Negative); Influenza B PCR NEGATIVE (Negative); Resp Syncy Virus RNA Qual PCR NEGATIVE (Negative); SARS COV2 PCR INHOUSE NEGATIVE (Negative)
[2024-10-11 10:05] LABS: Lipase 13 U/L (8-78)
--- NOTE | 2024-10-11 10:38 | ED_ITS ---
HPI - Abdominal Pain General Chief Complaint: Abdominal Pain Stated Complaint: abd pain Time Seen by Provider: 10/11/24 10:09 Source: patient and family Mode of arrival: ambulatory Limitations: no limitations History of Present Illness ED Provider: DR. Martinez HPI narrative: 39-year-old female came in for evaluation of epigastric pain for the past 2 days pain is mostly constant but waxes and lean associated with nausea and vomiting gets worse with food, no fever, or chills. No recent alcohol use. Surgical history is consistent with cholecystectomy. Related Data Home Medications ?Medication ?Instructions ?Recorded ?Confirmed albuterol sulfate 90 mcg/actuation 2 puff inhalation Q4-6H PRN 10/21/23 10/07/24 aerosol inhaler (Ventolin HFA) spironolactone 50 mg tablet 50 mg PO BID 09/09/24 10/07/24 Previous Rx's ?Medication ?Instructions ?Recorded amitriptyline 25 mg tablet 25 mg PO BEDTIME 90 days #90 tabs 02/26/22 cholecalciferol (vitamin D3) 50 50 mcg PO DAILY 90 days #90 caps 10/29/22 mcg (2,000 unit) capsule hydroxyzine HCl 25 mg tablet 25 mg PO BEDTIME PRN insomnia #14 09/01/23 tabs doxycycline hyclate 100 mg tablet 100 mg PO BID 30 days #60 tabs 10/29/23 omeprazole 40 mg capsule,delayed 40 mg PO DAILY #20 caps 11/09/23 release ondansetron 4 mg disintegrating 4 mg PO Q6-8H PRN nausea and 11/09/23 tablet vomiting #7 tabs aluminum-mag hydroxide-simethicone 10 ml PO QID PRN dyspepsia #3,000 11/10/23 200 mg-200 mg-20 mg/5 mL oral susp mL (Maalox Advanced) dicyclomine 10 mg capsule 10 mg PO TID #20 caps 11/10/23 sucralfate 1 gram tablet 1 g PO BID 10 days #20 tabs 11/16/23 cane #1 ea 12/16/23 diclofenac sodium 1 % topical gel 4 g topical QID #100 grams 01/07/24 (Arthritis Pain (diclofenac)) naloxone 4 mg/actuation nasal 4 mg intranasal Q2M PRN opioid 01/07/24 spray (Narcan) overdose #2 ea sennosides 8.6 mg-docusate sodium 1 tab-cap PO BEDTIME #30 tabs 02/16/24 50 mg tablet (Senna Plus) docusate sodium 100 mg capsule 100 mg PO DAILY #30 caps 04/28/24 methocarbamol 750 mg tablet 750 mg PO TID PRN muscle spasm #90 07/15/24 tabs celecoxib 100 mg capsule 100 mg PO BID #60 caps 09/09/24 lidocaine 5 % topical patch 1 patch topical DAILY #15 ea 09/22/24 oxycodone 5 mg tablet 5 mg PO Q6H PRN pain 30 days #120 10/07/24 tabs omeprazole 40 mg capsule,delayed 40 mg PO DAILY #30 caps 10/11/24 release Allergies Allergy/AdvReac Type Severity Reaction Status Date / Time Penicillins Allergy Unknown Hives Verified 10/11/24 07:15 Review of Systems Review of Systems All other systems are reviewed and are negative Constitutional: Reports as per HPI and Reports no additional constitutional complaints Eyes: Reports as per HPI and Reports no additional eye complaints Reports system reviewed and no additional complaints, except as documented Cardiovascular: Reports as per HPI and Reports no additional cardiovascular complaints Respiratory: Reports as per HPI and Reports no additional respiratory complaints Gastrointestinal: Reports as per HPI and Reports no additional gastrointestinal complaints Genitourinary: Reports no additional female genitourinary complaints Musculoskeletal: Reports no additional musculoskeletal complaints Skin/Breast: Reports system reviewed and no additional complaints, except as docu Psychiatric: Reports no additional psychiatric complaints Endocrine: Reports no additional endocrine complaints Hematologic/Lymphatic: Reports no additional hematologic/lymphatic complaints Allergic/Immunologic: Reports no additional allergic/immunologic complaints Reports system reviewed and no additional complaints, except as documented and Reports Abnormal speech present [facility] Past Medical History Medical History Anxiety Obese Cholelithiasis 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 Personal history of other diseases of the musculoskeletal system and connective tissue Chronic pain syndrome Postlaminectomy syndrome, not elsewhere classified Chronic back pain greater than 3 months duration Scoliosis Surgical History Hx of cholecystectomy Hx of tubal ligation Previous back surgery Family History Family History Mother Diabetes Father Diabetes Social History Social History Housing: Apartment Are you a primary resident care technician to a significant other at home: Yes (children ages-7,11,18) Do you presently have visiting nurse or other home services: Yes (Mon-Sat 1 hour per day) Alcohol intake: current Alcohol intake frequency: holidays/special occasions only Patient Tobacco Use Status: Former Tobacco user Tobacco use type: Cigarette Smoked in Last 30 Days: No e-Cigarette/Vaping Use: Never Used Second Hand Smoke Exposure: No Use of substances other than those prescribed or required for medical reasons: Yes Substance Use Type: Marijuana Advance Directives: No Advance Directives Information Provided: Yes Patient : No service: No Current occupational status: unemployed Cognitive needs: No Hearing needs: No Vision needs: No Physical Exam ED Vital Signs: Vital Signs - 24 hr 10/11/24 07:14 10/11/24 10:59 10/11/24 14:42 Temperature 97.7 F 98.3 F 97.2 F Pulse Rate 67 56 83 Respiratory Rate 16 16 14 Blood Pressure 121/34 L 104/59 L 90/59 L Pulse Oximetry 97 100 100 Oxygen Delivery Method Room Air Room Air Room Air BMI result Body Mass Index 28.9 Vital signs have been reviewed and appear to be correct. Blood pressure elevated. Heart rate normal. Respiratory rate normal. Temperature normal. Oxygen saturation normal. Appearance: Alert. Oriented X3. No acute distress. Head: Normal external exam. Normocephalic. Atraumatic. No [place]iera signs noted. No raccoon eyes noted Eyes: PERRLA. EOMI. Conjunctiva and sclera normal. Eyelids normal. ENT: TM's Normal. Pharynx normal. Uvula midline. Moist mucous membranes. No trismus noted. No drooling noted. No muffled voice noted. Neck: Normal inspection. Neck supple. FROM. No adenopathy. Thyroid Normal. No meningeal signs. No neck mass noted. CVS: Normal heart rate and rhythm. Heart sound normal. No murmurs noted. Pulses normal throughout. Respiratory: No respiratory distress. Painless inspiration. Breath sounds normal. No wheezes/rales/rhonchi noted. Chest nontender. No accessory muscle usage noted or decreased air movement noted. Abdomen: Soft and nontender. Bowel sounds normal in all 4 quadrants. No distention noted. No organomegaly noted. No visible injury noted. Back: No CVA tenderness. Full range of motion noted. Skin: Skin warm and dry. Normal skin color. Normal skin turgor. No rashes/lesions/lacerations noted. Extremities: No lower extremity edema. Extremities exhibit normal range of motion. Extremities nontender. Neuro: Oriented X 3. Cranial nerve exam: II-XII are grossly intact No motor deficit. No sensory deficit. Reflexes normal. Course Reevaluation(s) Reevaluation #1: Abdominal pain. Unremarkable CT abdomen and pelvis and pelvic ultrasound for acute findings. Patient feels better after received multiple pain medication, now she is hungry and asking for food. Time: 13:46 Medical Decision Making Differential Diagnosis Differential Diagnoses: The differential diagnosis associated with the presentation includes (Gastritis, pancreatitis, colitis, diverticulitis, acute appendicitis, abnormal , electrolyte derangement, severe anemia, ovarian torsion, ovarian cyst.) Admission/Observation Consideration of admission/observation: Escalation of care including admission/observation considered Lab Data MDM Lab Attestation statement: I reviewed the patient's lab results. 10/11/24 07:40 10/11/24 07:41 Labs: Lab Results 10/11/24 10/11/24 10/11/24 Range/Units 07:40 07:41 12:42 WBC 6.3 (4.8-10.8) X10*3/uL RBC 4.08 L (4.20-5.50) X10*6/uL Hgb 12.2 (12.0-16.0) g/dl Hct 35.3 L (37.0-47.0) % MCV 86.5 (80.0-98.0) fL MCH 29.9 (27.0-33.0) pg MCHC 34.6 (31.0-35.0) g/dl RDW 11.9 (11.0-16.0) % Plt Count 178 (160-400) X10*3/uL MPV 11.3 (9.4-12.3) fL Immature Gran % (Auto) 0.2 (0.0-0.4) % Neut % (Auto) 62.7 (45-73) % Lymph % (Auto) 28.0 (20-40) % [place] % (Auto) 7.2 (2-11) % Eos % (Auto) 1.4 (0-4) % Baso % (Auto) 0.5 (0-2) % Lymph # (Auto) 1.8 (1.2-4.9) X10*3/uL [place] # (Auto) 0.5 (0.1-1.2) X10*3/uL Eos # (Auto) 0.1 (0.0-0.4) X10*3/uL Baso # (Auto) 0.0 (0.0-0.2) X10*3/uL Abs Immat Gran (auto) 0.01 (0.00-0.03) X10*3/uL Absolute Neuts (auto) 4.0 (2.0-8.3) x10*3/uL Absolute Nucleated RBC 0.000 (0.0-0.012) X10*3/uL Nucleated RBC % (auto) 0.0 (0.0-0.2) /100WBC Sodium 138 (135-145) mmol/L Potassium 3.7 (3.3-5.1) mmol/L Chloride 108 (96-108) mmol/L Carbon Dioxide 27 (22-29) mmol/L Anion Gap 7 L (12-20) BUN 12 (9-16) mg/dL Creatinine 0.74 (0.5-1.4) mg/dL Estim Creat Clear Calc 117.3 Estimated GFR > 60 Random Glucose 91 (60-115) mg/dL Calcium 8.4 D (8.4-10.2) mg/dL Magnesium 2.0 (1.6-2.6) mg/dL Total Bilirubin 0.4 (0.0-1.0) mg/dL AST 16 (5-31) U/L ALT 14 (0-31) U/L Alkaline Phosphatase 73 (39-117) U/L Troponin I High Sens < 2.7 (<3.5-17.0) ng/L Total Protein 6.9 (6.5-8.0) g/dL Albumin 4.0 (3.5-5.0) g/dL Lipase 13 (8-78) U/L Beta HCG, Quant < 2 mIU/mL Urine Color Yellow Urine Appearance Clear Urine pH 6.5 (5.0-9.0) Ur Specific [place] 1.015 (1.005-1.025) Urine Protein Negative (Neg-Trace) mg/dL Urine Glucose (UA) Negative (Negative) mg/dL Urine Ketones Negative (Negative) mg/dL Urine Blood Negative (Negative) Urine Nitrite Negative (Negative) Ur Leukocyte Esterase Negative (Negative) Urine RBC 0-2 (0-2) /HPF Urine WBC 0-5 (0-5) /HPF Ur Squamous Epith Cells 3-5 (0-2) /HPF Urine Bacteria None Seen (None Seen) Hyaline Casts 0-2 (0-2) /LPF Urine Test NEGATIVE (NEGATIVE) Influenza Type A (PCR) NEGATIVE (Negative) Influenza Type B (PCR) NEGATIVE (Negative) RSV RNA Qual (PCR) NEGATIVE (Negative) SARS-CoV-2 RNA (RT-PCR) NEGATIVE (Negative) Independent Interpretation I performed an independent interpretation of an: Ultrasound (Pelvic ultrasound: No ovarian torsion.) and CT Scan (Abdomen pelvis:Appendix is normal. Questionable 1 mm nonobstructing nephrolithiasis, bilaterally Diastases abdominal rectus muscles, periumbilical region. ) Radiology Impression Discussion of test interpretation with radiology: I have reviewed the radiologist's reading. Medications Administered Discontinued Medications Generic Name Dose Route Start Last Admin Trade Name Freq PRN Reason Stop Dose Admin Al Hydroxide/Mg Hydroxide 30 ml 10/11/24 10:19 10/11/24 10:40 Magnesium Hydrox/Alum Hydrox 30 Ml Oral.Susp PO 10/11/24 10:20 30 ml ONCE ONE Administration Famotidine 20 mg 10/11/24 10:19 10/11/24 10:40 Famotidine/Pf 20 Mg/2 Ml Vial IVPUSH 10/11/24 10:20 20 mg ONCE ONE Administration Hydromorphone HCl 1 mg 10/11/24 12:39 10/11/24 13:00 Hydromorphone Hcl 1 Mg/Ml Syringe IVPUSH 10/11/24 12:40 1 mg ONCE ONE Administration Protocol Sodium Chloride 1,000 mls @ 999 mls/hr 10/11/24 10:19 10/11/24 11:51 Ns IV 10/11/24 11:19 Infused .Q1H1M ONE Infusion Ketorolac Tromethamine 15 mg 10/11/24 11:07 10/11/24 11:18 Ketorolac Tromethamine 15 Mg/Ml Vial IVPUSH 10/11/24 11:08 15 mg ONCE ONE Administration Morphine Sulfate 1 mg 10/11/24 11:50 10/11/24 11:55 Morphine Sulfate 2 Mg/Ml Cartridge IVPUSH 10/11/24 11:51 1 mg ONCE ONE Administration Protocol Ondansetron HCl 4 mg 10/11/24 07:16 10/11/24 07:19 Ondansetron Odt 4 Mg Tab.Rapdis TRANSLINGU 10/11/24 07:17 4 mg ONCE ONE Administration Ondansetron HCl 4 mg 10/11/24 10:19 10/11/24 10:40 Ondansetron Hcl 4 Mg/2 Ml Vial IVPUSH 10/11/24 10:20 4 mg ONCE ONE Administration Discharge Plan Discharge Clinical Impression: Abdominal pain, Gastritis Patient Disposition: Home, Self-Care Instructions: Gastritis (ED) Prescriptions: New omeprazole 40 mg capsule,delayed release(DR/EC) 40 mg PO DAILY Qty: 30 0RF No Action amitriptyline 25 mg tablet 25 mg PO BEDTIME 90 Days Qty: 90 3RF cholecalciferol (vitamin D3) 50 mcg (2,000 unit) capsule 50 mcg PO DAILY 90 Days Qty: 90 1RF doxycycline hyclate 100 mg tablet 100 mg PO BID 30 Days Qty: 60 6RF (DME) cane Device See Rx Instructions .Route Qty: 1 0RF Rx Instructions: As directed docusate sodium 100 mg capsule 100 mg PO DAILY Qty: 30 0RF lidocaine 5 % adhesive patch,medicated 1 patch topical DAILY Qty: 15 0RF Rx Instructions: leave on most painful area for up to 12 hrs alum-mag hydroxide-simeth [Maalox Advanced] 200-200-20 mg/5 mL suspension 10 ml PO QID PRN (Reason: dyspepsia) Qty: 3000 0RF Rx Instructions: administer between meals and at bedtime dicyclomine 10 mg capsule 10 mg PO TID Qty: 20 0RF ondansetron 4 mg tablet,disintegrating 4 mg PO Q6-8H PRN (Reason: nausea and vomiting) Qty: 7 0RF omeprazole 40 mg capsule,delayed release(DR/EC) 40 mg PO DAILY Qty: 20 0RF hydroxyzine HCl 25 mg tablet 25 mg PO BEDTIME PRN (Reason: insomnia) Qty: 14 0RF sucralfate 1 gram tablet 1 g PO BID 10 Days Qty: 20 0RF albuterol sulfate [Ventolin HFA] 90 mcg/actuation HFA aerosol inhaler 2 puff inhalation Q4-6H PRN methocarbamol 750 mg tablet 750 mg PO TID PRN (Reason: muscle spasm) Qty: 90 1RF Rx Instructions: No driving while taking this medication. 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 oxycodone 5 mg tablet 5 mg PO Q6H PRN (Reason: pain) 30 Days Qty: 120 0RF diclofenac sodium [Arthritis Pain (diclofenac)] 1 % gel 4 g topical QID Qty: 100 0RF Rx Instructions: apply to single knee, ankle, foot; for foot includes sole/toes/top of foot naloxone [Narcan] 4 mg/actuation spray,non-aerosol 4 mg intranasal Q2M PRN (Reason: opioid overdose) Qty: 2 1RF Rx Instructions: spray 1 dose into ONE nostril; alternate nostrils w each dose until help arrives sennosides-docusate sodium [Senna Plus] 8.6-50 mg tablet 1 tab-cap PO BEDTIME Qty: 30 0RF spironolactone 50 mg tablet 50 mg PO BID celecoxib 100 mg capsule 100 mg PO BID Qty: 60 3RF Referrals: Maite Segundo MD [Physician] - Print Language: Guyanese
[2024-10-11] MEDS: ondansetron HCL 4 MG/2 ML VIAL IVPUSH (10:40)
[2024-10-11] MEDS: Famotidine/PF 20 MG/2 ML VIAL IVPUSH (10:40)
[2024-10-11] MEDS: Magnesium Hydrox/Alum Hydrox 30 ML ORAL.SUSP PO (10:40)
[2024-10-11] MEDS: 0.9 % Sodium Chloride 1,000 ML 999 ML IV (10:40)
[2024-10-11 10:59] VITALS: BP 104/59; PULSE 56; RESP 16; TEMP 36.8; O2SAT 100
[2024-10-11] MEDS: Ketorolac Tromethamine 15 MG/ML VIAL IVPUSH (11:18)
[2024-10-11 11:24] LABS: HCG Quantitative < 2 mIU/mL
[2024-10-11] MEDS: Morphine Sulfate 2 MG/ML CARTRIDGE 1 MG IVPUSH (11:55)
[2024-10-11 12:48] LABS: Appearance Urine Clear; Color Urine Yellow; Glucose Urine UA Negative (Negative); Leukocyte Esterase Urine Negative (Negative); Nitrite Urine Negative (Negative); PH 6.5 (5.0-9.0); Specific Gravity - Urine 1.015 (1.005-1.025); Urine Blood Negative (Negative); Urine Ketones Negative (Negative); Urine Protein Negative (Neg-Trace)
[2024-10-11 12:49] LABS: UPreg QC Valid YES
[2024-10-11 12:51] LABS: Urine Pregnancy NEGATIVE (NEGATIVE)
[2024-10-11 12:59] LABS: Bacteria Urine None Seen (None Seen); Hyaline Casts Urine 0-2 /LPF (0-2); RBC Urine 0-2 /HPF (0-2); WBC Urine 0-5 /HPF (0-5)
[2024-10-11] MEDS: HYDROmorphone HCl 1 MG/ML SYRINGE IVPUSH (13:00)
[2024-10-11 14:42] VITALS: BP 90/59; PULSE 83; RESP 14; TEMP 36.2; O2SAT 100
[2024-10-11] MEDS: HYDROmorphone HCl 0.5 MG/0.5 ML SYRINGE IVPUSH (15:49)
[2024-10-11 16:19] VITALS: BP 90/59; PULSE 83; RESP 14; TEMP 36.2; O2SAT 100
== END 2024-10-11 16:31 | disposition home or self-care (01) ==
PROVIDERS: Emergency Provider Emergency Medicine; PCP Internal Medicine
DX: K29.70 Gastritis, unspecified, without bleeding (principal); R10.13 Epigastric pain; R11.2 Nausea with vomiting, unspecified; G89.4 Chronic pain syndrome; F12.90 Cannabis use, unspecified, uncomplicated; Z87.891 Personal history of nicotine dependence; Z79.891 Long term (current) use of opiate analgesic; Z03.818 Encounter for observation for suspected exposure to other biological agents ruled out
CPT/HCPCS: 0241U; 36415; 74176; 76830; 76856; 80053; 81001; 81025; 83690; 83735; 84484; 84702; 85025; 93005; 93975; 96361; 96374; 96375; 96376; 99284; 99285; J1171; J1885; J2270; J2405

== ENCOUNTER → 2024-10-11 07:35 | Outpatient (BNV) | payer OTHER, SELFPAY | PROVIDERS: Emergency Provider Emergency Medicine; PCP Internal Medicine; Visit Provider Internal Medicine Cardiovascular Disease | DX: R00.1 Bradycardia, unspecified (principal) | CPT/HCPCS: 93010 ==

== ENCOUNTER → 2024-10-11 10:46 | Outpatient (BNV) | payer OTHER, SELFPAY | PROVIDERS: Emergency Provider Emergency Medicine; PCP Internal Medicine; Visit Provider Radiology Diagnostic Radiology | DX: N20.0 Calculus of kidney (principal); M62.08 Separation of muscle (nontraumatic), other site; R10.13 Epigastric pain; N88.8 Other specified noninflammatory disorders of cervix uteri | CPT/HCPCS: 74176; 76830; 76856; 93976 ==

== ENCOUNTER 2024-10-20 17:09 | Outpatient (AMB) | payer OTHER, SELFPAY ==
--- NOTE | 2024-10-20 17:14 | MHC.PC.OV ---
Vital Signs 10/20/24 17:16 Height 5 ft 8 in Weight 191 lb BMI 29.0 BP 110/82 Blood Pressure Location Lt brachial Position Sitting Intake Visit Reasons: Annual Exam Intake Note: Patient here for a physical exam Marketing Support Manager Required: No Accompanied by: Self / Same As Patient Allergies Penicillins Allergy (Unknown, Verified 10/20/24 17:37) Hives Medication List - Last Reconciled 10/20/24 by Erika Khalil MD albuterol sulfate 90 mcg/actuation (Ventolin HFA) 2 puffs inhalation Q4-6H PRN cane As directed docusate sodium 100 mg PO DAILY doxycycline hyclate 100 mg PO BID 30 days hydroxyzine HCl 25 mg PO BEDTIME PRN lidocaine 5% 1 patch topical DAILY methocarbamol 750 mg PO TID PRN naloxone 4 mg/actuation (Narcan) 4 mg intranasal Q2M PRN omeprazole 40 mg PO DAILY oxycodone 5 mg PO Q6H PRN 30 days sennosides-docusate sodium 8.6-50 mg (Senna Plus) 1 tab-cap PO BEDTIME spironolactone 50 mg PO BID Tobacco use date assessed: 10/20/24 Dental Screening Dental Screen Date: 10/20/24 Did you have a dental visit in the last 12 months?: Yes Did you have a dental problem in the last 6 months where you did not have access to dental care?: No Was dental information given to patient?: Patient has dentist HPI HPI Comments History of Present Illness Details The patient is a 39-year-old female presenting for her physical exam with abdominal pain and fatigue. She has recurrent episodes of abdominal pain that necessitated a visit to the emergency department. During that visit, she underwent an ultrasound and CT scan which revealed a 1 mm nonobstructive calculus on the left side, though the findings were noted as questionable. There is a history of similar abdominal issues occurring last year, which also required emergency care interventions. The patient currently experiences heightened fatigue and tiredness, and she denies any associated chest pain or shortness of breath. There was no mention of previous interventions alleviating the issues or exacerbating factors besides these findings. Up-to-date with Tdap. Pap smear done 2023. Has mild major depression which has been stable and sacroiliitis which is follow by pain management on opiates. 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 Personal history of other diseases of the musculoskeletal system and connective tissue Chronic pain syndrome Postlaminectomy syndrome, not elsewhere classified Chronic back pain greater than 3 months duration Scoliosis Surgical History Hx of cholecystectomy Hx of tubal ligation Previous back surgery Family History Mother Diabetes Father Diabetes Social History (Updated 10/20/24 @ 17:42 by Erika Khalil MD) Housing: Apartment Are you a primary physician assistant primary care to a significant other at home: Yes (children ages-7,11,18) Do you presently have visiting nurse or other home services: Yes (Mon-Sat 1 hour per day) Alcohol intake: current Alcohol intake frequency: holidays/special occasions only Patient Tobacco Use Status: Former Tobacco user Tobacco use type: Cigarette e-Cigarette/Vaping Use: Never Used Second Hand Smoke Exposure: No Substance Use Type: Marijuana service: No Current occupational status: unemployed Cognitive needs: No Hearing needs: No Vision needs: No Female Reproductive History Menstrual Age of Menarche: 11 Questionnaire PHQ-9 Over the last 2 weeks, how often have you been bothered by any of the following problems? 1. Little interest or pleasure in doing things: several days 2. Feeling down, depressed, or hopeless: more than half the days 3. Trouble falling or staying asleep, or sleeping too much: more than half the days 4. Feeling tired or having little energy: more than half the days 5. Poor appetite or overeating: more than half the days 6. Feeling bad about yourself - or that you are a failure or have let yourself or your family down: not at all 7. Trouble concentrating on things, such as reading the newspaper or watching television: not at all 8. Moving or speaking so slowly that other people could have noticed. Or the opposite - being so fidgety or restless that you have been moving around a lot more than usual: more than half the days 9. Thoughts that you would be better off or of hurting yourself in some way: not at all Total score: 11 Depression Screening Interpretation: Positive Depression Screening Follow-up: Existing condition and Follow-up Visit Requested Depression Screening Done: Yes 14713 - PHQ-9 Billing: Yes Source: Developed by Drs. Chandler Daley, Lakeisha Godfrey, Evaristo Coker and colleagues, with an educational bella from [employer]. Thrive Questionnaire Date Thrive assessed: 10/20/24 I am a: Patient What is your living situation today?: I have a steady place to live Within the past 12 months, did the food you bought not last and you didn't have the money to get more?: Never true Within the past 12 months, did you worry whether your food would run out before you got money to buy more?: Never true Do you have trouble paying for medicines?: No Do you have trouble getting transportation to medical appointments?: No Do you have trouble paying your heating and electricity bill?: No Do you have trouble taking care of your child, family member or friend?: No Do you have trouble with day-to-day activities such as bathing, preparing meals, shopping, managing finances, etc.?: No Are you currently unemployed and looking for a job?: No Are you interested in more education?: No Please select the resources that you would like help with: None Currently or been in a relationship where the following occur: No concerns reported THRIVE Score: 0 AUDIT C Alcohol Use Questionnaire (AUDIT-C) 1. How often do you have a drink containing alcohol?: Never Total Score: 0 Score Reviewed/Action Taken: No AMANDA-7 AMB Questionnaire AMANDA-7 Date AMANDA - 7 assessed: 10/20/24 Feeling nervous, anxious, or on edge: 0 = Not at all Not being able to stop or control worryin = Not at all Worrying too much about different things: 0 = Not at all Trouble relaxin = More than half the days Being so restless that it is hard to sit still: 2 = More than half the days Becoming easily annoyed or irritable: 2 = More than half the days Feeling afraid as if something awful might happen: 0 = Not at all Total AMANDA-7 score (0-4 normal; 5-9 mild; 10-14 moderate; 15-21 severe): 6 Source: Developed by Drs. Chandler Daley, Lakeisha Godfrey, Evaristo Coker and colleagues, with an educational bella from [employer]. AMANDA-7 Assessment Billing AMANDA-7 Assessment Tool: AMANDA-7 Assessment 02141 Review of Systems Const All systems reviewed & are unremarkable except as noted in HPI and below Reports fatigue Card Denies chest pain at rest, Denies chest pain with activity, Denies edema, Denies irregular heart rhythm, Denies claudication, Denies dyspnea, Denies dyspnea on exertion, Denies orthopnea, Denies paroxysmal nocturnal dyspnea and Denies slow heart rate Resp Denies cough, Denies dyspnea and Denies dyspnea on exertion GI Denies abdominal pain, Denies change in bowel habits, Denies excessive flatus, Denies nausea and Denies vomiting Neuro Denies behavioral changes and Denies lack of coordination Psych Denies behavioral changes Endo Reports fatigue Physical exam (Primary Care) Vital Signs: Last Vital Signs BP 110/82 10/20/24 17:16 BMI result Body Mass Index 29.0 Tobacco/Smoking Status: Tobacco use Status Tobacco use date assessed 10/20/24 10/20/24 17:27 Patient Tobacco Use Status Former Tobacco user 10/20/24 17:42 Tobacco use type Cigarette 10/20/24 17:42 e-Cigarette/Vaping Use Never Used 10/20/24 17:42 PHQ-9: PHQ-9 Score PHQ-9: Total score 11 10/20/24 17:43 Depression Screening Interpretation: Positive Depression Screening Follow-up: Existing condition and Follow-up Visit Requested Thrive Assessment: Date of Thrive Assessment Date Thrive assessed 10/20/24 10/20/24 17:27 Currently or been in a relationship where the following occur: No concerns reported [facility] Head: Yes normal to inspection, Yes normocephalic and Yes atraumatic Ears: external ears normal Eyes General: appearance normal, both eyes and all related structures Eyelids: Yes eyelids normal Conjunctivae: conjunctivae normal Neck Neck: Yes normal visual inspection and Yes supple Resp Effort & Inspection: normal respiratory effort Auscultation: clear to auscultation bilaterally Cardio Jugular venous distension: no JVD Rate: regular rate Rhythm: regular rhythm Heart sounds: S1 normal heart sound present and S2 normal heart sound present GI Inspection: Yes normal to inspection Palpation (GI): Soft to palpation and nontender Auscultation: normal bowel sounds Skin General skin exam: no rashes or lesions noted Neuro General: no focal motor deficits Extrem General: Yes full ROM Psych Appearance: grossly normal Coding Level of Care Code Est Pt Level 3 (96181) Est Pt Prev Care 18-39y(34778) Diagnoses Physical exam Z00.00 Sacroiliitis M46.1 Mild major depression F32.0 Fatigue R53.83 Nephrolithiasis N20.0 Additional Codes AMANDA-7 Assessment Billing - AMANDA-7 Assessment Tool: AMANDA-7 Assessment 40128 ([id number]) PHQ-9 - 54243 - PHQ-9 Billing: Yes ([id number]) Time Spent (min) 33 Assessment & Plan Assessment & Plan (1) Physical exam: Code(s): Z00.00 - Encounter for general adult medical examination without abnormal findings Category: Medical (2) Sacroiliitis: Code(s): M46.1 - Sacroiliitis, not elsewhere classified Category: Medical (3) Mild major depression: Code(s): F32.0 - Major depressive disorder, single episode, mild Category: Medical (4) Fatigue: Code(s): R53.83 - Other fatigue Category: Medical (5) Nephrolithiasis: Code(s): N20.0 - Calculus of kidney Category: Medical Plan - Order an ultrasound of the kidneys to further evaluate the nature of the renal calculus. - Evaluate the patient's fatigue with tests for possible vitamin deficiencies. - Further management will depend on the results of these diagnostic evaluations. Patient was informed and verbally consented to the use of an ambient scribe for clinic note documentation during this visit. During this visit, we discussed the patient's history of abdominal pain and the findings from previous studies, indicating a questionable renal calculus. To address the abdominal pain more conclusively, I have recommended an ultrasound of the kidneys for further evaluation. Given the patient's complaints of fatigue, we will also proceed with tests to assess for any vitamin deficiencies. The importance of follow-up care based on the results was explained. No immediate interventions were required, as the patient denies severe acute symptoms. Orders: Orders Comprehensive [place]. Panel Fast Today Z00.00 - Encounter for general adult medical examination without abnormal findings Thyroid Stimulating Hormone Today R53.83 - Other fatigue Complete Blood Count Auto Diff Today R53.83 - Other fatigue US renal BI Today N20.0 - Calculus of kidney Lipid Panel Today Z00.00 - Encounter for general adult medical examination without abnormal findings Vitamin B12 and Folate Today E53.8 - Deficiency of other specified B group vitamins Vitamin D 25-OH Total Today E55.9 - Vitamin D deficiency, unspecified Patient Instructions: - Schedule an ultrasound of the kidneys as instructed. - Keep alert for any changes in symptoms. - Rest and maintain a balanced diet to address fatigue. - Follow up for test results and further recommendations.
[2024-10-20 17:16] VITALS: BP 110/82; BMI 29.0
== END 2024-10-20 17:50 | disposition home or self-care (01) ==
PROVIDERS: PCP Internal Medicine; Visit Provider Internal Medicine
DX: Z00.00 Encounter for general adult medical examination without abnormal findings (principal); M46.1 Sacroiliitis, not elsewhere classified; F32.0 Major depressive disorder, single episode, mild; R53.83 Other fatigue; N20.0 Calculus of kidney

== ENCOUNTER → 2024-10-20 17:09 | Outpatient (BNVA) | payer OTHER, SELFPAY | PROVIDERS: PCP Internal Medicine; Visit Provider Internal Medicine | DX: Z00.00 Encounter for general adult medical examination without abnormal findings (principal); M46.1 Sacroiliitis, not elsewhere classified; N20.0 Calculus of kidney; R53.83 Other fatigue; F32.0 Major depressive disorder, single episode, mild | CPT/HCPCS: 96127; 99212; 99395 ==

== ENCOUNTER 2024-11-03 16:15 | Outpatient (REF) | payer OTHER, SELFPAY ==
--- NOTE | ~2024-11-03 | US_ITS ---
CLINICAL HISTORY: N20.0 - Calculus of kidney US Renal Comparison: None Mixed field 10.7 Findings: Right kidney normal size and echotexture, 9.2 cm length. Left kidney normal size and echotexture, cm length. IMPRESSION: 1. Normal kidneys. This document has been electronically signed by: Quan Richter MD on 11/05/2024 08:40:10
[2024-11-03 16:42] LABS: MANUAL DIFF FLAG NO
[2024-11-03 17:05] LABS: Basophils Percent Auto 0.4 % (0-2); Eosinophils Absolute Auto 0.1 X10*3/uL (0.0-0.4); Eosinophils Percent Auto 1.3 % (0-4); Hematocrit 34.9 % (37.0-47.0); Hemoglobin 11.9 g/dl (12.0-16.0); Imm Gran Abs Auto 0.02 X10*3/uL (0.00-0.03); Imm Gran Pct Auto 0.3 % (0.0-0.4); Lymphocytes Absolute Auto 2.2 X10*3/uL (1.2-4.9); Lymphocytes Percent Auto 31.3 % (20-40); Mean Corpuscular HGB Conc 34.1 g/dl (31.0-35.0); Mean Corpuscular Volume 87.9 fL (80.0-98.0); Mean Platelet Volume 11.3 fL (9.4-12.3); Monocytes Absolute Auto 0.4 X10*3/uL (0.1-1.2); Neutrophils Absolute Auto 4.2 x10*3/uL (2.0-8.3); Neutrophils Percent Auto 60.7 % (45-73); Platelet Count 217 X10*3/uL (160-400); Red Blood Count 3.97 X10*6/uL (4.20-5.50); Red Cell Distribution Width 11.6 % (11.0-16.0)
[2024-11-03 17:34] LABS: Alanine Aminotransferase 14 U/L (0-31); Alkaline Phosphatase 88 U/L (39-117); Anion Gap 9 (12-20); Aspartate Amino Transferase 18 U/L (5-31); Bilirubin Total 0.1 mg/dL (0.0-1.0); Blood Urea Nitrogen 13 mg/dL (9-16); Carbon Dioxide 26 mmol/L (22-29); Chloride 106 mmol/L (96-108); Cholesterol 188 mg/dL (<200); Estimated Glomerular Filt Rate > 60; Glucose Fasting 68 mg/dL (60-99); HDL Cholesterol 65 mg/dL (>40); LDL Cholesterol Calculated 110 mg/dL (<100); Potassium 3.8 mmol/L (3.3-5.1); Sodium 137 mmol/L (135-145); Total Protein 7.4 g/dL (6.5-8.0); Triglycerides 65 mg/dL (<150)
[2024-11-03 17:48] LABS: Thyroid Stimulating Hormone 1.16 uIU/mL (0.32-4.0); Vitamin D 25-OH Total 23.8 ng/mL (>30)
[2024-11-03 18:01] LABS: Folate 12.2 ng/mL (> or = 4.0); Vitamin B12 493 pg/mL (200-900)
== END 2024-11-03 16:16 | disposition home or self-care (01) ==
LOC: HO.US 16:15
PROVIDERS: PCP Internal Medicine; Visit Provider Internal Medicine
DX: Z00.00 Encounter for general adult medical examination without abnormal findings (principal); N20.0 Calculus of kidney; R53.83 Other fatigue; E55.9 Vitamin D deficiency, unspecified; E53.8 Deficiency of other specified B group vitamins
CPT/HCPCS: 36415; 76775; 80053; 80061; 82306; 82607; 82746; 84443; 85025

== ENCOUNTER → 2024-11-03 16:15 | Outpatient (BNV) | payer OTHER, SELFPAY | PROVIDERS: PCP Internal Medicine; Visit Provider Specialist | DX: N20.0 Calculus of kidney (principal) | CPT/HCPCS: 76775 ==

== ENCOUNTER → 2024-11-04 10:58 | Outpatient (AMB) | payer OTHER, SELFPAY | END | disposition home or self-care (01) | PROVIDERS: PCP Internal Medicine; Visit Provider Registered Nurse Emergency | CPT/HCPCS: 99214; G2211 ==

== ENCOUNTER → 2024-11-04 10:58 | Outpatient (BNVA) | payer OTHER, SELFPAY | PROVIDERS: PCP Internal Medicine; Visit Provider Registered Nurse Emergency | DX: M25.561 Pain in right knee (principal); M47.812 Spondylosis without myelopathy or radiculopathy, cervical region; G89.4 Chronic pain syndrome; M96.1 Postlaminectomy syndrome, not elsewhere classified; M54.9 Dorsalgia, unspecified; M54.2 Cervicalgia; M46.1 Sacroiliitis, not elsewhere classified; M53.3 Sacrococcygeal disorders, not elsewhere classified; Z51.81 Encounter for therapeutic drug level monitoring; Z79.891 Long term (current) use of opiate analgesic | CPT/HCPCS: 99212 ==

== ENCOUNTER 2024-12-09 11:11 | Outpatient (AMB) | payer OTHER, SELFPAY ==
--- NOTE | 2024-12-09 11:13 | A.OFFVIS_ITS ---
Vital Signs 12/09/24 11:25 Height 5 ft 8 in Weight 194 lb 8 oz BMI 29.6 BP 124/75 Blood Pressure Location Rt brachial Position Sitting Pulse 70 Pulse Source Pulse Oximeter Pulse Oximetry (%) 97 Oxygen Delivery Method Room Air Intake Visit Reasons: Pill count 5 weeks Intake Note: Tierra comes in today for a pill count to oxycodone, patient should have 48 tablets and presents with 50 tablets which she last took today 12/09/24 at 9 am. Pain today 07/07 Risk Management Professional Required: No Accompanied by: Self / Same As Patient Allergies Penicillins Allergy (Unknown, Verified 12/09/24 11:26) Hives HPI Comments Details: Tierra presents back to the office today for follow up chronic pain and chronic opioid medication management Patient is prescribed oxycodone 5mg tablets Q6H PRN. She arrived today with the expectation of having 48 pills, she presented 50 pills which were counted in the presence of two staff members and returned to the patient in the original prescription bottle. This demonstrates responsible attitude toward patient's opioid medications. Pain is reported today as 07/07 and last dose of pain medication was taken this morning at 09:00. Patient denies side effects including dizziness, somnolence, abd pain, nausea or weakness. Continues with neck can shoulder pain bilaterally. Reports it is also causing her headaches. It is disrupting her sleep. 07/15/25 she underwent diagnostic MBB 70% relief. Unfortunately sprint PNS trials were denied by her insurance. She is not interested in repeating injections. She has been using heat, ice, massage, muscle relaxers all without improvement of her symptoms. No improvement with physical therapy or home exercise program. She went to the chiropractor but they refused to treat her due to her rods in the back. 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: Yes (children ages-7,11,18) Do you presently have visiting nurse or other home services: Yes (Mon-Sat 1 hour per day) Alcohol intake: current Alcohol intake frequency: holidays/special occasions only Patient Tobacco Use Status: Former Tobacco user Tobacco use type: Cigarette e-Cigarette/Vaping Use: Never Used Second Hand Smoke Exposure: No Substance Use Type: Marijuana service: No Current occupational status: unemployed Cognitive needs: No Hearing needs: No Vision needs: No Female Reproductive History Menstrual Age of Menarche: 11 Review of Systems Const All systems reviewed & are unremarkable except as noted in HPI and below Physical Exam Vital Signs: Last Vital Signs Pulse 70 12/09/24 11:25 BP 124/75 12/09/24 11:25 Pulse Ox 97 12/09/24 11:25 Oxygen Delivery Method Room Air 12/09/24 11:25 BMI result Body Mass Index 29.6 General: awake, alert, oriented. Answers questions appropriately. Fully engaged in examination. Skin: warm, dry, intact without visible rashes or lesions. HEENT: Normocephalic. Conjuntivae clear without exudate. Sclera non-icteric. Hearing intact. Cardiac: External chest normal in appearance. Respiratory: No signs of trauma. No signs of respiratory distress. No cough, audible wheezing or stridor. Abdomen: without gross distension. MS: No obvious swelling or deformities. Ambulates with steady gait, unassisted. Tenderness to palpation across upper and middle trapezius bilaterally Tenderness midline cervical vertebrae and paraspinal muscles Decreased cervical range of motion Neurological: Oriented to person, place, time and situation. Thought process intact. Psychiatric: Appropriate mood and affect. Good judgment and insight. Const Other: Results Reviewed Results Reviewed: 01/07/24 CERVICAL SPINE: Limited visualization of C7 due to overlying soft tissues. Cervical disc space heights are preserved. Mild retrolisthesis of C4 on C5 with extension reduces with flexion. RIGHT KNEE: No significant joint effusion. Mild narrowing of the medial compartment. Minimal tricompartmental osteophytes. IMPRESSION: 1. Mild retrolisthesis of C4 on C5 with extension reduces with flexion. 2. Mild degenerative changes right knee. 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 Category: Medical (5) Chronic pain syndrome: Code(s): G89.4 - Chronic pain syndrome Category: Medical (6) Postlaminectomy syndrome, not elsewhere classified: Code(s): M96.1 - Postlaminectomy syndrome, not elsewhere classified Category: Medical (7) Chronic back pain greater than 3 months duration: Code(s): M54.9 - Dorsalgia, unspecified; G89.29 - Other chronic pain Category: Medical (8) Cervicalgia: Code(s): M54.2 - Cervicalgia Category: Medical (9) Sacroiliitis: Code(s): M46.1 - Sacroiliitis, not elsewhere classified Category: Medical (10) Sacroiliac joint pain: Code(s): M53.3 - Sacrococcygeal disorders, not elsewhere classified Category: Medical [facility]. No obvious signs of diversion, abuse or misuse of the opioid medications. Will send in prescription for oxycodone 5mg po QID PRN. Continue with Methocarbamol as prescribed New prescription for amitriptyline 25 mg p.o. q.h.s.. Patient advised on cautions for use. Patient has exhausted greater than 6 months of conservative therapy including physical therapy, muscle relaxers, NSAIDs and using TENS machine. Discussed options for treatment including diagnostic interventional testing, epidural steroid injections, peripheral nerve stimulation with Sprint, RFA and more permanent neuromodulation. 70% relief with previous cervical MBB's, unfortunately sprint PNS trials were denied by her insurance. She would like to proceed with cervical SCS trial, she is aware that this requires mental health evaluation/clearance. She was given pamphlet for [employer] and also recommended she contact her insurance to see if they have providers who can perform this service for her. Will plan for fluoroscopy guided cervical SCS trial with anesthesia. All questions and concerns have been answered and patient agrees with the plan. Patient to follow-up in the office in 1 month, sooner if needed. Medications: New amitriptyline 25 mg PO BEDTIME 30 tabs 3RF Refilled oxycodone 5 mg PO Q6H PRN 120 tabs 0RF pain 30 days G89.4 - Chronic pain syndrome, M46.1 - Sacroiliitis, not elsewhere classified, M47.812 - Spondylosis without myelopathy or radiculopathy, cervical region, M53.3 - Sacrococcygeal disorders, not elsewhere classified, M54.2 - Cervicalgia, M96.1 - Postlaminectomy syndrome, not elsewhere classified, Z79.891 - [facility] (current) use of opiate analgesic Coding Level of Care Code Est Pt Level 4 (10339) Complex EM visit Add On G2211 Diagnoses Right knee pain M25.561 Spondylosis of cervical joint without myelopathy M47.812 Trapezius muscle strain S46.819A 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
[2024-12-09 11:25] VITALS: BP 124/75; PULSE 70; O2SAT 97; BMI 29.6
== END 2024-12-09 11:47 | disposition home or self-care (01) ==
LOC: HO.PMC 11:12
PROVIDERS: PCP Internal Medicine; Visit Provider Registered Nurse Emergency
DX: M25.561 Pain in right knee (principal); M47.812 Spondylosis without myelopathy or radiculopathy, cervical region; S46.819A Strain of other muscles, fascia and tendons at shoulder and upper arm level, unspecified arm, initial encounter; Z79.891 Long term (current) use of opiate analgesic; G89.4 Chronic pain syndrome; M96.1 Postlaminectomy syndrome, not elsewhere classified; M54.9 Dorsalgia, unspecified; G89.29 Other chronic pain; M54.2 Cervicalgia; M46.1 Sacroiliitis, not elsewhere classified; M53.3 Sacrococcygeal disorders, not elsewhere classified
CPT/HCPCS: 99214; G2211

== ENCOUNTER → 2024-12-09 11:11 | Outpatient (BNVA) | payer OTHER, SELFPAY | PROVIDERS: PCP Internal Medicine; Visit Provider Registered Nurse Emergency | DX: M25.561 Pain in right knee (principal); M47.812 Spondylosis without myelopathy or radiculopathy, cervical region; G89.4 Chronic pain syndrome; M96.1 Postlaminectomy syndrome, not elsewhere classified; M54.2 Cervicalgia; M46.1 Sacroiliitis, not elsewhere classified; M53.3 Sacrococcygeal disorders, not elsewhere classified; S46.819A Strain of other muscles, fascia and tendons at shoulder and upper arm level, unspecified arm, initial encounter; X58.XXXA Exposure to other specified factors, initial encounter; Y93.9 Activity, unspecified; Y92.9 Unspecified place or not applicable; Y99.9 Unspecified external cause status; Z51.81 Encounter for therapeutic drug level monitoring; Z79.891 Long term (current) use of opiate analgesic | CPT/HCPCS: 99212 ==

== ENCOUNTER 2024-12-11 17:37 | Emergency (ER) | payer OTHER, SELFPAY ==
[2024-12-11 17:59] VITALS: BP 114/69; PULSE 70; RESP 16; TEMP 36.1; O2SAT 100; BMI 28.9
--- NOTE | 2024-12-11 17:59 | ED.HA ---
HPI - Headache General Chief Complaint: Headache Stated Complaint: Migraine with neck pain Time Seen by Provider: 12/11/24 18:46 Source: patient, RN notes reviewed and old records reviewed Mode of arrival: ambulatory Limitations: no limitations History of Present Illness ED Provider: Harvinder HPI Narrative: 39-year-old female with past medical history significant for chronic pain syndrome maintained on oxycodone, presents for evaluation of neck pain and a headache. Patient reports that she has bilateral neck and shoulder pain for the last week. She reports that she has also had a headache for the last week as well. She states the headache is constant Denies an aura but is sensitive to the light and reports associated nausea Denies any trauma to the head or neck Oxycodone at home without any improvement in her headache Patient denies respiratory symptoms such as cough, congestion, fevers, sore throat, runny nose No other complaints or concerns at this time Related Data Home Medications ?Medication ?Instructions ?Recorded ?Confirmed albuterol sulfate 90 mcg/actuation 2 puff inhalation Q4-6H PRN 10/21/23 10/20/24 aerosol inhaler (Ventolin HFA) spironolactone 50 mg tablet 50 mg PO BID 09/09/24 10/20/24 Previous Rx's ?Medication ?Instructions ?Recorded hydroxyzine HCl 25 mg tablet 25 mg PO BEDTIME PRN insomnia #14 09/01/23 tabs doxycycline hyclate 100 mg tablet 100 mg PO BID 30 days #60 tabs 10/29/23 cane #1 ea 12/16/23 naloxone 4 mg/actuation nasal 4 mg intranasal Q2M PRN opioid 01/07/24 spray (Narcan) overdose #2 ea sennosides 8.6 mg-docusate sodium 1 tab-cap PO BEDTIME #30 tabs 02/16/24 50 mg tablet (Senna Plus) docusate sodium 100 mg capsule 100 mg PO DAILY #30 caps 04/28/24 methocarbamol 750 mg tablet 750 mg PO TID PRN muscle spasm #90 07/15/24 tabs lidocaine 5 % topical patch 1 patch topical DAILY #15 ea 09/22/24 omeprazole 40 mg capsule,delayed 40 mg PO DAILY #30 caps 10/11/24 release cholecalciferol (vitamin D3) 25 25 mcg PO DAILY 90 days #90 caps 11/06/24 mcg (1,000 unit) capsule dextromethorphan HBr 15 mg/5 mL 15 mg (5 mL) PO Q8H PRN cough 7 11/24/24 oral liquid (Cough Relief) days #118 mL amitriptyline 25 mg tablet 25 mg PO BEDTIME #30 tabs 12/09/24 oxycodone 5 mg tablet 5 mg PO Q6H PRN pain 30 days #120 12/09/24 tabs Allergies Allergy/AdvReac Type Severity Reaction Status Date / Time Penicillins Allergy Unknown Hives Verified 12/11/24 18:00 Review of Systems Constitutional: Constitutional: Denies body ache(s), Denies chills and Reports headache(s) Eyes: Eyes: Denies blurry vision, Denies change in vision and Reports photophobia ENT: Reports headache(s) and Denies sore throat Cardiovascular: Cardiovascular: Denies chest pain Respiratory: Respiratory: Denies cough Gastrointestinal: Gastrointestinal: Reports nausea and Denies vomiting Integumentary/Breasts: Skin/Breast: Denies rash Neurologic: Reports headache(s) Psychiatric: Psychiatric: Denies anxiety PMFSH Past Medical History Medical History Anxiety Obese Cholelithiasis Insomnia [employer]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[employer] (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) use of opiate analgesic Personal history of other diseases of the musculoskeletal system and connective tissue Chronic pain syndrome Postlaminectomy syndrome, not elsewhere classified Chronic back pain greater than 3 months duration Scoliosis Surgical History Hx of cholecystectomy Hx of tubal ligation Previous back surgery Family History Family History Mother Diabetes Father Diabetes Social History Social History (Updated 10/20/24 @ 17:42 by Erika Khalil MD) Housing: Apartment 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 (children ages-7,11,18) Do you presently have visiting nurse or other home services: Yes (Mon-Sat 1 hour per day) Alcohol intake: never Patient Tobacco Use Status: Former Tobacco user Tobacco use type: Cigarette Smoked in Last 30 Days: No e-Cigarette/Vaping Use: Never Used Second Hand Smoke Exposure: No Use of substances other than those prescribed or required for medical reasons: No Substance Use Type: Marijuana Advance Directives: No Advance Directives Information Provided: Yes service: No Current occupational status: unemployed Cognitive needs: No Hearing needs: No Vision needs: No Physical Exam Vital Signs: Vital Signs: Last Vital Signs Temp 97.8 F 12/11/24 19:49 Pulse 68 12/11/24 19:49 Resp 16 12/11/24 19:49 BP 102/53 L 12/11/24 19:49 Pulse Ox 100 12/11/24 19:49 O2 Del Method Room Air 12/11/24 19:49 BMI result Body Mass Index 28.9 Const: General: healthy appearing, comfortable, no acute distress, alert and awake Nutritional Appearance: well nourished Orientation/consciousness: patient oriented x3 HEENT: Head: Yes normocephalic and Yes atraumatic Eyes: Eyelids: Yes eyelids normal Conjunctivae: conjunctivae normal Sclerae: sclerae normal Corneas: corneas normal Pupils: Equal, round and reactive pupils present EOM: EOMs intact bilaterally Direct Ophthalmoscopy: photophobia Neck: Neck: Yes full ROM Resp: Effort & Inspection: normal respiratory effort, able to speak in complete sentences and not labored GI: Inspection: No distended Palpation (GI): Soft to palpation, not firm, nontender and no guarding Auscultation: normoactive bowel sounds Skin: General skin exam: no rashes or lesions noted and elasticity normal Neuro: General: patient oriented x3 Cranial nerves: Yes CN's II-XII intact bilaterally, Yes Equal, round and reactive pupils present and Yes Bilaterally intact EOM present Cognition (Neuro): normal cognition Course Course Course Narrative: This is a Rapid Medical Examination (RME) performed by Elisabeth Maldonado PA-C in triage. Full HPI, ROS, assessment and treatment plan per primary provider in the Main ED. 39 yo female presenting to the ER for evaluation of frontal migraine for the last 2 weeks associated nausea, vomiting, bilateral neck and shoulder pain. no improvement with Excederin migraine, ibuprofen, tylenol. no other neurologic complaints. hx migraines in the past but they usually get better with OTC meds. Plan: treat and reassess Reevaluation(s) Reevaluation #1: Patient re-evaluated, she reports feeling much better after migraine cocktail. She is stable for discharge Time: 20:20 Medications Administered Discontinued Medications Generic Name Dose Route Start Last Admin Trade Name Cuca PRN Reason Stop Dose Admin Diphenhydramine HCl 25 mg 12/11/24 18:59 12/11/24 19:14 Diphenhydramine Hcl 50 Mg/Ml Vial IVPUSH 12/11/24 19:00 25 mg ONCE ONE Administration Sodium Chloride 1,000 mls @ 999 mls/hr 12/11/24 19:00 12/11/24 19:12 Ns IV 12/11/24 20:00 999 mls/hr .Q1H1M OBIE Administration Ketorolac Tromethamine 30 mg 12/11/24 18:59 12/11/24 19:14 Ketorolac Tromethamine 30 Mg/Ml Vial IVPUSH 12/11/24 19:00 30 mg ONCE ONE Administration Metoclopramide HCl 10 mg 12/11/24 18:59 12/11/24 19:14 Metoclopramide Hcl 10 Mg/2 Ml Vial IVPUSH 12/11/24 19:00 10 mg ONCE ONE Administration Medical Decision Making Medical Decision Making MDM Narrative: Past medical history as above presents for evaluation of a headache. She has had a headache for about 1 week. She endorses but denies fevers, chills been respiratory symptoms. She has no fever, less likely infectious cough but it was meningitis or encephalitis. Her pain is likely related to a tension headache. We will treat her symptoms with Toradol, fluids, Reglan Benadryl and re-evaluate. She has no focal neurologic deficits and does have a history of headaches, I do not see any indication for emergent imaging at this time Differential Diagnosis Differential Diagnoses: The differential diagnosis associated with the presentation includes Acute headache Tension headache Cluster Headache Migraine headache Lab Data Labs: Lab Results 12/11/24 12/11/24 Range/Units 19:30 19:32 Urine Color Yellow Urine Appearance Cloudy Urine pH 6.5 (5.0-9.0) Ur Specific [place] 1.025 (1.005-1.025) Urine Protein Negative (Neg-Trace) mg/dL Urine Glucose (UA) Negative (Negative) mg/dL Urine Ketones Trace (Negative) mg/dL Urine Blood Negative (Negative) Urine Nitrite Negative (Negative) Ur Leukocyte Esterase Negative (Negative) Urine Test NEGATIVE (NEGATIVE) Discharge Plan Discharge Clinical Impression: Headache Patient Disposition: Home, Self-Care Instructions: Acute Headache (ED) Additional Instructions: You may use ibuprofen, Excedrin, or Tylenol for further headaches at home. Follow-up with your primary doctor, return for new or worsening symptoms Prescriptions: No Action doxycycline hyclate 100 mg tablet 100 mg PO BID 30 Days Qty: 60 6RF (DME) cane Device See Rx Instructions .Route Qty: 1 0RF Rx Instructions: As directed docusate sodium 100 mg capsule 100 mg PO DAILY Qty: 30 0RF lidocaine 5 % adhesive patch,medicated 1 patch topical DAILY Qty: 15 0RF Rx Instructions: leave on most painful area for up to 12 hrs cholecalciferol (vitamin D3) 25 mcg (1,000 unit) capsule 25 mcg PO DAILY 90 Days Qty: 90 1RF Cough Relief 15 mg/5 mL liquid 15 mg PO Q8H PRN (Reason: cough) 7 Days Qty: 118 0RF omeprazole 40 mg capsule,delayed release(DR/EC) 40 mg PO DAILY Qty: 30 0RF hydroxyzine HCl 25 mg tablet 25 mg PO BEDTIME PRN (Reason: insomnia) Qty: 14 0RF albuterol sulfate [Ventolin HFA] 90 mcg/actuation HFA aerosol inhaler 2 puff inhalation Q4-6H PRN methocarbamol 750 mg tablet 750 mg PO TID PRN (Reason: muscle spasm) Qty: 90 1RF Rx Instructions: No driving while taking this medication. 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
[2024-12-11] MEDS: 0.9 % Sodium Chloride 1,000 ML 999 ML IV (19:12)
[2024-12-11] MEDS: diphenhydrAMINE HCL 50 MG/ML VIAL 25 MG IVPUSH (19:14)
[2024-12-11] MEDS: Ketorolac Tromethamine 30 MG/ML VIAL IVPUSH (19:14)
[2024-12-11] MEDS: Metoclopramide HCl 10 MG/2 ML VIAL IVPUSH (19:14)
--- NOTE | 2024-12-11 19:24 | PC.NURSE ---
assumed care of pt at 1900. report received from Luz KNUTSON . #20g iv placed in LAC, pt medicated per nov for 10/10 pain to head, neck and shoulder d/t migraine. Hx frequent migraines however states this one has lasted far longer than usual and w/o relief from excedrin. pt ambulated to and from bathroom with steady gait, urine sample being collected.
[2024-12-11 19:38] LABS: Appearance Urine Cloudy; Color Urine Yellow; Glucose Urine UA Negative (Negative); Leukocyte Esterase Urine Negative (Negative); Nitrite Urine Negative (Negative); PH 6.5 (5.0-9.0); Specific Gravity - Urine 1.025 (1.005-1.025); Urine Blood Negative (Negative); Urine Ketones Trace mg/dL (Negative); Urine Protein Negative (Neg-Trace)
[2024-12-11 19:38] LABS: UPreg QC Valid YES; Urine Pregnancy NEGATIVE (NEGATIVE)
[2024-12-11 19:49] VITALS: BP 102/53; PULSE 68; RESP 16; TEMP 36.6; O2SAT 100
--- NOTE | 2024-12-11 20:12 | PC.NURSE ---
pt reports relief of pain from medication administration. down to 02/04 .
[2024-12-11 20:24] VITALS: BP 102/53; PULSE 68; RESP 16; TEMP 36.6; O2SAT 100
== END 2024-12-11 20:27 | disposition home or self-care (01) ==
PROVIDERS: Physician Assistant; Emergency Provider Emergency Medicine; PCP Internal Medicine
DX: R51.9 Headache, unspecified (principal); M54.2 Cervicalgia; G89.4 Chronic pain syndrome; Z87.891 Personal history of nicotine dependence; Z79.891 Long term (current) use of opiate analgesic
CPT/HCPCS: 81003; 81025; 96361; 96374; 96375; 99284; J1200; J1885; J2765

== ENCOUNTER 2024-12-19 06:32 | Inpatient (IN) | payer OTHER, SELFPAY ==
[2024-12-19] VITALS (26 sets, daily range): BP systolic 90–128; BP diastolic 45–107; PULSE 55–69; RESP 12–24; TEMP 36.4–36.9; O2SAT 92–100; BMI 29.0
--- NOTE | ~2024-12-19 | CT_ITS ---
EXAMINATION: CT ABDOMEN PELVIS WITH IV CONTRAST HISTORY: periumbilical pain, constipation then large BM, V COMPARISON: Comparison is made with the prior examination dated 10/11/2024. TECHNIQUE: CT scan of the abdomen and pelvis was performed following administration of 85 mL Omnipaque 350 using standard departmental protocol. Coronal and sagittal reformatted images were generated and reviewed. Oral contrast material was not administered at the request of the referring physician. This CT exam was performed with one or more of the following dose reduction techniques: automated exposure control, adjustment of the mA and/or kV according to patient size, use of iterative reconstruction technique. DLP: 771 mGy-cm FINDINGS: LOWER CHEST: The visualized lung bases are clear. There is no pleural effusion. CARDIOVASCULATURE: The heart is normal in size. There is no pericardial effusion. LIVER: The liver is normal in size and contour. No liver mass is identified. The hepatic and portal veins are patent. GALLBLADDER / BILE DUCTS: The gallbladder is surgically absent. There is no intra or extrahepatic biliary ductal dilatation. SPLEEN: The spleen is normal in size. No focal splenic lesion is identified. PANCREAS: The pancreas is unremarkable in appearance. ADRENAL GLANDS: Within normal limits. KIDNEYS/RETROPERITONEUM: The kidneys are unremarkable in appearance. There is no hydronephrosis. No renal masses are identified. LYMPH NODES: No abdominal or pelvic lymphadenopathy. VASCULATURE: The abdominal aorta is normal in caliber. MESENTERY/PERITONEUM: No free fluid. No masses. There is no free intraperitoneal gas. STOMACH: There is a small hiatal hernia. The remainder of the stomach is collapsed. SMALL BOWEL: There is wall thickening of a long segment of distal ileum, compatible with ileitis. There is no small bowel obstruction. COLON: The right colon is collapsed. The transverse, descending, and sigmoid colon are filled with fluid. APPENDIX: Normal. URINARY BLADDER/PELVIC ORGANS: The urinary bladder is unremarkable. The uterus is unremarkable. There is a 5.3 cm cyst in the left adnexa, likely related to the left ovary. BONES / SOFT TISSUES: There is levoscoliosis of the spine. The patient is status post thoracolumbar fusion with pedicle screws and spinal stabilization rods. CT/CT abdomen pelvis w IV con IMPRESSION: 1. Wall thickening of a long segment of distal ileum compatible with ileitis. 2. 5.3 cm left ovarian cyst. Electronically signed by: Chandler Nick MD 12/19/2024 10:54 AM EDT RP
--- NOTE | ~2024-12-19 | XR_ITS ---
CLINICAL HISTORY: Chest tightness 1 view chest x-ray Comparison: None Findings: No consolidation or effusion. Heart size is normal. No acute fracture. Scoliosis. Huizar rods. IMPRESSION: 1. No acute findings. This document has been electronically signed by: Nesha Farrell MD on 12/23/2024 18:15:14
--- NOTE | ~2024-12-19 | US_ITS ---
EXAMINATION: US PELVIS CLINICAL INFORMATION: 5.3 cm cyst in the left adnexa on recent CT abdomen pelvis. COMPARISON: October 11, 2024. Correlated to CT dated December 19, 2024. TECHNIQUE: Ultrasound of the pelvis is performed using both transabdominal and transvaginal transducers along with Doppler. Transvaginal imaging is performed due to inadequate visualization transabdominally. FINDINGS: Uterus: The uterus is anteverted and measures 13 x 5 x 5 cm. The cervix is closed. The double wall endometrial thickness is 4 mm. The uterus is smooth in contour and has normal myometrial echogenicity. No visible fibroid. Adnexa: Both ovaries are visualized. There is normal color flow to the adnexa. There is no ovarian torsion. There is no pelvic ascites or fluid collection. Trace amount of free fluid. Right ovary measures 2 x 2 x 2 cm. Volume: 2.4 cc. Left ovary measures 7 x 5 x 5. cm. Volume: 17.4 cc. There is a 5.6 cm anechoic lesion without septations or nodular components. No flow on color Doppler interrogation. US/US pelvic and transvaginal IMPRESSION: 5.6 cm simple cyst, left ovary. No ovarian torsion. Electronically signed by: Ulises Nava MD 12/19/2024 04:01 PM EDT
[2024-12-19 07:53] LABS: MANUAL DIFF FLAG NO
[2024-12-19 07:59] LABS: Basophils Absolute Auto 0.1 X10*3/uL (0.0-0.2); Basophils Percent Auto 0.2 % (0-2); Hematocrit 36.1 % (37.0-47.0); Hemoglobin 12.5 g/dl (12.0-16.0); Imm Gran Abs Auto 0.09 X10*3/uL (0.00-0.03); Imm Gran Pct Auto 0.4 % (0.0-0.4); Lymphocytes Absolute Auto 1.4 X10*3/uL (1.2-4.9); Lymphocytes Percent Auto 6.8 % (20-40); Mean Corpuscular HGB Conc 34.6 g/dl (31.0-35.0); Mean Corpuscular Hemoglobin 29.7 pg (27.0-33.0); Mean Corpuscular Volume 85.7 fL (80.0-98.0); Mean Platelet Volume 11.5 fL (9.4-12.3); Monocytes Absolute Auto 0.9 X10*3/uL (0.1-1.2); Monocytes Percent Auto 4.5 % (2-11); Neutrophils Absolute Auto 18.4 x10*3/uL (2.0-8.3); Neutrophils Percent Auto 88.1 % (45-73); Platelet Count 190 X10*3/uL (160-400); Red Blood Count 4.21 X10*6/uL (4.20-5.50); Red Cell Distribution Width 11.9 % (11.0-16.0); White Blood Count 20.9 X10*3/uL (4.8-10.8)
[2024-12-19 08:08] LABS: Anion Gap 13 (12-20); Blood Urea Nitrogen 12 mg/dL (9-16); Calcium 9.2 mg/dL (8.4-10.2); Carbon Dioxide 22 mmol/L (22-29); Chloride 105 mmol/L (96-108); Creatinine Clr Calc Pharmacy 122.4; Estimated Glomerular Filt Rate > 60; Glucose Random 157 mg/dL (60-115); Potassium 3.7 mmol/L (3.3-5.1); Sodium 136 mmol/L (135-145)
[2024-12-19 08:34] LABS: Influenza A PCR NEGATIVE (Negative); Influenza B PCR NEGATIVE (Negative); Resp Syncy Virus RNA Qual PCR NEGATIVE (Negative); SARS COV2 PCR INHOUSE NEGATIVE (Negative)
--- NOTE | 2024-12-19 09:33 | ED.ABDPAIN ---
HPI - Abdominal Pain General Chief Complaint: Abdominal Pain Stated Complaint: abd pain Time Seen by Provider: 12/19/24 09:32 Source: patient, family (), RN notes reviewed and old records reviewed Mode of arrival: ambulatory Limitations: no limitations History of Present Illness ED Provider: ASHLEY SNEED PA-C HPI narrative: 39 year old female with pmhx significant for OCD, anxiety, depression, chronic pain syndrome on halfway opioids, GERD, nephrolithiasis presents to the ED today for evaluation of severe abdominal pain that began last night. She reports recent constipation. Her purchased OTC miralax yesterday. She reports two large BMS after taking this. Shortly after began experiencing severe abdominal pain, nausea, and nonbloody vomiting/ diarrhea which has continued into this morning. Her abdominal pain is periumbilical. No radiation. She did not trial any OTC meds [employer]. No recent abx. No known sick contacts. No hx afib. Pertinent surgical history includes cholecystectomy and tubal ligation. Denies fever, chills, flank pain, dysuria, hematuria, chest pain. On arrival, patient retching. Bilious vomit in emesis bag. Related Data Home Medications ?Medication ?Instructions ?Recorded ?Confirmed albuterol sulfate 90 mcg/actuation 2 puff inhalation Q4-6H PRN 10/21/23 10/20/24 aerosol inhaler (Ventolin HFA) spironolactone 50 mg tablet 50 mg PO BID 09/09/24 10/20/24 celecoxib 50 mg capsule 50 mg PO BID 12/19/24 tretinoin 0.025 % topical cream 1 appl topical BEDTIME 12/19/24 Previous Rx's ?Medication ?Instructions ?Recorded hydroxyzine HCl 25 mg tablet 25 mg PO BEDTIME PRN insomnia #14 09/01/23 tabs doxycycline hyclate 100 mg tablet 100 mg PO BID 30 days #60 tabs 10/29/23 cane #1 ea 12/16/23 naloxone 4 mg/actuation nasal 4 mg intranasal Q2M PRN opioid 01/07/24 spray (Narcan) overdose #2 ea sennosides 8.6 mg-docusate sodium 1 tab-cap PO BEDTIME #30 tabs 02/16/24 50 mg tablet (Senna Plus) docusate sodium 100 mg capsule 100 mg PO DAILY #30 caps 04/28/24 methocarbamol 750 mg tablet 750 mg PO TID PRN muscle spasm #90 07/15/24 tabs lidocaine 5 % topical patch 1 patch topical DAILY #15 ea 09/22/24 omeprazole 40 mg capsule,delayed 40 mg PO DAILY #30 caps 10/11/24 release cholecalciferol (vitamin D3) 25 25 mcg PO DAILY 90 days #90 caps 11/06/24 mcg (1,000 unit) capsule dextromethorphan HBr 15 mg/5 mL 15 mg (5 mL) PO Q8H PRN cough 7 11/24/24 oral liquid (Cough Relief) days #118 mL amitriptyline 25 mg tablet 25 mg PO BEDTIME #30 tabs 12/09/24 oxycodone 5 mg tablet 5 mg PO Q6H PRN pain 30 days #120 12/09/24 tabs Allergies Allergy/AdvReac Type Severity Reaction Status Date / Time Penicillins Allergy Unknown Hives Verified 12/19/24 06:57 [facility] Past Medical History Attestation statement: The following information was validated with the patient. 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 home 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 other at home: Yes (children ages-7,11,18) Do you presently have visiting nurse or other home services: Yes (Mon-Sat 1 hour per day) Alcohol intake: never Patient Tobacco Use Status: Former Tobacco user Tobacco use type: Cigarette e-Cigarette/Vaping Use: Never Used Second Hand Smoke Exposure: No Substance Use Type: Marijuana Advance Directives: Yes Advance Directives Information Provided: Yes Advance Directives on File: No Do you have a plan to hurt others: No Plan service: No Current occupational status: unemployed Cognitive needs: No Hearing needs: No Vision needs: No Physical Exam ED Vital Signs: Vital Signs - 24 hr 12/19/24 06:52 12/19/24 08:33 12/19/24 11:17 Temperature 97.8 F 98.4 F Pulse Rate 55 60 68 Respiratory Rate 24 H 24 H 15 Blood Pressure 99/73 127/80 128/107 H Pulse Oximetry 100 100 99 Oxygen Delivery Method Room Air Room Air Room Air 12/19/24 11:38 12/19/24 12:26 Temperature Pulse Rate 67 Respiratory Rate 20 16 Blood Pressure 110/54 L Pulse Oximetry 99 Oxygen Delivery Method Room Air BMI result Body Mass Index 29.0 hypertensive, tachypneic General: Well appearing, in no acute distress. Skin: Warm, dry, intact. No rashes or lesions. Head: Normocephalic, atraumatic. EENT: Hearing is intact b/l. Conjunctiva clear. Sclera is anicteric. PERRLA. EOM intact. Moist mucous membranes.? Neck: Supple without LAD Cardiac: Chest wall symmetric. RRR. Lungs: Normal respiratory effort without accessory muscle use. CTA bilaterally Abdomen: soft, ND, ttp of upper abdomen with guarding. no rebound. normoactive bs x4. Negative Rovsing sign. No McBurney point tenderness. No CVAT bilaterally. Ext: Upper and lower extremities atraumatic, without tenderness, deformity, swelling or erythema Neuro: AOx3. Normal speech. Ambulating with steady gait. Psych: Appropriate mood and affect. Responds appropriately to questions Course Course Course Narrative: 1207 -- CBC showing leukocytosis to 20.9 with left shift. No anemia. H&H stable. Chemistry without acute electrolyte abnormality requiring intervention. No BINA. Random glucose 157. urine and serum negative. Not . Urine without infection. Negative COVID, flu, RSV. > CT scans show wall thickening of long segment of distal ileum compatible with ileitis. No small bowel obstruction. incidental finding of 5.3 cm left ovarian cyst. Patient is not tender to the left lower quadrant. patient aware of ovarian cyst - had pelvic US 1 mo ago without evidence of torsion. > patient initially received 2 L of IV fluids, morphine and Reglan/Benadryl. Continues to endorse nausea. Retching. 04/06 pain. Zofran + Dilaudid ordered. > PCN allergy. cipro + flagyl ordered for coverage. will add on lactic + blood cultures > anticipate admission for ileitis requiring continued IV abx, steroids, and pain control. 1226 -- Received critical lactic of 2.6. Given elevated white count, tachypnea, and infection - sepsis now suspected. patient already receiving IV fluids and abx. cultures sent. > hospitalist has accepted patient admission to medicine Medical Decision Making Medical Decision Making [facility] Narrative: 39 year old female with pmhx significant for OCD, anxiety, depression, chronic pain syndrome on chronic opioids, GERD, nephrolithiasis presents to the ED today for evaluation of severe abdominal pain that began last night. vital signs are stable. she is tachypneic to 24 on arrival however is actively vomiting. afebrile. she is ill appearing, groaning in pain, unable to find a comfortable position. On exam, abdomen is soft, non distended, ttp of upper and mid abdomen with guarding. no rebound. normoactive bs. negative Rovsing. Negative McBurney point tenderness. No CVAT bilaterally. Differential diagnoses includes appendicitis, diverticulitis, diverticulosis, UTI, IUP, constipation. Abdominal exam without peritoneal signs. No evidence of acute abdomen at this time. Well appearing. Low suspicion for acute hepatobiliary disease (including acute cholecystitis), acute infectious processes (pneumonia, hepatitis, pyelonephritis, PID, TOA), vascular catastrophe, bowel obstruction or viscus perforation, ovarian cyst/ rupture/ torsion, ectopic. Plan: labs, UA/u preg, CT AP, pain control, fluids, serial reassessment Differential Diagnosis Differential Diagnoses: The differential diagnosis associated with the presentation includes as above. Admission/Observation Consideration of admission/observation: Escalation of care including admission/observation considered Patient to be admitted to medicine for ileitis requiring continued IVF, IV abx, IV pain meds/ antiemetics Consult Healthcare Provider Management of the patient was discussed with: Hospitalist (Dr. Wall, Julee MARQUEZ) Lab Data [facility] Lab Attestation statement: I reviewed the patient's lab results. as above. 12/19/24 07:49 12/19/24 07:49 Labs: Lab Results 12/19/24 12/19/24 12/19/24 Range/Units 07:49 10:08 11:59 WBC 20.9 H (4.8-10.8) X10*3/uL RBC 4.21 (4.20-5.50) X10*6/uL Hgb 12.5 (12.0-16.0) g/dl Hct 36.1 L (37.0-47.0) % MCV 85.7 (80.0-98.0) fL MCH 29.7 (27.0-33.0) pg MCHC 34.6 (31.0-35.0) g/dl RDW 11.9 (11.0-16.0) % Plt Count 190 (160-400) X10*3/uL MPV 11.5 (9.4-12.3) fL Immature Gran % (Auto) 0.4 (0.0-0.4) % Neut % (Auto) 88.1 H (45-73) % Lymph % (Auto) 6.8 L (20-40) % Peach % (Auto) 4.5 (2-11) % Eos % (Auto) 0.0 (0-4) % Baso % (Auto) 0.2 (0-2) % Lymph # (Auto) 1.4 (1.2-4.9) X10*3/uL Peach # (Auto) 0.9 (0.1-1.2) X10*3/uL Eos # (Auto) 0.0 (0.0-0.4) X10*3/uL Baso # (Auto) 0.1 (0.0-0.2) X10*3/uL Abs Immat Gran (auto) 0.09 H (0.00-0.03) X10*3/uL Absolute Neuts (auto) 18.4 H (2.0-8.3) x10*3/uL Absolute Nucleated RBC 0.000 (0.0-0.012) X10*3/uL Nucleated RBC % (auto) 0.0 (0.0-0.2) /100WBC Sodium 136 (135-145) mmol/L Potassium 3.7 (3.3-5.1) mmol/L Chloride 105 (96-108) mmol/L Carbon Dioxide 22 (22-29) mmol/L Anion Gap 13 (12-20) BUN 12 (9-16) mg/dL Creatinine 0.71 (0.5-1.4) mg/dL Estim Creat Clear Calc 122.4 Estimated GFR > 60 Random Glucose 157 H (60-115) mg/dL Lactic Acid 2.6 H* (0.5-2.0) mmol/L Calcium 9.2 (8.4-10.2) mg/dL Total Bilirubin 0.4 (0.0-1.0) mg/dL Direct Bilirubin 0.1 (0.0-0.5) mg/dL AST 20 (5-31) U/L ALT 26 (0-31) U/L Alkaline Phosphatase 79 (39-117) U/L Total Protein 7.5 (6.5-8.0) g/dL Albumin 4.1 (3.5-5.0) g/dL Lipase 11 (8-78) U/L Beta HCG, Quant < 2 mIU/mL Urine Color Urine Appearance Urine pH (5.0-9.0) Ur Specific Eckerty (1.005-1.025) Urine Protein (Neg-Trace) mg/dL Urine Glucose (UA) (Negative) mg/dL Urine Ketones (Negative) mg/dL Urine Blood (Negative) Urine Nitrite (Negative) Ur Leukocyte Esterase (Negative) Urine Test (NEGATIVE) Influenza Type A (PCR) NEGATIVE (Negative) Influenza Type B (PCR) NEGATIVE (Negative) RSV RNA Qual (PCR) NEGATIVE (Negative) SARS-CoV-2 RNA (RT-PCR) NEGATIVE (Negative) 12/19/24 Range/Units 12:25 WBC (4.8-10.8) X10*3/uL RBC (4.20-5.50) X10*6/uL Hgb (12.0-16.0) g/dl Hct (37.0-47.0) % MCV (80.0-98.0) fL MCH (27.0-33.0) pg MCHC (31.0-35.0) g/dl RDW (11.0-16.0) % Plt Count (160-400) X10*3/uL MPV (9.4-12.3) fL Immature Gran % (Auto) (0.0-0.4) % Neut % (Auto) (45-73) % Lymph % (Auto) (20-40) % Peach % (Auto) (2-11) % Eos % (Auto) (0-4) % Baso % (Auto) (0-2) % Lymph # (Auto) (1.2-4.9) X10*3/uL Peach # (Auto) (0.1-1.2) X10*3/uL Eos # (Auto) (0.0-0.4) X10*3/uL Baso # (Auto) (0.0-0.2) X10*3/uL Abs Immat Gran (auto) (0.00-0.03) X10*3/uL Absolute Neuts (auto) (2.0-8.3) x10*3/uL Absolute Nucleated RBC (0.0-0.012) X10*3/uL Nucleated RBC % (auto) (0.0-0.2) /100WBC Sodium (135-145) mmol/L Potassium (3.3-5.1) mmol/L Chloride (96-108) mmol/L Carbon Dioxide (22-29) mmol/L Anion Gap (12-20) BUN (9-16) mg/dL Creatinine (0.5-1.4) mg/dL Estim Creat Clear Calc Estimated GFR Random Glucose (60-115) mg/dL Lactic Acid (0.5-2.0) mmol/L Calcium (8.4-10.2) mg/dL Total Bilirubin (0.0-1.0) mg/dL Direct Bilirubin (0.0-0.5) mg/dL AST (5-31) U/L ALT (0-31) U/L Alkaline Phosphatase (39-117) U/L Total Protein (6.5-8.0) g/dL Albumin (3.5-5.0) g/dL Lipase (8-78) U/L Beta HCG, Quant mIU/mL Urine Color Yellow Urine Appearance Clear Urine pH 8.5 (5.0-9.0) Ur Specific Eckerty >= 1.030 H (1.005-1.025) Urine Protein Negative (Neg-Trace) mg/dL Urine Glucose (UA) Negative (Negative) mg/dL Urine Ketones 15 (Negative) mg/dL Urine Blood Negative (Negative) Urine Nitrite Negative (Negative) Ur Leukocyte Esterase Negative (Negative) Urine Test NEGATIVE (NEGATIVE) Influenza Type A (PCR) (Negative) Influenza Type B (PCR) (Negative) RSV RNA Qual (PCR) (Negative) SARS-CoV-2 RNA (RT-PCR) (Negative) Independent Interpretation I performed an independent interpretation of an: CT Scan Interpretation: CT a/p showing wall thickening of ileum Radiology Impression Discussion of test interpretation with radiology: I have reviewed the radiologist's reading. Radiologist Impression: Procedure(s): CT abdomen pelvis w IV con Accession Number(s): [id number] cc: Ashley Sneed; Erika Bowman MD~ Report Number: [id number]: Total DLP = 771.00 mGy-cm EXAMINATION: CT ABDOMEN PELVIS WITH IV CONTRAST HISTORY: periumbilical pain, constipation then large BM, V COMPARISON: Comparison is made with the prior examination dated 10/11/2024. TECHNIQUE: CT scan of the abdomen and pelvis was performed following administration of 85 mL Omnipaque 350 using standard departmental protocol. Coronal and sagittal reformatted images were generated and reviewed. Oral contrast material was not administered at the request of the referring physician. This CT exam was performed with one or more of the following dose reduction techniques: automated exposure control, adjustment of the mA and/or kV according to patient size, use of iterative reconstruction technique. DLP: 771 mGy-cm FINDINGS: LOWER CHEST: The visualized lung bases are clear. There is no pleural effusion. CARDIOVASCULATURE: The heart is normal in size. There is no pericardial effusion. LIVER: The liver is normal in size and contour. No liver mass is identified. The hepatic and portal veins are patent. GALLBLADDER / BILE DUCTS: The gallbladder is surgically absent. There is no intra or extrahepatic biliary ductal dilatation. SPLEEN: The spleen is normal in size. No focal splenic lesion is identified. PANCREAS: The pancreas is unremarkable in appearance. ADRENAL GLANDS: Within normal limits. KIDNEYS/RETROPERITONEUM: The kidneys are unremarkable in appearance. There is no hydronephrosis. No renal masses are identified. LYMPH NODES: No abdominal or pelvic lymphadenopathy. VASCULATURE: The abdominal aorta is normal in caliber. MESENTERY/PERITONEUM: No free fluid. No masses. There is no free intraperitoneal gas. STOMACH: There is a small hiatal hernia. The remainder of the stomach is collapsed. SMALL BOWEL: There is wall thickening of a long segment of distal ileum, compatible with ileitis. There is no small bowel obstruction. COLON: The right colon is collapsed. The transverse, descending, and sigmoid colon are filled with fluid. APPENDIX: Normal. URINARY BLADDER/PELVIC ORGANS: The urinary bladder is unremarkable. The uterus is unremarkable. There is a 5.3 cm cyst in the left adnexa, likely related to the left ovary. BONES / SOFT TISSUES: There is levoscoliosis of the spine. The patient is status post thoracolumbar fusion with pedicle screws and spinal stabilization rods. CT/CT abdomen pelvis w IV con IMPRESSION: 1. Wall thickening of a long segment of distal ileum compatible with ileitis. 2. 5.3 cm left ovarian cyst. Electronically signed by: Chandler Nick MD 12/19/2024 10:54 AM EDT Independent Historian Clinical information obtained from an independent historian. History obtained from or confirmed by: Spouse () External Record Review External record reviewed: Inpatient record Prescription Management I considered prescription management with: Pain Medication and Antibiotic Social Determinants Patient?s care significantly limited by Social Determinants of Health including: Alcoholism and drug addiction in family and Other Social Determinant of Health Medications Administered Generic Name Dose Route Start Last Admin Trade Name Freq PRN Reason Stop Dose Admin Enoxaparin Sodium 40 mg 12/19/24 13:00 12/19/24 13:32 Enoxaparin Sodium 40 Mg/0.4 Ml Syringe SUBCUT 40 mg Q24H OBIE Administration Methylprednisolone Sodium Succinate 60 mg 12/19/24 13:00 12/19/24 13:32 Methylprednisolone Sod Succ 125 Mg/2 Ml Vial IVPUSH 60 mg Q6H OBIE Administration Discontinued Medications Generic Name Dose Route Start Last Admin Trade Name Freq PRN Reason Stop Dose Admin Diphenhydramine HCl 25 mg 12/19/24 09:37 12/19/24 10:09 Diphenhydramine Hcl 50 Mg/Ml Vial IVPUSH 12/19/24 09:38 25 mg ONCE ONE Administration Hydromorphone HCl 0.5 mg 12/19/24 11:26 12/19/24 11:38 Hydromorphone Hcl 0.5 Mg/0.5 Ml Syringe IVPUSH 12/19/24 11:27 0.5 mg ONCE ONE Administration Protocol Sodium Chloride 1,000 mls @ 999 mls/hr 12/19/24 09:45 12/19/24 11:25 Ns IV 12/19/24 10:45 Infused .Q1H1M OBIE Infusion Sodium Chloride 1,000 mls @ 999 mls/hr 12/19/24 11:30 12/19/24 12:35 Ns IV 12/19/24 12:30 Infused .Q1H1M OBIE Infusion Ciprofloxacin 400 mg in 200 mls @ 200 mls/hr 12/19/24 11:26 12/19/24 13:32 Cipro IV 12/19/24 12:25 200 mls/hr ONCE ONE Administration Metronidazole 500 mg in 100 mls @ 100 mls/hr 12/19/24 11:26 12/19/24 13:20 Flagyl IV 12/19/24 12:25 Infused ONCE ONE Infusion Sodium Chloride 1,000 mls @ 999 mls/hr 12/19/24 12:45 12/19/24 12:38 Ns IV 12/19/24 13:45 999 mls/hr .Q1H1M OBIE Administration Iohexol 100 ml 12/19/24 10:44 12/19/24 10:44 Iohexol 350 Mg/Ml 100 Ml Infus..Btl IV 12/19/24 10:45 85 ml ONCE ONE Administration Metoclopramide HCl 10 mg 12/19/24 09:37 12/19/24 10:09 Metoclopramide Hcl 10 Mg/2 Ml Vial IVPUSH 12/19/24 09:38 10 mg ONCE ONE Administration Morphine Sulfate 4 mg 12/19/24 09:37 12/19/24 10:09 Morphine Sulfate 4 Mg/Ml Cartridge IVPUSH 12/19/24 09:38 4 mg ONCE ONE Administration Protocol Ondansetron HCl 4 mg 12/19/24 11:26 12/19/24 11:39 Ondansetron Hcl 4 Mg/2 Ml Vial IVPUSH 12/19/24 11:27 4 mg ONCE ONE Administration Critical Care Time Critical Care Time Critical Care Time: No Discharge Plan Discharge Clinical Impression: Ileitis, Ovarian cyst Patient Disposition: Admitted As Inpatient
[2024-12-19 10:08] LABS: HCG Quantitative < 2 mIU/mL
[2024-12-19] MEDS: 0.9 % Sodium Chloride 1,000 ML 999 ML IV ×3 (10:08→12:38)
[2024-12-19] MEDS: Metoclopramide HCl 10 MG/2 ML VIAL IVPUSH (10:09)
[2024-12-19] MEDS: diphenhydrAMINE HCL 50 MG/ML VIAL 25 MG IVPUSH (10:09)
[2024-12-19] MEDS: Morphine Sulfate 4 MG/ML CARTRIDGE IVPUSH ×3 (10:09→20:14)
[2024-12-19 10:40] LABS: Alanine Aminotransferase 26 U/L (0-31); Albumin Level 4.1 g/dL (3.5-5.0); Alkaline Phosphatase 79 U/L (39-117); Aspartate Amino Transferase 20 U/L (5-31); Bilirubin Direct 0.1 mg/dL (0.0-0.5); Bilirubin Total 0.4 mg/dL (0.0-1.0); Lipase 11 U/L (8-78); Total Protein 7.5 g/dL (6.5-8.0)
[2024-12-19] MEDS: iohexoL 350 MG/ML 100 ML INFUS..BTL IV (10:44)
[2024-12-19] MEDS: HYDROmorphone HCl 0.5 MG/0.5 ML SYRINGE IVPUSH (11:38)
[2024-12-19] MEDS: ondansetron HCL 4 MG/2 ML VIAL IVPUSH ×2 (11:39→18:08)
--- NOTE | 2024-12-19 11:45 | PM.IMHP ---
History of Present Illness Date of Service: 12/19/24 Attending physician on admission: Esteban Lawrence Chief Complaint: abd pain 39 year old with history of gerd, mood disorder, postlaminectomy syndrome on chronic opiates presents to the ED earlier this morning for evaluation of diffuse abdominal pain ongoing last night. She has had constipation recently and took OTC miralax yesterday with 2 large BMs subsequently. She states she had mild pain prior to the BMs but this significantly worsened to a 10/10 nonradiating pain across the abdomen, greatest in the epigastrium. Following this she developed nonbloody diarrhea as well and nausea and nonbloody vomiting. No fevers or chills. Denies eating bad foods. No recent travel. No one at home sick with similar symptoms. States she has had recurrent episodes of similar pain. Apparently her brother gets similar symptoms and states is related to MS. In [facility] ED, vss, no fevers. Leukocytosis 20. Renal function electrolyte levels normal. Urinalysis unremarkable. Negative for COVID, flu, RSV. CT of the abdomen/pelvis shows wall thickening of the long segment of the distal ileum compatible with ileitis as well as a 5.3 cm left ovarian cyst. In the ED, has received Flagyl, normal saline, Benadryl, ondansetron, Reglan, morphine, Dilaudid. 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 Personal history of other diseases of the musculoskeletal system and connective tissue Chronic pain syndrome Postlaminectomy syndrome, not elsewhere classified Chronic back pain greater than 3 months duration Scoliosis Family History Mother Diabetes Father Diabetes Surgical History Hx of cholecystectomy Hx of tubal ligation Previous back surgery Social History Housing: Apartment Are you a primary critical care paramedic to a significant other at home: Yes (children ages-7,11,18) Do you presently have visiting nurse or other home services: Yes (Mon-Sat 1 hour per day) Alcohol intake: never Patient Tobacco Use Status: Former Tobacco user Tobacco use type: Cigarette e-Cigarette/Vaping Use: Never Used Second Hand Smoke Exposure: No Substance Use Type: Marijuana Advance Directives: Yes Advance Directives Information Provided: Yes Advance Directives on File: No Do you have a plan to hurt others: No Plan service: No Current occupational status: unemployed Cognitive needs: No Hearing needs: No Vision needs: No Meds Allergies Allergy/AdvReac Type Severity Reaction Status Date / Time Penicillins Allergy Unknown Hives Verified 12/19/24 06:57 Active Medications: Current Medications Sodium Chloride (Ns) 1,000 mls @ 999 mls/hr IV .Q1H1M OBIE Stop: 12/19/24 12:30 Last Admin: 12/19/24 11:34 Dose: 999 mls/hr Ciprofloxacin (Cipro) 400 mg in 200 mls @ 200 mls/hr IV ONCE ONE Stop: 12/19/24 12:25 Metronidazole (Flagyl) 500 mg in 100 mls @ 100 mls/hr IV ONCE ONE Stop: 12/19/24 12:25 Home Medications ?Medication ?Instructions ?Recorded ?Confirmed ?Last Taken ?Type albuterol sulfate 90 mcg/actuation 2 puff inhalation Q4-6H PRN 10/21/23 10/20/24 Unknown History aerosol inhaler (Ventolin HFA) spironolactone 50 mg tablet 50 mg PO BID 09/09/24 10/20/24 Unknown History celecoxib 50 mg capsule 50 mg PO BID 12/19/24 Unknown History tretinoin 0.025 % topical cream 1 appl topical BEDTIME 12/19/24 Unknown History Physical Exam Vital Signs and Narrative: Vital Signs: Last Vital Signs Temp 98.4 F 12/19/24 11:17 Pulse 68 12/19/24 11:17 Resp 20 12/19/24 11:38 BP 128/107 H 12/19/24 11:17 Pulse Ox 99 12/19/24 11:17 O2 Del Method Room Air 12/19/24 11:17 BMI result Body Mass Index 29.0 Constitutional - Awake and Alert, No apparent distress Eyes - PERRLA, EOMI Cardiovascular - S1S2, RRR, No edema Respiratory - Normal lung expansion, Normal respiratory effort, No respiratory distress, CTA bilaterally Gastrointestinal - diffuse abd pain greatest in the epigastrium with voluntary guarding/ ND; +BS; No rebound Extremities - no calf tenderness bilaterally, no swelling Skin - Warm/Dry Neurological - Alert & oriented x3, moving all extremities independently Results Labs 12/19/24 07:49 12/19/24 07:49 Labs: Laboratory Results - last 24 hr 12/19/24 12/19/24 07:49 10:08 MCV 85.7 MCH 29.7 MCHC 34.6 RDW 11.9 Plt Count 190 MPV 11.5 Immature Gran % (Auto) 0.4 Neut % (Auto) 88.1 H Lymph % (Auto) 6.8 L [place] % (Auto) 4.5 Eos % (Auto) 0.0 Baso % (Auto) 0.2 Lymph # (Auto) 1.4 [place] # (Auto) 0.9 Eos # (Auto) 0.0 Baso # (Auto) 0.1 Abs Immat Gran (auto) 0.09 H Absolute Neuts (auto) 18.4 H Absolute Nucleated RBC 0.000 Nucleated RBC % (auto) 0.0 Anion Gap 13 Estim Creat Clear Calc 122.4 Estimated GFR > 60 Random Glucose 157 H Calcium 9.2 Total Bilirubin 0.4 Direct Bilirubin 0.1 AST 20 ALT 26 Alkaline Phosphatase 79 Total Protein 7.5 Albumin 4.1 Lipase 11 Beta HCG, Quant < 2 Influenza Type A (PCR) NEGATIVE Influenza Type B (PCR) NEGATIVE RSV RNA Qual (PCR) NEGATIVE SARS-CoV-2 RNA (RT-PCR) NEGATIVE Imaging Radiologist's Impressions: Impressions Abdomen/Pelvis CT 12/19/24 09:36 IMPRESSION: 1. Wall thickening of a long segment of distal ileum compatible with ileitis. 2. 5.3 cm left ovarian cyst. Electronically signed by: Chandler Nick MD 12/19/2024 10:54 AM EDT RP Assessment and Plan (1) Ileitis: Status: Acute Plan 39 year old with history of gerd, mood disorder, postlaminectomy syndrome on chronic opiates admitted for further management of acute ileitis with intraactble abd pain and po intolerance Acute ileitis with PO intolerance CT abd pelvis shows wall thickening of a long segment of the distal ileum compatible with ileitis IV ceftriaxone and Flagyl (initiated 12/19) IV methylprednisolone 60 mg q.6h (initiated 12/19) P.r.n. analgesics with IV morphine and oxycodone using pain scale Antiemetics p.r.n. Clear liquid diet, advance as tolerated Gastroenterology consult Large ovarian cyst noted on CT scan 5.3 cm left ovarian cyst Pelvis and transvaginal ultrasound Post-laminectomy syndrome Pain management as above Mood disorder continue home meds GERD Continue home meds DVT prophylaxis-Lovenox Full code Patient requires inpatient stay at least 2 midnights for management of acute ileitis with p.o. intolerance requiring IV antibiotics, IV steroids, diet advancement and expert consultation Quality Stroke Does the patient have a stroke diagnosis?: No VTE Prior VTE?: No VTE Risk Level:: Medical - moderate - high VTE Device Contraindication: Treatment Not Indicated VTE Drug Contraindication: N/A - Med Ordered
--- NOTE | 2024-12-19 12:11 | PC.NURSE ---
Blood cultures x2 drawn and sent for analysis. 20g IV access to right AC. Instructed to give Flagyl prior to Cipro. Plan for admission, per JIMMY Sneed.
[2024-12-19] MEDS: metroNIDAZOLE/NS 500 MG/100 ML PIGGYBACK 100 MG IV ×2 (12:20→19:14)
[2024-12-19 12:24] LABS: Lactic Acid 2.6 mmol/L (0.5-2.0)
[2024-12-19 12:35] LABS: Appearance Urine Clear; Color Urine Yellow; Glucose Urine UA Negative (Negative); Leukocyte Esterase Urine Negative (Negative); Nitrite Urine Negative (Negative); PH 8.5 (5.0-9.0); Specific Gravity - Urine >= 1.030 (1.005-1.025); Urine Blood Negative (Negative); Urine Ketones 15 mg/dL (Negative); Urine Protein Negative (Neg-Trace)
[2024-12-19 12:37] LABS: UPreg QC Valid YES; Urine Pregnancy NEGATIVE (NEGATIVE)
--- NOTE | 2024-12-19 13:20 | PC.NURSE ---
Ciprofloxacin/D5W unavailable in ED. Requested medication from pharmacy. Will administer upon receipt.
[2024-12-19] MEDS: methylPREDNISolone Sod Succ 125 MG/2 ML VIAL 60 MG IVPUSH ×2 (13:32→18:08)
[2024-12-19] MEDS: Enoxaparin Sodium 40 MG/0.4 ML SYRINGE SUBCUT (13:32)
[2024-12-19] MEDS: Ciprofloxacin Lactate/D5W 400 MG/200 ML PIGGYBACK 200 MG IV (13:32)
[2024-12-19 14:03] LABS: Reflex Lactate? Lactic Acid Added
--- NOTE | 2024-12-19 14:30 | PC.NURSE ---
Phlebotomy contacted to collect repeat Lactic Acid level.
--- NOTE | 2024-12-19 14:38 | PC.NURSE ---
Phlebotomy at bedside obtaining repeat lactic acid level. Will medicate with ordered medications upon completion.
[2024-12-19] MEDS: cefTRIAXone sodium 1 GM VIAL IVPUSH (14:50)
[2024-12-19] MEDS: 0.9 % Sodium Chloride Flush 3 ML SYRINGE IVFLUSH (14:50)
[2024-12-19 14:55] LABS: ~Lactic Acid-LAB USE ONLY 0.9 mmol/L (0.5-2.0)
--- NOTE | 2024-12-19 15:23 | PHA.MEDREC ---
Addendum entered by Kunal Stone 12/19/24 15:42: reviewed Original Note: Pharmacy Consult ? Medication Reconciliation Pharmacy has completed the medication reconciliation.Spoke with patient and patient was a little confused only able to verbally confirm some medications. She was able to confirm her Oxycodone 5mg tab once every 6 hours as needed for pain. She confirmed she is not as complaint with taking her other medications due to taking so many medications . She states she uses Amitryptyline 25mg tabs as needed for her mood and Celecoxib 50mg tabs as needed for pain/inflammation. She confirmed her Spironolactone 50mg tab directions increased and she is now taking 3 tabs (150mg) in the morning. She confirmed she took an Oxycodone tablet this morning but did not remember the last time she took her other medications.
--- NOTE | 2024-12-19 16:45 | PM.EVENT ---
Event Note Date of Service: 12/19/24 Event Note: GI Consult received and records reviewed. Unable to see patient this pm as she was having imaging. She will be seen at a later time. Time Spent With Patient Time: Total time managing care of this patient today ____ minutes.
[2024-12-19] MEDS: oxyCODONE HCl Immed Release 5 MG TABLET PO (18:08)
[2024-12-20 00:19] VITALS: BP 113/63
[2024-12-20] MEDS: Morphine Sulfate 4 MG/ML CARTRIDGE IVPUSH ×2 (00:19→08:11)
[2024-12-20] MEDS: methylPREDNISolone Sod Succ 125 MG/2 ML VIAL 60 MG IVPUSH ×4 (00:19→18:25)
[2024-12-20] MEDS: 0.9 % Sodium Chloride Flush 3 ML SYRINGE IVFLUSH ×2 (00:20→17:10)
[2024-12-20] MEDS: Melatonin 3 MG TABLET 6 MG PO ×2 (00:26→23:12)
[2024-12-20 02:31] VITALS: RESP 20
[2024-12-20 03:53] VITALS: BP 97/52; PULSE 74; RESP 16; TEMP 37; O2SAT 94
[2024-12-20] MEDS: metroNIDAZOLE/NS 500 MG/100 ML PIGGYBACK 100 MG IV ×3 (03:56→20:14)
[2024-12-20 07:59] VITALS: BP 104/58; PULSE 70; RESP 18; TEMP 36.6; O2SAT 95
[2024-12-20] MEDS: Cholecalciferol (Vitamin D3) 25 MCG TABLET PO (08:12)
[2024-12-20] MEDS: Spironolactone 25 MG TABLET 150 MG PO (08:12)
[2024-12-20 09:13] LABS: Basophils Percent Auto 0.1 % (0-2); Hematocrit 32.2 % (37.0-47.0); Hemoglobin 11.2 g/dl (12.0-16.0); Imm Gran Abs Auto 0.15 X10*3/uL (0.00-0.03); Imm Gran Pct Auto 0.8 % (0.0-0.4); Lymphocytes Absolute Auto 0.8 X10*3/uL (1.2-4.9); MANUAL DIFF FLAG SCAN; Mean Corpuscular HGB Conc 34.8 g/dl (31.0-35.0); Mean Corpuscular Hemoglobin 29.8 pg (27.0-33.0); Mean Corpuscular Volume 85.6 fL (80.0-98.0); Mean Platelet Volume 12.1 fL (9.4-12.3); Monocytes Absolute Auto 0.3 X10*3/uL (0.1-1.2); Monocytes Percent Auto 1.7 % (2-11); Neutrophils Absolute Auto 18.1 x10*3/uL (2.0-8.3); Neutrophils Percent Auto 93.4 % (45-73); Platelet Count 154 X10*3/uL (160-400); Red Blood Count 3.76 X10*6/uL (4.20-5.50); SCAN SMEAR FLAG 1; White Blood Count 19.3 X10*3/uL (4.8-10.8)
--- NOTE | 2024-12-20 09:32 | HO.PM.IMPN ---
Subjective Subjective Date of Service: 12/20/24 Interval History: Looks uncomfortable due to abdominal pain 05/07, morphine is helping a bit; nauseous.ro No recent episoes of vomiting, diarhea or constipation. Tolerating liquid diet. Review of Systems All 12 systems were reviewed and normal except as noted in HPI. Physical Exam Vital Signs: Vital Signs: Last Vital Signs Temp 97.8 F 12/20/24 07:59 Pulse 70 12/20/24 07:59 Resp 18 12/20/24 07:59 BP 104/58 L 12/20/24 07:59 Pulse Ox 95 12/20/24 07:59 O2 Del Method Room Air 12/20/24 07:59 BMI result Body Mass Index 29.0 Constitutional - Awake and Alert, No apparent distress. Looks uncomfortable. Pleasant. Cooperative. HEENT - PERRL, EOMI Heart - S1S2, RRR, No edema Lungs - Normal lung expansion, Normal respiratory effort, No respiratory distress, CTA bilaterally Abdomen - normal bowel sounds, mildly distended, generalized tenderness, no rebound, no guarding. Extremities - no calf tenderness bilaterally, no swelling Musculoskeletal - Normal inspection, normal ROM Skin - Warm/Dry Neurological - Alert & oriented x3. No focal weakness grossly noted. Normal speech. Psychological - Appropriate affect Objective Data Active Medications Acetaminophen (Acetaminophen 325 Mg Tablet) 650 mg PO Q6H PRN PRN Reason: Pain, Mild 1-3,fever,headache Albuterol Sulfate (Albuterol Sulfate 90 Mcg 8 Gm Inhaler) 2 puff INHALE Q4H PRN PRN Reason: Shortness Of Breath Or Wheezing Amitriptyline HCl (Amitriptyline Hcl 25 Mg Tablet) 25 mg PO BEDTIME PRN PRN Reason: mood Calcium Carbonate (Calcium Carbonate 750 Mg Tab.Chew) 750 mg PO Q4H PRN PRN Reason: Heartburn Ceftriaxone Sodium (Ceftriaxone Sodium 1 Gm Vial) 1 gm IVPUSH Q24H [facility] Last Admin: 12/19/24 14:50 Dose: 1 gm Documented By: GEORGE Enoxaparin Sodium (Enoxaparin Sodium 40 Mg/0.4 Ml Syringe) 40 mg SUBCUT Q24H [facility] Last Admin: 12/19/24 13:32 Dose: 40 mg Documented By: GEORGE Metronidazole (Flagyl) 500 mg in 100 mls @ 100 mls/hr IV Q8H [facility] Last Infusion: 12/20/24 04:52 Dose: Infused Documented By: IVONNE Magnesium Hydroxide (Milk Of Magnesia 30 Ml Oral.Susp) 30 ml PO DAILY PRN PRN Reason: Constipation Melatonin (Melatonin 3 Mg Tablet) 6 mg PO BEDTIME PRN PRN Reason: Insomnia Last Admin: 12/20/24 00:26 Dose: 6 mg Documented By: IVONNE Methylprednisolone Sodium Succinate (Methylprednisolone Sod Succ 125 Mg/2 Ml Vial) 60 mg IVPUSH Q6H [facility] Last Admin: 12/20/24 07:22 Dose: 60 mg Documented By: JUVENAL Morphine Sulfate (Morphine Sulfate 4 Mg/Ml Cartridge) 6 mg IVPUSH Q3H [facility]; Protocol Naloxone HCl (Naloxone Hcl Nasal 4 Mg [place]) 4 mg NOSTRILALT Q2M PRN PRN Reason: opioid overdose Ondansetron HCl (Ondansetron Hcl 4 Mg/2 Ml Vial) 4 mg IVPUSH Q8H PRN PRN Reason: Nausea and Vomiting Last Admin: 12/19/24 18:08 Dose: 4 mg Documented By: GEORGE Oxycodone HCl (Oxycodone Hcl Immed Release 5 Mg Tablet) 5 mg PO Q6H PRN PRN Reason: Pain, Moderate(Pain Scale 4-6) Last Admin: 12/19/24 18:08 Dose: 5 mg Documented By: GEORGE Polyethylene Glycol (Polyethylene Glycol 3350 17 Gm Powd.Pack) 17 gm PO DAILY PRN PRN Reason: Constipation Sodium Chloride (0.9 % Sodium Chloride Flush 3 Ml Syringe) 3 ml IVFLUSH QSHIFT [facility] Last Admin: 12/20/24 07:24 Dose: Not Given Documented By: JUVENAL Non-Admin Reason: Med Not Available Spironolactone (Spironolactone 25 Mg Tablet) 150 mg PO DAILY [facility]; Protocol Last Admin: 12/20/24 08:12 Dose: 150 mg Documented By: BRIEN Vitamin D (Cholecalciferol (Vitamin D3) 25 Mcg Tablet) 25 mcg PO DAILY [facility] Last Admin: 12/20/24 08:12 Dose: 25 mcg Documented By: BRIEN Labs 12/20/24 08:15 12/20/24 08:15 Labs: Laboratory Results - last 24 hr 12/19/24 12/19/24 12/19/24 07:49 10:08 11:59 Lactic Acid 2.6 H* Lactic Acid F/U @ 2Hr Total Bilirubin 0.4 Direct Bilirubin 0.1 AST 20 ALT 26 Alkaline Phosphatase 79 Total Protein 7.5 Albumin 4.1 Lipase 11 Beta HCG, Quant < 2 Urine Color Urine Appearance Urine pH Ur Specific [place] Urine Protein Urine Glucose (UA) Urine Ketones Urine Blood Urine Nitrite Ur Leukocyte Esterase Urine Test 12/19/24 12/19/24 12:25 14:36 Lactic Acid Lactic Acid F/U @ 2Hr 0.9 Total Bilirubin Direct Bilirubin AST ALT Alkaline Phosphatase Total Protein Albumin Lipase Beta HCG, Quant Urine Color Yellow Urine Appearance Clear Urine pH 8.5 Ur Specific [place] >= 1.030 H Urine Protein Negative Urine Glucose (UA) Negative Urine Ketones 15 Urine Blood Negative Urine Nitrite Negative Ur Leukocyte Esterase Negative Urine Test NEGATIVE Assessment and Plan (1) Ileitis: Status: Acute (2) Ovarian cyst: Status: Acute Plan 39 year old with woman history of gerd, mood disorder, postlaminectomy syndrome on chronic opiates admitted for further management of acute ileitis with intraactble abd pain and po intolerance admitted with: Acute ileitis. Continue with significant generalized abdominal pain. Tolerating clear liquid diet. CT abd pelvis shows wall thickening of a long segment of the distal ileum compatible with ileitis Continue IV ceftriaxone and Flagyl (initiated 12/19) Continue IV methylprednisolone 60 mg q.6h (initiated 12/19) Increase morphine to 6 mg IV every 3 hours as needed. Antiemetics p.r.n. Gastroenterology consult pending Large ovarian cyst noted on CT scan 5.3 cm left ovarian cyst Pelvis and transvaginal ultrasound done - 5.6 cm simple cyst of the left ovary without overt torsion. Follow as an outpatient. Post-laminectomy syndrome Continue morphine. Mood disorder Continue amitriptyline GERD Continue home meds *Spironolactone on hold due to soft blood pressure and not optimal p.o. intake. DVT prophylaxis-Lovenox Full code Patient requires inpatient stay at least 2 midnights for management of acute ileitis with IV antibiotics, IV steroids, diet advancement and expert consultation Quality Stroke Does the patient have a stroke diagnosis?: No VTE Prior VTE?: No VTE Risk Level:: Medical - moderate - high VTE Device Contraindication: Treatment Not Indicated VTE Drug Contraindication: N/A - Med Ordered
[2024-12-20 09:37] LABS: Anion Gap 9 (12-20); Blood Urea Nitrogen 8 mg/dL (9-16); Calcium 8.5 mg/dL (8.4-10.2); Carbon Dioxide 22 mmol/L (22-29); Chloride 111 mmol/L (96-108); Creatinine Clr Calc Pharmacy 147.3; Estimated Glomerular Filt Rate > 60; Glucose Random 119 mg/dL (60-115); Potassium 3.6 mmol/L (3.3-5.1); Sodium 138 mmol/L (135-145)
[2024-12-20 09:56] LABS: SLIDE REVIEW VERIFIED
[2024-12-20 10:21] VITALS: BMI 29.0
[2024-12-20] MEDS: Acetaminophen 325 MG TABLET 650 MG PO ×2 (10:25→18:23)
[2024-12-20] MEDS: Morphine Sulfate 4 MG/ML CARTRIDGE 6 MG IVPUSH ×4 (11:06→23:13)
[2024-12-20] MEDS: ondansetron HCL 4 MG/2 ML VIAL IVPUSH (13:09)
[2024-12-20] MEDS: Enoxaparin Sodium 40 MG/0.4 ML SYRINGE SUBCUT (13:11)
[2024-12-20] MEDS: cefTRIAXone sodium 1 GM VIAL IVPUSH (14:06)
[2024-12-20 15:12] VITALS: BP 109/57; PULSE 65; RESP 18; TEMP 36.7; O2SAT 94
--- NOTE | 2024-12-20 15:15 | MHC.CM.PN ---
PATIENT LIVES AT HOME W/ AND YOUNG CHILDREN. CHRONIC PAIN - USES CANE PRN. 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 PCP KARMA LAL MD COMPLETED HCP NAMING [facility] 1) SPOUSE ALBERTINA JAMES, 2) SISTER TERRENCE BARBER [phone]. DP: GOAL IS HOME, RESUME GRAIN UNLOADER MACHINE, TO TRANSPORT. CM WILL CONTINUE TO FOLLOW.
[2024-12-20 19:13] VITALS: BP 125/70; PULSE 56; RESP 16; TEMP 36.1; O2SAT 96
[2024-12-20] MEDS: oxyCODONE HCl Immed Release 5 MG TABLET PO (20:29)
--- NOTE | 2024-12-20 23:42 | CONS_ITS ---
DATE OF SERVICE: 12/20/2024 REFERRING PHYSICIAN: Julee Chaparro REASON FOR CONSULTATION: Nausea, vomiting, and abnormal CT scan. HISTORY OF PRESENT ILLNESS: The patient is a pleasant 39-year-old woman who was admitted to the hospital after presenting to the emergency department on December 19 with complaints of nausea, vomiting, and abdominal pain. She did have some constipation for which she was taking [id number] laxatives, and this produced bowel movements. Then she developed abdominal pain with nausea, vomiting, and diarrhea, and presented to the emergency room the following morning. She denies any fevers or chills. She has no ill contacts or recent antibiotic usage. She was evaluated in the emergency department with laboratory studies showing a white blood cell count elevated at 20.9 and underwent evaluation with CT scanning, which is reviewed. This is interpreted as showing a long segment of distal ileum with wall thickening consistent with ileitis. Also noted was a left ovarian cyst for which she had followup ultrasound imaging. She has been treated with antibiotics and admitted to the hospital. She has been started on a clear liquid diet, which she is tolerating. She reports her pain is improved after treatment with pain medications. PAST MEDICAL HISTORY: 1. Back pain, status post surgery. 2. Scoliosis. 3. Cholelithiasis. 4. Gastroesophageal reflux disease. 5. Mood disorder. PAST SURGICAL HISTORY: Includes back surgery, tubal ligation, and cholecystectomy. CURRENT MEDICATIONS: Her current medication list is reviewed in the chart. ALLERGIES: PENICILLIN. FAMILY HISTORY: This is reviewed with the patient and is negative for inflammatory bowel disease. SOCIAL HISTORY: There is no current tobacco, alcohol, or substance abuse. REVIEW OF SYSTEMS: SKIN: No pruritus. HEENT: Negative. CARDIOPULMONARY: No shortness of breath or chest pain. GASTROINTESTINAL: As above. GENITOURINARY: Negative. NEUROPSYCHIATRIC: Negative. PHYSICAL EXAMINATION: GENERAL: Shows a pleasant female, lying in bed. VITAL SIGNS: Reviewed in the electronic medical record and are stable. SKIN: Anicteric. HEENT: Shows no scleral icterus. NECK: Without lymphadenopathy or thyromegaly. LUNGS: Clear. HEART: Shows a regular rate and rhythm. S1, S2. No murmur. ABDOMEN: Soft. Bowel sounds are present. There is no focal guarding, tenderness, or rebound. EXTREMITIES: Without edema. LABORATORY DATA: Reviewed as are her imaging studies. IMPRESSION: Nausea, vomiting, and abdominal pain with abnormal CT scan showing ileitis. This appears most consistent with an infectious ileitis based on her clinical presentation. She has no personal nor prior history of Crohn disease, so this would be unusual. I did recommend continuing antibiotics and obtaining stool specimens. These have been ordered. If she has persistent symptoms, she may need further evaluation endoscopically. Thanks for asking me to see her. I will follow her in the hospital with you. MD SKYLAR Glez/MARTA / [id number]
[2024-12-21] MEDS: methylPREDNISolone Sod Succ 125 MG/2 ML VIAL 60 MG IVPUSH ×4 (00:22→18:02)
[2024-12-21] MEDS: Amitriptyline HCl 25 MG TABLET PO ×2 (00:24→22:39)
[2024-12-21 03:13] VITALS: BP 114/65; PULSE 63; RESP 16; TEMP 36.1; O2SAT 94
[2024-12-21] MEDS: metroNIDAZOLE/NS 500 MG/100 ML PIGGYBACK 100 MG IV ×3 (03:53→20:10)
[2024-12-21] MEDS: Cholecalciferol (Vitamin D3) 25 MCG TABLET PO (07:59)
[2024-12-21] MEDS: 0.9 % Sodium Chloride Flush 3 ML SYRINGE IVFLUSH (07:59)
[2024-12-21 08:00] VITALS: BP 117/67; PULSE 60; RESP 16; TEMP 36.4; O2SAT 97
[2024-12-21] MEDS: Morphine Sulfate 4 MG/ML CARTRIDGE 6 MG IVPUSH (08:10)
--- NOTE | 2024-12-21 09:56 | P.PNIM_ITS ---
Subjective Subjective Date of Service: 12/21/24 Interval History: Still complaining of significant abdominal pain, nausea and constipation, tolerating diet but she does not like it. No vomiting or fever. Review of Systems All 12 systems were reviewed and normal except as noted in HPI. Physical Exam 2 Vital Signs: Vital Signs: Last Vital Signs Temp 97.6 F 12/21/24 08:00 Pulse 60 12/21/24 08:00 Resp 16 12/21/24 08:00 BP 117/67 12/21/24 08:00 Pulse Ox 97 12/21/24 08:00 O2 Del Method Room Air 12/21/24 08:00 BMI result Body Mass Index 29.0 Constitutional - Awake and Alert, No apparent distress. Looks uncomfortable. Pleasant. Cooperative. HEENT - PERRL, EOMI Heart - S1S2, RRR, No edema Lungs - Normal lung expansion, Normal respiratory effort, No respiratory distress, CTA bilaterally Abdomen - normal bowel sounds, mildly distended, generalized tenderness, no rebound, no guarding. Extremities - no calf tenderness bilaterally, no swelling Musculoskeletal - Normal inspection, normal ROM Skin - Warm/Dry Neurological - Alert & oriented x3. No focal weakness grossly noted. Normal speech. Psychological - Appropriate affect Objective Data Active Medications Albuterol Sulfate (Albuterol Sulfate 90 Mcg 8 Gm Inhaler) 2 puff INHALE Q4H PRN PRN Reason: Shortness Of Breath Or Wheezing Amitriptyline HCl (Amitriptyline Hcl 25 Mg Tablet) 25 mg PO BEDTIME PRN PRN Reason: mood Last Admin: 12/21/24 00:24 Dose: 25 mg Documented By: LYSOdalis Calcium Carbonate (Calcium Carbonate 750 Mg Tab.Chew) 750 mg PO Q4H PRN PRN Reason: Heartburn Ceftriaxone Sodium (Ceftriaxone Sodium 1 Gm Vial) 1 gm IVPUSH Q24H [facility] Last Admin: 12/20/24 14:06 Dose: 1 gm Documented By: BRIEN Dicyclomine HCl (Dicyclomine Hcl 10 Mg Capsule) 10 mg PO QIDACHS [facility] Enoxaparin Sodium (Enoxaparin Sodium 40 Mg/0.4 Ml Syringe) 40 mg SUBCUT Q24H [facility] Last Admin: 12/20/24 13:11 Dose: 40 mg Documented By: BRIEN Metronidazole (Flagyl) 500 mg in 100 mls @ 100 mls/hr IV Q8H [facility] Last Infusion: 12/21/24 04:55 Dose: Infused Documented By: REBEKAH Ketorolac Tromethamine (Ketorolac Tromethamine 30 Mg/Ml Vial) 30 mg IVPUSH Q6H [facility] Stop: 12/21/24 15:16 Magnesium Hydroxide (Milk Of Magnesia 30 Ml Oral.Susp) 30 ml PO DAILY PRN PRN Reason: Constipation Melatonin (Melatonin 3 Mg Tablet) 6 mg PO BEDTIME PRN PRN Reason: Insomnia Last Admin: 12/20/24 23:12 Dose: 6 mg Documented By: REBEKAH Methylprednisolone Sodium Succinate (Methylprednisolone Sod Succ 125 Mg/2 Ml Vial) 60 mg IVPUSH Q6H [facility] Last Admin: 12/21/24 06:24 Dose: 60 mg Documented By: REBEKAH Morphine Sulfate (Morphine Sulfate 4 Mg/Ml Cartridge) 6 mg IVPUSH Q3H PRN; Protocol PRN Reason: Pain, Severe (Pain Scale 7-10) Last Admin: 12/21/24 08:10 Dose: 6 mg Documented By: DAMIAN Naloxone HCl (Naloxone Hcl Nasal 4 Mg [place]) 4 mg NOSTRILALT Q2M PRN PRN Reason: opioid overdose Ondansetron HCl (Ondansetron Hcl 4 Mg/2 Ml Vial) 4 mg IVPUSH Q8H PRN PRN Reason: Nausea and Vomiting Last Admin: 12/20/24 13:09 Dose: 4 mg Documented By: BRIEN Oxycodone HCl (Oxycodone Hcl Immed Release 5 Mg Tablet) 5 mg PO Q6H PRN PRN Reason: Pain, Moderate(Pain Scale 4-6) Last Admin: 12/20/24 20:29 Dose: 5 mg Documented By: REBEKAH Polyethylene Glycol (Polyethylene Glycol 3350 17 Gm Powd.Pack) 17 gm PO DAILY PRN PRN Reason: Constipation Sodium Chloride (0.9 % Sodium Chloride Flush 3 Ml Syringe) 3 ml IVFLUSH QSHIFT [facility] Last Admin: 12/21/24 07:59 Dose: 3 ml Documented By: DAMIAN Spironolactone (Spironolactone 25 Mg Tablet) 150 mg PO DAILY [facility]; Protocol Last Admin: 12/20/24 08:12 Dose: 150 mg Documented By: BRIEN Vitamin D (Cholecalciferol (Vitamin D3) 25 Mcg Tablet) 25 mcg PO DAILY [facility] Last Admin: 12/21/24 07:59 Dose: 25 mcg Documented By: DAMIAN Labs 12/20/24 08:15 12/20/24 08:15 Labs: Laboratory Results - last 24 hr 12/20/24 08:15 MCV 85.6 MCH 29.8 MCHC 34.8 RDW 12.0 Plt Count 154 L MPV 12.1 Immature Gran % (Auto) 0.8 H Neut % (Auto) 93.4 H Lymph % (Auto) 4.0 L Bracken % (Auto) 1.7 L Eos % (Auto) 0.0 Baso % (Auto) 0.1 Lymph # (Auto) 0.8 L [place] # (Auto) 0.3 Eos # (Auto) 0.0 Baso # (Auto) 0.0 Abs Immat Gran (auto) 0.15 H Absolute Neuts (auto) 18.1 H Absolute Nucleated RBC 0.000 Nucleated RBC % (auto) 0.0 Smear Tech's Comments VERIFIED Microbiology Microbiology Results: Microbiology 12/19/24 12:07 Blood Culture - Preliminary Blood - Venous No growth after 24 hours. 12/19/24 11:59 Blood Culture - Preliminary Blood - Venous No growth after 24 hours. Assessment and Plan (1) Ileitis: Status: Acute (2) GERD (gastroesophageal reflux disease): Status: Acute (3) Constipation: Status: Acute (4) Leukocytosis: Status: Acute Plan 39 year old with woman admitted with: Acute ileitis. Continue with significant generalized abdominal pain, no vomiting. Tolerating clear liquid diet --> will advance to regular. CT abd pelvis shows wall thickening of a long segment of the distal ileum compatible with ileitis Continue IV ceftriaxone and Flagyl (initiated 12/19) Will discontinue IV methylprednisolone We will avoid narcotics such as morphine or oxycodone due to constipation. Pain control with Toradol and Tylenol IV for now. Antiemetics p.r.n. GI - consistent with infectious ileitis, doubt Crohn's disease, continue antibiotic therapy and obtain stool specimens. Constipation, likely related to opiates. We will avoid opiates for now. MiraLax and MOM Leukocytosis, no hypotension, no fever. Likely secondary to IV steroids. IV steroids have been discontinued. Large ovarian cyst noted on CT scan 5.3 cm left ovarian cyst Pelvis and transvaginal ultrasound done - 5.6 cm simple cyst of the left ovary without overt torsion. Follow as an outpatient. Post-laminectomy syndrome Tylenol and Toradol IV Mood disorder Continue amitriptyline GERD Start omeprazole. *Spironolactone on hold due to soft blood pressure and not optimal p.o. intake. DVT prophylaxis-Lovenox Full code Patient requires inpatient stay at least 2 midnights for management of acute ileitis with IV antibiotics, IV pain medications and diet advancement. Quality Stroke Does the patient have a stroke diagnosis?: No VTE Prior VTE?: No VTE Risk Level:: Medical - moderate - high VTE Device Contraindication: Treatment Not Indicated VTE Drug Contraindication: N/A - Med Ordered
[2024-12-21] MEDS: Ketorolac Tromethamine 30 MG/ML VIAL IVPUSH ×2 (11:07→15:07)
[2024-12-21] MEDS: Dicyclomine HCl 10 MG CAPSULE PO ×3 (11:14→20:10)
[2024-12-21] MEDS: Enoxaparin Sodium 40 MG/0.4 ML SYRINGE SUBCUT (13:00)
--- NOTE | 2024-12-21 13:32 | P.PNGI_ITS ---
Subjective Subjective Date of Service: 12/21/24 Interval History: no diarrhea still with abd pain Critical Care Time (minutes): 0 Physical Exam 2 Vital Signs: Vital Signs: Last Vital Signs Temp 97.6 F 12/21/24 08:00 Pulse 60 12/21/24 08:00 Resp 16 12/21/24 08:00 BP 117/67 12/21/24 08:00 Pulse Ox 97 12/21/24 08:00 O2 Del Method Room Air 12/21/24 08:00 BMI result Body Mass Index 29.0 GI: Other: abdomen is soft Objective Data Labs 12/20/24 08:15 12/20/24 08:15 Microbiology Microbiology Results: Microbiology 12/19/24 12:07 Blood - Venous Blood Culture - Preliminary No growth after 24 hours. 12/19/24 11:59 Blood - Venous Blood Culture - Preliminary No growth after 24 hours. Procedures Date of Service Date of Service: 12/21/24 Progress Note: A&P Assessment and plan (1) Ileitis: Status: Acute Assessment and Plan: course reviewed discussed colonoscopy for further evaluation she is aware of risks and bnenfits and agrees to proceed Time Spent With Patient Time: Total time managing care of this patient today ____ minutes. Quality Stroke Does the patient have a stroke diagnosis?: No VTE Prior VTE?: No VTE Risk Level:: Medical - moderate - high VTE Device Contraindication: Treatment Not Indicated VTE Drug Contraindication: N/A - Med Ordered
[2024-12-21] MEDS: cefTRIAXone sodium 1 GM VIAL IVPUSH (15:04)
[2024-12-21 15:29] VITALS: BP 106/6; PULSE 58; RESP 18; TEMP 36.4; O2SAT 95
--- NOTE | 2024-12-21 16:24 | PC.NURSE ---
Gurmeet an regarding outstanding stool saple for pt - Dr an said he would ollet stool during proedure toorrow (keyboard not working properly - annot use all letters)
[2024-12-21] MEDS: PEG 3350/Na Sulf,Bicarb,Cl/KCL 4,000 ML SOLN.RECON 4000 ML PO (18:02)
[2024-12-21 18:41] LABS: Appearance Urine Turbid; Color Urine Dark Yellow; Glucose Urine UA Negative (Negative); Leukocyte Esterase Urine Trace (Negative); Nitrite Urine Negative (Negative); PH 6.5 (5.0-9.0); Specific Gravity - Urine >= 1.030 (1.005-1.025); UMIC TRIGGER UACC YES; Urine Blood Negative (Negative); Urine Ketones Trace mg/dL (Negative); Urine Protein 30 (1+) mg/dL (Neg-Trace)
[2024-12-21 18:51] LABS: Bacteria Urine None Seen (None Seen); Hyaline Casts Urine 0-2 /LPF (0-2); Other Crystals Urine Present; RBC Urine 0-2 /HPF (0-2); Squamous Epithelial Cell Urine >20 /HPF (0-2); WBC Urine 0-5 /HPF (0-5)
[2024-12-21 19:36] VITALS: BP 124/73; PULSE 68; RESP 18; TEMP 36.7; O2SAT 96
[2024-12-21] MEDS: diphenhydrAMINE HCL 50 MG/ML VIAL 25 MG IVPUSH (20:51)
--- NOTE | 2024-12-21 21:56 | PM.EVENT ---
Event Note Date of Service: 12/21/24 Event Note: Rash: Patient developed rash on her cheeks and then the upper part of the chest. Rash is blanchable. Patient mentioned that earlier in the evening patient had a small rash on the side of the cheek now it has increased to both sides of the face as well as on the upper chest. On exam no oral mucosal involvement noted. Patient reports only new medication she got his Toradol today-which was then discontinued. Patient being given ceftriaxone which he has been tolerating for 3 days now. Patient reports having allergy to penicillins. We will continue to monitor for now Patient is already on steroids. Will add Benadryl p.r.n. Recommended outpatient follow-up with Dermatology after discharge. Will pass on to the day hospitalist as well Time Spent With Patient Time: Total time managing care of this patient today ____ minutes.
[2024-12-21] MEDS: Melatonin 3 MG TABLET 6 MG PO (22:39)
[2024-12-21] MEDS: HYDROmorphone HCl 0.5 MG/0.5 ML SYRINGE IVPUSH (23:51)
[2024-12-22] MEDS: methylPREDNISolone Sod Succ 125 MG/2 ML VIAL 60 MG IVPUSH ×4 (00:17→19:01)
[2024-12-22] MEDS: 0.9 % Sodium Chloride Flush 3 ML SYRINGE IVFLUSH ×4 (00:26→20:04)
--- NOTE | 2024-12-22 00:34 | PC.NURSE ---
On initial assessment this RN noticed a reddened rash on patient's face/ bilateral cheeks and upper chest. It appeared to have worsened since rash developed. Previous shift had noted a small rash of left cheek. Provider notified and came to bedside to examine. Benadryl ordered and administered with good effect. Patient continues to c/o abdominal/back pain. Provider notified and ordered Dilaudid 0.5 mg . Medication administered per NOV, resting at present time. Patient scheduled to have colonoscopy done on t 12/22 although unable to complete bowel prep. Patient stating Gavilyte C solution is making her nauseous. Provider notified, will communicate to next shift. Patient resting at present time. Will continue to monitor.
[2024-12-22 03:17] VITALS: BP 129/74; PULSE 50; RESP 18; TEMP 36.6; O2SAT 96
[2024-12-22] MEDS: Omeprazole 40 MG CAPSULE.DR PO (05:34)
[2024-12-22] MEDS: metroNIDAZOLE/NS 500 MG/100 ML PIGGYBACK 100 MG IV ×3 (05:34→19:02)
[2024-12-22] MEDS: Dicyclomine HCl 10 MG CAPSULE PO ×3 (06:36→20:04)
[2024-12-22] MEDS: oxyCODONE HCl Immed Release 5 MG TABLET PO (06:36)
[2024-12-22 07:25] VITALS: BP 145/68; PULSE 46; RESP 16; TEMP 36.1; O2SAT 96
--- NOTE | 2024-12-22 09:21 | PM.GIPN ---
Subjective Subjective Date of Service: 12/22/24 Interval History: Tierra was only able to take 3 doses of the prep; no bm's overnight still symptomatic with abd pain Critical Care Time (minutes): 1 Physical Exam Vital Signs: Vital Signs: Last Vital Signs Temp 96.9 F 12/22/24 07:25 Pulse 46 L 12/22/24 07:25 Resp 16 12/22/24 07:25 BP 145/68 H 12/22/24 07:25 Pulse Ox 96 12/22/24 07:25 O2 Del Method Room Air 12/22/24 07:25 BMI result Body Mass Index 29.0 GI: Other: abdomen is soft and nontender Objective Data Labs 12/20/24 08:15 12/20/24 08:15 Labs: Laboratory Results - last 24 hr 12/21/24 18:10 Urine Color Dark Yellow Urine Appearance Turbid Urine pH 6.5 Ur Specific [place] >= 1.030 H Urine Protein 30 (1+) H Urine Glucose (UA) Negative Urine Ketones Trace Urine Blood Negative Urine Nitrite Negative Ur Leukocyte Esterase Trace H Urine RBC 0-2 Urine WBC 0-5 Ur Squamous Epith Cells >20 Other Crystals Present Urine Bacteria None Seen Hyaline Casts 0-2 Microbiology Microbiology Results: Microbiology 12/19/24 12:07 Blood - Venous Blood Culture - Preliminary No growth after 48 hours. 12/19/24 11:59 Blood - Venous Blood Culture - Preliminary No growth after 48 hours. Procedures Date of Service Date of Service: 12/22/24 Progress Note: A&P Assessment and plan (1) Ileitis: Status: Acute Assessment and Plan: We discussed her situation today We recommended a repeat prep and have rescheduled the procedure for tomorrow. Time Spent With Patient Time: Total time managing care of this patient today ____ minutes. Quality Stroke Does the patient have a stroke diagnosis?: No VTE Prior VTE?: No VTE Risk Level:: Medical - moderate - high VTE Device Contraindication: Treatment Not Indicated VTE Drug Contraindication: N/A - Med Ordered
[2024-12-22] MEDS: HYDROmorphone HCl 0.5 MG/0.5 ML SYRINGE IVPUSH ×3 (11:43→20:07)
[2024-12-22] MEDS: diphenhydrAMINE HCL 50 MG/ML VIAL 25 MG IVPUSH (11:46)
[2024-12-22] MEDS: ondansetron HCL 4 MG/2 ML VIAL IVPUSH ×3 (11:53→20:04)
--- NOTE | 2024-12-22 12:16 | HO.PM.IMPN ---
Subjective Subjective Date of Service: 12/22/24 Interval History: Persists with abdominal pain. Vomited several times last night after taking the GoLYTELY. No bowel movements yet. She developed a facial rash. Review of Systems All 12 systems were reviewed and normal except as noted in HPI. Physical Exam Vital Signs: Vital Signs: Last Vital Signs Temp 96.9 F 12/22/24 07:25 Pulse 46 L 12/22/24 07:25 Resp 16 12/22/24 07:25 BP 145/68 H 12/22/24 07:25 Pulse Ox 96 12/22/24 07:25 O2 Del Method Room Air 12/22/24 07:25 BMI result Body Mass Index 29.0 Constitutional - Awake and Alert, No apparent distress. Looks uncomfortable. Pleasant. Cooperative. HEENT - PERRL, EOMI Heart - S1S2, RRR, No edema Lungs - Normal lung expansion, Normal respiratory effort, No respiratory distress, CTA bilaterally Abdomen - increased bowel sounds, mildly distended, generalized tenderness, no rebound, no guarding. Extremities - no calf tenderness bilaterally, no swelling Musculoskeletal - Normal inspection, normal ROM Skin - Warm/Dry Neurological - Alert & oriented x3. No focal weakness grossly noted. Normal speech. Psychological - Appropriate affect Objective Data Active Medications Albuterol Sulfate (Albuterol Sulfate 90 Mcg 8 Gm Inhaler) 2 puff INHALE Q4H PRN PRN Reason: Shortness Of Breath Or Wheezing Ceftriaxone Sodium (Ceftriaxone Sodium 1 Gm Vial) 1 gm IVPUSH Q24H [facility] Last Admin: 12/21/24 15:04 Dose: 1 gm Documented By: PATRICIA Dicyclomine HCl (Dicyclomine Hcl 10 Mg Capsule) 10 mg PO QIDACHS [facility] Last Admin: 12/22/24 06:36 Dose: 10 mg Documented By: WILLIAM Diphenhydramine HCl (Diphenhydramine Hcl 50 Mg/Ml Vial) 25 mg IVPUSH Q6H PRN PRN Reason: Rash Last Admin: 12/22/24 11:46 Dose: 25 mg Documented By: JIMBO Enoxaparin Sodium (Enoxaparin Sodium 40 Mg/0.4 Ml Syringe) 40 mg SUBCUT Q24H [facility] Last Admin: 12/21/24 13:00 Dose: 40 mg Documented By: DAMIAN Hydromorphone HCl (Hydromorphone Hcl 0.5 Mg/0.5 Ml Syringe) 0.5 mg IVPUSH Q4H PRN; Protocol PRN Reason: Pain, Severe (Pain Scale 7-10) Last Admin: 12/22/24 11:43 Dose: 0.5 mg Documented By: JIMBO Metronidazole (Flagyl) 500 mg in 100 mls @ 100 mls/hr IV Q8H [facility] Last Infusion: 12/22/24 06:46 Dose: Infused Documented By: WILLIAM Methylprednisolone Sodium Succinate (Methylprednisolone Sod Succ 125 Mg/2 Ml Vial) 60 mg IVPUSH Q6H [facility] Last Admin: 12/22/24 06:36 Dose: 60 mg Documented By: WILLIAM Naloxone HCl (Naloxone Hcl Nasal 4 Mg [place]) 4 mg NOSTRILALT Q2M PRN PRN Reason: opioid overdose Ondansetron HCl (Ondansetron Hcl 4 Mg/2 Ml Vial) 4 mg IVPUSH Q8H PRN PRN Reason: Nausea and Vomiting Last Admin: 12/22/24 11:53 Dose: 4 mg Documented By: JIMBO Oxycodone HCl (Oxycodone Hcl Immed Release 5 Mg Tablet) 5 mg PO Q6H [facility] Sodium Chloride (0.9 % Sodium Chloride Flush 3 Ml Syringe) 3 ml IVFLUSH QSHIFT [facility] Last Admin: 12/22/24 11:53 Dose: 3 ml Documented By: JIMBO Spironolactone (Spironolactone 25 Mg Tablet) 150 mg PO DAILY [facility]; Protocol Last Admin: 12/20/24 08:12 Dose: 150 mg Documented By: BRIEN Vitamin D (Cholecalciferol (Vitamin D3) 25 Mcg Tablet) 25 mcg PO DAILY [facility] Last Admin: 12/21/24 07:59 Dose: 25 mcg Documented By: KWABENA-RACIA Labs 12/20/24 08:15 12/20/24 08:15 Labs: Laboratory Results - last 24 hr 12/21/24 18:10 Urine Color Dark Yellow Urine Appearance Turbid Urine pH 6.5 Ur Specific [place] >= 1.030 H Urine Protein 30 (1+) H Urine Glucose (UA) Negative Urine Ketones Trace Urine Blood Negative Urine Nitrite Negative Ur Leukocyte Esterase Trace H Urine RBC 0-2 Urine WBC 0-5 Ur Squamous Epith Cells >20 Other Crystals Present Urine Bacteria None Seen Hyaline Casts 0-2 Microbiology Microbiology Results: Microbiology 12/19/24 12:07 Blood Culture - Preliminary Blood - Venous No growth after 48 hours. 12/19/24 11:59 Blood Culture - Preliminary Blood - Venous No growth after 48 hours. Assessment and Plan (1) Ileitis: Status: Acute (2) Constipation: Status: Acute Plan Tierra Frazier is a 39 year old with woman admitted with: Acute ileitis. CT abd pelvis shows wall thickening of a long segment of the distal ileum compatible with ileitis Continue with significant generalized abdominal pain. Cerebral events of vomiting last night after drinking bowel prep. Clear liquid diet. Will avoid p.o. meds if possible Colonoscopy rescheduled for tomorrow. Repeat bowel prep. Continue IV ceftriaxone and Flagyl (initiated 12/19) Methylprednisolone was restarted. Restart opiates (Dilaudid, oxycodone discontinued due to multiple episodes of vomiting) due to poor pain control with Toradol and Tylenol. Change Zofran 4 mg IV every 6 hours scheduled. Facial rash Etiology is unclear to me Benadryl as needed Constipation Drinking bowel prep Leukocytosis, no hypotension, no fever. Likely secondary to IV steroids. Steroids were restarted. Large ovarian cyst noted on CT scan 5.3 cm left ovarian cyst Pelvis and transvaginal ultrasound done - 5.6 cm simple cyst of the left ovary without overt torsion. Follow as an outpatient. Post-laminectomy syndrome On Dilaudid IV Mood disorder Amitriptyline on hold due to multiple episodes of vomiting GERD Omeprazole was discontinued.. Acne Spironolactone hold due to multiple episodes of vomiting. DVT prophylaxis-Lovenox Full code Patient requires inpatient stay at least 2 midnights for management of acute ileitis with IV antibiotics, IV pain medications and inpatient colonoscopy. Quality Stroke Does the patient have a stroke diagnosis?: No VTE Prior VTE?: No VTE Risk Level:: Medical - moderate - high VTE Device Contraindication: Treatment Not Indicated VTE Drug Contraindication: N/A - Med Ordered
[2024-12-22] MEDS: cefTRIAXone sodium 1 GM VIAL IVPUSH (13:20)
[2024-12-22] MEDS: PEG 3350/Na Sulf,Bicarb,Cl/KCL 4,000 ML SOLN.RECON 4000 ML PO (14:36)
[2024-12-22 15:18] VITALS: BP 128/69; PULSE 53; RESP 18; TEMP 36.2; O2SAT 96
[2024-12-22 19:14] VITALS: BP 129/76; PULSE 50; RESP 18; TEMP 36.3; O2SAT 97
[2024-12-23] VITALS (8 sets, daily range): BP systolic 107–157; BP diastolic 63–83; PULSE 47–58; RESP 15–18; TEMP 36.2–36.7; O2SAT 95–98
--- NOTE | 2024-12-23 | ECG_ITS ---
Test Reason : Palpitations Blood Pressure : */* mmHG Vent. Rate : 57 BPM Atrial Rate : 57 BPM P-R Int : 136 ms QRS Dur : 98 ms QT Int : 444 ms P-R-T Axes : 55 63 57 degrees QTcB Int : 432 ms Sinus bradycardia Otherwise normal ECG When compared with ECG of 11-Oct-2024 07:35, No significant change was found Referred By: Jesi Birmingham Electronically Signed By: HELEN REYNOLDS MD
[2024-12-23] MEDS: HYDROmorphone HCl 0.5 MG/0.5 ML SYRINGE IVPUSH ×5 (00:52→21:04)
[2024-12-23] MEDS: methylPREDNISolone Sod Succ 125 MG/2 ML VIAL 60 MG IVPUSH ×2 (00:52→06:24)
[2024-12-23] MEDS: Melatonin 3 MG TABLET 6 MG PO (01:01)
[2024-12-23] MEDS: metroNIDAZOLE/NS 500 MG/100 ML PIGGYBACK 100 MG IV (03:14)
[2024-12-23] MEDS: ondansetron HCL 4 MG/2 ML VIAL IVPUSH ×4 (03:14→20:58)
[2024-12-23] MEDS: Dicyclomine HCl 10 MG CAPSULE PO ×3 (06:26→20:58)
[2024-12-23 06:52] LABS: MANUAL DIFF FLAG NO
[2024-12-23 07:18] LABS: Albumin Level 3.4 g/dL (3.5-5.0); Anion Gap 12 (12-20); Aspartate Amino Transferase 22 U/L (5-31); Basophils Percent Auto 0.1 % (0-2); Bilirubin Total 0.2 mg/dL (0.0-1.0); Blood Urea Nitrogen 14 mg/dL (9-16); Calcium 8.3 mg/dL (8.4-10.2); Carbon Dioxide 26 mmol/L (22-29); Chloride 106 mmol/L (96-108); Estimated Glomerular Filt Rate > 60; Glucose Random 127 mg/dL (60-115); Hematocrit 33.2 % (37.0-47.0); Hemoglobin 11.4 g/dl (12.0-16.0); Imm Gran Abs Auto 0.08 X10*3/uL (0.00-0.03); Imm Gran Pct Auto 0.7 % (0.0-0.4); Lymphocytes Absolute Auto 0.8 X10*3/uL (1.2-4.9); Lymphocytes Percent Auto 7.7 % (20-40); Mean Corpuscular HGB Conc 34.3 g/dl (31.0-35.0); Mean Corpuscular Hemoglobin 29.3 pg (27.0-33.0); Mean Corpuscular Volume 85.3 fL (80.0-98.0); Mean Platelet Volume 12.8 fL (9.4-12.3); Monocytes Absolute Auto 0.3 X10*3/uL (0.1-1.2); Monocytes Percent Auto 2.8 % (2-11); Neutrophils Absolute Auto 9.7 x10*3/uL (2.0-8.3); Neutrophils Percent Auto 88.7 % (45-73); Platelet Count 132 X10*3/uL (160-400); Potassium 3.8 mmol/L (3.3-5.1); Red Blood Count 3.89 X10*6/uL (4.20-5.50); Red Cell Distribution Width 11.9 % (11.0-16.0); Sodium 140 mmol/L (135-145); Total Protein 6.3 g/dL (6.5-8.0); White Blood Count 10.9 X10*3/uL (4.8-10.8)
[2024-12-23 07:26] LABS: Alkaline Phosphatase 57 U/L (39-117)
[2024-12-23 07:31] LABS: Alanine Aminotransferase 45 U/L (0-31)
[2024-12-23] MEDS: 0.9 % Sodium Chloride Flush 3 ML SYRINGE IVFLUSH ×2 (09:05→14:19)
[2024-12-23] MEDS: diphenhydrAMINE HCL 50 MG/ML VIAL 25 MG IVPUSH (09:10)
--- NOTE | 2024-12-23 09:52 | P.PNIM_ITS ---
Subjective Subjective Date of Service: 12/23/24 Interval History: Abdominal pain is getting very. Had multiple episodes of diarrhea (taking bowel prep). No more episodes of nausea and diarrhea. Review of Systems Review of Systems: Yes all other systems are reviewed and are negative Physical Exam 2 Vital Signs: Vital Signs: Last Vital Signs Temp 97.6 F 12/23/24 07:25 Pulse 47 L 12/23/24 07:25 Resp 18 12/23/24 07:25 BP 147/80 H 12/23/24 07:25 Pulse Ox 95 12/23/24 07:25 O2 Del Method Room Air 12/23/24 07:25 BMI result Body Mass Index 29.0 Constitutional - Awake and Alert, No apparent distress. Looks uncomfortable. Pleasant. Cooperative. HEENT - PERRL, EOMI Heart - S1S2, RRR, No edema Lungs - Normal lung expansion, Normal respiratory effort, No respiratory distress, CTA bilaterally Abdomen - increased bowel sounds, mildly distended, minimal tenderness to palpation. No rebound. No guarding. Extremities - no calf tenderness bilaterally, no swelling Musculoskeletal - Normal inspection, normal ROM Skin - Warm/Dry Neurological - Alert & oriented x3. No focal weakness grossly noted. Normal speech. Psychological - Appropriate affect Objective Data Active Medications Albuterol Sulfate (Albuterol Sulfate 90 Mcg 8 Gm Inhaler) 2 puff INHALE Q4H PRN PRN Reason: Shortness Of Breath Or Wheezing Ceftriaxone Sodium (Ceftriaxone Sodium 1 Gm Vial) 1 gm IVPUSH Q24H [facility] Last Admin: 12/22/24 13:20 Dose: 1 gm Documented By: JIMBO Dicyclomine HCl (Dicyclomine Hcl 10 Mg Capsule) 10 mg PO QIDACHS [facility] Last Admin: 12/23/24 06:26 Dose: 10 mg Documented By: MARLO Diphenhydramine HCl (Diphenhydramine Hcl 50 Mg/Ml Vial) 25 mg IVPUSH Q6H PRN PRN Reason: Rash Last Admin: 12/23/24 09:10 Dose: 25 mg Documented By: JIMBO Enoxaparin Sodium (Enoxaparin Sodium 40 Mg/0.4 Ml Syringe) 40 mg SUBCUT Q24H [facility] Last Admin: 12/21/24 13:00 Dose: 40 mg Documented By: HO.S-RACIA Hydromorphone HCl (Hydromorphone Hcl 0.5 Mg/0.5 Ml Syringe) 0.5 mg IVPUSH Q4H PRN; Protocol PRN Reason: Pain, Severe (Pain Scale 7-10) Last Admin: 12/23/24 09:01 Dose: 0.5 mg Documented By: JIMBO Metronidazole (Flagyl) 500 mg in 100 mls @ 100 mls/hr IV Q8H [facility] Last Infusion: 12/23/24 04:22 Dose: Infused Documented By: MARLO Melatonin (Melatonin 3 Mg Tablet) 6 mg PO BEDTIME PRN PRN Reason: Insomnia Last Admin: 12/23/24 01:01 Dose: 6 mg Documented By: MARLO Methylprednisolone Sodium Succinate (Methylprednisolone Sod Succ 125 Mg/2 Ml Vial) 60 mg IVPUSH Q6H [facility] Last Admin: 12/23/24 06:24 Dose: 60 mg Documented By: MARLO Naloxone HCl (Naloxone Hcl Nasal 4 Mg [place]) 4 mg NOSTRILALT Q2M PRN PRN Reason: opioid overdose Ondansetron HCl (Ondansetron Hcl 4 Mg/2 Ml Vial) 4 mg IVPUSH Q6H [facility] Last Admin: 12/23/24 09:01 Dose: 4 mg Documented By: JIMBO Oxycodone HCl (Oxycodone Hcl Immed Release 5 Mg Tablet) 5 mg PO Q6H [facility] Sodium Chloride (0.9 % Sodium Chloride Flush 3 Ml Syringe) 3 ml IVFLUSH QSHIFT [facility] Last Admin: 12/23/24 09:05 Dose: 3 ml Documented By: JIMBO Spironolactone (Spironolactone 25 Mg Tablet) 150 mg PO DAILY [facility]; Protocol Last Admin: 12/20/24 08:12 Dose: 150 mg Documented By: BRIEN Vitamin D (Cholecalciferol (Vitamin D3) 25 Mcg Tablet) 25 mcg PO DAILY [facility] Last Admin: 12/23/24 08:56 Dose: Not Given Documented By: JIMBO Non-Admin Reason: NPO Labs 12/23/24 06:49 12/23/24 06:49 Labs: Laboratory Results - last 24 hr 12/23/24 06:49 MCV 85.3 MCH 29.3 MCHC 34.3 RDW 11.9 Plt Count 132 L MPV 12.8 H Immature Gran % (Auto) 0.7 H Neut % (Auto) 88.7 H Lymph % (Auto) 7.7 L [place] % (Auto) 2.8 Eos % (Auto) 0.0 Baso % (Auto) 0.1 Lymph # (Auto) 0.8 L [place] # (Auto) 0.3 Eos # (Auto) 0.0 Baso # (Auto) 0.0 Abs Immat Gran (auto) 0.08 H Absolute Neuts (auto) 9.7 H Absolute Nucleated RBC 0.000 Nucleated RBC % (auto) 0.0 Anion Gap 12 Estim Creat Clear Calc 138.0 Estimated GFR > 60 Random Glucose 127 H Calcium 8.3 L Total Bilirubin 0.2 AST 22 ALT 45 H Alkaline Phosphatase 57 Total Protein 6.3 L Albumin 3.4 L Assessment and Plan (1) Ileitis: Status: Acute (2) Facial rash: Status: Acute Plan Tierra Frazier is a 39 year old with woman admitted with: Acute ileitis. CT abd pelvis shows wall thickening of a long segment of the distal ileum compatible with ileitis Continue with significant generalized abdominal pain. Cerebral events of vomiting last night after drinking bowel prep. Clear liquid diet. Will avoid p.o. meds if possible Colonoscopy to the Continue IV ceftriaxone and Flagyl (initiated 12/19) Methylprednisolone was restarted. Continue pain control with Toradol and Dilaudid Continue Zofran 4 mg IV every 6 hours scheduled. Facial rash Etiology is unclear to me Benadryl as needed Constipation, resolved. Leukocytosis, no hypotension, no fever. Likely secondary to IV steroids. Steroids were restarted. Large ovarian cyst noted on CT scan 5.3 cm left ovarian cyst Pelvis and transvaginal ultrasound done - 5.6 cm simple cyst of the left ovary without overt torsion. Follow as an outpatient. Post-laminectomy syndrome On Dilaudid IV Mood disorder Recent amitriptyline Acne Spironolactone on hold DVT prophylaxis-Lovenox Full code Patient requires inpatient stay at least 2 midnights for management of acute ileitis with IV antibiotics, IV pain medications and inpatient colonoscopy. Quality Stroke Does the patient have a stroke diagnosis?: No VTE Prior VTE?: No VTE Risk Level:: Medical - moderate - high VTE Device Contraindication: Treatment Not Indicated VTE Drug Contraindication: N/A - Med Ordered
--- NOTE | 2024-12-23 12:17 | P.CONAN_ITS ---
[facility] Active Problems Active Problems: All Active Problems Facial rash (Acute) Leukocytosis (Acute) Constipation (Acute) Ovarian cyst (Acute) Ileitis (Acute) Fatigue (Acute) Nephrolithiasis (Acute) GERD (gastroesophageal reflux disease) (Acute) Persistent headaches (Acute) Breast pain (Acute) Right knee pain (Acute) Hospital discharge follow-up (Acute) Anxiety (Acute) OCD (obsessive compulsive disorder) (Acute) Mild major depression (Acute) Trapezius muscle strain (Acute) Neck pain (Acute) Shoulder pain, bilateral (Acute) Cervicalgia (Acute) Spondylosis of cervical joint without myelopathy (Acute) Physical exam (Acute) Acne (Acute) Sacroiliitis (Acute) Sacroiliac joint pain (Acute) Menorrhagia (Acute) Well woman exam with routine gynecological exam (Acute) Cervical cancer screening (Acute) Simple ovarian cyst (Acute) ASCUS with positive high risk HPV cervical (Acute) JEIMY II (cervical intraepithelial neoplasia II) (Acute) Obese (Acute) Cholelithiasis (Acute) Insomnia (Acute) 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) Personal history of other diseases of the musculoskeletal system and connective tissue (Acute) Chronic pain syndrome (Acute) Postlaminectomy syndrome, not elsewhere classified (Acute) Chronic back pain greater than 3 months duration (Acute) Past Medical History Medical History Anxiety Obese Cholelithiasis Insomnia 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 Personal history of other diseases of the musculoskeletal system and connective tissue Chronic pain syndrome Postlaminectomy syndrome, not elsewhere classified Chronic back pain greater than 3 months duration Scoliosis Family History Family History Mother Diabetes Father Diabetes Family history of problems with anesthesia: No Surgical History Surgical History Hx of cholecystectomy Hx of tubal ligation Previous back surgery History of Problems with Anesthesia: No Social History Social History Household Members: Family Housing: Apartment 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: Yes (children ages -7,11,18) Do you presently have visiting nurse or other home services: No Alcohol intake: never Patient Tobacco Use Status: Former Tobacco user Tobacco use type: Cigarette e-Cigarette/Vaping Use: Never Used Second Hand Smoke Exposure: No Substance Use Type: Marijuana service: No Current occupational status: unemployed Cognitive needs: No Hearing needs: No Vision needs: No Meds Allergies Allergy/AdvReac Type Severity Reaction Status Date / Time Penicillins Allergy Unknown Hives Verified 12/19/24 06:57 Active Medications: Current Medications Albuterol Sulfate (Albuterol Sulfate 90 Mcg 8 Gm Inhaler) 2 puff INHALE Q4H PRN PRN Reason: Shortness Of Breath Or Wheezing Amitriptyline HCl (Amitriptyline Hcl 25 Mg Tablet) 25 mg PO BEDTIME PRN PRN Reason: Insomnia Ceftriaxone Sodium (Ceftriaxone Sodium 1 Gm Vial) 1 gm IVPUSH Q24H [facility] Last Admin: 12/22/24 13:20 Dose: 1 gm Dicyclomine HCl (Dicyclomine Hcl 10 Mg Capsule) 10 mg PO QIDACHS [facility] Last Admin: 12/23/24 11:54 Dose: Not Given Diphenhydramine HCl (Diphenhydramine Hcl 50 Mg/Ml Vial) 25 mg IVPUSH Q6H PRN PRN Reason: Rash Last Admin: 12/23/24 09:10 Dose: 25 mg Enoxaparin Sodium (Enoxaparin Sodium 40 Mg/0.4 Ml Syringe) 40 mg SUBCUT Q24H [facility] Last Admin: 12/21/24 13:00 Dose: 40 mg Hydromorphone HCl (Hydromorphone Hcl 0.5 Mg/0.5 Ml Syringe) 0.5 mg IVPUSH Q4H PRN; Protocol PRN Reason: Pain, Severe (Pain Scale 7-10) Last Admin: 12/23/24 09:01 Dose: 0.5 mg Metronidazole (Flagyl) 500 mg in 100 mls @ 100 mls/hr IV Q8H [facility] Last Admin: 12/23/24 11:56 Dose: Not Given Melatonin (Melatonin 3 Mg Tablet) 6 mg PO BEDTIME PRN PRN Reason: Insomnia Last Admin: 12/23/24 01:01 Dose: 6 mg Methylprednisolone Sodium Succinate (Methylprednisolone Sod Succ 125 Mg/2 Ml Vial) 60 mg IVPUSH Q6H [facility] Last Admin: 12/23/24 06:24 Dose: 60 mg Naloxone HCl (Naloxone Hcl Nasal 4 Mg [place]) 4 mg NOSTRILALT Q2M PRN PRN Reason: opioid overdose Ondansetron HCl (Ondansetron Hcl 4 Mg/2 Ml Vial) 4 mg IVPUSH Q6H [facility] Last Admin: 12/23/24 09:01 Dose: 4 mg Oxycodone HCl (Oxycodone Hcl Immed Release 5 Mg Tablet) 5 mg PO Q6H [facility] Sodium Chloride (0.9 % Sodium Chloride Flush 3 Ml Syringe) 3 ml IVFLUSH QSHIFT [facility] Last Admin: 12/23/24 09:05 Dose: 3 ml Spironolactone (Spironolactone 25 Mg Tablet) 150 mg PO DAILY [facility]; Protocol Last Admin: 12/20/24 08:12 Dose: 150 mg Vitamin D (Cholecalciferol (Vitamin D3) 25 Mcg Tablet) 25 mcg PO DAILY [facility] Last Admin: 12/23/24 08:56 Dose: Not Given Home Medications ?Medication ?Instructions ?Recorded ?Confirmed ?Last Taken ?Type albuterol sulfate 90 mcg/actuation 2 puff inhalation Q4-6H PRN 10/21/23 12/19/24 Unknown History aerosol inhaler (Ventolin HFA) Shortness Of Breath Or Wheezing spironolactone 50 mg tablet 150 mg PO DAILY 09/09/24 12/19/24 Unknown History amitriptyline 25 mg tablet 25 mg PO BEDTIME PRN mood 12/19/24 12/19/24 Unknown History tretinoin 0.025 % topical cream 1 appl topical BEDTIME 12/19/24 12/19/24 Unknown History Exam Height,Weight and Vital Signs: Height 5 ft 8 in Weight 86.4 kg Last Vital Signs Temp 98.0 F 12/23/24 11:14 Pulse 47 L 12/23/24 11:14 Resp 15 12/23/24 11:14 BP 157/83 H 12/23/24 11:14 Pulse Ox 95 12/23/24 11:14 O2 Del Method Room Air 12/23/24 11:14 Pertinent Lab Results Pertinent Lab Results: Laboratory Tests 12/19/24 12/19/24 12/19/24 07:49 10:08 11:59 WBC 20.9 H RBC 4.21 Hgb 12.5 Hct 36.1 L MCV 85.7 MCH 29.7 MCHC 34.6 RDW 11.9 Plt Count 190 MPV 11.5 Immature Gran % (Auto) 0.4 Neut % (Auto) 88.1 H Lymph % (Auto) 6.8 L [place] % (Auto) 4.5 Eos % (Auto) 0.0 Baso % (Auto) 0.2 Lymph # (Auto) 1.4 [place] # (Auto) 0.9 Eos # (Auto) 0.0 Baso # (Auto) 0.1 Abs Immat Gran (auto) 0.09 H Absolute Neuts (auto) 18.4 H Absolute Nucleated RBC 0.000 Nucleated RBC % (auto) 0.0 Smear Tech's Comments Sodium 136 Potassium 3.7 Chloride 105 Carbon Dioxide 22 Anion Gap 13 BUN 12 Creatinine 0.71 Estim Creat Clear Calc 122.4 Estimated GFR > 60 Random Glucose 157 H Lactic Acid 2.6 H* Lactic Acid F/U @ 2Hr Calcium 9.2 Total Bilirubin 0.4 Direct Bilirubin 0.1 AST 20 ALT 26 Alkaline Phosphatase 79 Total Protein 7.5 Albumin 4.1 Lipase 11 Beta HCG, Quant < 2 Urine Color Urine Appearance Urine pH Ur Specific [place] Urine Protein Urine Glucose (UA) Urine Ketones Urine Blood Urine Nitrite Ur Leukocyte Esterase Urine RBC Urine WBC Ur Squamous Epith Cells Other Crystals Urine Bacteria Hyaline Casts Urine Test Influenza Type A (PCR) NEGATIVE Influenza Type B (PCR) NEGATIVE RSV RNA Qual (PCR) NEGATIVE SARS-CoV-2 RNA (RT-PCR) NEGATIVE 12/19/24 12/19/24 12/20/24 12:25 14:36 08:15 WBC 19.3 H RBC 3.76 L Hgb 11.2 L Hct 32.2 L MCV 85.6 MCH 29.8 MCHC 34.8 RDW 12.0 Plt Count 154 L MPV 12.1 Immature Gran % (Auto) 0.8 H Neut % (Auto) 93.4 H Lymph % (Auto) 4.0 L [place] % (Auto) 1.7 L Eos % (Auto) 0.0 Baso % (Auto) 0.1 Lymph # (Auto) 0.8 L [place] # (Auto) 0.3 Eos # (Auto) 0.0 Baso # (Auto) 0.0 Abs Immat Gran (auto) 0.15 H Absolute Neuts (auto) 18.1 H Absolute Nucleated RBC 0.000 Nucleated RBC % (auto) 0.0 Smear Tech's Comments VERIFIED Sodium 138 Potassium 3.6 Chloride 111 H Carbon Dioxide 22 Anion Gap 9 L BUN 8 L Creatinine 0.59 Estim Creat Clear Calc 147.3 Estimated GFR > 60 Random Glucose 119 H Lactic Acid Lactic Acid F/U @ 2Hr 0.9 Calcium 8.5 D Total Bilirubin Direct Bilirubin AST ALT Alkaline Phosphatase Total Protein Albumin Lipase Beta HCG, Quant Urine Color Yellow Urine Appearance Clear Urine pH 8.5 Ur Specific [place] >= 1.030 H Urine Protein Negative Urine Glucose (UA) Negative Urine Ketones 15 Urine Blood Negative Urine Nitrite Negative Ur Leukocyte Esterase Negative Urine RBC Urine WBC Ur Squamous Epith Cells Other Crystals Urine Bacteria Hyaline Casts Urine Test NEGATIVE Influenza Type A (PCR) Influenza Type B (PCR) RSV RNA Qual (PCR) SARS-CoV-2 RNA (RT-PCR) 12/21/24 12/23/24 18:10 06:49 WBC 10.9 H RBC 3.89 L Hgb 11.4 L Hct 33.2 L MCV 85.3 MCH 29.3 MCHC 34.3 RDW 11.9 Plt Count 132 L MPV 12.8 H Immature Gran % (Auto) 0.7 H Neut % (Auto) 88.7 H Lymph % (Auto) 7.7 L [place] % (Auto) 2.8 Eos % (Auto) 0.0 Baso % (Auto) 0.1 Lymph # (Auto) 0.8 L [place] # (Auto) 0.3 Eos # (Auto) 0.0 Baso # (Auto) 0.0 Abs Immat Gran (auto) 0.08 H Absolute Neuts (auto) 9.7 H Absolute Nucleated RBC 0.000 Nucleated RBC % (auto) 0.0 Smear Tech's Comments Sodium 140 Potassium 3.8 Chloride 106 Carbon Dioxide 26 Anion Gap 12 BUN 14 Creatinine 0.63 Estim Creat Clear Calc 138.0 Estimated GFR > 60 Random Glucose 127 H Lactic Acid Lactic Acid F/U @ 2Hr Calcium 8.3 L Total Bilirubin 0.2 Direct Bilirubin AST 22 ALT 45 H Alkaline Phosphatase 57 Total Protein 6.3 L Albumin 3.4 L Lipase Beta HCG, Quant Urine Color Dark Yellow Urine Appearance Turbid Urine pH 6.5 Ur Specific [place] >= 1.030 H Urine Protein 30 (1+) H Urine Glucose (UA) Negative Urine Ketones Trace Urine Blood Negative Urine Nitrite Negative Ur Leukocyte Esterase Trace H Urine RBC 0-2 Urine WBC 0-5 Ur Squamous Epith Cells >20 Other Crystals Present Urine Bacteria None Seen Hyaline Casts 0-2 Urine Test Influenza Type A (PCR) Influenza Type B (PCR) RSV RNA Qual (PCR) SARS-CoV-2 RNA (RT-PCR) Airway Mallampati Class: II TM Dist: >3cm Neck ROM: Full Assessment and Plan Assessment Anesthesia Assessment: Anesthesia Plan Discussed and Chart Reviewed Final Anesthetic Review Family History of Problems with Anesthesia: No History of Problems with Anesthesia: No NPO: Yes ASA Class: II Final Preanesthetic Review: No Changes in Pt Med Stat, Meds/Allgs Chart Reviewed, Consent Obtained/Reviewed and Anes Risks/Benef Reviewed Patient Risk: Low Procedure Risk: Low Anesthetic Plan Anesthetic Plan: TIVA Disposition: Standard PACU
--- NOTE | 2024-12-23 12:17 | MHC.SHP ---
Pre-Procedural Eval Section A - 24 Hr Update-Section A only Date of Service: 12/23/24 The patient is an INPATIENT: Yes Changes since office visit: No Cold of Flu in the past 2 weeks, No New Medical Problems, No Changes in Medication and No Patient answered all questions The patient has been examined within 24 hours of the surgical procedure. The History & Physical has been completed within 30 days and I have reviewed it.: Yes Section B - Complete if H&P > 30 days Chief Complaint: Intractable abd pain ? crohns Allergies: Allergies Allergy/AdvReac Type Severity Reaction Status Date / Time Penicillins Allergy Unknown Hives Verified 12/19/24 06:57 Plan I have reviewed the history and physical and performed a pertinent physical examination on my patient. No changes have occurred unless specified. Time Spent With Patient Time: Total time managing care of this patient today ____ minutes.
--- NOTE | 2024-12-23 13:12 | P.BOP_ITS ---
Brief Operative Note Date of Service: 12/23/24 Pre-op diagnosis: ileitis Post-op diagnosis: other (normal) Surgeon: Gadiel Patel MD Anesthesia: MAC Was an Final Assembly Worker used for this Procedure?: No Estimated blood loss (mL): 2 Pathology: other Condition: stable Disposition: PACU
--- NOTE | 2024-12-23 13:13 | PM.EVENT ---
Event Note Date of Service: 12/23/24 Event Note: GI colonoscopy dictated no ileitis or colitis normal exam bxs taken advance diet d/c when stable d/c abx and steroids dicyclomine prn Time Spent With Patient Time: Total time managing care of this patient today ____ minutes.
--- NOTE | 2024-12-23 14:31 | OP_ITS ---
DATE OF SERVICE: 12/23/2024 SURGEON: Gadiel Patel MD INDICATIONS: Ileitis on CT scanning. PREOPERATIVE DIAGNOSIS: POSTOPERATIVE DIAGNOSIS: PROCEDURE PERFORMED: Colonoscopy to the terminal ileum with biopsy. ESTIMATED BLOOD LOSS: COMPLICATIONS: ANESTHESIA: Monitored anesthesia care. ASSISTANTS: SPECIMENS: DESCRIPTION OF PROCEDURE: History and physical performed. The risks and benefits of the procedure were explained to the patient. Informed consent was obtained. The patient was placed in the left lateral decubitus position. A digital rectal exam was performed and was found to be normal. The Olympus pediatric videocolonoscope was introduced into the rectum and advanced to the cecum. The cecum was identified by transillumination, palpation, and identification of ileocecal valve. Examination was performed. The scope was removed. She tolerated the procedure well and was returned to recovery area in stable condition. FINDINGS: The terminal ileum was normal. There was no evidence of Crohn disease or ileitis. Biopsies were obtained from the terminal ileum. The visualized colonic mucosa was normal without evidence of colitis. Biopsies were obtained from the right colon and sigmoid. There was some liquid stool left, which was washed and suctioned. No mass or lesions were seen. Retroflexed examination showed some small internal hemorrhoids. IMPRESSION: Normal colonoscopy. RECOMMENDATIONS: 1. Follow up with the biopsy results. 2. Discontinue antibiotics and steroids. 3. Discharge when stable. 4 Screening colonoscopy in 10 years. MD SKYLAR Glez/MARTA / [id number] MTDD
--- NOTE | 2024-12-23 15:48 | MHC.CM.PN ---
per rounds pt not ready for dc dc plans remain for home when stable
[2024-12-23 16:47] LABS: Hematocrit 34.7 % (37.0-47.0); Hemoglobin 11.8 g/dl (12.0-16.0); Mean Corpuscular Hemoglobin 29.5 pg (27.0-33.0); Mean Corpuscular Volume 86.8 fL (80.0-98.0); Mean Platelet Volume 12.7 fL (9.4-12.3); Platelet Count 145 X10*3/uL (160-400); Red Cell Distribution Width 11.9 % (11.0-16.0); White Blood Count 13.5 X10*3/uL (4.8-10.8)
[2024-12-23] MEDS: LORazepam 2 MG/ML VIAL 0.5 MG IVPUSH (16:51)
[2024-12-23 17:02] LABS: Alanine Aminotransferase 43 U/L (0-31); Albumin Level 3.3 g/dL (3.5-5.0); Aspartate Amino Transferase 19 U/L (5-31); Bilirubin Total 0.2 mg/dL (0.0-1.0); Blood Urea Nitrogen 15 mg/dL (9-16); Calcium 8.4 mg/dL (8.4-10.2); Carbon Dioxide 26 mmol/L (22-29); Chloride 105 mmol/L (96-108); Estimated Glomerular Filt Rate > 60; Glucose Random 165 mg/dL (60-115); Magnesium 2.4 mg/dL (1.6-2.6); Potassium 3.5 mmol/L (3.3-5.1); Sodium 139 mmol/L (135-145); Total Protein 6.2 g/dL (6.5-8.0)
[2024-12-23 17:12] LABS: Troponin-I High Sensitivity < 2.7 ng/L (<3.5-17.0)
[2024-12-23 17:15] LABS: Alkaline Phosphatase 53 U/L (39-117)
[2024-12-23 17:24] LABS: Thyroid Stimulating Hormone 0.08 uIU/mL (0.32-4.0)
--- NOTE | 2024-12-23 17:42 | PC.NURSE ---
At approx 1600 pt c/o heart palpitations and feeling like her chest is going to burst. Vital signs stable. MD aware. EKG and labs ordered and one time dose of ativan given, see MAR. BINGHAM to bedside. Additional labs, CXR, and ativan ordered, see
[2024-12-23] MEDS: LORazepam 2 MG/ML VIAL 1 MG IVPUSH (18:11)
[2024-12-23 18:14] LABS: Anion Gap 13 (12-20)
[2024-12-23 18:28] LABS: Free T4 (Free Thyroxine) 1.07 ng/dL (0.71-1.85)
[2024-12-23] MEDS: Amitriptyline HCl 25 MG TABLET PO (21:04)
[2024-12-24] MEDS: 0.9 % Sodium Chloride Flush 3 ML SYRINGE IVFLUSH ×2 (00:25→08:56)
[2024-12-24] MEDS: ondansetron HCL 4 MG/2 ML VIAL IVPUSH ×2 (03:05→08:56)
[2024-12-24] MEDS: diphenhydrAMINE HCL 50 MG/ML VIAL 25 MG IVPUSH (03:10)
[2024-12-24 03:28] VITALS: BP 109/62; RESP 18; TEMP 36.2; O2SAT 98
[2024-12-24] MEDS: HYDROmorphone HCl 0.5 MG/0.5 ML SYRINGE IVPUSH ×2 (06:19→11:16)
[2024-12-24 07:15] VITALS: BP 145/82; PULSE 51; RESP 16; TEMP 36.2; O2SAT 97
--- NOTE | 2024-12-24 08:07 | HO.POSTANES ---
Post Anesthesia Evaluation Post Anesthesia Evaluation Date of Service: 12/24/24 Vital Signs: Vital Signs Temp Pulse Resp BP Pulse Ox O2 Del Method 12/24/24 07:15 97.2 F 51 16 145/82 H 97 Room Air 12/24/24 03:28 97.2 F 18 109/62 98 Room Air Anesthesia: Monitored Mental Status: Awake Pain Control: Satisfactory Nausea/Vomiting: None Hydration: Adequate Anesthesia-Related Issues: No Anes. Related Issues
[2024-12-24] MEDS: Cholecalciferol (Vitamin D3) 25 MCG TABLET PO (08:56)
[2024-12-24] MEDS: Dicyclomine HCl 10 MG CAPSULE PO ×2 (08:56→11:17)
--- NOTE | 2024-12-24 12:38 | PM.DS ---
DS: Providers Provider Date of Service: 12/24/24 Date of admission: 12/19/24 12:50 Date of discharge: 12/24/24 Primary care physician: Erika Khalil MD Consults: 12/19/24 12:50 Consult to Gastroenterology Routine Consulting Provider: Gadiel Patel Reason for consultation: ileitis, intractble abd pain, ?crohns DS: Diagnosis Discharge Diagnosis (1) Ileitis: Status: Acute (2) Facial rash: Status: Acute (3) Subclinical hyperthyroidism: Status: Acute (4) Ovarian cyst: Status: Acute DS: Summary Hospital Course Hospital Course: From the history and physical by the admitting hospitalist, JIMMY Cohen, 12/19/24: 39 year old with history of gerd, mood disorder, postlaminectomy syndrome on chronic opiates presents to the ED earlier this morning for evaluation of diffuse abdominal pain ongoing last night. She has had constipation recently and took OTC miralax yesterday with 2 large BMs subsequently. She states she had mild pain prior to the BMs but this significantly worsened to a 10/10 nonradiating pain across the abdomen, greatest in the epigastrium. Following this she developed nonbloody diarrhea as well and nausea and nonbloody vomiting. No fevers or chills. Denies eating bad foods. No recent travel. No one at home sick with similar symptoms. States she has had recurrent episodes of similar pain. Apparently her brother gets similar symptoms and states is related to MS. In [facility] ED, vss, no fevers. Leukocytosis 20. Renal function electrolyte levels normal. Urinalysis unremarkable. Negative for COVID, flu, RSV. CT of the abdomen/pelvis shows wall thickening of the long segment of the distal ileum compatible with ileitis as well as a 5.3 cm left ovarian cyst. In the ED, has received Flagyl, normal saline, Benadryl, ondansetron, Reglan, morphine, Dilaudid. She was admitted to the medical-surgical unit and treated with IV ceftriaxone and azithromycin along with methylprednisolone. Gastroenterology was consulted. Colonoscopy was done 12/23/24 and showed no ileitis or colitis; examination was grossly normal. Biopsies were taken. Antibiotics and steroids were discontinued. She did have a transient facial rash possibly due to antibiotics but resolved after Benadryl. Diet was advanced to solids. She was prescribed dicyclomine and advised to follow up with GI for biopsy results. Incidental finding of a 5.3cm left ovarian cyst on CT; TVUS showed 5.6 cm simple cyst of the left ovary without overt torsion. She was referred to [facility] as an outpatient for management. She was also found to have low TSH but normal free T4; TFTs should be repeated in 4-6 weeks. Time Attestation Discharge Coordination Time (in mins): 35 Quality: Safe Use of Opioids Does Pt have an Active Cancer Diagnosis on the Problem List?: No Quality: Stroke Does the patient have a stroke diagnosis?: No Physical Exam Vital Signs: Vital Signs: Last Vital Signs Temp 97.2 F 12/24/24 07:15 Pulse 51 12/24/24 07:15 Resp 16 12/24/24 07:15 BP 145/82 H 12/24/24 07:15 Pulse Ox 97 12/24/24 07:15 O2 Del Method Room Air 12/24/24 07:15 BMI result Body Mass Index 29.0 Gen: in no acute distress HEENT: sclera anicteric, moist mucus membranes Neck: supple Lungs: clear to auscultation bilaterally Heart: regular rate and rhythm, no murmurs Abd: soft, mild tenderness around umbilicus without rebound or guarding, non-distended Ext: no edema Skin: warm/well-perfused Neuro: alert and oriented x3, no focal findings Psych: appropriate affect DS: Data Data Completed and Pending Completed studies during hospitalization [Text1]: Laboratory Results WBC 13.5 X10*3/uL (4.8-10.8) H 12/23/24 16:36 RBC 4.00 X10*6/uL (4.20-5.50) L 12/23/24 16:36 Hgb 11.8 g/dl (12.0-16.0) L 12/23/24 16:36 Hct 34.7 % (37.0-47.0) L 12/23/24 16:36 MCV 86.8 fL (80.0-98.0) 12/23/24 16:36 MCH 29.5 pg (27.0-33.0) 12/23/24 16:36 MCHC 34.0 g/dl (31.0-35.0) 12/23/24 16:36 RDW 11.9 % (11.0-16.0) 12/23/24 16:36 Plt Count 145 X10*3/uL (160-400) L 12/23/24 16:36 MPV 12.7 fL (9.4-12.3) H 12/23/24 16:36 Immature Gran % (Auto) 0.7 % (0.0-0.4) H 12/23/24 06:49 Neut % (Auto) 88.7 % (45-73) H 12/23/24 06:49 Lymph % (Auto) 7.7 % (20-40) L 12/23/24 06:49 [place] % (Auto) 2.8 % (2-11) 12/23/24 06:49 Eos % (Auto) 0.0 % (0-4) 12/23/24 06:49 Baso % (Auto) 0.1 % (0-2) 12/23/24 06:49 Lymph # (Auto) 0.8 X10*3/uL (1.2-4.9) L 12/23/24 06:49 [place] # (Auto) 0.3 X10*3/uL (0.1-1.2) 12/23/24 06:49 Eos # (Auto) 0.0 X10*3/uL (0.0-0.4) 12/23/24 06:49 Baso # (Auto) 0.0 X10*3/uL (0.0-0.2) 12/23/24 06:49 Abs Immat Gran (auto) 0.08 X10*3/uL (0.00-0.03) H 12/23/24 06:49 Absolute Neuts (auto) 9.7 x10*3/uL (2.0-8.3) H 12/23/24 06:49 Absolute Nucleated RBC 0.000 X10*3/uL (0.0-0.012) 12/23/24 16:36 Nucleated RBC % (auto) 0.0 /100WBC (0.0-0.2) 12/23/24 16:36 Smear Tech's Comments VERIFIED 12/20/24 08:15 Sodium 139 mmol/L (135-145) 12/23/24 16:36 Potassium 3.5 mmol/L (3.3-5.1) 12/23/24 16:36 Chloride 105 mmol/L (96-108) 12/23/24 16:36 Carbon Dioxide 26 mmol/L (22-29) 12/23/24 16:36 Anion Gap 13 (12-20) 12/23/24 16:36 BUN 15 mg/dL (9-16) 12/23/24 16:36 Creatinine 0.73 mg/dL (0.5-1.4) 12/23/24 16:36 Estim Creat Clear Calc 119.0 12/23/24 16:36 Estimated GFR > 60 12/23/24 16:36 Random Glucose 165 mg/dL (60-115) H 12/23/24 16:36 Lactic Acid 2.6 mmol/L (0.5-2.0) H* 12/19/24 11:59 Lactic Acid F/U @ 2Hr 0.9 mmol/L (0.5-2.0) 12/19/24 14:36 Calcium 8.4 mg/dL (8.4-10.2) 12/23/24 16:36 Magnesium 2.4 mg/dL (1.6-2.6) 12/23/24 16:36 Total Bilirubin 0.2 mg/dL (0.0-1.0) 12/23/24 16:36 Direct Bilirubin 0.1 mg/dL (0.0-0.5) 12/19/24 10:08 AST 19 U/L (5-31) 12/23/24 16:36 ALT 43 U/L (0-31) H 12/23/24 16:36 Alkaline Phosphatase 53 U/L (39-117) 12/23/24 16:36 Troponin I High Sens < 2.7 ng/L (<3.5-17.0) 12/23/24 16:36 Total Protein 6.2 g/dL (6.5-8.0) L 12/23/24 16:36 Albumin 3.3 g/dL (3.5-5.0) L 12/23/24 16:36 Lipase 11 U/L (8-78) 12/19/24 10:08 TSH 0.08 uIU/mL (0.32-4.0) L 12/23/24 16:36 Free T4 1.07 ng/dL (0.71-1.85) 12/23/24 16:36 Beta HCG, Quant < 2 mIU/mL 12/19/24 07:49 Urine Color Dark Yellow 12/21/24 18:10 Urine Appearance Turbid 12/21/24 18:10 Urine pH 6.5 (5.0-9.0) 12/21/24 18:10 Ur Specific [place] >= 1.030 (1.005-1.025) H 12/21/24 18:10 Urine Protein 30 (1+) mg/dL (Neg-Trace) H 12/21/24 18:10 Urine Glucose (UA) Negative mg/dL (Negative) 12/21/24 18:10 Urine Ketones Trace mg/dL (Negative) 12/21/24 18:10 Urine Blood Negative (Negative) 12/21/24 18:10 Urine Nitrite Negative (Negative) 12/21/24 18:10 Ur Leukocyte Esterase Trace (Negative) H 12/21/24 18:10 Urine RBC 0-2 /HPF (0-2) 12/21/24 18:10 Urine WBC 0-5 /HPF (0-5) 12/21/24 18:10 Ur Squamous Epith Cells >20 /HPF (0-2) 12/21/24 18:10 Other Crystals Present 12/21/24 18:10 Urine Bacteria None Seen (None Seen) 12/21/24 18:10 Hyaline Casts 0-2 /LPF (0-2) 12/21/24 18:10 Urine Test NEGATIVE (NEGATIVE) 12/19/24 12:25 Influenza Type A (PCR) NEGATIVE (Negative) 12/19/24 07:49 Influenza Type B (PCR) NEGATIVE (Negative) 12/19/24 07:49 RSV RNA Qual (PCR) NEGATIVE (Negative) 12/19/24 07:49 SARS-CoV-2 RNA (RT-PCR) NEGATIVE (Negative) 12/19/24 07:49 Impressions Abdomen/Pelvis CT 12/19/24 09:36 IMPRESSION: 1. Wall thickening of a long segment of distal ileum compatible with ileitis. 2. 5.3 cm left ovarian cyst. Electronically signed by: Chandler Nick MD 12/19/2024 10:54 AM EDT Pelvic/Transvag US 12/19/24 15:20 IMPRESSION: 5.6 cm simple cyst, left ovary. No ovarian torsion. Electronically signed by: Ulises Nava MD 12/19/2024 04:01 PM EDT RP Pending studies at discharge: Pending at discharge 12/23/24 12:51 Surgical [PTH] Routine Discharge Plan Discharge Anticipated Discharge Date/Time: 12/24/24 12:23 Patient Disposition: Home, Self-Care Discharge Diagnosis: ileitis ovarian cyst subclinical hyperthyroidism Referrals: Gadiel Patel MD [Physician] - 2 Weeks Erika Bowman MD [Primary Care Provider] - 1 Week Jonny Anthony MD [Physician] - 2 Weeks Discharge Medications: New ondansetron 4 mg tablet,disintegrating 4 mg PO Q8H PRN (Reason: nausea and vomiting) Qty: 20 0RF dicyclomine 10 mg capsule 10 mg PO BID Qty: 60 0RF Continued (DME) cane Device See Rx Instructions .Route Qty: 1 0RF Rx Instructions: As directed cholecalciferol (vitamin D3) 25 mcg (1,000 unit) capsule 25 mcg PO DAILY 90 Days Qty: 90 1RF celecoxib 50 mg capsule 50 mg PO BID PRN (Reason: Pain/Inflammation) Qty: 60 3RF Rx Instructions: take with food. do not take with any other NSAIDS tretinoin 0.025 % cream 1 appl topical BEDTIME amitriptyline 25 mg tablet 25 mg PO BEDTIME PRN (Reason: mood) albuterol sulfate [Ventolin HFA] 90 mcg/actuation HFA aerosol inhaler 2 puff inhalation Q4-6H PRN (Reason: Shortness Of Breath Or Wheezing) oxycodone 5 mg tablet 5 mg PO Q6H PRN (Reason: pain) 30 Days Qty: 120 0RF naloxone [Narcan] 4 mg/actuation spray,non-aerosol 4 mg intranasal Q2M PRN (Reason: opioid overdose) Qty: 2 1RF Rx Instructions: spray 1 dose into ONE nostril; alternate nostrils w each dose until help arrives spironolactone 50 mg tablet 150 mg PO DAILY Discharge Orders: Discharge Order (Routine); Ordered 12/24/24 Ordered By: Jaehyun Gerson Diet: Advance to usual diet Activity on Discharge: As tolerated Stand Alone Forms: Patient Portal Discharge page Print Language: Indonesian Care Plan Goals: resolution of abdominal pain Health Concerns: ileitis ovarian cyst subclinical hyperthyroidism Plan of Treatment: take ondansetron as needed for nausea/vomiting, oxycodone for pain take dicyclomine 10 mg twice daily follow up with Dr Patel from [facility] biopsy results follow up with Dr [facility] for care of ovarian cyst recheck TSH and reflex free T4 in 4-6 weeks Please follow up with your primary care doctor within 1 week. Return to the hospital if you experience recurrent or worsening symptoms. Assessment: See Discharge Summary.
--- NOTE | 2024-12-24 13:12 | MHC.CM.PN ---
PATIENT DISCHARGED TO HOME TODAY. [employer] [employer] WILL RESUME. SHE HAS ARRANGED FOR HER SPOUSE TO PROVIDE TRANSPORTATION HOME.
[2024-12-24 13:15] VITALS: BP 110/67; PULSE 77; RESP 18; TEMP 36.3; O2SAT 97
== END 2024-12-24 13:42 | disposition home or self-care (01) | DRG 251 ==
LOC: HO.ED 11:51 → HO.EDOVER 12:57 → HO.S3 12-20 06:53
PROVIDERS: Internal Medicine; Internal Medicine Gastroenterology; Physician Assistant Medical; Admitting Provider Physician Assistant; Emergency Provider Emergency Medicine Emergency Medical Services; PCP Internal Medicine; Visit Provider Family Medicine
PROC: 0DJD8ZZ Inspection of Lower Intestinal Tract, Via Natural or Artificial Opening Endoscopic (ICD-10-PCS; CPT 45378; principal; 2024-12-23 12:30)
DX: R10.9 Unspecified abdominal pain (principal); E03.8 Other specified hypothyroidism; M96.1 Postlaminectomy syndrome, not elsewhere classified; F39 Unspecified mood [affective] disorder; K21.9 Gastro-esophageal reflux disease without esophagitis; K59.00 Constipation, unspecified; L27.1 Localized skin eruption due to drugs and medicaments taken internally; T44.3X5A Adverse effect of other parasympatholytics [anticholinergics and antimuscarinics] and spasmolytics, initial encounter; K52.9 Noninfective gastroenteritis and colitis, unspecified; N83.202 Unspecified ovarian cyst, left side; Z20.822 Contact with and (suspected) exposure to COVID-19; Z87.891 Personal history of nicotine dependence; Z79.899 Other long term (current) drug therapy
CPT/HCPCS: 0241U; 36415; 71045; 74177; 76830; 76856; 80048; 80053; 80076; 81001; 81003; 81025; 83605; 83690; 83735; 84439; 84443; 84484; 84702; 85025; 85027; 87040; 88305; 93005; 99285; J0696; J0744; J1171; J1200; J1650; J1836; J1885; J2003; J2060; J2270; J2405; J2704; J2765; J2919; Q9967

== ENCOUNTER → 2024-12-19 09:36 | Outpatient (BNV) | payer OTHER, SELFPAY | PROVIDERS: Emergency Provider Emergency Medicine Emergency Medical Services; PCP Internal Medicine; Visit Provider Radiology Diagnostic Radiology | DX: N83.202 Unspecified ovarian cyst, left side (principal) | CPT/HCPCS: 74177; 76830; 76856 ==

== ENCOUNTER 2024-12-19 12:50 | Outpatient (BNV) | payer OTHER, SELFPAY | END 2024-12-23 17:35 | PROVIDERS: Admitting Provider Physician Assistant; Emergency Provider Emergency Medicine Emergency Medical Services; PCP Internal Medicine; Visit Provider Nuclear Medicine | DX: R07.9 Chest pain, unspecified (principal) | CPT/HCPCS: 71045 ==

== ENCOUNTER 2024-12-19 12:50 | Outpatient (BNV) | payer OTHER, SELFPAY | END 2024-12-23 16:28 | PROVIDERS: Admitting Provider Physician Assistant; Emergency Provider Emergency Medicine Emergency Medical Services; PCP Internal Medicine; Visit Provider Internal Medicine Cardiovascular Disease | DX: R00.1 Bradycardia, unspecified (principal) | CPT/HCPCS: 93010 ==

== ENCOUNTER → 2024-12-19 12:50 | Outpatient (BNV) | payer OTHER, SELFPAY | PROVIDERS: Admitting Provider Physician Assistant; Emergency Provider Emergency Medicine Emergency Medical Services; PCP Internal Medicine; Visit Provider Physician Assistant | DX: K52.9 Noninfective gastroenteritis and colitis, unspecified (principal) | CPT/HCPCS: 99223; 99233; 99239; 99499 ==

== ENCOUNTER 2025-01-06 11:11 | Outpatient (AMB) | payer OTHER, SELFPAY ==
--- NOTE | 2025-01-06 11:23 | MHC.OFFVIS ---
Vital Signs 01/06/25 11:32 Height 5 ft 8 in Weight 194 lb 4 oz BMI 29.5 BP 132/72 Blood Pressure Location Rt brachial Position Sitting Pulse 76 Pulse Source Pulse Oximeter Pulse Oximetry (%) 97 Oxygen Delivery Method Room Air Intake Visit Reasons: PILL COUNT Intake Note: Tierra comes in today for a pill count to oxycodone, patient should have 68 tablets and presents with 67 tablets which she last took today 01/06/25 at 9am. Pain today 5/10 Allergies dicyclomine Allergy (Mild, Verified 01/06/25 11:32) Rash Penicillins Allergy (Unknown, Verified 01/06/25 11:32) Hives HPI Comments Details: Tierra presents back to the office today for follow up chronic pain and chronic opioid medication management Patient is prescribed oxycodone 5mg tablets Q6H PRN. She arrived today with the expectation of having 68 pills, she presented 67 pills which were counted in the presence of two staff members and returned to the patient in the original prescription bottle. This demonstrates responsible attitude toward patient's opioid medications. Pain is reported today as 5/10 and last dose of pain medication was taken this morning at 09:00. She was recently admitted to [facility] for abd pain. Did suffer from constipation. Awaiting follow up with GI. Denies abd pain, n/v/d today. Continues with neck and shoulder pain bilaterally. 07/15/25 she underwent diagnostic MBB 70% relief. Unfortunately sprint PNS trials were denied by her insurance. Would like to consider RFA once current health concerns are stabilized. 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 other at home: Yes (children ages-7,11,18) Do you presently have visiting nurse or other home services: No Alcohol intake: never Patient Tobacco Use Status: Former Tobacco user Tobacco use type: Cigarette e-Cigarette/Vaping Use: Never Used Second Hand Smoke Exposure: No Substance Use Type: Marijuana service: No Current occupational status: unemployed Cognitive needs: No Hearing needs: No Vision needs: No Female Reproductive History Menstrual Age of Menarche: 11 Review of Systems Const All systems reviewed & are unremarkable except as noted in HPI and below Physical Exam Vital Signs: Last Vital Signs Pulse 76 01/06/25 11:32 BP 132/72 01/06/25 11:32 Pulse Ox 97 01/06/25 11:32 Oxygen Delivery Method Room Air 01/06/25 11:32 BMI result Body Mass Index 29.5 General: awake, alert, oriented. Answers questions appropriately. Fully engaged in examination. Skin: warm, dry, intact without visible rashes or lesions. HEENT: Normocephalic. Conjuntivae clear without exudate. Sclera non-icteric. Hearing intact. Cardiac: External chest normal in appearance. Respiratory: No signs of trauma. No signs of respiratory distress. No cough, audible wheezing or stridor. Abdomen: without gross distension. MS: No obvious swelling or deformities. Ambulates with steady gait, unassisted. Neurological: Oriented to person, place, time and situation. Thought process intact. Psychiatric: Appropriate mood and affect. Good judgment and insight. Const Other: Results Reviewed Results Reviewed: 01/07/24 CERVICAL SPINE: Limited visualization of C7 due to overlying soft tissues. Cervical disc space heights are preserved. Mild retrolisthesis of C4 on C5 with extension reduces with flexion. RIGHT KNEE: No significant joint effusion. Mild narrowing of the medial compartment. Minimal tricompartmental osteophytes. IMPRESSION: 1. Mild retrolisthesis of C4 on C5 with extension reduces with flexion. 2. Mild degenerative changes right knee. 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: Code(s): Z79.891 - senior living (current) use of opiate analgesic Category: Medical (5) Chronic pain syndrome: Code(s): G89.4 - Chronic pain syndrome Category: Medical (6) Postlaminectomy syndrome, not elsewhere classified: Code(s): M96.1 - Postlaminectomy syndrome, not elsewhere classified Category: Medical (7) Chronic back pain greater than 3 months duration: Code(s): M54.9 - Dorsalgia, unspecified; G89.29 - Other chronic pain Category: Medical (8) Cervicalgia: Code(s): M54.2 - Cervicalgia Category: Medical (9) Sacroiliitis: Code(s): M46.1 - Sacroiliitis, not elsewhere classified Category: Medical (10) Sacroiliac joint pain: Code(s): M53.3 - Sacrococcygeal disorders, not elsewhere classified Category: Medical Plan Massint was reviewed and without concerns. No obvious signs of diversion, abuse or misuse of the opioid medications. Will send in prescription for oxycodone 5mg po QID PRN. Continue with Methocarbamol as prescribed New prescription for Movantik 12.5mg po daily for OIC. Patient has exhausted greater than 6 months of conservative therapy including physical therapy, muscle relaxers, NSAIDs and using TENS machine. 70% relief with previous cervical MBB's, unfortunately sprint PNS trials were denied by her insurance. She would like to proceed with cervical RFA once GI issues have been addressed. All questions and concerns have been answered and patient agrees with the plan. Patient to follow-up in the office in 1 month, sooner if needed. Medications: New naloxegol (Movantik) must be taken on empty stomach; no food 1 hr after or 2-3 hrs before dose 12.5 mg PO QAM 30 tabs 3RF Refilled oxycodone 5 mg PO Q6H 30 days PRN 120 tabs 0RF pain G89.4 - Chronic pain syndrome, M46.1 - Sacroiliitis, not elsewhere classified, M47.812 - Spondylosis without myelopathy or radiculopathy, cervical region, M53.3 - Sacrococcygeal disorders, not elsewhere classified, M54.2 - Cervicalgia, M96.1 - Postlaminectomy syndrome, not elsewhere classified, Z79.891 - senior living (current) use of opiate analgesic Coding Level of Care Code Est Pt Level 3 (59182) Complex EM visit Add On G2211 Diagnoses Right knee pain M25.561 Spondylosis of cervical joint without myelopathy M47.812 Trapezius muscle strain S46.819A senior living (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
[2025-01-06 11:32] VITALS: BP 132/72; PULSE 76; O2SAT 97; BMI 29.5
--- OUTSIDE RECORDS SUMMARY | 2025-01-06 12:11 | XMS_ITS | Patient Health Record ---
Author Organization [facility] Address [address] [place] [address] Care Team Providers Care Screed Operator Name Role Phone Erika Bowman Primary Care Provider UnavailGadiel Ingram Jr [phone] Results Component Value Reference Range Notes Pathology Reviewed date:12/31/2024 03:19:14 PM Interpretation: Performing Lab:[facility], [address] [place] [id number] Notes/Report: Name: Tierra Frazier Age/Sex: 39/F : 1985 Unit#: [id number] Attend Dr: Luisana Nieto MD Re12/19/24 Status : DIS IN Location: [facility] 351-1 Disch: 12/24/24 SPEC : [id number] RECD : 12/23/24-6323 STATUS: DESTINEY KING: [id number] ROSANGELA: 12/23/24-[address] [facility] [address]: Gadiel Patel MD ENTERED: 12/23/24 46 SP TYPE: Surgical OTHR DR: Jesi Zapien MD, Ana M MD ORDERED: HE Stain/9, Gross Micro L4/3 Diagnosis A. Terminal ileum, b iopsy: Ileal mucosa with prominent Peyer's patches, otherwise within normal limits ; negative for active or chronic ileitis. B. Colon, right, bio psy: Colonic mucosa within normal limits; negative for active, chronic or microscopic colitis. C. Colon, sigmoid, b iopsy: Colonic mucosa within normal limits; negative for active, chronic or microscopic colitis. Clinical History Pre-Op Dx: Abdominal pain Post-Op Dx: Normal colonoscopy Microscopic Description Microscopic sections reviewed. Material Received A. Terminal ileum bx's B. Right colon bx's C. Sigmoid bx's Gross Description Received in 3 parts. A. Received in forma michelle labeled ?biopsies terminal ileum? are 2 fragments of pink white soft tissue measurin g 0.3 and 0.3 cm in greatest dimension which are wrapped in lens paper and entirely submitt ed for microscopic examination, 2 pieces in cassette A. B. Received in forma michelle labeled ?right colon biopsies? are 2 fragments of translucent, elena- white soft tissue me asuring 0.3 and 0.4 cm in greatest dimension which are wrapped in lens paper and entirely s ubmitted for microscopic examination, 2 pieces in cassette B. C. Received in forma michelle labeled ?sigmoid biopsies? are 2 fragments of pink white soft tissue measuring 0.3 and 0. 3 cm in greatest dimension which are wrapped in lens paper and entirely submitted for micros copic examination, 2 pieces in cassette C. ([facility]) CONTINUED ON NEXT PAGE Name: Tierra Frazier Age/Sex: 39/F : 1985 Unit#: [id number] Attend Dr: Luisana Nieto MD Re12/19/24 Status : DIS IN Location: [facility] 351-1 Disch: 12/24/24 SPEC : [id number] RECD : 12/23/24 STATUS: DESTINEY KRAUSE NUM: [id number] ROSANGELA: 12/23/24-[address]: Gadiel Patel MD ENTERED: 12/23/24- 46 SP TYPE: Surgical OTHR DR: Jesi Zapien MD, Ana M MD ORDERED: HE Stain/9, Gross Micro L4/3 Copies To: Gadiel Patel MD [facility] [address] [place] [address] Jesi Zapien MD [address] [place] [id number] [email or web address] Erika Bowman MD [facility],[place] [address] [place], [place] [id number] Signed (si gnature on file) Bella Harkins MD 12/26/24 5114 END OF REPORT Reason For Referral No Information Encounters Encounter Location Date Provider Diagnosis [facility] Inpatient [address], [place] [id number] 12/23/2024 Gadiel Patel Jr [address] [place] [address] 12/31/2024 Gadiel Patel Jr Plan Of Treatment No Information Insurance Providers Payer Name Payer Address Payer Phone Subscriber Number Group Number Insured Name Patient Relationship to Insured Coverage Start Date Coverage End Date [facility] [address] [address] [place], [place] [id number] Tierra Frazier Self - patient is the insured
--- OUTSIDE RECORDS SUMMARY | 2025-01-06 12:11 | XMS_ITS ---
Author Organization [facility] Address [address] [place] [address] Care Team Providers Care Campus Recruiter Name Role Phone Erika Bowman Primary Care Provider Gadiel Elias Jr REASON FOR VISIT Pathology Encounters Encounter Location Date Provider Diagnosis [facility] [address] [place] [address] 12/31/2024 Gadiel Patel Jr Plan Of Treatment No Information Progress Notes * Tierra BARBERDOB:1985 (39 yo F)Acc No.[id number]:12/31/2024 Patient:?Tierra BARBER :1985???Age:39 Y???Sex:Female Address:[address], [place], [address] * true * Date:? Generated for Miri adamson/Giorgio/eTransmitting on:?01/06/2025 12:11 PM EDT
--- OUTSIDE RECORDS SUMMARY | 2025-01-06 12:11 | XMS_ITS ---
Author Organization [facility] Address [address] [place] [address] Care Team Providers Care Heel Sewer Name Role Phone Erika Bowman Primary Care Provider Gadiel Elias Jr [phone] REASON FOR VISIT ILEITIS Encounters Encounter Location Date Provider Diagnosis [facility] [place] [address] [facility] [place] [id number] 12/23/2024 Gadiel Patel Jr Plan Of Treatment No Information Progress Notes * Tierra BARBERDOB:1985 (39 yo F)Acc No.[id number]:12/23/2024 COLON WITH MAC Patient:?Tierra BARBER Provider:?Gadiel Patel MD :1985???Age:39 Y???Sex:Female D ate:12/23/2024 Address:[address] [place], [place] [address] [facility] Pcp:Erika Khalil Subjective: * Chief Complaints: * ???1. ILEITIS. * Medical History:? Objective: * Vitals:? Assessment: Plan: * Treatment: * * The named appointment provid er may or may not be the originator of this progress note, and it is not deemed complete until electronically signed by the appointment provider. Sign off status: Pending * Provider:?Gadiel Patel MD Date:?0 12/23/2024 Generated for Miri adamson/Giorgio/eTransmitting on:?01/06/2025 12:11 PM EDT
== END 2025-01-06 11:47 | disposition home or self-care (01) ==
LOC: HO.PMC 11:12
PROVIDERS: PCP Internal Medicine; Visit Provider Registered Nurse Emergency
DX: M25.561 Pain in right knee (principal); M47.812 Spondylosis without myelopathy or radiculopathy, cervical region; S46.819A Strain of other muscles, fascia and tendons at shoulder and upper arm level, unspecified arm, initial encounter; Z79.891 Long term (current) use of opiate analgesic; G89.4 Chronic pain syndrome; M96.1 Postlaminectomy syndrome, not elsewhere classified; M54.9 Dorsalgia, unspecified; G89.29 Other chronic pain; M54.2 Cervicalgia; M46.1 Sacroiliitis, not elsewhere classified; M53.3 Sacrococcygeal disorders, not elsewhere classified
CPT/HCPCS: 99213; G2211

== ENCOUNTER → 2025-01-06 11:11 | Outpatient (BNVA) | payer OTHER, SELFPAY | PROVIDERS: PCP Internal Medicine; Visit Provider Registered Nurse Emergency | DX: M47.812 Spondylosis without myelopathy or radiculopathy, cervical region (principal); S46.819A Strain of other muscles, fascia and tendons at shoulder and upper arm level, unspecified arm, initial encounter; M25.561 Pain in right knee; G89.4 Chronic pain syndrome; M96.1 Postlaminectomy syndrome, not elsewhere classified; M54.2 Cervicalgia; M46.1 Sacroiliitis, not elsewhere classified; M53.3 Sacrococcygeal disorders, not elsewhere classified; X58.XXXA Exposure to other specified factors, initial encounter; Y93.9 Activity, unspecified; Y92.9 Unspecified place or not applicable; Y99.9 Unspecified external cause status; Z51.81 Encounter for therapeutic drug level monitoring; Z79.891 Long term (current) use of opiate analgesic | CPT/HCPCS: 99212 ==

== ENCOUNTER 2025-01-11 09:44 | Outpatient (AMB) | payer OTHER, SELFPAY ==
--- NOTE | 2025-01-11 10:12 | MHC.OFFWIV ---
Intake Vital Signs 01/11/25 10:13 Weight 196 lb BP 110/78 Blood Pressure Location Lt brachial Position Sitting Pulse 81 Pulse Source Pulse Oximeter Pulse Oximetry (%) 98 Oxygen Delivery Method Room Air Intake Visit Reasons: EP-body rash Intake Note: Patient here for rash on hands and legs that has been present for about 3 days. Patient Tobacco Use Status: Former Tobacco user Allergies dicyclomine Allergy (Mild, Verified 01/11/25 10:14) Rash Penicillins Allergy (Unknown, Verified 01/11/25 10:14) Hives Do you need a note to return to daycare/school/sports/work: No HPI HPI Comments History of Present Illness Details History of Present Illness - The patient is a 39-year-old female presenting with an itchy rash. - The rash emerged 3 days ago on her bilateral hands and has since extended to her arms and ankles, denies fevers. - The patient denies using new lotions, soaps, detergents, or fabric softeners or OTC meds. - Has not utilized antihistamines such as Benadryl. - Following a recent hospitalization approximately two weeks prior for a notable bacterial infection related to severe abdominal pain, she commenced amitriptyline, a medication she has tolerated well previously. - No febrile episodes or signs of upper respiratory infection have been observed, suggesting the rash is not post-viral in origin. - Recent hospital care involved extensive IV therapy, but the rash emerged several weeks post-hospitalization. Physical Exam General: Cooperative, healthy appearing, comfortable, no acute distress and well developed Orientation: Patient oriented x3 Limitations: No limitations Head: Normal to inspection Ears: Hearing grossly normal bilaterally Nose: Normal External nose present Face and sinus: Normal facial exam Eyes: Appearance normal, both eyes and all related structures Neck: Normal visual inspection and Yes full ROM Respiratory: Normal respiratory effort and able to speak in complete sentences. Skin: pinpoint erythematous rash on dorsal hands extending to forearms, similar on bilat ankles, not in web spaces of fingers. 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 Personal history of other diseases of the musculoskeletal system and connective tissue Chronic pain syndrome Postlaminectomy syndrome, not elsewhere classified Chronic back pain greater than 3 months duration Scoliosis Surgical History Hx of cholecystectomy Hx of tubal ligation Previous back surgery Family History Mother Diabetes Father Diabetes Social History Household Members: Family Housing: Apartment 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 at 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: Yes (children ages-7,11,18) Do you presently have visiting nurse or other home services: No Alcohol intake: never Patient Tobacco Use Status: Former Tobacco user Tobacco use type: Cigarette e-Cigarette/Vaping Use: Never Used Second Hand Smoke Exposure: No Substance Use Type: Marijuana service: No Current occupational status: unemployed Cognitive needs: No Hearing needs: No Vision needs: No Female Reproductive History Menstrual Age of Menarche: 11 Review of Systems Const All systems reviewed & are unremarkable except as noted in HPI and below Physical Exam Vital Signs: Last Vital Signs Pulse 81 01/11/25 10:13 BP 110/78 01/11/25 10:13 Pulse Ox 98 01/11/25 10:13 Oxygen Delivery Method Room Air 01/11/25 10:13 Assessment & Plan Assessment & Plan (1) Contact dermatitis: Code(s): L25.9 - Unspecified contact dermatitis, unspecified cause Qualifiers: Contact dermatitis type: allergic Contact dermatitis trigger: unspecified trigger Qualified Code(s): L23.9 - Allergic contact dermatitis, unspecified cause Plan: VSS, pt well appearing and PE remarkable for pinpoint rash in bilateral forearms, hands and ankles. Likely contact dermatitis. The primary concern is the itchy rash. Current details do not attribute it to amitriptyline, a product switch, or a known allergen. Continued observation and consideration of lifestyle and previous exposure are paramount. Sent prednisone 12 day taper and hydroxyzene for symptoms. Should the condition not resolve or worsen, further medical evaluation would be necessary by PCP or [facility]. Patient was informed and verbally consented to the use of an ambient scribe for clinic note documentation during this visit. Medications: New prednisone see taper instructions; 40 mg Daily x3 days, 30 mg daily x3 days, 20 mg daily x3 days, 10 mg daily x3 days 10 mg PO DIRECTED 30 tabs 0RF hydroxyzine HCl 25 mg PO BEDTIME 14 tabs 0RF Coding Level of Care Code Est Pt Level 3 (99389) Diagnoses Allergic contact dermatitis, unspecified trigger L23.9 Contact dermatitis type: allergic Contact dermatitis trigger: unspecified trigger
[2025-01-11 10:13] VITALS: BP 110/78; PULSE 81; O2SAT 98
--- OUTSIDE RECORDS SUMMARY | 2025-01-11 10:54 | XMS_ITS | Patient Health Record ---
Author Organization [facility] Address [address] [place] [address] Care Team Providers Care Poultry Processor Name Role Phone Erika Bowman Primary Care Provider UnavailGadiel Ingram Jr [phone] Results Component Value Reference Range Notes Pathology Reviewed date:12/31/2024 03:19:14 PM Interpretation: Performing Lab:[facility], [address] [place] [id number] Notes/Report: Name: Tierra Frazier Age/Sex: 39/F : 1985 Unit#: [id number] Attend Dr: Luisana Nieto MD Re12/19/24 Status : DIS IN Location: [facility] 351-1 Disch: 12/24/24 SPEC : [id number] RECD : 12/23/24-6659 STATUS: DESTINEY KING: [id number] ROSANGELA: 12/23/24-1251 [facility] DR: Gadiel Patel MD ENTERED: 12/23/24 46 [...] copic examination, 2 pieces in cassette C. ([facility]) CONTINUED ON NEXT PAGE Name: Tierra Frazier Age/Sex: 39/F : 1985 Unit#: [id number] Attend Dr: Luisana Nieto MD Re12/19/24 Status : DIS IN Location: [facility] 351-1 Disch: 12/24/24 SPEC : [id number] RECD : 12/23/24 STATUS: DESTINEY KRAUSE NUM: [id number] ROSANGELA: 12/23/24-[address]: Gadiel Patel MD ENTERED: 12/23/24- 46 SP TYPE: Surgical OTHR DR: Jesi Zapien MD, Ana M MD ORDERED: HE Stain/9, Gross Micro L4/3 Copies To: Gadiel Patel MD [facility] [address] [place] [address] Jesi Zapien MD [address] [place] [id number] [email or web address] .Kimengi Erika Bowman MD [facility] Primary Care,[facility] [address] [place], [place] [phone] Signed (si gnature on file) Bella Harkins MD 12/26/24 4984 END OF REPORT Reason For Referral No Information Encounters Encounter Location Date Provider Diagnosis [facility] Inpatient [address] [place], [place] [id number] 12/23/2024 Gadiel Patel Jr [address] [place] [address] 12/31/2024 Gadiel Patel Jr Plan Of Treatment No Information Insurance Providers Payer Name Payer Address Payer Phone Subscriber Number Group Number Insured Name Patient Relationship to Insured Coverage Start Date Coverage End Date [facility] [address] [address] [place], [place] [id number] Tierra Frazier Self - patient is the insured
--- OUTSIDE RECORDS SUMMARY | 2025-01-11 10:54 | XMS_ITS ---
Author Organization [facility] Address [address] [place] [address] Care Team Providers Care Microbiology Lab Assistant Name Role Phone Erika Bowman Primary Care Provider Gadiel Elias Jr REASON FOR VISIT Pathology Encounters Encounter Location Date Provider Diagnosis [facility] [address] [place] [address] 12/31/2024 Gadiel Patel Jr Plan Of Treatment No Information Progress Notes * Tierra BARBERDOB:1985 (39 yo F)Acc No.[id number]:12/31/2024 Patient:?Tierra BARBER :1985???Age:39 Y???Sex:Female Address:[address], [place], [address] * true * Date:? Generated for Miri adamson/Giorgio/eTransmitting on:?01/11/2025 10:54 AM EDT
--- OUTSIDE RECORDS SUMMARY | 2025-01-11 10:55 | XMS_ITS ---
Author Organization [facility] Address [address] [place] [address] Care Team Providers Care Signal Person Name Role Phone Erika Bowman Primary Care Provider Gadiel Elias Jr REASON FOR VISIT ILEITIS Encounters Encounter Location Date Provider Diagnosis [facility] [place] [address] [place] [phone] 12/23/2024 Gadiel Patel Jr Plan Of Treatment No Information Progress Notes * Tierra BARBERDOB:1985 (39 yo F)Acc No.[id number]:12/23/2024 COLON WITH MAC Patient:?Tierra BARBER Provider:?Gadiel Patel MD :1985???Age:39 Y???Sex:Female D ate:12/23/2024 Address:[address] [place], [place] [address] [facility] Pcp:Erika Khalil Subjective: * Chief Complaints: * [...] MD Date:?0 12/23/2024 Generated for Miri adamson/Giorgio/eTransmitting on:?01/11/2025 10:54 AM EDT
== END 2025-01-11 11:08 | disposition home or self-care (01) ==
PROVIDERS: PCP Internal Medicine; Visit Provider Physician Assistant
DX: L23.9 Allergic contact dermatitis, unspecified cause (principal)

== ENCOUNTER → 2025-01-11 09:44 | Outpatient (BNVA) | payer OTHER, SELFPAY | PROVIDERS: PCP Internal Medicine; Visit Provider Physician Assistant | DX: L23.9 Allergic contact dermatitis, unspecified cause (principal) | CPT/HCPCS: 99212 ==

== ENCOUNTER 2025-01-13 10:14 | Outpatient (AMB) | payer OTHER, SELFPAY ==
--- NOTE | 2025-01-13 10:55 | MHC.OFFVIS ---
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: Miscellaneous Machine Operator Present (Dot) Accompanied by: Self / Same As Patient Allergies dicyclomine Allergy (Mild, Verified 01/13/25 10:59) Rash Penicillins Allergy (Unknown, Verified 01/13/25 10:59) Hives Medication List - Last Reconciled 01/13/25 by Maria R Talbot CNM albuterol sulfate 90 mcg/actuation (Ventolin HFA) 2 puffs inhalation Q4-6H PRN amitriptyline 25 mg PO BEDTIME PRN cane As directed celecoxib 50 mg PO BID PRN cholecalciferol (vitamin D3) 25 mcg PO DAILY 90 days hydroxyzine HCl 25 mg PO BEDTIME naloxegol (Movantik) 12.5 mg PO QAM naloxone 4 mg/actuation (Narcan) 4 mg intranasal Q2M PRN ondansetron 4 mg PO Q8H PRN oxycodone 5 mg PO Q6H PRN 30 days prednisone 10 mg PO DIRECTED spironolactone 150 mg PO DAILY tretinoin 0.025% 1 appl topical BEDTIME Is last menstrual period known: Yes Last menstrual period: 12/22/24 Post menopausal: No Patient : No HPI HPI 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 She is on a contract she has chronic constipation and struggles with that and before going to the hospital she had been 1 full week without having a bowel movement and asked her to get a liquid medication at the [facility] pharmacy which she drank and after several hours she started having diarrhea and throwing up and the abdominal pain so went to the ER peer it she ended up having a colonoscopy all she was hospitalized and she also had an ultrasound that showed a cyst which she thought they said was the size of an orange it was 5.6 cm. She had her. Her also around that time that she was in the hospital and she feels like it might be starting again soon she had her tubes tied. She has 4 children. She is getting some light spotting but she tends to get that and she says it has since a LEEP where she will get a light spotting for a few days before the period comes on full. 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 Personal history of other diseases of the musculoskeletal system and connective tissue Chronic pain syndrome Postlaminectomy syndrome, not elsewhere classified Chronic back pain greater than 3 months duration Scoliosis Surgical History Hx of cholecystectomy Hx of tubal ligation Previous back surgery Family History Mother Diabetes Father Diabetes Social History Household Members: Family Housing: Apartment 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 at home: Yes (children ages-7,11,18) Do you presently have visiting nurse or other home services: No Alcohol intake: never Patient Tobacco Use Status: Former Tobacco user Tobacco use type: Cigarette e-Cigarette/Vaping Use: Never Used Second Hand Smoke Exposure: No Substance Use Type: Marijuana service: No Current occupational status: unemployed Cognitive needs: No Hearing needs: No Vision needs: No Female Reproductive History Menstrual Age of Menarche: 11 Duration of menses: 6-7 days Date of last menstrual period: 12/22/24 control method: none Total pregnancies: 4 Full term: 4 Date of last pap smear: 10/28/23 (negative pap smear, negative hpv ) History of abnormal pap smear: Yes (2008 CIN1) Date of Mammogram: 05/18/24 (bi rad 1) Physical Exam Vital Signs: Last Vital Signs BP 112/74 01/13/25 11:00 BMI result Body Mass Index 29.8 Const General: healthy appearing, comfortable, no acute distress, well developed and alert Nutritional Appearance: average body habitus Orientation/consciousness: patient oriented x3 Limitations: no limitations HEENT Head: Yes normocephalic Neck Neck: Yes normal visual inspection Chest Chest palpation & inspection: normal inspection of the chest Breast/axilla inspection: normal inspection of the breasts and normal inspection of the axillae Breast/axilla palpation: normal palpation of the breasts and normal palpation of the axillae Resp Effort & Inspection: normal respiratory effort GI Inspection: Yes normal to inspection, No Abdominal wall edema and No distended Palpation (GI): Soft to palpation and nontender Other: External exam within normal limits vagina is pink and moist there is a brownish tinged mucus consistent with spotting from the start of menses cervix is otherwise multiparous pink smooth healthy appearing gaping at external os tightly closed at middle from LEEP. Cervix is long close thick mobile nontender uterus is midposition anteverted nontender no adnexal tenderness appreciated slightly weak tone with Kegel instructed on doing Kegel's daily to counteract her straining from the constipation hard stool palpable in rectum as well. General: Yes bladder normal to palpation External Female Exam: normal external appearance and normal appearance of the urethra Speculum Exam - Vagina: normal appearance of the vagina, normal palpation and normal vaginal discharge Speculum Exam - Cervix: normal appearance of the cervix, normal palpation and nontender Bimanual exam- vagina & uterus: normal bimanual exam, normal palpation, uterine size normal, bladder normal to palpation, consistency normal, normal palpation, uterine mobility normal, uterine shape normal, No Cervical tenderness present, non-tender and no cervical motion tenderness Bimanual Exam- Adnexa, other: normal adnexae, no masses, normal and No adnexal tenderness Neuro General: patient oriented x3 Results Reviewed Results Reviewed: Name: Tierra Frazier Age/Sex: 38/F Attending: Jonny Anthony MD : 1985 Submitted by: Jonny Anthony MD Copies to: Erika Bowman MD MR #: [id number] Status: DEP REF Collected: 02/20/23 Location: [facility] Received: 02/24/23 ADDENDUM REPORT Addendum Addendum #1 The patient's previous Pap test ([id number]) is reviewed and the rare atypical cells in the Pap are similar to the dysplastic cells in the current biopsy. Electronically Signed By: Liliya Tran 03/17/231929 Diagnosis A. Endocervix, curettage: Endocervical glandular mucosa and rare squamous cells; negative for dysplasia. B. Cervix, 1:00, biopsy: Squamous and endocervical glandular mucosa with reactive changes; negative for dysplasia. C. Cervix, 3:00, biopsy: Squamous and endocervical glandular mucosa with reactive changes; negative for dysplasia. D. Cervix, 4:00, biopsy: Squamous and endocervical glandular mucosa; negative for dysplasia. E. Cervix, 7:00, biopsy: Squamous and endocervical glandular mucosa; negative for dysplasia. F. Cervix, 10:00, biopsy: High-grade squamous intraepithelial lesion (moderate dysplasia, JEIMY II); endocervical glandular mucosa present. G. Cervix, 12:00, biopsy: Squamous and endocervical glandular mucosa with inflammation and reactive changes; negative for dysplasia. Comment: Review of the patient's previous Pap test is pending; addendum to follow. Clinical History ASCUS with positive high risk HPV cervical Microscopic Description Patient: Tierra Frazier Age/Sex: 38/F MR#: [id number] Page 1 of 2 Surgical Pathology [id number] Microscopic sections reviewed. Material Received A: ECC B: Cx bx 1 o'clock C: Cx bx 3 o'clock D: Cx bx 4 o'clock E: Cx bx 7 o'clock F: Cx bx 10 o'clock G: Cx bx 12 o'clock Gross Description A. Received in formalin is a 0.5 cc aggregate of elena wispy soft tissue and scant associated mucous, filtered through a mesh bag and entirely submitted in cassette A1. B. Received in formalin is 1 elena 6 mm soft tissue fragment, totally submitted in cassette B1. C. Received in formalin is 1 elena 5 mm soft tissue fragment, totally submitted in cassette C1. D. Received in formalin is 1 elena 7 mm soft tissue fragment with admixed mucous, totally submitted in cassette D1. E. Received in formalin is 1 elena 6 mm soft tissue fragment, totally submitted in cassette E1. F. Received in formalin is 1 elena 6 mm soft tissue fragment, totally submitted in cassette F1. G. Received in formalin is 1 elena 4 mm soft tissue fragment, totally submitted in cassette G1. (DTL) Copies To Erika Bowman MD [address] [place] [address] [address] [place] [address] Jonny Anthony MD [address] [place] [address] [address] [place] [address] NOTE: Some or all of the immunohistochemical tests reported herein may have been developed and their performance characteristics determined by [facility]. They have not been cleared or approved by the U.S. Food and Drug Administration (FDA). However, the FDA has determined that such clearance or approval is not necessary. This laboratory is certified under the Clinical Laboratory Improvement Amendments of 1988 (CLIA) as qualified to perform high complexity clinical laboratory testing. Electronically Signed By: Liliya Tran 02/25/232018 Patient: Tierra Frazier Age/Sex: 38/F MR#: [id number] Patient: Tierra Frazier MR#: [id number] : 1985 Acct:[id number] Age/Sex: 39 / F ADM Date: 12/19/24 Loc: [place] [address]: Julee MARQUEZ Ordering Physician: Julee Chaparro Date of Service: 12/19/24 Procedure(s): US pelvic and transvaginal Accession Number(s): [id number] cc: Julee Chaparro; Erika Bowman MD~ EXAMINATION: US PELVIS CLINICAL INFORMATION: 5.3 cm cyst in the left adnexa on recent CT abdomen pelvis. COMPARISON: October 11, 2024. Correlated to CT dated December 19, 2024. TECHNIQUE: Ultrasound of the pelvis is performed using both transabdominal and transvaginal transducers along with Doppler. Transvaginal imaging is performed due to inadequate visualization transabdominally. FINDINGS: Uterus: The uterus is anteverted and measures 13 x 5 x 5 cm. The cervix is closed. The double wall endometrial thickness is 4 mm. The uterus is smooth in contour and has normal myometrial echogenicity. No visible fibroid. Adnexa: Both ovaries are visualized. There is normal color flow to the adnexa. There is no ovarian torsion. There is no pelvic ascites or fluid collection. Trace amount of free fluid. Right ovary measures 2 x 2 x 2 cm. Volume: 2.4 cc. Left ovary measures 7 x 5 x 5. cm. Volume: 17.4 cc. There is a 5.6 cm anechoic lesion without septations or nodular components. No flow on color Doppler interrogation. US/US pelvic and transvaginal IMPRESSION: 5.6 cm simple cyst, left ovary. No ovarian torsion. Electronically signed by: Ulises Nava MD 12/19/2024 04:01 PM EDT Dictated By: Ulises Webster MD Signed By: <Electronically signed by Ulises Juarez MD in OV> 12/19/24 1601 DD/ 1520 TD/TT: 12/19/24 1534 Bundler: Name: Tierra Frazier Age/Sex: 39/F : 1985 Unit#: [id number] Attend Dr: Luisana Nieto MD Re12/19/24 Status: DIS IN Location: [facility] 351-1 Disch: 12/24/24 SPEC : [id number] ROSANGELA: 12/23/24 STATUS: COMP REQ : [id number] RECD: 12/23/[address]: Jesi Zapien MD COMP: 12/23/24 ENTERED: 12/23/[address]: Erika Bowman MD ORDERED: CBC No Diff Test Result Flag Reference WBC 13.5 H 4.8-10.8 X10*3/uL RBC 4.00 L 4.20-5.50 X10*6/uL HGB 11.8 L 12.0-16.0 g/dl HCT 34.7 L 37.0-47.0 % MCV 86.8 80.0-98.0 fL MCH 29.5 27.0-33.0 pg MCHC 34.0 31.0-35.0 g/dl RDW 11.9 11.0-16.0 % PLT 145 L 160-400 X10*3/uL MPV 12.7 H 9.4-12.3 fL NRBC Pct Auto 0.0 0.0-0.2 /100WBC NRBC Abs Auto 0.000 0.0-0.012 X10*3/uL END OF REPORT Assessment & Plan Assessment & Plan (1) Cervical cancer screening: Comment: 10/17/2022 Pap is ASCUS with positive HPV, needs colpo; had colpo followed by LEEP. Pap smear negative in 2023 with negative HPV. Pap repeated 01/13/2025. Code(s): Z12.4 - Encounter for screening for malignant neoplasm of cervix Category: Medical (2) Simple ovarian cyst: Comment: Also seen November 2024 on ultrasound. we will get follow-up ultrasound in 2 months. Code(s): N83.209 - Unspecified ovarian cyst, unspecified side Category: Medical (3) JEIMY II (cervical intraepithelial neoplasia II): Comment: Status post LEEP cone with post cone ECC was no residual dysplasia Code(s): N87.1 - Moderate cervical dysplasia Category: Medical (4) Menorrhagia with regular cycle: Code(s): N92.0 - Excessive and frequent menstruation with regular cycle Category: Medical (5) Chronic back pain greater than 3 months duration: Code(s): M54.9 - Dorsalgia, unspecified; G89.29 - Other chronic pain Category: Medical (6) Well woman exam with routine gynecological exam: Code(s): Z01.419 - Encounter for gynecological examination (general) (routine) without abnormal findings Category: Medical (7) Constipation due to opioid therapy: Code(s): K59.03 - Drug induced constipation; T40.2X5A - Adverse effect of other opioids, initial encounter Category: Medical Plan -----Discussed in this visit the following: healthy balanced diet, regular and consistent exercise, getting recommended health screens, doing the best she can for her particular health concerns, kegel exercises, pap smear screening and followup recommendations, mammography screening and SBE, normal changes in cycles in her life stage--- . Reviewed that regular routine mammograms will start when she does turn 40 which is coming up soon she said she already had 1 because of breast pain. Given the cyst that showed up in the ultrasound when she was hospitalized I am ordering a follow-up ultrasound to check on that in a couple of months. Discussed that simple cysts can come and go and they in and of themselves are not as concerning as other findings I suggested daily magnesium 250 mg tablets [id number] to help with her leg cramps that she gets at night and they may also help with the constipation but to follow what ever else is being recommended to her to help with her bowel regimen and anything she can do to not have her be constipated for a full week at a time without going would be to her benefit. Discussed considering the benefits of the Mirena IUD if she finds that her periods are getting heavier and crampier and closer together . Orders: Orders Pap Smear Today Z01.419 - Encounter for gynecological examination (general) (routine) without abnormal findings Bacterial Vaginosis Panel Today Z01.419 - Encounter for gynecological examination (general) (routine) without abnormal findings US pelvic and transvaginal 2 Months N83.209 - Unspecified ovarian cyst, unspecified side, N87.1 - Moderate cervical dysplasia, Z12.4 - Encounter for screening for malignant neoplasm of cervix CT NG by PCR Today Z01.419 - Encounter for gynecological examination (general) (routine) without abnormal findings HPV High risk Today Z01.419 - Encounter for gynecological examination (general) (routine) without abnormal findings Coding Level of Care Code Est Pt Prev Care 18-39y(32963) Diagnoses Cervical cancer screening Z12.4 Simple ovarian cyst N83.209 JEIMY II (cervical intraepithelial neoplasia II) N87.1 Menorrhagia with regular cycle N92.0 Chronic back pain greater than 3 months duration M54.9; G89.29 Well woman exam with routine gynecological exam Z01.419 Constipation due to opioid therapy K59.03; T40.2X5A
[2025-01-13 11:00] VITALS: BP 112/74; BMI 29.8
--- OUTSIDE RECORDS SUMMARY | 2025-01-13 11:04 | XMS_ITS | Patient Health Record ---
Author Organization [facility] Address [address] [place] [address] Care Team Providers Care Service Station Console Operator Name Role Phone Erika Bowman Primary Care Provider UnavailGadiel Ingram Jr Results Component Value Reference Range Notes Pathology Reviewed date:12/31/2024 03:19:14 PM Interpretation: Performing Lab:[facility], [address] [place] [id number] Notes/Report: Name: Tierra Frazier Age/Sex: 39/F : 1985 Unit#: [id number] Attend Dr: Luisana Nieto MD Re12/19/24 Status : DIS IN [facility] 351-1 Disch: 12/24/24 SPEC : [id number] RECD : 12/23/24-4241 STATUS: DESTINEY KING: [id number] ROSANGELA: 12/23/24-1251 [facility] DR: Gadiel Patel MD ENTERED: 12/23/24 46 [...] copic examination, 2 pieces in cassette C. ([facility]) CONTINUED ON NEXT PAGE Name: Tierra Frazier Age/Sex: 39/F : 1985 Unit#: [id number] Attend Dr: Luisana Nieto MD Re12/19/24 Status : DIS IN Location: [facility] 351-1 Disch: 12/24/24 SPEC : [id number] RECD : 12/23/24 STATUS: DESTINEY KRAUSE NUM: [id number] ROSANGELA: 12/23/24-[address]: Gadiel Patel MD ENTERED: 12/23/24- 46 SP TYPE: Surgical OTHR DR: Jesi Zapien MD, Ana M MD ORDERED: HE Stain/9, Gross Micro L4/3 Copies To: Gadiel Patel MD [facility] [address] [place] [address] Jesi Zapien MD [address] [place] [id number] [email or web address] Erika Bowman MD [facility] [address] [place], [place] [id number] Signed (si gnature on file) Bella Harkins MD 12/26/24 9134 END OF REPORT Reason For Referral No Information Encounters Encounter Location Date Provider Diagnosis [facility] [place] [address] [place], [place] [id number] 12/23/2024 Gadiel Patel Jr [address] [place] [address] 12/31/2024 Gadiel Patel Jr Plan Of Treatment No Information Insurance Providers Payer Name Payer Address Payer Phone Subscriber Number Group Number Insured Name Patient Relationship to Insured Coverage Start Date Coverage End Date [facility] [address] [address] [place], [place] [id number] Tierra Frazier Self - patient is the insured
--- OUTSIDE RECORDS SUMMARY | 2025-01-13 11:04 | XMS_ITS ---
Author Organization [facility] Address [address] [place] [address] Care Team Providers Care Turkey Farmer Name Role Phone Erika Bowman Primary Care Provider Gadiel Elias Jr REASON FOR VISIT Pathology Encounters Encounter Location Date Provider Diagnosis [facility] [address] [place] [address] 12/31/2024 Gadiel Patel Jr Plan Of Treatment No Information Progress Notes * Tierra BARBERDOB:1985 (39 yo F)Acc No.[id number]:12/31/2024 Patient:?Tierra BARBER :1985???Age:39 Y???Sex:Female Address:[address], [place], [address] * true * Date:? Generated for Miri adamson/Giorgio/eTransmitting on:?01/13/2025 11:03 AM EDT
--- OUTSIDE RECORDS SUMMARY | 2025-01-13 11:04 | XMS_ITS ---
Author Organization [facility] Address [address] [place] [address] Care Team Providers Care Director Of Research Name Role Phone Erika Bowman Primary Care Provider Gadiel Elias Jr REASON FOR VISIT ILEITIS Encounters Encounter Location Date Provider Diagnosis [facility] Inpatient [address] [facility] [place] [id number] 12/23/2024 Gadiel Patel Jr Plan Of Treatment No Information Progress Notes * Tierra BARBERDOB:1985 (39 yo F)Acc No.[id number]:12/23/2024 COLON WITH MAC Patient:?Tierra BARBER Provider:?Gadiel Patel MD :1985???Age:39 Y???Sex:Female D ate:12/23/2024 Address:[address] [place], [place] [address] [facility] Pcp:Erika Khalil Subjective: * Chief Complaints: * [...] MD Date:?0 12/23/2024 Generated for Miri adamson/Giorgio/eTransmitting on:?01/13/2025 11:03 AM EDT
== END 2025-01-13 12:34 | disposition home or self-care (01) ==
LOC: HO.HWS 10:14
PROVIDERS: PCP Internal Medicine; Visit Provider Advanced Practice Midwife
DX: Z01.419 Encounter for gynecological examination (general) (routine) without abnormal findings (principal); N83.202 Unspecified ovarian cyst, left side; N87.1 Moderate cervical dysplasia; N92.0 Excessive and frequent menstruation with regular cycle
CPT/HCPCS: 99395; 99459

== ENCOUNTER 2025-01-13 10:14 | Outpatient (REF) | payer OTHER, SELFPAY ==
[2025-01-14 02:47] LABS: CT PCR NOT DETECTED (Not Detect.); NG PCR NOT DETECTED (Not Detect.)
[2025-01-14 11:39] LABS: Bacterial Vaginosis PCR NEGATIVE (Negative); Candida Group PCR NOT DETECTED (Not Detect); Candida glab krusei PCR NOT DETECTED (Not Detect); Trichomonas vaginalis PCR NOT DETECTED (Not Detect)
[2025-01-21 15:15] LABS: HPV Genotype 16 Negative (Negative); HPV Genotype 18 Negative (Negative); HPV High Risk Negative (Negative)
== END 2025-01-13 10:15 | disposition home or self-care (01) ==
LOC: HO.LNP 10:14
PROVIDERS: PCP Internal Medicine; Visit Provider Advanced Practice Midwife
DX: Z01.419 Encounter for gynecological examination (general) (routine) without abnormal findings (principal)
CPT/HCPCS: 81515; 87491; 87591; 87626; 88175; 99395; 99459

== ENCOUNTER 2025-02-03 10:55 | Outpatient (AMB) | payer OTHER, SELFPAY ==
--- NOTE | 2025-02-03 10:58 | MHC.OFFVIS ---
Vital Signs 02/03/25 11:06 Height 5 ft 8 in Weight 193 lb 2 oz BMI 29.4 BP 132/80 Blood Pressure Location Rt brachial Position Sitting Pulse 84 Pulse Source Pulse Oximeter Pulse Oximetry (%) 99 Oxygen Delivery Method Room Air Intake Visit Reasons: Pill Count Intake Note: Tierra comes in today for a pill count to oxycodone, patient should have 80 tablets and presents with 77 tablets which she last took today 02/03/25 at 9 am. Pain today 04/06 Opto Mechanical Technician Required: No Accompanied by: Self / Same As Patient Allergies dicyclomine Allergy (Mild, Verified 02/03/25 11:06) Rash Penicillins Allergy (Unknown, Verified 02/03/25 11:06) Hives HPI Comments Details: Tierra presents back to the office today for follow up chronic pain and chronic opioid medication management Patient is prescribed oxycodone 5mg tablets Q6H PRN. She arrived today with the expectation of having 80 pills, she presented 77 pills which were counted in the presence of two staff members and returned to the patient in the original prescription bottle. This demonstrates responsible attitude toward patient's opioid medications. Pain is reported today as 04/06 and last dose of pain medication was taken this morning at 09:00. Pain exacerbated today by the cool, damp weather/rain. Movantik ordered at last visit, insurance denied. Patient was notified prior to this visit. She continues with OTC treatments as needed. Continues with neck and shoulder pain bilaterally. 07/15/25 she underwent diagnostic MBB 70% relief. Unfortunately sprint PNS trials were denied by her insurance. Not ready to commit to RFA at this time. [facility] Medical History (Updated 01/23/25 @ 13:30 by Maria R Talbot CNM) Ovarian cyst Facial rash Leukocytosis Constipation Ileitis GERD (gastroesophageal reflux disease) Anxiety Obese Cholelithiasis Insomnia jail (current) use of opiate analgesic Personal history of other diseases of the musculoskeletal system and connective tissue Chronic pain syndrome Postlaminectomy syndrome, not elsewhere classified Chronic back pain greater than 3 months duration Scoliosis Surgical History Hx of cholecystectomy Hx of tubal ligation Previous back surgery Family History Mother Diabetes Father Diabetes Social History Household Members: Family Housing: Apartment Are you a primary health care manager to a significant other at home: Yes (children ages-7,11,18) Do you presently have visiting nurse or other home services: No Alcohol intake: never Patient Tobacco Use Status: Former Tobacco user Tobacco use type: Cigarette e-Cigarette/Vaping Use: Never Used Second Hand Smoke Exposure: No Substance Use Type: Marijuana service: No Current occupational status: unemployed Cognitive needs: No Hearing needs: No Vision needs: No Female Reproductive History Menstrual Age of Menarche: 11 Review of Systems Const All systems reviewed & are unremarkable except as noted in HPI and below Physical Exam Vital Signs: Last Vital Signs Pulse 84 02/03/25 11:06 BP 132/80 02/03/25 11:06 Pulse Ox 99 02/03/25 11:06 Oxygen Delivery Method Room Air 02/03/25 11:06 BMI result Body Mass Index 29.4 General: awake, alert, oriented. Answers questions appropriately. Fully engaged in examination. Skin: warm, dry, intact without visible rashes or lesions. HEENT: Normocephalic. Conjuntivae clear without exudate. Sclera non-icteric. Hearing intact. Cardiac: External chest normal in appearance. Respiratory: No signs of trauma. No signs of respiratory distress. No cough, audible wheezing or stridor. Abdomen: without gross distension. MS: No obvious swelling or deformities. Ambulates with steady gait, unassisted. Neurological: Oriented to person, place, time and situation. Thought process intact. Psychiatric: Appropriate mood and affect. Good judgment and insight. Const Other: Results Reviewed Results Reviewed: 01/07/24 CERVICAL SPINE: Limited visualization of C7 due to overlying soft tissues. Cervical disc space heights are preserved. Mild retrolisthesis of C4 on C5 with extension reduces with flexion. RIGHT KNEE: No significant joint effusion. Mild narrowing of the medial compartment. Minimal tricompartmental osteophytes. IMPRESSION: 1. Mild retrolisthesis of C4 on C5 with extension reduces with flexion. 2. Mild degenerative changes right knee. 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: Code(s): Z79.891 - jail (current) use of opiate analgesic Category: Medical (5) Chronic pain syndrome: Code(s): G89.4 - Chronic pain syndrome Category: Medical (6) Postlaminectomy syndrome, not elsewhere classified: Code(s): M96.1 - Postlaminectomy syndrome, not elsewhere classified Category: Medical (7) Chronic back pain greater than 3 months duration: Code(s): M54.9 - Dorsalgia, unspecified; G89.29 - Other chronic pain Category: Medical (8) Cervicalgia: Code(s): M54.2 - Cervicalgia Category: Medical (9) Sacroiliitis: Code(s): M46.1 - Sacroiliitis, not elsewhere classified Category: Medical (10) Sacroiliac joint pain: Code(s): M53.3 - Sacrococcygeal disorders, not elsewhere classified Category: Medical [facility]. No obvious signs of diversion, abuse or misuse of the opioid medications. Will send in prescription for oxycodone 5mg po QID PRN. Continue with Methocarbamol as prescribed Patient has exhausted greater than 6 months of conservative therapy including physical therapy, muscle relaxers, NSAIDs and using TENS machine. 70% relief with previous cervical MBB's, unfortunately sprint PNS trials were denied by her insurance. Not ready to proceed with RFA at this time, will update office when ready to proceed. All questions and concerns have been answered and patient agrees with the plan. Patient to follow-up in the office in 1 month, sooner if needed. Medications: Refilled oxycodone 5 mg PO Q6H PRN 120 tabs 0RF pain 30 days G89.4 - Chronic pain syndrome, M46.1 - Sacroiliitis, not elsewhere classified, M47.812 - Spondylosis without myelopathy or radiculopathy, cervical region, M53.3 - Sacrococcygeal disorders, not elsewhere classified, M54.2 - Cervicalgia, M96.1 - Postlaminectomy syndrome, not elsewhere classified, Z79.891 - asset analyst (current) use of opiate analgesic Coding Level of Care Code Est Pt Level 3 (19422) Complex EM visit Add On G2211 Diagnoses Right knee pain M25.561 Spondylosis of cervical joint without myelopathy M47.812 Trapezius muscle strain S46.819A jail (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
[2025-02-03 11:06] VITALS: BP 132/80; PULSE 84; O2SAT 99; BMI 29.4
--- OUTSIDE RECORDS SUMMARY | 2025-02-03 11:28 | XMS_ITS ---
Author Organization [facility] Address [address] [place] [address] Care Team Providers Care Qlikview Developer Name Role Phone Erika Bowman Primary Care Provider Gadiel Elias Jr [phone] REASON FOR VISIT Pathology Encounters Encounter Location Date Provider Diagnosis [facility] [address] [place] [address] 12/31/2024 Gadiel Patel Jr Plan Of Treatment No Information Progress Notes * Tierra BARBERDOB:1985 (39 yo F)Acc No.[id number]:12/31/2024 Patient:?Tierra BARBER :1985???Age:39 Y???Sex:Female Address:[address], [place], [address] * true * Date:? Generated for Miri adamson/Giorgio/eTransmitting on:?02/03/2025 11:27 AM EDT
--- OUTSIDE RECORDS SUMMARY | 2025-02-03 11:28 | XMS_ITS | Patient Health Record ---
Author Organization [facility] Address [address] [place] [address] Care Team Providers Care Seam Rubbing Machine Operator Name Role Phone Erika Bowman Primary Care Provider UnavailGadiel Ingram Jr Results Component Value Reference Range Notes Pathology Reviewed date:12/31/2024 03:19:14 PM Interpretation: Performing Lab:[facility], [address] [place] [id number] Notes/Report: Name: Tierra Frazier Age/Sex: 39/F : 1985 Unit#: [id number] Attend Dr: Luisana Nieto MD Re12/19/24 Status : DIS IN Location: [facility] 351-1 Disch: 12/24/24 SPEC : [id number] RECD : 12/23/24-2298 STATUS: DESTINEY KING: [id number] ROSANGELA: 12/23/24-[address] [facility] [address]: Gadiel Patel MD ENTERED: 12/23/24 46 [...] copic examination, 2 pieces in cassette C. ([facility]) CONTINUED ON NEXT PAGE Name: Tierra Frazier Age/Sex: 39/F : 1985 Unit#: [id number] Attend Dr: Luisana Nieto MD Re12/19/24 Status : DIS IN Location: [facility] 351-1 Disch: 12/24/24 SPEC : [id number] RECD : 12/23/24 STATUS: DESTINEY KRAUSE NUM: [id number] ROSANGELA: 12/23/24-[address]: Gadiel Patel MD ENTERED: 12/23/24- 46 SP TYPE: Surgical OTHR DR: Jesi Zapien MD, Ana M MD ORDERED: HE Stain/9, Gross Micro L4/3 Copies To: Gadiel Patel MD [facility] [address] [place] [address] Jesi Zapien MD [address] [place] [id number] [email or web address] Erika Bowman MD [facility] Primary [place] [address] [place], [place] [phone] Signed (si gnature on file) Bella Harkins MD 12/26/24 2135 END OF REPORT Reason For Referral No Information Encounters Encounter Location Date Provider Diagnosis [facility] Inpatient [address] [place], [place] [phone] 12/23/2024 Gadiel Patel Jr [address] [place] [address] 12/31/2024 Gadiel Patel Jr Plan Of Treatment No Information Insurance Providers Payer Name Payer Address Payer Phone Subscriber Number Group Number Insured Name Patient Relationship to Insured Coverage Start Date Coverage End Date [facility] [address] [address] [place], [place] [phone] [id number] Tierra Frazier Self - patient is the insured
--- OUTSIDE RECORDS SUMMARY | 2025-02-03 11:28 | XMS_ITS ---
Author Organization [facility] Address [address] [place] [address] Care Team Providers Care Separator Tender Name Role Phone Erika Bowman Primary Care Provider Gadiel Elias Jr REASON FOR VISIT ILEITIS Encounters Encounter Location Date Provider Diagnosis [facility] Inpatient [address] [place] [id number] 12/23/2024 Gadiel Patel Jr Plan Of Treatment No Information Progress Notes * Tierra BARBERDOB:1985 (39 yo F)Acc No.[id number]:12/23/2024 COLON WITH MAC Patient:?Tierra BARBER Provider:?Gadiel Patel MD :1985???Age:39 Y???Sex:Female D ate:12/23/2024 Address:[address] [place], [place] [address] [facility] Pcp:Erika Khalil Subjective: * Chief Complaints: * [...] MD Date:?0 12/23/2024 Generated for Miri adamson/Giorgio/eTransmitting on:?02/03/2025 11:28 AM EDT
== END 2025-02-03 11:25 | disposition home or self-care (01) ==
LOC: HO.PMC 10:56
PROVIDERS: PCP Internal Medicine; Visit Provider Registered Nurse Emergency
DX: M25.561 Pain in right knee (principal); M47.812 Spondylosis without myelopathy or radiculopathy, cervical region; S46.819A Strain of other muscles, fascia and tendons at shoulder and upper arm level, unspecified arm, initial encounter; Z79.891 Long term (current) use of opiate analgesic; G89.4 Chronic pain syndrome; M96.1 Postlaminectomy syndrome, not elsewhere classified; M54.9 Dorsalgia, unspecified; G89.29 Other chronic pain; M54.2 Cervicalgia; M46.1 Sacroiliitis, not elsewhere classified; M53.3 Sacrococcygeal disorders, not elsewhere classified
CPT/HCPCS: 99213; G2211

== ENCOUNTER → 2025-02-03 10:55 | Outpatient (BNVA) | payer OTHER, SELFPAY | PROVIDERS: PCP Internal Medicine; Visit Provider Registered Nurse Emergency | DX: M25.561 Pain in right knee (principal); M47.812 Spondylosis without myelopathy or radiculopathy, cervical region; G89.4 Chronic pain syndrome; M96.1 Postlaminectomy syndrome, not elsewhere classified; M54.9 Dorsalgia, unspecified; M46.1 Sacroiliitis, not elsewhere classified; M53.3 Sacrococcygeal disorders, not elsewhere classified; S46.819A Strain of other muscles, fascia and tendons at shoulder and upper arm level, unspecified arm, initial encounter; X58.XXXA Exposure to other specified factors, initial encounter; Y93.9 Activity, unspecified; Y92.9 Unspecified place or not applicable; Y99.9 Unspecified external cause status; Z51.81 Encounter for therapeutic drug level monitoring; Z79.891 Long term (current) use of opiate analgesic | CPT/HCPCS: 99212 ==

== ENCOUNTER 2025-03-17 10:55 | Outpatient (AMB) | payer OTHER, SELFPAY ==
[2025-03-17 10:57] VITALS: BP 123/63; PULSE 84; RESP 16; O2SAT 98; BMI 29.5
--- NOTE | 2025-03-17 10:57 | A.OFFVIS_ITS ---
Vital Signs 03/17/25 10:57 Height 5 ft 8 in Weight 194 lb BMI 29.5 BP 123/63 Blood Pressure Location Rt brachial Position Sitting Respiration 16 Pulse 84 Pulse Source Pulse Oximeter Pulse Oximetry (%) 98 Oxygen Delivery Method Room Air Intake Visit Reasons: PILL COUNT Intake Note: Patient presents today for a routine pill count. Per directions patients should have 32. Patient presented 30 pills. Last pill she took was at 8am. Airport Security Screener Required: No Accompanied by: Self / Same As Patient Allergies dicyclomine Allergy (Mild, Verified 03/17/25 11:00) Rash Penicillins Allergy (Unknown, Verified 03/17/25 11:00) Hives HPI Comments Details: Tierra presents to the office today for follow up chronic pain and chronic opioid medication management Patient is prescribed oxycodone 5mg tablets Q6H PRN. She arrived today with the expectation of having 32 pills, she presented 30 pills which were counted in the presence of two staff members and returned to the patient in the original prescription bottle. This demonstrates responsible attitude toward patient's opioid medications. Pain is reported today as 710 and last dose of pain medication was taken this morning at 08:00. Denies constipation, abdominal pain, shortness of breath, lethargy, confusion 07/15/25 she underwent diagnostic MBB 70% relief. Unfortunately sprint PNS trials were denied by her insurance. Not ready to commit to RFA at this time. 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 Personal history of other diseases of the musculoskeletal system and connective tissue Chronic pain syndrome Postlaminectomy syndrome, not elsewhere classified Chronic back pain greater than 3 months duration Scoliosis Surgical History Hx of cholecystectomy Hx of tubal ligation Previous back surgery Family History Mother Diabetes Father Diabetes Social History Household Members: Family Housing: Apartment Are you a primary care coordination manager to a significant other at home: Yes (children ages-7,11,18) Do you presently have visiting nurse or other home services: No Alcohol intake: never Patient Tobacco Use Status: Former Tobacco user Tobacco use type: Cigarette e-Cigarette/Vaping Use: Never Used Second Hand Smoke Exposure: No Substance Use Type: Marijuana service: No Current occupational status: unemployed Cognitive needs: No Hearing needs: No Vision needs: No Female Reproductive History Menstrual Age of Menarche: 11 Review of Systems Const All systems reviewed & are unremarkable except as noted in HPI and below Physical Exam Vital Signs: Last Vital Signs Pulse 84 03/17/25 10:57 Resp 16 03/17/25 10:57 BP 123/63 03/17/25 10:57 Pulse Ox 98 03/17/25 10:57 Oxygen Delivery Method Room Air 03/17/25 10:57 BMI result Body Mass Index 29.5 General: awake, alert, oriented. Answers questions appropriately. Fully engaged in examination. Skin: warm, dry, intact without visible rashes or lesions. HEENT: Normocephalic. Conjuntivae clear without exudate. Sclera non-icteric. Hearing intact. Cardiac: External chest normal in appearance. Respiratory: No signs of trauma. No signs of respiratory distress. No cough, audible wheezing or stridor. Abdomen: without gross distension. MS: No obvious swelling or deformities. Ambulates with steady gait, unassisted. Neurological: Oriented to person, place, time and situation. Thought process intact. Psychiatric: Appropriate mood and affect. Good judgment and insight. Results Reviewed Results Reviewed: 01/07/24 CERVICAL SPINE: Limited visualization of C7 due to overlying soft tissues. Cervical disc space heights are preserved. Mild retrolisthesis of C4 on C5 with extension reduces with flexion. RIGHT KNEE: No significant joint effusion. Mild narrowing of the medial compartment. Minimal tricompartmental osteophytes. IMPRESSION: 1. Mild retrolisthesis of C4 on C5 with extension reduces with flexion. 2. Mild degenerative changes right knee. Assessment & Plan Assessment & Plan (1) Right knee pain: Code(s): M25.561 - Pain in right knee Category: Medical (2) Spondylosis of cervical joint without myelopathy: Code(s): M47.812 - Spondylosis without myelopathy or radiculopathy, cervical region Category: Medical (3) Trapezius muscle strain: Code(s): S46.819A - Strain of other muscles, fascia and tendons at shoulder and upper arm level, unspecified arm, initial encounter Category: Medical (4) detention (current) use of opiate analgesic: Code(s): Z79.891 - exterminator helper termite (current) use of opiate analgesic Category: Medical (5) Chronic pain syndrome: Code(s): G89.4 - Chronic pain syndrome Category: Medical (6) Postlaminectomy syndrome, not elsewhere classified: Code(s): M96.1 - Postlaminectomy syndrome, not elsewhere classified Category: Medical (7) Chronic back pain greater than 3 months duration: Code(s): M54.9 - Dorsalgia, unspecified; G89.29 - Other chronic pain Category: Medical (8) Cervicalgia: Code(s): M54.2 - Cervicalgia Category: Medical (9) Sacroiliitis: Code(s): M46.1 - Sacroiliitis, not elsewhere classified Category: Medical (10) Sacroiliac joint pain: Code(s): M53.3 - Sacrococcygeal disorders, not elsewhere classified Category: Medical Plan [facility] and without concerns. No obvious signs of diversion, abuse or misuse of the opioid medications. Will send in prescription for oxycodone 5mg po QID PRN. Continue with Methocarbamol as prescribed 70% relief with previous cervical MBB's, unfortunately sprint PNS trials were denied by her insurance. Not ready to proceed with RFA at this time. All questions and concerns have been answered and patient agrees with the plan. Patient to follow-up in the office in 1 month, sooner if needed. Medications: Refilled oxycodone 5 mg PO Q6H PRN 120 tabs 0RF pain 30 days G89.4 - Chronic pain syndrome, M46.1 - Sacroiliitis, not elsewhere classified, M47.812 - Spondylosis without myelopathy or radiculopathy, cervical region, M53.3 - Sacrococcygeal disorders, not elsewhere classified, M54.2 - Cervicalgia, M96.1 - Postlaminectomy syndrome, not elsewhere classified, Z79.891 - detention (current) use of opiate analgesic Coding Level of Care Code Est Pt Level 3 (08659) Complex EM visit Add On G2211 Diagnoses Right knee pain M25.561 Spondylosis of cervical joint without myelopathy M47.812 Trapezius muscle strain S46.819A detention (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
--- OUTSIDE RECORDS SUMMARY | 2025-03-17 11:21 | XMS_ITS | Patient Health Record ---
Author Organization [facility] Address [address] [place] [address] Care Team Providers Care Sales Incentive Analyst Name Role Phone Erika Bowman Primary Care Provider UnavailGadiel Ingram Jr [phone] Results Component Value Reference Range Notes Pathology Reviewed date:12/31/2024 03:19:14 PM Interpretation: Performing Lab:[facility], [address] [place] [phone] Notes/Report: Name: Tierra Frazier Age/Sex: 39/F : 1985 Unit#: [id number] Attend Dr: Luisana Nieto MD Re12/19/24 Status : DIS [facility]ch: 12/24/24 SPEC : [id number] RECD : 12/23/24-2013 STATUS: DESTINEY KING: [id number] ROSANGELA: 12/23/24-1251 [facility] DR: Gadiel Patel MD ENTERED: [...] copic examination, 2 pieces in cassette C. ([facility]) CONTINUED ON NEXT PAGE Name: Tierra Frazier Age/Sex: 39/F : 1985 Unit#: [id number] Attend Dr: Luisana Nieto MD Re12/19/24 Status : DIS IN Location: [facility] 351-1 Disch: 12/24/24 SPEC : [id number] RECD : 12/23/24 STATUS: DESTINEY KRAUSE NUM: [id number] ROSANGELA: 12/23/24-[address]: Gadiel Patel MD ENTERED: 12/23/24- 46 SP TYPE: Surgical OTHR DR: Jesi Zapien MD, Ana M MD ORDERED: HE Stain/9, Gross Micro L4/3 Copies To: Gadiel Patel MD [facility] [address] [place] [address] Jesi Zapien MD [address] [place] [address] [email or web address] Erika Bowman MD [facility] Primary [place] [address] [place], [place] [phone] Signed (si gnature on file) Bella Harkins MD 12/26/24 1817 END OF REPORT Reason For Referral No Information Encounters Encounter Location Date Provider Diagnosis [facility] In[place] [address] [place], [place] [phone] 12/23/2024 Gadiel Patel Jr [address] [place] [address] 12/31/2024 Gadiel Patel Jr Plan Of Treatment No Information Insurance Providers Payer Name Payer Address Payer Phone Subscriber Number Group Number Insured Name Patient Relationship to Insured Coverage Start Date Coverage End Date [facility] [address] [address] [place], [place] [id number] Tierra Frazier Self - patient is the insured
== END 2025-03-17 11:11 | disposition home or self-care (01) ==
LOC: HO.PMC 10:56
PROVIDERS: PCP Internal Medicine; Visit Provider Registered Nurse Emergency
DX: M25.561 Pain in right knee (principal); M47.812 Spondylosis without myelopathy or radiculopathy, cervical region; S46.819A Strain of other muscles, fascia and tendons at shoulder and upper arm level, unspecified arm, initial encounter; Z79.891 Long term (current) use of opiate analgesic; G89.4 Chronic pain syndrome; M96.1 Postlaminectomy syndrome, not elsewhere classified; M54.9 Dorsalgia, unspecified; G89.29 Other chronic pain; M54.2 Cervicalgia; M46.1 Sacroiliitis, not elsewhere classified; M53.3 Sacrococcygeal disorders, not elsewhere classified
CPT/HCPCS: 99213; G2211

== ENCOUNTER → 2025-03-17 10:55 | Outpatient (BNVA) | payer OTHER, SELFPAY | PROVIDERS: PCP Internal Medicine; Visit Provider Registered Nurse Emergency | DX: M25.561 Pain in right knee (principal); M54.9 Dorsalgia, unspecified; M47.812 Spondylosis without myelopathy or radiculopathy, cervical region; M54.2 Cervicalgia; G89.4 Chronic pain syndrome; M46.1 Sacroiliitis, not elsewhere classified; M53.3 Sacrococcygeal disorders, not elsewhere classified; M96.1 Postlaminectomy syndrome, not elsewhere classified; Z79.891 Long term (current) use of opiate analgesic | CPT/HCPCS: 99212 ==

== ENCOUNTER 2025-04-14 10:59 | Outpatient (AMB) | payer OTHER, SELFPAY ==
--- NOTE | 2025-04-14 11:08 | MHC.OFFVIS ---
Vital Signs 04/14/25 11:10 Height 5 ft 8 in Weight 194 lb BMI 29.5 BP 115/68 Blood Pressure Location Rt brachial Position Sitting Respiration 16 Pulse 74 Pulse Source Pulse Oximeter Pulse Oximetry (%) 97 Oxygen Delivery Method Room Air Intake Visit Reasons: Pill Count Intake Note: Patient here for a pill count routine of Oxycodone. Per direction patient should have 40 pills. Patent presented 42 pills. Last took 9am. Performing Arts [address] Manager Required: No Allergies dicyclomine Allergy (Mild, Verified 04/14/25 11:09) Rash Penicillins Allergy (Unknown, Verified 04/14/25 11:09) Hives HPI Comments Details: Tierra presents to the office today for follow up chronic pain and chronic opioid medication management Patient is prescribed oxycodone 5mg tablets Q6H PRN. She arrived today with the expectation of having 40 pills, she presented 42 pills which were counted in the presence of two staff members and returned to the patient in the original prescription bottle. This demonstrates responsible attitude toward patient's opioid medications. Pain is reported today as 7/10 and last dose of pain medication was taken this morning at 09:00. Denies abdominal pain, shortness of breath, lethargy, confusion. Has been dealing with some constipation, taking OTC Miralax that is helping. *07/15/25 she underwent diagnostic MBB 70% relief. Unfortunately sprint PNS trials were denied by her insurance. Not ready to commit to RFA at this time. 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 Personal history of other diseases of the musculoskeletal system and connective tissue Chronic pain syndrome Postlaminectomy syndrome, not elsewhere classified Chronic back pain greater than 3 months duration Scoliosis Surgical History Hx of cholecystectomy Hx of tubal ligation Previous back surgery Family History Mother Diabetes Father Diabetes Social History Household Members: Family Housing: Apartment Are you a primary care tech to a significant other at home: Yes (children ages-7,11,18) Do you presently have visiting nurse or other home services: No Alcohol intake: never Patient Tobacco Use Status: Former Tobacco user Tobacco use type: Cigarette e-Cigarette/Vaping Use: Never Used Second Hand Smoke Exposure: No Substance Use Type: Marijuana service: No Current occupational status: unemployed Cognitive needs: No Hearing needs: No Vision needs: No Female Reproductive History Menstrual Age of Menarche: 11 Review of Systems Const All systems reviewed & are unremarkable except as noted in HPI and below Physical Exam Vital Signs: Last Vital Signs Pulse 74 04/14/25 11:10 Resp 16 04/14/25 11:10 BP 115/68 04/14/25 11:10 Pulse Ox 97 04/14/25 11:10 Oxygen Delivery Method Room Air 04/14/25 11:10 BMI result Body Mass Index 29.5 General: awake, alert, oriented. Answers questions appropriately. Fully engaged in examination. Skin: warm, dry, intact without visible rashes or lesions. HEENT: Normocephalic. Conjuntivae clear without exudate. Sclera non-icteric. Hearing intact. Cardiac: External chest normal in appearance. Respiratory: No signs of trauma. No signs of respiratory distress. No cough, audible wheezing or stridor. Abdomen: without gross distension. MS: No obvious swelling or deformities. Ambulates with steady gait, unassisted. Neurological: Oriented to person, place, time and situation. Thought process intact. Psychiatric: Appropriate mood and affect. Good judgment and insight. Results Reviewed Results Reviewed: 01/07/24 CERVICAL SPINE: Limited visualization of C7 due to overlying soft tissues. Cervical disc space heights are preserved. Mild retrolisthesis of C4 on C5 with extension reduces with flexion. RIGHT KNEE: No significant joint effusion. Mild narrowing of the medial compartment. Minimal tricompartmental osteophytes. IMPRESSION: 1. Mild retrolisthesis of C4 on C5 with extension reduces with flexion. 2. Mild degenerative changes right knee. Assessment & Plan Assessment & Plan (1) Spondylosis of cervical joint without myelopathy: Code(s): M47.812 - Spondylosis without myelopathy or radiculopathy, cervical region Category: Medical (2) Trapezius muscle strain: Code(s): S46.819A - Strain of other muscles, fascia and tendons at shoulder and upper arm level, unspecified arm, initial encounter Category: Medical (3) correction (current) use of opiate analgesic: Code(s): Z79.891 - correction (current) use of opiate analgesic Category: Medical (4) Chronic pain syndrome: Code(s): G89.4 - Chronic pain syndrome Category: Medical (5) Postlaminectomy syndrome, not elsewhere classified: Code(s): M96.1 - Postlaminectomy syndrome, not elsewhere classified Category: Medical (6) Chronic back pain greater than 3 months duration: Code(s): M54.9 - Dorsalgia, unspecified; G89.29 - Other chronic pain Category: Medical (7) Cervicalgia: Code(s): M54.2 - Cervicalgia Category: Medical (8) Sacroiliac joint pain: Code(s): M53.3 - Sacrococcygeal disorders, not elsewhere classified Category: Medical Plan Masspat was reviewed and without concerns. No obvious signs of diversion, abuse or misuse of the opioid medications. Will send in prescription for oxycodone 5mg po QID PRN. Patient has narcan at home and has been instructed on use. 70% relief with previous cervical MBB's, Sprint PNS trials were denied by her insurance. She is not ready to proceed with RFA at this time. All questions and concerns have been answered and patient agrees with the plan. Patient to follow-up in the office in 1 month, sooner if needed. Medications: Refilled oxycodone 5 mg PO Q6H PRN 120 tabs 0RF pain 30 days G89.4 - Chronic pain syndrome, M46.1 - Sacroiliitis, not elsewhere classified, M47.812 - Spondylosis without myelopathy or radiculopathy, cervical region, M53.3 - Sacrococcygeal disorders, not elsewhere classified, M54.2 - Cervicalgia, M96.1 - Postlaminectomy syndrome, not elsewhere classified, Z79.891 - correction (current) use of opiate analgesic Coding Level of Care Code Est Pt Level 3 (38062) Complex EM visit Add On G2211 Diagnoses Spondylosis of cervical joint without myelopathy M47.812 Trapezius muscle strain S46.819A 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
[2025-04-14 11:10] VITALS: BP 115/68; PULSE 74; RESP 16; O2SAT 97; BMI 29.5
--- OUTSIDE RECORDS SUMMARY | 2025-04-14 11:35 | XMS_ITS | Patient Health Record ---
Author Organization [facility] Address [address] [place] [address] Care Team Providers Care Forensic Artist Name Role Phone Erika Bowman Primary Care Provider Gadiel Elias Jr Results Component Value Reference Range Notes Pathology Reviewed date:12/31/2024 03:19:14 PM Interpretation: Performing Lab:[facility], [address] [phone] Notes/Report: Reason For Referral No Information Encounters Encounter Location Date Provider Diagnosis [facility] [place] [address] [place] [id number] 12/23/2024 Gadiel Patel Jr [facility] [address] [place] [phone] 12/31/2024 Gadiel Patel Jr Plan Of Treatment No Information Insurance Providers Payer Name Payer Address Payer Phone Subscriber Number Group Number Insured Name Patient Relationship to Insured Coverage Start Date Coverage End Date [facility] [employer] [facility] [address] [address] [place], [place] [id number] Tierra Frazier Self - patient is the insured
== END 2025-04-14 11:22 | disposition home or self-care (01) ==
LOC: HO.PMC 11:00
PROVIDERS: PCP Internal Medicine; Visit Provider Registered Nurse Emergency
DX: M47.812 Spondylosis without myelopathy or radiculopathy, cervical region (principal); S46.819A Strain of other muscles, fascia and tendons at shoulder and upper arm level, unspecified arm, initial encounter; Z79.891 Long term (current) use of opiate analgesic; G89.4 Chronic pain syndrome; M96.1 Postlaminectomy syndrome, not elsewhere classified; M54.9 Dorsalgia, unspecified; G89.29 Other chronic pain; M54.2 Cervicalgia; M53.3 Sacrococcygeal disorders, not elsewhere classified
CPT/HCPCS: 99213; G2211

== ENCOUNTER → 2025-04-14 10:59 | Outpatient (BNVA) | payer OTHER, SELFPAY | PROVIDERS: PCP Internal Medicine; Visit Provider Registered Nurse Emergency | DX: M47.812 Spondylosis without myelopathy or radiculopathy, cervical region (principal); M54.2 Cervicalgia; M54.9 Dorsalgia, unspecified; G89.29 Other chronic pain; M53.3 Sacrococcygeal disorders, not elsewhere classified; M96.1 Postlaminectomy syndrome, not elsewhere classified; S46.819A Strain of other muscles, fascia and tendons at shoulder and upper arm level, unspecified arm, initial encounter; Z79.891 Long term (current) use of opiate analgesic; Z51.81 Encounter for therapeutic drug level monitoring | CPT/HCPCS: 99212 ==

== ENCOUNTER 2025-05-17 08:53 | Outpatient (AMB) | payer OTHER, SELFPAY ==
--- NOTE | 2025-05-17 08:55 | MHC.OFFVIS ---
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 She reports increased hot flashes over the last 2 years worsening. Labs 12/23/24 TSH 0.08, Hgb. 11.8. History of left ovarian 5.6cm, admits to occasional left sided pain. 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 Personal history of other diseases of the musculoskeletal system and connective tissue Chronic pain syndrome Postlaminectomy syndrome, not elsewhere classified Chronic back pain greater than 3 months duration Scoliosis Surgical History Hx of cholecystectomy Hx of tubal ligation Previous back surgery Family History Mother Diabetes Father Diabetes Social History Household Members: Family Housing: Apartment Are you a primary health care coach to a significant other at home: Yes (children ages-7,11,18) Do you presently have visiting nurse or other home services: No Alcohol intake: never Patient Tobacco Use Status: Former Tobacco user Tobacco use type: Cigarette e-Cigarette/Vaping Use: Never Used Second Hand Smoke Exposure: No Substance Use Type: Marijuana service: No Current occupational status: unemployed Cognitive needs: No Hearing needs: No Vision needs: No Female Reproductive History Menstrual Age of Menarche: 11 Date of last menstrual period: 05/01/25 Date of last pap smear: 01/13/25 (neg pap and hpv) History of abnormal pap smear: Yes Review of Systems Const All systems reviewed & are unremarkable except as noted in HPI and below Physical Exam Vital Signs: Last Vital Signs BP 100/68 05/17/25 08:56 BMI result Body Mass Index 30.4 Const General: cooperative, healthy appearing and no acute distress Orientation/consciousness: patient oriented x3 GI Inspection: Yes normal to inspection Palpation (GI): Soft to palpation and Other GI palpation findings present (Nontender) Rectal Exam - Female: visual inspection normal General: Yes bladder normal to palpation External Female Exam: normal appearance of the urethra Speculum Exam - Vagina: normal appearance of the vagina, normal palpation, normal vaginal discharge and vaginal bleeding Speculum Exam - Cervix: normal appearance of the cervix, normal palpation and Other cervical findings present (Post LEEP appearance) Bimanual exam- vagina & uterus: normal bimanual exam, normal palpation, uterine size normal, bladder normal to palpation, normal palpation, uterine shape normal and non-tender Bimanual Exam- Adnexa, other: normal adnexae OB/external & speculum: vaginal bleeding Neuro General: patient oriented x3 Results AMB Test Urine AMB Test Urine Negative Last Edit by AURORA Lama on 05/17/25 09:06 Results Reviewed Results Reviewed: Laboratory Last Values Tst Clinic Negative 05/17/25 09:05 Assessment & Plan Assessment & Plan (1) Abnormal uterine bleeding (AUB): Code(s): N93.9 - Abnormal uterine and vaginal bleeding, unspecified Category: Medical Plan: Workup for AUB to include cervical cultures, pelvic ultrasound, current lab work CBC and TSH, advised endometrial biopsy to rule out any abnormal pathology from the uterine lining including atypia, hyperplasia, precancer or cancer. Preprocedure anticipatory guidance reviewed, advised to take 3 Advil with food and fluids 1 hour before procedure time. The patient expressed understanding and agreement with the plan of care. All of her questions and concerns were addressed to the best of my ability. (2) Ovarian cyst: Comment: left 5.6cm, simple cyst Code(s): N83.209 - Unspecified ovarian cyst, unspecified side Category: Medical Qualifiers: Laterality: left Qualified Code(s): N83.202 - Unspecified ovarian cyst, left side Plan Ultrasound ordered to recheck ovarian cyst, comfort measures reviewed, warning signs and when to call reviewed. The patient expressed understanding and agreement with the plan of care. All of her questions and concerns were addressed to the best of my ability. This note is constructed using voice recognition software. While every effort has been made to ensure accuracy, agricultural commodities grader errors may have been included. Orders: Orders Thyroid Stimulating Hormone Today N92.1 - Excessive and frequent menstruation with irregular cycle, N93.9 - Abnormal uterine and vaginal bleeding, unspecified Bacterial Vaginosis Panel Today N93.9 - Abnormal uterine and vaginal bleeding, unspecified AMB HCG Urine Test Today N93.9 - Abnormal uterine and vaginal bleeding, unspecified US pelvic and transvaginal Today N83.209 - Unspecified ovarian cyst, unspecified side, N93.9 - Abnormal uterine and vaginal bleeding, unspecified Complete Blood Count no Diff Today N93.9 - Abnormal uterine and vaginal bleeding, unspecified CT NG by PCR Vag/Cerv Today N93.9 - Abnormal uterine and vaginal bleeding, unspecified Coding Level of Care Code Est Pt Level 3 (60284) Diagnoses Abnormal uterine bleeding (AUB) N93.9 Cyst of left ovary N83.202 Laterality: left
[2025-05-17 08:56] VITALS: BP 100/68; BMI 30.4
--- OUTSIDE RECORDS SUMMARY | 2025-05-17 09:36 | XMS_ITS | Patient Health Record ---
Author Organization [facility] Address [address] [place] [address] Care Team Providers Care Senior Payroll Manager Name Role Phone Erika Bowman Primary Care Provider Gadiel Elias Jr Results Component Value Reference Range Notes Pathology Reviewed date:12/31/2024 03:19:14 PM Interpretation: Performing Lab:[facility], [address] [place] [phone] Notes/Report: Reason For Referral No Information Encounters Encounter Location Date Provider Diagnosis [facility] [place] [address] [place] [id number] 12/23/2024 Gadiel Patel Jr [facility] [address] [place] [phone] 12/31/2024 Gadiel Patel Jr Plan Of Treatment No Information Insurance Providers Payer Name Payer Address Payer Phone Subscriber Number Group Number Insured Name Patient Relationship to Insured Coverage Start Date Coverage End Date [facility] [employer] [facility] [address] [address] [place], [place] [id number] Tierra Frazier Self - patient is the insured
== END 2025-05-17 11:33 | disposition home or self-care (01) ==
LOC: HO.HWS 08:54
PROVIDERS: PCP Internal Medicine; Visit Provider Advanced Practice Midwife
DX: N93.9 Abnormal uterine and vaginal bleeding, unspecified (principal); N83.202 Unspecified ovarian cyst, left side
CPT/HCPCS: 99213

== ENCOUNTER 2025-05-17 08:53 | Outpatient (REF) | payer OTHER, SELFPAY ==
[2025-05-17 13:36] LABS: Bacterial Vaginosis PCR NEGATIVE (Negative); Candida Group PCR NOT DETECTED (Not Detect); Candida glab krusei PCR NOT DETECTED (Not Detect); Trichomonas vaginalis PCR NOT DETECTED (Not Detect)
[2025-05-17 14:29] LABS: CT PCR NOT DETECTED (Not Detect.); NG PCR NOT DETECTED (Not Detect.)
== END 2025-05-17 08:54 | disposition home or self-care (01) ==
LOC: HO.LAB 08:53
PROVIDERS: PCP Internal Medicine; Visit Provider Advanced Practice Midwife
DX: N92.1 Excessive and frequent menstruation with irregular cycle (principal); N93.9 Abnormal uterine and vaginal bleeding, unspecified; N83.202 Unspecified ovarian cyst, left side; Z32.02 Encounter for pregnancy test, result negative; Z98.51 Tubal ligation status
CPT/HCPCS: 81025; 81515; 87491; 87591; 99212

== ENCOUNTER 2025-05-17 09:28 | Outpatient (REF) | payer OTHER, SELFPAY | END 2025-05-17 09:29 | disposition home or self-care (01) | LOC: HO.LNP 09:28 | PROVIDERS: Visit Provider Advanced Practice Midwife | DX: Z13.89 Encounter for screening for other disorder (principal) ==

== ENCOUNTER 2025-05-17 09:42 | Outpatient (REF) | payer OTHER, SELFPAY ==
--- NOTE | ~2025-05-17 | US_ITS ---
EXAMINATION: US PELVIS CLINICAL INFORMATION: N93.9 - Abnormal uterine and vaginal bleeding, unspecified, prior tubal ligation COMPARISON: December 19, 2024 TECHNIQUE: Ultrasound of the pelvis is performed using both transabdominal and transvaginal transducers along with Doppler. Transvaginal imaging is performed due to inadequate visualization transabdominally. FINDINGS: Uterus: The uterus is anteverted and measures 10 x 5 x 6 cm. The double wall endometrial thickness is 1.2 mm. The uterus is smooth in contour and has normal myometrial echogenicity. No visible fibroid. Adnexa: Left ovary is not visualized. There is normal color flow to the right adnexa. There is no right ovarian torsion. There is no pelvic ascites or fluid collection. Right ovary measures 4.0 x 4.2 x 3.8 cm. There is a 3.5 x 3.5 x 3.2 cm with a small daughter cyst and a thin internal septation demonstrating blood flow on color Doppler. There is also a linear low density band within the cyst. US/US pelvic and transvaginal IMPRESSION: 3.5 cm mildly complex right ovarian cyst. Follow-up ultrasound in 6-12 weeks. Electronically signed by: Robert Jimenez MD 05/17/2025 02:31 PM EDT
[2025-05-17 10:42] LABS: Hematocrit 36.6 % (37.0-47.0); Hemoglobin 12.2 g/dl (12.0-16.0); Mean Corpuscular HGB Conc 33.3 g/dl (31.0-35.0); Mean Corpuscular Hemoglobin 29.5 pg (27.0-33.0); Mean Corpuscular Volume 88.6 fL (80.0-98.0); NRBC Abs Auto 0.000 X10*3/uL (0.0-0.012); NRBC Pct Auto 0.0 /100WBC (0.0-0.2); Platelet Count 219 X10*3/uL (160-400); Red Blood Count 4.13 X10*6/uL (4.20-5.50); White Blood Count 6.6 X10*3/uL (4.8-10.8)
[2025-05-17 11:33] LABS: Thyroid Stimulating Hormone 1.12 uIU/mL (0.32-4.0)
== END 2025-05-17 09:43 | disposition home or self-care (01) ==
LOC: HO.US 09:42
PROVIDERS: PCP Internal Medicine; Visit Provider Advanced Practice Midwife
DX: N92.1 Excessive and frequent menstruation with irregular cycle (principal); N93.9 Abnormal uterine and vaginal bleeding, unspecified; N83.209 Unspecified ovarian cyst, unspecified side
CPT/HCPCS: 36415; 76830; 76856; 84443; 85027

== ENCOUNTER → 2025-05-17 13:47 | Outpatient (BNV) | payer OTHER, SELFPAY | PROVIDERS: PCP Internal Medicine; Visit Provider Radiology Diagnostic Radiology | DX: N83.291 Other ovarian cyst, right side (principal) | CPT/HCPCS: 76830; 76856 ==

== ENCOUNTER 2025-05-19 09:40 | Outpatient (AMB) | payer OTHER, SELFPAY ==
--- OUTSIDE RECORDS SUMMARY | 2025-05-19 09:43 | XMS_ITS | Patient Health Record ---
Author Organization [facility] Address [address] [place] [address] Care Team Providers Care Cyber Security Analyst Name Role Phone Erika Bowman Primary Care Provider Gadiel Elias Jr Results Component Value Reference Range Notes Pathology Reviewed date:12/31/2024 03:19:14 PM Interpretation: Performing Lab:[facility], [address] [place] [phone] Notes/Report: Reason For Referral No Information Encounters Encounter Location Date Provider Diagnosis [facility] [place] [address] [place] [id number] 12/23/2024 Gadiel Patel Jr [facility] [address] [place] [phone] 12/31/2024 Gaidel Patel Jr Plan Of Treatment No Information Insurance Providers Payer Name Payer Address Payer Phone Subscriber Number Group Number Insured Name Patient Relationship to Insured Coverage Start Date Coverage End Date [facility] [employer] [facility] [address] [address] [place], [place] [id number] Tierra Frazier Self - patient is the insured
[2025-05-19 09:48] VITALS: BP 118/75; PULSE 79; RESP 16; O2SAT 99; BMI 30.3
--- NOTE | 2025-05-19 09:48 | MHC.OFFVIS ---
Vital Signs 05/19/25 09:48 Height 5 ft 8 in Weight 199 lb BMI 30.3 BP 118/75 Blood Pressure Location Rt brachial Position Sitting Respiration 16 Pulse 79 Pulse Source Pulse Oximeter Pulse Oximetry (%) 99 Oxygen Delivery Method Room Air Intake Visit Reasons: Pill Count/ random UDS Intake Note: Patient her for a pill count routine of Oxycodone. Per directions patient should have 16 pills. Patient presented 21 pills. Last took 8am. Electronic Imaging System Operator Required: No Accompanied by: Self / Same As Patient Allergies dicyclomine Allergy (Mild, Verified 05/19/25 09:49) Rash Penicillins Allergy (Unknown, Verified 05/19/25 09:49) Hives HPI Comments Details: Tierra presents to the office today for follow up chronic pain and chronic opioid medication management Patient is prescribed oxycodone 5mg tablets Q6H PRN. She arrived today with the expectation of having 16 pills, she presented 21 pills which were counted in the presence of two staff members and returned to the patient in the original prescription bottle. This demonstrates responsible attitude toward patient's opioid medications. Pain is reported today as 6/10 and last dose of pain medication was taken this morning at 08:00. Denies abdominal pain, shortness of breath, lethargy, confusion. 07/15/25 she underwent diagnostic MBB 70% relief. Unfortunately sprint PNS trials were denied by her insurance. Not ready to commit to RFA at this time. Discussed option for therapeutic MBBs, she will consider and let office know if she wishes to proceed. 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 Personal history of other diseases of the musculoskeletal system and connective tissue Chronic pain syndrome Postlaminectomy syndrome, not elsewhere classified Chronic back pain greater than 3 months duration Scoliosis Surgical History Hx of cholecystectomy Hx of tubal ligation Previous back surgery Family History Mother Diabetes Father Diabetes Social History Household Members: Family Housing: Apartment Are you a primary managed care provider to a significant other at home: Yes (children ages-7,11,18) Do you presently have visiting nurse or other home services: No Alcohol intake: never Patient Tobacco Use Status: Former Tobacco user Tobacco use type: Cigarette e-Cigarette/Vaping Use: Never Used Second Hand Smoke Exposure: No Substance Use Type: Marijuana service: No Current occupational status: unemployed Cognitive needs: No Hearing needs: No Vision needs: No Female Reproductive History Menstrual Age of Menarche: 11 Review of Systems Const All systems reviewed & are unremarkable except as noted in HPI and below Physical Exam Exam Exam: General: awake, alert, oriented. Answers questions appropriately. Fully engaged in examination. Skin: warm, dry, intact without visible rashes or lesions. HEENT: Normocephalic. Conjuntivae clear without exudate. Sclera non-icteric. Hearing intact. Cardiac: External chest normal in appearance. Respiratory: No signs of trauma. No signs of respiratory distress. No cough, audible wheezing or stridor. Abdomen: without gross distension. MS: No obvious swelling or deformities. Ambulates with steady gait, unassisted. Neurological: Oriented to person, place, time and situation. Thought process intact. Psychiatric: Appropriate mood and affect. Good judgment and insight. Vital Signs: Last Vital Signs Pulse 79 05/19/25 09:48 Resp 16 05/19/25 09:48 BP 118/75 05/19/25 09:48 Pulse Ox 99 05/19/25 09:48 Oxygen Delivery Method Room Air 05/19/25 09:48 BMI result Body Mass Index 30.3 Results Reviewed Results Reviewed: 01/07/24 CERVICAL SPINE: Limited visualization of C7 due to overlying soft tissues. Cervical disc space heights are preserved. Mild retrolisthesis of C4 on C5 with extension reduces with flexion. RIGHT KNEE: No significant joint effusion. Mild narrowing of the medial compartment. Minimal tricompartmental osteophytes. IMPRESSION: 1. Mild retrolisthesis of C4 on C5 with extension reduces with flexion. 2. Mild degenerative changes right knee. Assessment & Plan Assessment & Plan (1) Spondylosis of cervical joint without myelopathy: Code(s): M47.812 - Spondylosis without myelopathy or radiculopathy, cervical region Category: Medical (2) Trapezius muscle strain: Code(s): S46.819A - Strain of other muscles, fascia and tendons at shoulder and upper arm level, unspecified arm, initial encounter Category: Medical (3) [facility] (current) use of opiate analgesic: Code(s): Z79.891 - [facility] (current) use of opiate analgesic Category: Medical (4) Chronic pain syndrome: Code(s): G89.4 - Chronic pain syndrome Category: Medical (5) Postlaminectomy syndrome, not elsewhere classified: Code(s): M96.1 - Postlaminectomy syndrome, not elsewhere classified Category: Medical (6) Chronic back pain greater than 3 months duration: Code(s): M54.9 - Dorsalgia, unspecified; G89.29 - Other chronic pain Category: Medical (7) Cervicalgia: Code(s): M54.2 - Cervicalgia Category: Medical (8) Sacroiliac joint pain: Code(s): M53.3 - Sacrococcygeal disorders, not elsewhere classified Category: Medical Plan [facility]. No obvious signs of diversion, abuse or misuse of the opioid medications. Will send in prescription for oxycodone 5mg po QID PRN. Patient has narcan at home and has been instructed on use. 70% relief with previous cervical MBB's, Sprint PNS trials were denied by her insurance. She is not ready to proceed with RFA at this time. Discussed option for therapeutic MBBs, she will consider and let the office know if she would like to proceed. All questions and concerns have been answered and patient agrees with the plan. Patient to follow-up in the office in 1 month, sooner if needed. 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
== END 2025-05-19 09:58 | disposition home or self-care (01) ==
LOC: HO.PMC 09:40
PROVIDERS: PCP Internal Medicine; Visit Provider Registered Nurse Emergency
DX: M47.812 Spondylosis without myelopathy or radiculopathy, cervical region (principal); S46.819A Strain of other muscles, fascia and tendons at shoulder and upper arm level, unspecified arm, initial encounter; Z79.891 Long term (current) use of opiate analgesic; G89.4 Chronic pain syndrome; M96.1 Postlaminectomy syndrome, not elsewhere classified; M54.9 Dorsalgia, unspecified; G89.29 Other chronic pain; M54.2 Cervicalgia; M53.3 Sacrococcygeal disorders, not elsewhere classified
CPT/HCPCS: 99213

== ENCOUNTER → 2025-05-19 09:40 | Outpatient (BNVA) | payer OTHER, SELFPAY | PROVIDERS: PCP Internal Medicine; Visit Provider Registered Nurse Emergency | DX: M47.812 Spondylosis without myelopathy or radiculopathy, cervical region (principal); G89.4 Chronic pain syndrome; M96.1 Postlaminectomy syndrome, not elsewhere classified; M54.9 Dorsalgia, unspecified; M54.2 Cervicalgia; M53.3 Sacrococcygeal disorders, not elsewhere classified; Z79.891 Long term (current) use of opiate analgesic | CPT/HCPCS: 99212 ==

== ENCOUNTER 2025-05-23 09:50 | Outpatient (AMB) | payer OTHER, SELFPAY ==
--- OUTSIDE RECORDS SUMMARY | 2024-12-23 08:40 | XMS_ITS ---
Author Organization [facility] Address [address] [place] [address] Care Team Providers Care Batteryman Name Role Phone Erika Bowman Primary Care Provider Gadiel Elias Jr REASON FOR VISIT ILEITIS Encounters Encounter Location Date Provider Diagnosis [facility] [place] [facility] [address] [facility] [place] [id number] 12/23/2024 Gadiel Patel Jr Plan Of Treatment No Information Progress Notes * Tierra BARBERDOB:1985 (40 yo F)Acc No.[id number]:12/23/2024 COLON WITH MAC Patient: Tierra ROMANO Provider: Rakan Patel MD :1985 A ge:39 Y S ex:Female Date:12/23/2024 Address:[address] [id number] Pcp:Erika Khalil Subjective: * Chief Complaints: * [...] 0 12/23/2024 Generated for Miri adamson/Giorgio/Edinitting on: 0 05/23/2025 10:35 AM EDT
--- NOTE | 2025-05-23 09:56 | MHC.OFFVIS ---
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 She has tried a Mirena in the past and did not feel like it worked effectively and that her partner and herself could feel it. History of tubal ligation. UPT is negative. Admits to pelvic pain at times not specifically on the right side. 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 Personal history of other diseases of the musculoskeletal system and connective tissue Chronic pain syndrome Postlaminectomy syndrome, not elsewhere classified Chronic back pain greater than 3 months duration Scoliosis Surgical History Hx of cholecystectomy Hx of tubal ligation Previous back surgery Family History Mother Diabetes Father Diabetes Social History Household Members: Family Housing: Apartment Are you a primary ambulatory care nurse to a significant other at home: Yes (children ages-7,11,18) Do you presently have visiting nurse or other home services: No Alcohol intake: never Patient Tobacco Use Status: Former Tobacco user Tobacco use type: Cigarette e-Cigarette/Vaping Use: Never Used Second Hand Smoke Exposure: No Substance Use Type: Marijuana service: No Current occupational status: unemployed Cognitive needs: No Hearing needs: No Vision needs: No Female Reproductive History Menstrual Age of Menarche: 11 Date of last menstrual period: 05/01/25 Review of Systems Const All systems reviewed & are unremarkable except as noted in HPI and below Physical Exam Vital Signs: Last Vital Signs BP 100/64 05/23/25 10:01 BMI result Body Mass Index 30.3 Const General: cooperative, healthy appearing and no acute distress Orientation/consciousness: patient oriented x3 GI Inspection: Yes normal to inspection Palpation (GI): Soft to palpation and Other GI palpation findings present (Nontender) Rectal Exam - Female: visual inspection normal General: Yes bladder normal to palpation External Female Exam: normal appearance of the urethra Speculum Exam - Vagina: normal appearance of the vagina, normal palpation, normal vaginal discharge and vaginal bleeding Speculum Exam - Cervix: normal appearance of the cervix and normal palpation Bimanual exam- vagina & uterus: normal bimanual exam, normal palpation, uterine size normal, bladder normal to palpation, normal palpation, uterine shape normal and non-tender Bimanual Exam- Adnexa, other: normal adnexae OB/external & speculum: vaginal bleeding Neuro General: patient oriented x3 Office Procedures Endometrial Biopsy Details: The patient is here today for an endometrial biopsy due to AUB to rule out any pathology including atypical, hyperplasia or cancer cells of the uterus. She was counseled regarding anticipatory guidance for the procedure including the risks for pain, infection, bleeding, perforation, potential injury to the tissues may include the cervix, uterus, tubes, bladder and bowels. These injuries may include further treatment and evaluation including surgery, blood transfusions, antibiotics, hospitalizations and anesthesia. Permanent injury and scarring can occur. She was consented for the procedure, and the consent forms were signed. She is agreeable to have the procedure today. All questions were answered. Endometrial Biopsy Procedure: The patient was placed in the dorsal lithotomy position and a sterile speculum inserted. Using aseptic technique for the procedure. The cervix was cleansed with Betadine x 3 swabs. A single toothed tenaculum was placed on the cervix for stabilization and the uterus was sounded to 9 cm with a 4mm pipelle, and tissue sample obtained. Minimal bleeding was observed. The tissue sample was placed in formalin in a patient labeled container by staff assisting and sent to the pathology department for processing and interpretation. The patient tolerate the procedure well and was in good condition when leaving the department. Endometrial Biopsy Post Procedure Care: Nothing in the vagina including: tampons, douching or intimacy until all the bleeding has subsided. There may be some post procedure bleeding for several days, this bleeding is usually light and may turn to a light brown or pink color. Mild cramps may occurs. Nothing in the vaginal including: tampons, douching, or intimacy until all the bleeding has subsided. You may take an over the counter mild analgesic such as Tylenol or Advil (if no allergies) per the manufactures recommendation on dosing, frequency, and follow the directions completely. Call the office if any: fever (over 100.4), flu like symptoms, abdominal pain (worse than cramping), foul smelling, infected appearing vaginal discharge, or heavy bleeding. If indicated: Use condoms to prevent and STI's, and only after the bleeding has stopped completely. Return to the office in 2 weeks for results and plan of care. This note is constructed using voice recognition software. While every effort has been made to ensure accuracy, manager contracting errors may have been included. [id number] Biopsy Results AMB Test Urine AMB Test Urine Negative Last Edit by AURORA Lama on 05/23/25 10:06 Results Reviewed Results Reviewed: Laboratory Last Values [facility]st Clinic Negative 05/23/25 10:05 [place] [address] Ultrasound Report Signed Patient: Tierra Frazier MR#: [id number] : 1985 Acct:[id number] Age/Sex: 40 / F ADM Date: 05/17/25 Loc: . Attending Dr: Joycelyn Moise CNM Ordering Physician: Joycelyn Moise CNM Date of Service: 05/17/25 Procedure(s): US pelvic and transvaginal Accession Number(s): [id number] cc: Joycelyn Moise CNM; Erika Bowman MD~ EXAMINATION: US PELVIS CLINICAL INFORMATION: N93.9 - Abnormal uterine and vaginal bleeding, unspecified, prior tubal ligation COMPARISON: December 19, 2024 TECHNIQUE: Ultrasound of the pelvis is performed using both transabdominal and transvaginal transducers along with Doppler. Transvaginal imaging is performed due to inadequate visualization transabdominally. FINDINGS: Uterus: The uterus is anteverted and measures 10 x 5 x 6 cm. The double wall endometrial thickness is 1.2 mm. The uterus is smooth in contour and has normal myometrial echogenicity. No visible fibroid. Adnexa: Left ovary is not visualized. There is normal color flow to the right adnexa. There is no right ovarian torsion. There is no pelvic ascites or fluid collection. Right ovary measures 4.0 x 4.2 x 3.8 cm. There is a 3.5 x 3.5 x 3.2 cm with a small daughter cyst and a thin internal septation demonstrating blood flow on color Doppler. There is also a linear low density band within the cyst. US/US pelvic and transvaginal IMPRESSION: 3.5 cm mildly complex right ovarian cyst. Follow-up ultrasound in 6-12 weeks. Electronically signed by: Robert Jimenez MD 05/17/2025 02:31 PM EDT Dictated By: Robert Jimenez MD Signed By: <Electronically signed by Robert Jimenez MD in OV> 05/17/25 1431 DD/ 1401 TD/TT: 05/17/25 1417 Housekeeping Aid: Assessment & Plan Assessment & Plan (1) Complex ovarian cyst: Code(s): N83.299 - Other ovarian cyst, unspecified side Category: Medical Plan: Discussed: IMPRESSION: 3.5 cm mildly complex right ovarian cyst. Follow-up ultrasound in 6-12 weeks. Counseled regarding findings of: Complex ovarian cyst, which is often benign, and most resolve on their own overtime. Some develop into premalignant or malignant tumors. Limitations of testing for diagnostic purposes. Further monitoring and evaluation is recommended with US, possible CT, or MRI study. If persists, or is indicated (Ca-125, Carbohydrate Antigen 19-9, & Carcinoembryonic Antigen) labs will be ordered and referral to [facility] or general gynecology for MD care if indicated for possible surgical consult. Advised to call if there is any right-sided pelvic pain for sooner follow up. Follow up in person for test results. All of her questions and concerns were addressed to the best of my ability and shared decision making. She is agreeable to the plan of care. Total time I personally spent on visit and management today: ?15 minutes. Time spent included review of pertinent office notes in the electronic health record; review of laboratory and imaging results; review of personal family medical history; performing physical exam; discussing diagnosis and plan of care with the patient; documenting the encounter in the EMR. This note is constructed using voice recognition software. While every effort has been made to ensure accuracy, manager contracting errors may have been included. (2) Abnormal uterine bleeding (AUB): Code(s): N93.9 - Abnormal uterine and vaginal bleeding, unspecified Category: Medical Plan EMB procedure completed. See procedure notes. Counseled on treatment options strongly encouraged Mirena IUD, patient will consider at her follow up EMB results appointment. Preprocedure anticipatory guidance reviewed to include having something to eat and drink and to take 3 Advil 1 hour before the procedure. The patient expressed understanding and agreement with the plan of care. All of her questions and concerns were addressed to the best of my ability. This note is constructed using voice recognition software. While every effort has been made to ensure accuracy, manager contracting errors may have been included. Orders: Orders Complete Blood Count no Diff Today N92.0 - Excessive and frequent menstruation with regular cycle US pelvic and transvaginal 10 Weeks N83.299 - Other ovarian cyst, unspecified side, N93.9 - Abnormal uterine and vaginal bleeding, unspecified AMB HCG Urine Test Today N92.0 - Excessive and frequent menstruation with regular cycle Surgical Today N93.9 - Abnormal uterine and vaginal bleeding, unspecified Coding Level of Care Code Est Pt Level 2 (38407) Procedure Only Diagnoses Complex ovarian cyst N83.299 Abnormal uterine bleeding (AUB) N93.9 CPT Codes Endometrial Biopsy - CPT: 72324-Uqyklnoeulx Biopsy ([id number])
[2025-05-23 10:01] VITALS: BP 100/64; BMI 30.3
--- OUTSIDE RECORDS SUMMARY | 2025-05-23 10:36 | XMS_ITS | Patient Health Record ---
Author Organization [facility] Address [address] [place] [address] Care Team Providers Care Promotional Marketing Analyst Name Role Phone Erika Bowman Primary Care Provider Gadiel Elias Jr Results Component Value Reference Range Notes Pathology Reviewed date:12/31/2024 03:19:14 PM Interpretation: Performing Lab:[facility], [address] [place] [phone] Notes/Report: Reason For Referral No Information Encounters Encounter Location Date Provider [place] [facility] [place] [address] [place] [id number] 12/23/2024 Gadiel Patel Jr [facility] [address] [place] [phone] 12/31/2024 Gadiel Patel Jr Plan Of Treatment No Information Insurance Providers Payer Name Payer Address Payer Phone Subscriber Number Group Number Insured Name Patient Relationship to Insured Coverage Start Date Coverage End Date [facility] [employer] [facility] [address] [address] [place], [place] [id number] Tierra Frazier Self - patient is the insured
== END 2025-05-23 11:58 | disposition home or self-care (01) ==
LOC: HO.HWS 09:51
PROVIDERS: PCP Internal Medicine; Visit Provider Advanced Practice Midwife
DX: N92.0 Excessive and frequent menstruation with regular cycle (principal); N83.291 Other ovarian cyst, right side; N93.9 Abnormal uterine and vaginal bleeding, unspecified
CPT/HCPCS: 58100; 99212

== ENCOUNTER 2025-05-23 09:50 | Outpatient (REF) | payer OTHER, SELFPAY ==
[2025-05-23 11:23] LABS: Hematocrit 35.0 % (37.0-47.0); Hemoglobin 11.6 g/dl (12.0-16.0); Mean Corpuscular HGB Conc 33.1 g/dl (31.0-35.0); Mean Corpuscular Hemoglobin 29.4 pg (27.0-33.0); Mean Corpuscular Volume 88.8 fL (80.0-98.0); NRBC Abs Auto 0.000 X10*3/uL (0.0-0.012); NRBC Pct Auto 0.0 /100WBC (0.0-0.2); Platelet Count 213 X10*3/uL (160-400); Red Blood Count 3.94 X10*6/uL (4.20-5.50); White Blood Count 6.5 X10*3/uL (4.8-10.8)
== END 2025-05-23 09:51 | disposition home or self-care (01) ==
LOC: HO.LAB 09:50
PROVIDERS: PCP Internal Medicine; Visit Provider Advanced Practice Midwife
DX: N83.291 Other ovarian cyst, right side (principal); N92.0 Excessive and frequent menstruation with regular cycle; N93.9 Abnormal uterine and vaginal bleeding, unspecified; Z98.51 Tubal ligation status; Z32.02 Encounter for pregnancy test, result negative
CPT/HCPCS: 36415; 58100; 81025; 85027; 88305; 99212

== ENCOUNTER 2025-06-08 11:44 | Outpatient (AMB) | payer OTHER, SELFPAY ==
--- OUTSIDE RECORDS SUMMARY | 2024-12-23 08:40 | XMS_ITS ---
Author Organization [facility] Address [address] [place] [address] Care Team Providers Care Key Worker Name Role Phone Erika Bowman Primary Care Provider Gadiel Elias Jr REASON FOR VISIT ILEITIS Encounters Encounter Location Date Provider Diagnosis [facility] Inpatient [address] [facility] [place] [id number] 12/23/2024 Gadiel Patel Jr Plan Of Treatment No Information Progress Notes * Tierra BARBERDOB:1985 (40 yo F)Acc No.[id number]:12/23/2024 COLON WITH MAC Patient: Tierra ROMANO Provider: Rakan Patel MD :1985 A ge:39 Y S ex:Female Date:12/23/2024 [facility] [address] [facility] [facility] Pcp:Erika Khalil Subjective: * Chief Complaints: * 1 . ILEITIS. * Medical History: Objective: * Vitals: Assessment: Plan: * Treatment: * * The named appointment provid er may or may not be the originator of this progress note, and it is not deemed complete until electronically signed by the appointment provider. Sign off status: Pending * Provider: Rakan Patel MD Date: 12/23/2024 Generated for Miri adamson/Giorgio/Edinitting on: 0 06/08/2025 04:08 PM EDT
[2025-06-08 11:56] VITALS: PULSE 78; O2SAT 98
--- NOTE | 2025-06-08 11:56 | A.OFFPC_ITS ---
Vital Signs 06/08/25 11:56 Weight 197 lb 4 oz Blood Pressure Location Lt brachial Position Sitting Pulse 78 Pulse Oximetry (%) 98 Intake Visit Reasons: Anxiety and Depression Store Stock Help Required: No Accompanied by: Self / Same As Patient Allergies dicyclomine Allergy (Mild, Verified 06/08/25 12:07) Rash Penicillins Allergy (Unknown, Verified 06/08/25 12:07) Hives Medication List - Last Reconciled 06/08/25 by Gayle Rivera PA-C albuterol sulfate 90 mcg/actuation (Ventolin HFA) 2 puffs inhalation Q4-6H PRN amitriptyline 25 mg PO BEDTIME PRN cane As directed celecoxib 50 mg PO BID PRN cholecalciferol (vitamin D3) 25 mcg PO DAILY 90 days hydroxyzine HCl 25 mg PO BEDTIME naloxegol (Movantik) 12.5 mg PO QAM oxycodone 5 mg PO Q6H PRN 30 days spironolactone 150 mg PO DAILY tretinoin 0.025% 1 appl topical BEDTIME Tobacco use date assessed: 06/08/25 Dental Screening Dental Screen Date: 06/08/25 Did you have a dental visit in the last 12 months?: Yes Did you have a dental problem in the last 6 months where you did not have access to dental care?: No Was dental information given to patient?: Patient has dentist HPI Anxiety and Depression HPI Details 40-year-old female with past medical his tory of chronic back pain, insomnia, depression, anxiety, OCD last seen by Dr. Lara 09/2024 coming in for acute problem. Presenting with anxiety, hip pain, and a request for a neurologist referral due to family history of Multiple Sclerosis and migraines. The patient has been experiencing anxiety and is seeking medication to manage it. Hip pain Persistent for over a year, the pain radiates down the leg and worsens with certain movements, especially at night. Back and shoulder pain Managed with monthly oxycodone prescriptions, indicating chronic pain management needs. Migraines and family history of Multiple Sclerosis Concerns due to siblings' diagnoses, prompting a neurologist referral request. Has been having worsening anxiety and depression isn't is interested in starting medication. [facility] Medical History Complex ovarian cyst Abnormal uterine bleeding (AUB) Ovarian cyst Facial rash Leukocytosis Constipation Ileitis GERD (gastroesophageal reflux disease) Anxiety Obese Cholelithiasis Insomnia MCC (current) use of opiate analgesic Personal history of other diseases of the musculoskeletal system and connective tissue Chronic pain syndrome Postlaminectomy syndrome, not elsewhere classified Chronic back pain greater than 3 months duration Scoliosis Surgical History Hx of cholecystectomy Hx of tubal ligation Previous back surgery Family History Mother Diabetes Father Diabetes Social History Household Members: Family Housing: Apartment 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 1. Little interest or pleasure in doing things: several days 2. Feeling down, depressed, or hopeless: more than half the days 3. Trouble falling or staying asleep, or sleeping too much: more than half the days 4. Feeling tired or having little energy: more than half the days 5. Poor appetite or overeating: more than half the days 6. Feeling bad about yourself - or that you are a failure or have let yourself or your family down: not at all 7. Trouble concentrating on things, such as reading the newspaper or watching television: not at all 8. Moving or speaking so slowly that other people could have noticed. Or the opposite - being so fidgety or restless that you have been moving around a lot more than usual: more than half the days 9. Thoughts that you would be better off or of hurting yourself in some way: not at all Total score: 11 Depression Screening Interpretation: Positive Depression Screening Follow-up: Existing condition and Follow-up Visit Requested Depression Screening Done: Yes Source: Developed by Drs. Chandler Daley, Lakeisha Godfrey, Evaristo Coker and colleagues, with an educational bella from [employer]. Thrive Questionnaire Date Thrive assessed: 06/08/25 I am a: Patient What is your living situation today?: I have a steady place to live Within the past 12 months, did the food you bought not last and you didn't have the money to get more?: Never true Within the past 12 months, did you worry whether your food would run out before you got money to buy more?: Never true Do you have trouble paying for medicines?: No Do you have trouble getting transportation to medical appointments?: No Do you have trouble paying your heating and electricity bill?: No Do you have trouble taking care of your child, family member or friend?: No Do you have trouble with day-to-day activities such as bathing, preparing meals, shopping, managing finances, etc.?: No Are you currently unemployed and looking for a job?: No Are you interested in more education?: No Please select the resources that you would like help with: None Currently or been in a relationship where the following occur: No concerns reported THRIVE Score: 0 AUDIT C Alcohol Use Questionnaire (AUDIT-C) 1. How often do you have a drink containing alcohol?: Never Total Score: 0 Score Reviewed/Action Taken: No AMANDA-7 AMB Questionnaire AMANDA-7 Date AMANDA - 7 assessed: 06/08/25 Feeling nervous, anxious, or on edge: 2 = More than half the days Not being able to stop or control worryin = Not at all Worrying too much about different things: 2 = More than half the days Trouble relaxin = More than half the days Being so restless that it is hard to sit still: 3 = Nearly every day Becoming easily annoyed or irritable: 3 = Nearly every day Feeling afraid as if something awful might happen: 0 = Not at all Total AMANDA-7 score (0-4 normal; 5-9 mild; 10-14 moderate; 15-21 severe): 12 Source: Developed by Lakeisha Miranda Kurt Kroenke and colleagues, with an educational bella from [employer]. AMANDA-7 Assessment Billing AMANDA-7 Assessment Tool: AMANDA-7 Assessment 15085 Review of Systems Const Denies body aches, Denies chills, Denies fever(s), Reports headache(s) and Denies poor appetite Eyes Reports no additional complaints ENT Denies dizziness and Reports headache(s) Card Denies chest pain, Denies edema, Denies lightheadedness and Denies dyspnea Resp Denies cough and Denies dyspnea Reports no additional complaints Musc Reports as per HPI and Denies abnormal gait Skin/Breast Reports system reviewed and no additional complaints, except as documented Neuro Denies abnormal gait, Denies dizziness and Reports headache(s) Psych Reports no additional complaints Physical exam (Primary Care) Vital Signs: Last Vital Signs Pulse 78 06/08/25 11:56 Pulse Ox 98 06/08/25 11:56 Tobacco/Smoking Status: Tobacco use Status Tobacco use date assessed 06/08/25 06/08/25 12:03 Patient Tobacco Use Status Former Tobacco user 06/08/25 12:03 Tobacco use type Cigarette 06/08/25 12:03 e-Cigarette/Vaping Use Never Used 06/08/25 12:03 PHQ-9: PHQ-9 Score PHQ-9: Total score 11 06/08/25 12:03 Depression Screening Interpretation: Positive Depression Screening Follow-up: Existing condition and Follow-up Visit Requested Thrive Assessment: Date of Thrive Assessment Date Thrive assessed 06/08/25 06/08/25 12:03 Currently or been in a relationship where the following occur: No concerns reported Const General: cooperative, healthy appearing, comfortable and no acute distress Orientation/consciousness: patient oriented x3 [facility] Head: Yes normocephalic Ears: hearing grossly normal bilaterally General nose exam: Normal external nose present Eyes General: appearance normal, both eyes and all related structures Conjunctivae: conjunctivae normal Neck Neck: Yes full ROM and Yes no lymphadenopathy Resp Effort & Inspection: normal respiratory effort Auscultation: clear to auscultation bilaterally, no crackles, no rales, no rhonchi and no wheezes Cardio Rate: regular rate Rhythm: regular rhythm Back/Spine/Pelvis Other: no tenderness to palpation of the hip but there is tenderness to palpation over lateral aspect of bilateral thighs. Pain with lateral raise of bilateral hips Skin General skin exam: no rashes or lesions noted Neuro General: patient oriented x3 Gait exam (Neuro): Normal gait present Extrem General: Yes normal to inspection, Yes full ROM and No edema Psych Affect: normal affect Attitude: cooperative Insight: Good insight present (Psych) Judgement: Good judgement present (Psych) Coding Level of Care Code Est Pt Level 3 (91872) Diagnoses Bilateral hip pain M25.551; M25.552 Family history of MS (multiple sclerosis) Z82.0 Migraine G43.909 Anxiety F41.9 Mild major depression F32.0 Additional Codes AMANDA-7 Assessment Billing - AMANDA-7 Assessment Tool: AMANDA-7 Assessment 80531 ([id number]) Assessment & Plan Assessment & Plan (1) Bilateral hip pain: Code(s): M25.551 - Pain in right hip; M25.552 - Pain in left hip Category: Medical Plan: The patient reports hip pain, likely due to bursitis, with pain radiating down the leg. Management includes the use of NSAIDs, physical therapy, and heating pads. An x-ray was recommended to rule out arthritis, and the possibility of cortisone injections was discussed if symptoms persist. (2) Family history of MS (multiple sclerosis): Code(s): Z82.0 - Family history of epilepsy and other diseases of the nervous system Category: Medical Plan: Referral was placed to Neurology at patient request. (3) Migraine: Code(s): G43.909 - Migraine, unspecified, not intractable, without status migrainosus Category: Medical Plan: The patient reports migraines and requested a referral to a neurologist due to a family history of Multiple Sclerosis. The referral was placed, and the patient was advised to follow up with the neurologist for further evaluation. (4) Anxiety: Code(s): F41.9 - Anxiety disorder, unspecified Category: Medical Plan: The patient expressed a desire for medication to manage anxiety. Discussion included the potential use of SSRIs such as Zoloft, Celexa, or Lexapro, and the alternative of Wellbutrin, which does not typically cause weight gain. The patient was informed about the potential side effects of these medications, including weight gain and decreased libido, and the need for a trial period to assess effectiveness. Plan to start on Wellbutrin once daily for 1 week and increase to twice daily as tolerated and follow up in 2 months. (5) Mild major depression: Code(s): F32.0 - Major depressive disorder, single episode, mild Category: Medical Plan: See above Plan During the visit, we discussed the management of the patient's anxiety, hip pain, and other chronic conditions. I explained the potential use of SSRIs and Wellbutrin for anxiety and depression, highlighting the side effects and the need for a trial period. For hip pain, likely bursitis, we considered NSAIDs, physical therapy, and heating pads, with an x-ray to rule out arthritis. We also discussed the possibility of cortisone injections if symptoms persist. A referral to a neurologist was made due to the patient's migraines and family history of Multiple Sclerosis. I advised the patient to monitor for symptoms of serotonin syndrome due to the combination of amitriptyline and Wellbutrin. Follow-up was planned in two months to assess the effectiveness of the treatment plan. This note was constructed using voice recognition software. While every effort has been made to ensure accuracy and bottom turning lathe tender, still areas may have been included sometimes these areas may affect the content or meeting of the given symptoms. Total time spent caring for the patient today was 20 minutes. This includes time spent before the visit reviewing the chart, time spent during the visit, and time spent after the visit and documentation. Patient was informed and verbally consented to the use of an ambient scribe for clinic note documentation during this visit. Orders: Orders XR hips NOEMY min 3V Today M25.551 - Pain in right hip, M25.552 - Pain in left hip Referrals Neurology Referral G43.909 - Migraine, unspecified, not intractable, without status migrainosus, Z82.0 - Family history of epilepsy and other diseases of the nervous system Medications: New bupropion HCl 100 mg PO BID 60 tabs 0RF Refilled celecoxib take with food. do not take with any other NSAIDS 50 mg PO BID PRN 60 caps 3RF Pain/Inflammation cholecalciferol (vitamin D3) 25 mcg PO DAILY 90 caps 1RF 90 days hydroxyzine HCl 25 mg PO BEDTIME 14 tabs 0RF
--- OUTSIDE RECORDS SUMMARY | 2025-06-08 16:10 | XMS_ITS | Patient Health Record ---
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 Name Role Phone Erika Bowman Primary Care Provider Gadiel Elias Jr Results Component Value Reference Range Notes Pathology Reviewed date:12/31/2024 03:19:14 PM Interpretation: Performing Lab:[facility], [address] [place] [id number] Notes/Report: Reason For Referral No Information Encounters Encounter Location Date Provider Diagnosis [facility] [place] [address] [place] [id number] 12/23/2024 Gadiel Patel Jr [facility] [address] [place] [id number] 12/31/2024 Gadiel Patel Jr Plan Of Treatment No Information Insurance Providers Payer Name Payer Address Payer Phone Subscriber Number Group Number Insured Name Patient Relationship to Insured Coverage Start Date Coverage End Date [facility] [employer] In [employer] [facility] [address] [address] [place], [place] [id number] Tierra Frazier Self - patient is the insured
== END 2025-06-08 12:32 | disposition home or self-care (01) ==
LOC: HO.HMCH 11:45
PROVIDERS: PCP Internal Medicine
DX: M25.551 Pain in right hip (principal); M25.552 Pain in left hip; Z82.0 Family history of epilepsy and other diseases of the nervous system; G43.909 Migraine, unspecified, not intractable, without status migrainosus; F41.9 Anxiety disorder, unspecified; F32.0 Major depressive disorder, single episode, mild

== ENCOUNTER → 2025-06-08 11:44 | Outpatient (BNVA) | payer OTHER, SELFPAY | PROVIDERS: PCP Internal Medicine | DX: M25.551 Pain in right hip (principal); M25.552 Pain in left hip; G43.909 Migraine, unspecified, not intractable, without status migrainosus; F41.9 Anxiety disorder, unspecified; F32.0 Major depressive disorder, single episode, mild; Z82.0 Family history of epilepsy and other diseases of the nervous system; Z13.31 Encounter for screening for depression; Z13.39 Encounter for screening examination for other mental health and behavioral disorders | CPT/HCPCS: 96127; 99212 ==

== ENCOUNTER 2025-06-16 10:13 | Outpatient (AMB) | payer OTHER, SELFPAY ==
--- NOTE | 2025-06-16 10:20 | MHC.OFFVIS ---
Vital Signs 06/16/25 10:21 Height 5 ft 8 in Weight 197 lb BMI 30.0 BP 119/72 Blood Pressure Location Rt brachial Position Sitting Respiration 16 Pulse 85 Pulse Source Pulse Oximeter Pulse Oximetry (%) 97 Oxygen Delivery Method Room Air Intake Visit Reasons: PILL COUNT Intake Note: Patient here for a pill count routine of Oxycodone. Per directions patient should have 28 pills. Patient presented 30 pills. Last took 8am. 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 She arrived today with the expectation of having 28 pills, she presented 30 pills which were counted in the presence of two staff members and returned to the patient in the original prescription bottle. This demonstrates responsible attitude toward patient's opioid medications. Pain is reported today as 8/10 and last dose of pain medication was taken this morning at 08:00. Denies abdominal pain, shortness of breath, lethargy, confusion. 07/15/25 she underwent diagnostic MBB 70% relief. Unfortunately sprint PNS trials were denied by her insurance. Not ready to commit to RFA at this time. Discussed option for therapeutic MBBs and to the recent increase in her neck pain she would like to proceed with this option. She is requesting that this be done with some with sedation as she suffers with significant anxiety regarding the discomfort during the procedure. - Onset: Chronic pain with recent exacerbation - Quality: Severe pain in the neck and shoulders, moderate in the lower back - Location: Neck, shoulders, lower back, and hips - Exacerbating factors: Prolonged lying in one position - Relieving factors: Previous injections provided significant relief - Affect: Reports increased anxiety and difficulty sleeping due to pain - Analgesia: Current medications provide limited relief; previous injections were effective - Adverse Effects: None reported - Activities of Daily Living: Pain interferes with sleep and daily activities - Aberrant Drug Related Behaviors: None reported [facility] Medical History Complex ovarian cyst Abnormal uterine bleeding (AUB) Ovarian cyst Facial rash Leukocytosis Constipation Ileitis GERD (gastroesophageal reflux disease) Anxiety Obese Cholelithiasis Insomnia 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 Personal history of other diseases of the musculoskeletal system and connective tissue Chronic pain syndrome Postlaminectomy syndrome, not elsewhere classified Chronic back pain greater than 3 months duration Scoliosis Surgical History Hx of cholecystectomy Hx of tubal ligation Previous back surgery Family History Mother Diabetes Father Diabetes Social History Household Members: Family Housing: Apartment 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: Yes (children ages-7,11,18) Do you presently have visiting nurse or other home services: No Alcohol intake: never Patient Tobacco Use Status: Former Tobacco user Tobacco use type: Cigarette e-Cigarette/Vaping Use: Never Used Second Hand Smoke Exposure: No Substance Use Type: Marijuana service: No Current occupational status: unemployed Cognitive needs: No Hearing needs: No Vision needs: No Female Reproductive History Menstrual Age of Menarche: 11 Review of Systems Const Details: - Musculoskeletal: Reports neck, shoulder, lower back, and hip pain - Neurological: Reports increased anxiety and difficulty sleeping Physical Exam Exam Exam: General: awake, alert, oriented. Answers questions appropriately. Fully engaged in examination. Skin: warm, dry, intact without visible rashes or lesions. HEENT: Normocephalic. Conjuntivae clear without exudate. Sclera non-icteric. Hearing intact. Cardiac: External chest normal in appearance. Respiratory: No signs of trauma. No signs of respiratory distress. No cough, audible wheezing or stridor. Abdomen: without gross distension. MS: No obvious swelling or deformities. Ambulates with steady gait, unassisted. Neurological: Oriented to person, place, time and situation. Thought process intact. Psychiatric: Appropriate mood and affect. Good judgment and insight. Vital Signs: Last Vital Signs Pulse 85 06/16/25 10:21 Resp 16 06/16/25 10:21 BP 119/72 06/16/25 10:21 Pulse Ox 97 06/16/25 10:21 Oxygen Delivery Method Room Air 06/16/25 10:21 BMI result Body Mass Index 30.0 Results Reviewed Results Reviewed: 4/11/24 CERVICAL SPINE: Limited visualization of C7 due to overlying soft tissues. Cervical disc space heights are preserved. Mild retrolisthesis of C4 on C5 with extension reduces with flexion. RIGHT KNEE: No significant joint effusion. Mild narrowing of the medial compartment. Minimal tricompartmental osteophytes. IMPRESSION: 1. Mild retrolisthesis of C4 on C5 with extension reduces with flexion. 2. Mild degenerative changes right knee. 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: Code(s): Z79.891 - retirement (current) use of opiate analgesic Category: Medical (4) Chronic pain syndrome: Code(s): G89.4 - Chronic pain syndrome Category: Medical (5) Postlaminectomy syndrome, not elsewhere classified: Code(s): M96.1 - Postlaminectomy syndrome, not elsewhere classified Category: Medical (6) Chronic back pain greater than 3 months duration: Code(s): M54.9 - Dorsalgia, unspecified; G89.29 - Other chronic pain Category: Medical (7) Cervicalgia: Code(s): M54.2 - Cervicalgia Category: Medical (8) Sacroiliac joint pain: Code(s): M53.3 - Sacrococcygeal disorders, not elsewhere classified Category: Medical Plan [place] was reviewed and without concerns. No obvious signs of diversion, abuse or misuse of the opioid medications. Will send in prescription for oxycodone 5mg po QID PRN. Patient has narcan at home and has been instructed on use. 70% relief with previous cervical MBB's, Sprint PNS trials were denied by her insurance. She is not ready to proceed with RFA at this time. Patient would like to proceed with fluoroscopy guided bilateral therapeutic C4-C5 C6 medial branch blocks with light sedation as she suffers with significant procedural anxiety. All questions and concerns have been answered and patient agrees with the plan. Patient to follow-up in the office in 1 month, sooner if needed. 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
[2025-06-16 10:21] VITALS: BP 119/72; PULSE 85; RESP 16; O2SAT 97
== END 2025-06-16 10:35 | disposition home or self-care (01) ==
LOC: HO.PMC 10:14
PROVIDERS: PCP Internal Medicine; Visit Provider Registered Nurse Emergency
DX: M47.812 Spondylosis without myelopathy or radiculopathy, cervical region (principal); S46.819A Strain of other muscles, fascia and tendons at shoulder and upper arm level, unspecified arm, initial encounter; Z79.891 Long term (current) use of opiate analgesic; G89.4 Chronic pain syndrome; M96.1 Postlaminectomy syndrome, not elsewhere classified; M54.9 Dorsalgia, unspecified; G89.29 Other chronic pain; M54.2 Cervicalgia; M53.3 Sacrococcygeal disorders, not elsewhere classified
CPT/HCPCS: 99213

== ENCOUNTER → 2025-06-16 10:13 | Outpatient (BNVA) | payer OTHER, SELFPAY | PROVIDERS: PCP Internal Medicine; Visit Provider Registered Nurse Emergency | DX: M47.812 Spondylosis without myelopathy or radiculopathy, cervical region (principal); M96.1 Postlaminectomy syndrome, not elsewhere classified; M54.9 Dorsalgia, unspecified; M54.2 Cervicalgia; G89.4 Chronic pain syndrome; M53.3 Sacrococcygeal disorders, not elsewhere classified; F41.9 Anxiety disorder, unspecified; S46.819A Strain of other muscles, fascia and tendons at shoulder and upper arm level, unspecified arm, initial encounter; X58.XXXA Exposure to other specified factors, initial encounter; Y92.9 Unspecified place or not applicable; Y93.9 Activity, unspecified; Y99.9 Unspecified external cause status; Z51.81 Encounter for therapeutic drug level monitoring; Z79.891 Long term (current) use of opiate analgesic | CPT/HCPCS: 99212 ==

== ENCOUNTER 2025-06-29 10:00 | Outpatient (AMB) | payer OTHER, SELFPAY ==
--- OUTSIDE RECORDS SUMMARY | 2024-12-23 08:40 | XMS_ITS ---
Author Organization [facility] Address [address] [place] [address] Care Team Providers Care Technician Test Systems Name Role Phone Erika Bowman Primary Care Provider Gadiel Elias Jr [phone] REASON FOR VISIT ILEITIS Encounters Encounter Location Date Provider Diagnosis [facility] Inpatient [address] [facility] [place] [id number] 12/23/2024 Gadiel Patel Jr Plan Of Treatment No Information Progress Notes * Tierra BARBERDOB:1985 (40 yo F)Acc No.[id number]:12/23/2024 COLON WITH MAC Patient: Tierra ROMANO Provider: Rakan Patel MD :1985 A ge:39 Y S ex:Female Date:12/23/2024 [facility] [address] [facility] Pcp:Erika Khalil Subjective: * Chief Complaints: * [...] 0 12/23/2024 Generated for Miri adamson/Giorgio/Edinitting on: 11:18 AM EDT
--- NOTE | 2025-06-29 10:00 | A.OFFVIS_ITS ---
Intake Visit Reasons: EMB Result Intake Note: cell # [phone] [employer]: [employer] Present Allergies dicyclomine Allergy (Mild, Verified 06/29/25 10:00) Rash Penicillins Allergy (Unknown, Verified 06/29/25 10:00) Hives Is last menstrual period known: Yes HPI Comments Details: Tele Health Visit Total time I personally spent on visit and management today: 22 minutes. Time spent included review of pertinent office notes in the electronic health record; review of laboratory and imaging results; review of personal family medical history; discussing diagnosis and plan of care with the patient; documenting the encounter in the EMR. Patient presents to discuss: Endometrial biopsy results, history of AUB. She reports still bleeding at this time and would like to have a hysterectomy. She has tried 2 Mirena is in the past without success. H/H=11.6/35 05/23/25. She is not interested in other cycle control options at this time. History of 3.5 cm complex right ovarian cyst has a ultrasound August 01, with follow up appointment to discuss on 08/16/2025. She reports she is always some type of pelvic pain. [facility] Medical History Complex ovarian cyst Abnormal uterine bleeding (AUB) Ovarian cyst Facial rash Leukocytosis Constipation Ileitis GERD (gastroesophageal reflux disease) Anxiety Obese Cholelithiasis Insomnia detention (current) use of opiate analgesic Personal history of other diseases of the musculoskeletal system and connective tissue Chronic pain syndrome Postlaminectomy syndrome, not elsewhere classified Chronic back pain greater than 3 months duration Scoliosis Surgical History Hx of cholecystectomy Hx of tubal ligation Previous back surgery Family History Mother Diabetes Father Diabetes Social History Household Members: Family Housing: Apartment Are you a primary hearing care practitioner to a significant other at home: Yes (children ages-7,11,18) Do you presently have visiting nurse or other home services: No Alcohol intake: never Patient Tobacco Use Status: Former Tobacco user Tobacco use type: Cigarette e-Cigarette/Vaping Use: Never Used Second Hand Smoke Exposure: No Substance Use Type: Marijuana service: No Current occupational status: unemployed Cognitive needs: No Hearing needs: No Vision needs: No Female Reproductive History Menstrual Age of Menarche: 11 Review of Systems Const All systems reviewed & are unremarkable except as noted in HPI and below Endo Reports no additional complaints Physical Exam Const General: cooperative, healthy appearing and no acute distress Psych Appearance: well kempt Attitude: cooperative Thought process: Normal thought process present Telehealth Telehealth Telehealth Platform: [employer] Location of provider rendering services: practice address Location of patient: address on file Patient Identification confirmed using: Name, : Yes Telehealth method: video Patient verbally consented to treatment: Yes Patient verbally consented to [employer] insurance company: Yes Patient informed of any privacy concerns related to visit: Yes Results Reviewed Results Reviewed: Surgical Pathology [id number] Name: FreddieTierra Age/Sex: 40/F Attending: Joycelyn Moise CNM : 1985 Submitted by: Joycelyn Moise CNM Copies to: Erika Bowman MD MR #: [id number] Status: DEP REF Collected: 05/23/25 Location: [facility] Received: 05/23/25 Diagnosis Endometrium, biopsy: Inactive endometrium with breakdown; abundant blood; no atypia or hyperplasia identified. Clinical History AUB Microscopic Description Microscopic sections reviewed. Material Received Endometrial biopsy Gross Description Received in formalin labeled ?endometrial biopsy? are fragments of red-elena soft tissue mixed with mucus and clotted blood forming an aggregate measuring 3.7 x 3.2 x 0.5 cm which is wrapped in lens paper and entirely submitted for microscopic examination, multiple pieces in cassettes A1 through A3. ([facility]) Copies To Joycelyn Moise CNM [facility] [address] [place] [address] Erika Bowman MD [facility] Primary Care,[place] [address] [facility] [address] [place] [address] NOTE: Unless otherwise stated, all tissue is formalin-fixed and paraffin- embedded. Some or all of the immunohistochemical tests reported herein may have been developed and their performance characteristics determined by [facility]. They have not been cleared or approved by the U.S. Food and Drug Administration (FDA). However, the FDA has determined that such clearance or approval is not necessary. This laboratory is certified under the Clinical Laboratory Improvement Amendments of 1988 (CLIA) as qualified to perform high complexity clinical laboratory testing. Electronically Signed By: Dave Diaz MD 05/24/25 1259 Patient: Tierra Frazier Age/Sex: 40/F MR#: [id number] Page [address] [address] Ultrasound Report Signed Patient: Tierra Frazier MR#: [id number] : 1985 Acct:[id number] Age/Sex: 40 / F ADM Date: 05/17/25 Loc: HO.US Attending Dr: Joycelyn Moise CNM Ordering Physician: Joycelyn Moise CNM Date of Service: 05/17/25 Procedure(s): US pelvic and transvaginal Accession Number(s): [id number] cc: Joycelyn Moise CNM; Erika Bowman MD~ EXAMINATION: US PELVIS CLINICAL INFORMATION: N93.9 - Abnormal uterine and vaginal bleeding, unspecified, prior tubal ligation COMPARISON: December 19, 2024 TECHNIQUE: Ultrasound of the pelvis is performed using both transabdominal and transvaginal transducers along with Doppler. Transvaginal imaging is performed due to inadequate visualization transabdominally. FINDINGS: Uterus: The uterus is anteverted and measures 10 x 5 x 6 cm. The double wall endometrial thickness is 1.2 mm. The uterus is smooth in contour and has normal myometrial echogenicity. No visible fibroid. Adnexa: Left ovary is not visualized. There is normal color flow to the right adnexa. There is no right ovarian torsion. There is no pelvic ascites or fluid collection. Right ovary measures 4.0 x 4.2 x 3.8 cm. There is a 3.5 x 3.5 x 3.2 cm with a small daughter cyst and a thin internal septation demonstrating blood flow on color Doppler. There is also a linear low density band within the cyst. US/US pelvic and transvaginal IMPRESSION: 3.5 cm mildly complex right ovarian cyst. Follow-up ultrasound in 6-12 weeks. 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 Plan CBC today follow up pending results. Referral for a surgical consult to knitting machine operator automatic at [facility]. Advised to go to the ED if experiencing any prolonged or heavy bleeding episodes or symptoms of anemia as discussed today. The patient expressed understanding and agreement with the plan of care. All of her questions and concerns were addressed to the best of my ability. This note is constructed using voice recognition software. While every effort has been made to ensure accuracy, oyster worker errors may have been included. Orders: Orders Complete Blood Count no Diff 06/29/25 N92.0 - Excessive and frequent menstruation with regular cycle Coding Level of Care Code Tele Est Pt Level 3 (85971) Diagnoses Abnormal uterine bleeding (AUB) N93.9
--- OUTSIDE RECORDS SUMMARY | 2025-06-29 11:18 | XMS_ITS | Patient Health Record ---
Author Organization [facility] Address [address] [place] [address] Care Team Providers Care Mains And Service Supervisor Name Role Phone Erika Bowman Primary Care Provider Gadiel Elias Jr Results Component Value Reference Range Notes Pathology Reviewed date:12/31/2024 03:19:14 PM Interpretation: Performing Lab:[facility], [address] [place] [id number] Notes/Report: Reason For Referral No Information Encounters Encounter Location Date Provider Diagnosis [facility] Inpatient [address] [place] [id number] 12/23/2024 Gadiel Patel Jr [facility] [address] [place] [phone] 12/31/2024 Gadiel Patel Jr Plan Of Treatment No Information Insurance Providers Payer Name Payer Address Payer Phone Subscriber Number Group Number Insured Name Patient Relationship to Insured Coverage Start Date Coverage End Date [facility] [employer] [facility] [address] [address] [place], [place] [id number] Tierra Frazier Self - patient is the insured
== END 2025-06-29 12:51 | disposition home or self-care (01) ==
LOC: HO.HWS 10:00
PROVIDERS: PCP Internal Medicine; Visit Provider Advanced Practice Midwife
DX: N93.9 Abnormal uterine and vaginal bleeding, unspecified (principal)
CPT/HCPCS: 99213

== ENCOUNTER 2025-06-29 10:00 | Outpatient (REF) | payer OTHER, SELFPAY ==
[2025-06-29 11:50] LABS: Hematocrit 39.7 % (37.0-47.0); Hemoglobin 13.1 g/dl (12.0-16.0); Mean Corpuscular HGB Conc 33.0 g/dl (31.0-35.0); Mean Corpuscular Hemoglobin 29.3 pg (27.0-33.0); Mean Corpuscular Volume 88.8 fL (80.0-98.0); NRBC Abs Auto 0.000 X10*3/uL (0.0-0.012); NRBC Pct Auto 0.0 /100WBC (0.0-0.2); Platelet Count 240 X10*3/uL (160-400); Red Blood Count 4.47 X10*6/uL (4.20-5.50); White Blood Count 8.3 X10*3/uL (4.8-10.8)
== END 2025-06-29 10:01 | disposition home or self-care (01) ==
LOC: HO.LAB 10:00
PROVIDERS: PCP Internal Medicine; Visit Provider Advanced Practice Midwife
DX: N93.9 Abnormal uterine and vaginal bleeding, unspecified (principal); N92.0 Excessive and frequent menstruation with regular cycle
CPT/HCPCS: 36415; 85027

== ENCOUNTER 2025-07-14 10:50 | Outpatient (AMB) | payer OTHER, SELFPAY ==
--- OUTSIDE RECORDS SUMMARY | 2024-12-23 08:40 | XMS_ITS ---
Author Organization [facility] Address [address] [place] [address] Care Team Providers Care Foiling Machine Adjuster Name Role Phone Erika Bowman Primary Care Provider Gadiel Elias Jr REASON FOR VISIT ILEITIS Encounters Encounter Location Date Provider Diagnosis [facility] [place] [address] [facility] [place] [id number] 12/23/2024 Gadiel Patel Jr Plan Of Treatment No Information Progress Notes * Tierra BARBERDOB:1985 (40 yo F)Acc No.[id number]:12/23/2024 COLON WITH MAC Patient: Tierra ROMANO Provider: Rakan Patel MD :1985 A ge:39 Y S ex:Female Date:12/23/2024 [address] [address] [facility] [facility] Pcp:Erika Khalil Subjective: * Chief Complaints: * [...] 0 12/23/2024 Generated for Miri adamson/Giorgio/Edinitting on: 01:26 PM EDT
--- NOTE | 2025-07-14 10:52 | MHC.OFFVIS ---
Vital Signs 07/14/25 10:53 Height 5 ft 8 in Weight 197 lb BMI 30.0 BP 126/67 Blood Pressure Location Rt brachial Position Sitting Respiration 16 Pulse 79 Pulse Source Pulse Oximeter Pulse Oximetry (%) 98 Oxygen Delivery Method Room Air Intake Visit Reasons: Pill Count Intake Note: Patient here for a pill count routine of Oxycodone. per directions patient should have 40 pills. Patient presented 42 pills. Last took 8am. Pecan Mallow Dipper Required: No Accompanied by: Self / Same As Patient Allergies dicyclomine Allergy (Mild, Verified 07/14/25 10:53) Rash Penicillins Allergy (Unknown, Verified 07/14/25 10:53) Hives HPI Comments Details: Tierra presents to the office today for follow up chronic pain and chronic opioid medication management Patient is prescribed oxycodone 5mg tablets Q6H PRN. She arrived today with the expectation of having 40 pills, she presented 42 pills which were counted in the presence of two staff members and returned to the patient in the original prescription bottle. This demonstrates responsible attitude toward patient's opioid medications. Pain is reported today as 9/10 and last dose of pain medication was taken this morning at 08:00. The chronic back pain has been worsening, especially with the onset of colder weather, and is not adequately managed by current medications, including muscle relaxers, lidocaine patches, and a TENS unit. The patient reports that the pain is exacerbated during the night, leading to significant sleep disturbances. The patient has tried various muscle relaxers and is currently using oxycodone, which has not been effective in managing the pain. The patient has not tried gabapentin before, which is being considered as a new treatment option. The patient experiences anxiety related to the pain, particularly when it interferes with daily activities and sleep. The patient has difficulty remaining still at night and often moves between the bed and the couch to find relief. - Onset: Chronic, worsening with cold weather - Quality: Persistent, not relieved by current medications - Location: Back - Exacerbating factors: Nighttime, cold weather - Relieving factors: None effective currently - Interference: Sleep disturbances, anxiety - Affect: Anxiety related to pain interference with daily activities - Analgesia: Current medications include muscle relaxers, lidocaine patches, TENS unit, oxycodone; considering gabapentin - Adverse Effects: None reported - Activities of Daily Living: Pain interferes with sleep and daily activities - Aberrant Drug Related Behaviors: None reported [facility] Medical History Complex ovarian cyst Abnormal uterine bleeding (AUB) Ovarian cyst Facial rash Leukocytosis Constipation Ileitis GERD (gastroesophageal reflux disease) Anxiety Obese Cholelithiasis Insomnia correction (current) use of opiate analgesic Personal history of other diseases of the musculoskeletal system and connective tissue Chronic pain syndrome Postlaminectomy syndrome, not elsewhere classified Chronic back pain greater than 3 months duration Scoliosis Surgical History Hx of cholecystectomy Hx of tubal ligation Previous back surgery Family History Mother Diabetes Father Diabetes Social History Household Members: Family Housing: Apartment Are you a primary healthcare administration intern to a significant other at home: Yes (children ages-7,11,18) Do you presently have visiting nurse or other home services: No Alcohol intake: never Patient Tobacco Use Status: Former Tobacco user Tobacco use type: Cigarette e-Cigarette/Vaping Use: Never Used Second Hand Smoke Exposure: No Substance Use Type: Marijuana service: No Current occupational status: unemployed Cognitive needs: No Hearing needs: No Vision needs: No Female Reproductive History Menstrual Age of Menarche: 11 Review of Systems Const Details: - Musculoskeletal: Reports chronic back pain, worsening with cold weather - Neurological: Reports insomnia, difficulty sleeping due to pain - Psychological: Reports anxiety related to pain Physical Exam Exam Exam: General: awake, alert, oriented. Answers questions appropriately. Fully engaged in examination. Skin: warm, dry, intact without visible rashes or lesions. HEENT: Normocephalic. Conjuntivae clear without exudate. Sclera non-icteric. Hearing intact. Cardiac: External chest normal in appearance. Respiratory: No signs of trauma. No signs of respiratory distress. No cough, audible wheezing or stridor. Abdomen: without gross distension. MS: No obvious swelling or deformities. Ambulates with steady gait, unassisted. Neurological: Oriented to person, place, time and situation. Thought process intact. Psychiatric: Appropriate mood and affect. Good judgment and insight. Vital Signs: Last Vital Signs Pulse 79 07/14/25 10:53 Resp 16 07/14/25 10:53 BP 126/67 07/14/25 10:53 Pulse Ox 98 07/14/25 10:53 Oxygen Delivery Method Room Air 07/14/25 10:53 BMI result Body Mass Index 30.0 Results Reviewed Results Reviewed: 01/07/24 CERVICAL SPINE: Limited visualization of C7 due to overlying soft tissues. Cervical disc space heights are preserved. Mild retrolisthesis of C4 on C5 with extension reduces with flexion. RIGHT KNEE: No significant joint effusion. Mild narrowing of the medial compartment. Minimal tricompartmental osteophytes. IMPRESSION: 1. Mild retrolisthesis of C4 on C5 with extension reduces with flexion. 2. Mild degenerative changes right knee. Assessment & Plan Assessment & Plan (1) Spondylosis of cervical joint without myelopathy: Code(s): M47.812 - Spondylosis without myelopathy or radiculopathy, cervical region Category: Medical (2) Trapezius muscle strain: Code(s): S46.819A - Strain of other muscles, fascia and tendons at shoulder and upper arm level, unspecified arm, initial encounter Category: Medical (3) correction (current) use of opiate analgesic: Code(s): Z79.891 - correction (current) use of opiate analgesic Category: Medical (4) Chronic pain syndrome: Code(s): G89.4 - Chronic pain syndrome Category: Medical (5) Postlaminectomy syndrome, not elsewhere classified: Code(s): M96.1 - Postlaminectomy syndrome, not elsewhere classified Category: Medical (6) Chronic back pain greater than 3 months duration: Code(s): M54.9 - Dorsalgia, unspecified; G89.29 - Other chronic pain Category: Medical (7) Cervicalgia: Code(s): M54.2 - Cervicalgia Category: Medical (8) Sacroiliac joint pain: Code(s): M53.3 - Sacrococcygeal disorders, not elsewhere classified Category: Medical Plan The plan includes initiating gabapentin at a low dose to assess its effectiveness in managing the patient's chronic back pain. The patient will start with 300 mg capsules at bedtime, with the option to increase to twice daily if tolerated. If effective, the dosage may be increased to three times daily. The patient is advised to monitor for any adverse effects, particularly sedation, and to avoid taking sedative medications simultaneously. The patient is encouraged to consider changing her mattress to improve sleep quality, as her current one may be contributing to discomfort. The patient is advised to follow up in one month to assess the effectiveness of the new medication regimen and make any necessary adjustments. Previously ordered injections were denied by her insurance. Appeal form was signed by patient today and will be submitted. Patient was informed and verbally consented to the use of an ambient scribe for clinic note documentation during this visit. Medications: New gabapentin 300 mg PO TID 90 caps 3RF Refilled oxycodone 5 mg PO Q6H PRN 120 tabs 0RF pain 30 days G89.4 - Chronic pain syndrome, M46.1 - Sacroiliitis, not elsewhere classified, M47.812 - Spondylosis without myelopathy or radiculopathy, cervical region, M53.3 - Sacrococcygeal disorders, not elsewhere classified, M54.2 - Cervicalgia, M96.1 - Postlaminectomy syndrome, not elsewhere classified, Z79.891 - correction (current) use of opiate analgesic Patient Instructions: - Start gabapentin 300 mg at bedtime. - Monitor for side effects, especially sedation. - Avoid taking sedative medications together. - Consider purchasing a new mattress to improve sleep quality. - Follow up in one month to assess treatment effectiveness. Coding Level of Care Code Est Pt Level 3 (67623) Complex EM visit Add On G2211 Diagnoses Spondylosis of cervical joint without myelopathy M47.812 Trapezius muscle strain S46.819A correction (current) use of opiate analgesic Z79.891 Chronic pain syndrome G89.4 Postlaminectomy syndrome, not elsewhere classified M96.1 Chronic back pain greater than 3 months duration M54.9; G89.29 Cervicalgia M54.2 Sacroiliac joint pain M53.3
[2025-07-14 10:53] VITALS: BP 126/67; PULSE 79; RESP 16; O2SAT 98
--- OUTSIDE RECORDS SUMMARY | 2025-07-14 13:26 | XMS_ITS | Patient Health Record ---
Author Organization [facility] Address [address] [place] [address] Care Team Providers Care Sales Porter Name Role Phone Erika Bowman Primary Care Provider Gadiel Elias Jr [phone] Results Component Value Reference Range Notes Pathology Reviewed date:12/31/2024 03:19:14 PM Interpretation: Performing Lab:[facility], [address] [place] [phone] Notes/Report: Reason For Referral No Information Encounters Encounter Location Date Provider Diagnosis [facility] Inpatient [address] [place] [id number] 12/23/2024 Gadiel Patel Jr [facility] [address] [place] [phone] 12/31/2024 Gadiel Patel Jr Plan Of Treatment No Information Insurance Providers Payer Name Payer Address Payer Phone Subscriber Number Group Number Insured Name Patient Relationship to Insured Coverage Start Date Coverage End Date [facility] [employer] [facility] [address] [address] [place], [place] [id number] Tierra Frazier Self - patient is the insured
== END 2025-07-14 11:16 | disposition home or self-care (01) ==
LOC: HO.PMC 10:51
PROVIDERS: PCP Internal Medicine; Visit Provider Registered Nurse Emergency
DX: M47.812 Spondylosis without myelopathy or radiculopathy, cervical region (principal); S46.819A Strain of other muscles, fascia and tendons at shoulder and upper arm level, unspecified arm, initial encounter; Z79.891 Long term (current) use of opiate analgesic; G89.4 Chronic pain syndrome; M96.1 Postlaminectomy syndrome, not elsewhere classified; M54.9 Dorsalgia, unspecified; G89.29 Other chronic pain; M54.2 Cervicalgia; M53.3 Sacrococcygeal disorders, not elsewhere classified
CPT/HCPCS: 99213

== ENCOUNTER → 2025-07-14 10:50 | Outpatient (BNVA) | payer OTHER, SELFPAY | PROVIDERS: PCP Internal Medicine; Visit Provider Registered Nurse Emergency | DX: G89.4 Chronic pain syndrome (principal); M47.812 Spondylosis without myelopathy or radiculopathy, cervical region; M96.1 Postlaminectomy syndrome, not elsewhere classified; M54.2 Cervicalgia; M53.3 Sacrococcygeal disorders, not elsewhere classified; F41.9 Anxiety disorder, unspecified; Z79.891 Long term (current) use of opiate analgesic | CPT/HCPCS: 99212 ==

== ENCOUNTER 2025-08-11 10:39 | Outpatient (REF) | payer OTHER, SELFPAY ==
--- OUTSIDE RECORDS SUMMARY | 2024-12-23 07:40 | XMS_ITS ---
Author Organization [facility] Address [address] [place] [address] Care Team Providers Care Technical Adjuster Name Role Phone Erika Bowman Primary Care Provider Gadiel Elias Jr REASON FOR VISIT ILEITIS Encounters Encounter Location Date Provider Diagnosis [facility] Inpatient [address] [facility] [place] [id number] 12/23/2024 Gadiel Patel Jr Plan Of Treatment No Information Progress Notes * Tierra BARBERDOB:1985 (40 yo F)Acc No.[id number]:12/23/2024 COLON WITH MAC Patient: Tierra ROMANO Provider: Rakan Patel MD :1985 A ge:39 Y S ex:Female Date:12/23/2024 [facility] [facility] [facility] Pcp:Erika Khalil Subjective: * Chief Complaints: * 1 . ILEITIS. * Medical History: Objective: * Vitals: Assessment: Plan: * Treatment: * * The named appointment provid er may or may not be the originator of this progress note, and it is not deemed complete until electronically signed by the appointment provider. Sign off status: Pending * Provider: Rakan Patel MD Date: 0 12/23/2024 Generated for Miri adamson/Giorgio/Pearl on: 10/11/2024 01:14 PM EST
--- NOTE | ~2025-08-11 | XR_ITS ---
EXAMINATION: XR BILATERAL HIPS WITH AP PELVIS CLINICAL INFORMATION: M25.551 - Pain in right hip COMPARISON: Correlated to CT abdomen pelvis dated December 19, 2024. TECHNIQUE: AP and oblique views both hips. FINDINGS: Degenerative changes in the symphysis pubis. No acute cortical disruption or malalignment in either hip. No lytic or blastic lesions. XR/XR hips NOEMY min 3V IMPRESSION: Degenerative changes in the symphysis pubis, moderate to severe. No acute fracture or dislocation in either hip. Electronically signed by: Ulises Nava MD 08/11/2025 11:41 AM [facility]
[2025-08-11 12:20] LABS: Appearance Urine Clear; Glucose Urine UA Negative (Negative); PH 6.0 (5.0-9.0); Specific Gravity - Urine 1.020 (1.005-1.025); UMIC TRIGGER UACC YES
[2025-08-11 12:50] LABS: UACC Culture Trigger YES
--- OUTSIDE RECORDS SUMMARY | 2025-08-11 13:14 | XMS_ITS | Patient Health Record ---
Author Organization [facility] Address [address] [place] [address] Care Team Providers Care Semi Conductor Assembler Name Role Phone Erika Bowman Primary Care Provider Gadiel Elias Jr Results Component Value Reference Range Notes Pathology Reviewed date:12/31/2024 03:19:14 PM Interpretation: Performing Lab:[facility], [address] [place] [id number] Notes/Report: Reason For Referral No Information Encounters Encounter Location Date Provider Diagnosis [facility] [place] [address] [place] [id number] 12/23/2024 Gadiel Patel Jr [facility] [address] [place] [id number] 12/31/2024 Gadiel Patel Jr Plan Of Treatment No Information Insurance Providers Payer Name Payer Address Payer Phone Subscriber Number Group Number Insured Name Patient Relationship to Insured Coverage Start Date [facility]age End Date [facility] [employer] [facility] [address] [address] [place], [place] [id number] Tierra Frazier Self - patient is the insured
== END 2025-08-11 10:40 | disposition home or self-care (01) ==
LOC: HO.XRAY 10:39
PROVIDERS: Internal Medicine; PCP Internal Medicine; Visit Provider Internal Medicine
DX: G89.29 Other chronic pain (principal); M47.812 Spondylosis without myelopathy or radiculopathy, cervical region; S46.819D Strain of other muscles, fascia and tendons at shoulder and upper arm level, unspecified arm, subsequent encounter; Z79.891 Long term (current) use of opiate analgesic; M96.1 Postlaminectomy syndrome, not elsewhere classified; M53.3 Sacrococcygeal disorders, not elsewhere classified; M46.1 Sacroiliitis, not elsewhere classified; M25.551 Pain in right hip; Z79.899 Other long term (current) drug therapy
CPT/HCPCS: 73522; 81001; 81003; 87086; 99212

== ENCOUNTER → 2025-08-11 10:56 | Outpatient (BNV) | payer OTHER, SELFPAY | PROVIDERS: PCP Internal Medicine; Visit Provider Radiology Diagnostic Radiology | DX: M25.551 Pain in right hip (principal) | CPT/HCPCS: 73522 ==

== ENCOUNTER 2025-08-11 11:43 | Outpatient (AMB) | payer OTHER, SELFPAY ==
--- NOTE | 2025-08-11 11:46 | MHC.OFFVIS ---
Intake Visit Reasons: PILL COUNT Intake Note: Patient here for pill count of Oxycodone. Per directions patient should have 48 pills. Patient presented 50 pills. last took 8 am. 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 She arrived today with the expectation of having 48 pills, she presented 50 pills which were counted in the presence of two staff members and returned to the patient in the original prescription bottle. This demonstrates responsible attitude toward patient's opioid medications. Pain is reported today as 8/10 and last dose of pain medication was taken this morning at 08:00. Denies abdominal pain, shortness of breath, lethargy, confusion. Started on Gabapentin at last visit. reports taking at bedtime, makes her sleepy but denies other side effects. States pain persists even with the Gabapentin. Is not taking during the day due to the side effect of sedation. Prior: Tierra presents to the office today for follow up chronic pain and chronic opioid medication management Patient is prescribed oxycodone 5mg tablets Q6H PRN. She arrived today with the expectation of having 40 pills, she presented 42 pills which were counted in the presence of two staff members and returned to the patient in the original prescription bottle. This demonstrates responsible attitude toward patient's opioid medications. Pain is reported today as 9/10 and last dose of pain medication was taken this morning at 08:00. The chronic back pain has been worsening, especially with the onset of colder weather, and is not adequately managed by current medications, including muscle relaxers, lidocaine patches, and a TENS unit. The patient reports that the pain is exacerbated during the night, leading to significant sleep disturbances. The patient has tried various muscle relaxers and is currently using oxycodone, which has not been effective in managing the pain. The patient has not tried gabapentin before, which is being considered as a new treatment option. The patient experiences anxiety related to the pain, particularly when it interferes with daily activities and sleep. The patient has difficulty remaining still at night and often moves between the bed and the couch to find relief. - Onset: Chronic, worsening with cold weather - Quality: Persistent, not relieved by current medications - Location: Back - Exacerbating factors: Nighttime, cold weather - Relieving factors: None effective currently - Interference: Sleep disturbances, anxiety - Affect: Anxiety related to pain interference with daily activities - Analgesia: Current medications include muscle relaxers, lidocaine patches, TENS unit, oxycodone; considering gabapentin - Adverse Effects: None reported - Activities of Daily Living: Pain interferes with sleep and daily activities - Aberrant Drug Related Behaviors: None reported PFSH Medical History Complex ovarian cyst Abnormal uterine bleeding (AUB) Ovarian cyst Facial rash Leukocytosis Constipation Ileitis GERD (gastroesophageal reflux disease) Anxiety Obese Cholelithiasis Insomnia jail (current) use of opiate analgesic Personal history of other diseases of the musculoskeletal system and connective tissue Chronic pain syndrome Postlaminectomy syndrome, not elsewhere classified Chronic back pain greater than 3 months duration Scoliosis Surgical History Hx of cholecystectomy Hx of tubal ligation Previous back surgery Family History Mother Diabetes Father Diabetes Social History Household Members: Family Housing: Apartment 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 you 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: Yes (children ages-7,11,18) Do you presently have visiting nurse or other home services: No Alcohol intake: never Patient Tobacco Use Status: Former Tobacco user Tobacco use type: Cigarette e-Cigarette/Vaping Use: Never Used Second Hand Smoke Exposure: No Substance Use Type: Marijuana service: No Current occupational status: unemployed Cognitive needs: No Hearing needs: No Vision needs: No Female Reproductive History Menstrual Age of Menarche: 11 Review of Systems Const All systems reviewed & are unremarkable except as noted in HPI and below Physical Exam Exam Exam: General: awake, alert, oriented. Answers questions appropriately. Fully engaged in examination. Skin: warm, dry, intact without visible rashes or lesions. HEENT: Normocephalic. Conjuntivae clear without exudate. Sclera non-icteric. Hearing intact. Cardiac: External chest normal in appearance. Respiratory: No signs of trauma. No signs of respiratory distress. No cough, audible wheezing or stridor. Abdomen: without gross distension. MS: No obvious swelling or deformities. Ambulates with steady gait, unassisted. Neurological: Oriented to person, place, time and situation. Thought process intact. Psychiatric: Appropriate mood and affect. Good judgment and insight. Results Reviewed Results Reviewed: 01/07/24 CERVICAL SPINE: Limited visualization of C7 due to overlying soft tissues. Cervical disc space heights are preserved. Mild retrolisthesis of C4 on C5 with extension reduces with flexion. RIGHT KNEE: No significant joint effusion. Mild narrowing of the medial compartment. Minimal tricompartmental osteophytes. IMPRESSION: 1. Mild retrolisthesis of C4 on C5 with extension reduces with flexion. 2. Mild degenerative changes right knee. Assessment & Plan Assessment & Plan (1) Spondylosis of cervical joint without myelopathy: Code(s): M47.812 - Spondylosis without myelopathy or radiculopathy, cervical region Category: Medical (2) Trapezius muscle strain: Code(s): S46.819A - Strain of other muscles, fascia and tendons at shoulder and upper arm level, unspecified arm, initial encounter Category: Medical (3) jail (current) use of opiate analgesic: Code(s): Z79.891 - jail (current) use of opiate analgesic Category: Medical (4) Chronic pain syndrome: Code(s): G89.4 - Chronic pain syndrome Category: Medical (5) Postlaminectomy syndrome, not elsewhere classified: Code(s): M96.1 - Postlaminectomy syndrome, not elsewhere classified Category: Medical (6) Chronic back pain greater than 3 months duration: Code(s): M54.9 - Dorsalgia, unspecified; G89.29 - Other chronic pain Category: Medical (7) Cervicalgia: Code(s): M54.2 - Cervicalgia Category: Medical (8) Sacroiliac joint pain: Code(s): M53.3 - Sacrococcygeal disorders, not elsewhere classified Category: Medical Plan Masspat was reviewed and without concerns. No obvious signs of diversion, abuse or misuse of the opioid medications. Will send in prescription for oxycodone 5mg po QID PRN. Patient has narcan at home and has been instructed on use. C/W Gabapentin up to three times daily All questions and concerns have been answered and patient agrees with the plan. Patient to follow-up in the office in 1 month, sooner if needed. Medications: Refilled oxycodone 5 mg PO Q6H PRN 120 tabs 0RF pain 30 days G89.4 - Chronic pain syndrome, M46.1 - Sacroiliitis, not elsewhere classified, M47.812 - Spondylosis without myelopathy or radiculopathy, cervical region, M53.3 - Sacrococcygeal disorders, not elsewhere classified, M54.2 - Cervicalgia, M96.1 - Postlaminectomy syndrome, not elsewhere classified, Z79.891 - jail (current) use of opiate analgesic Coding Level of Care Code Est Pt Level 3 (69722) Complex EM visit Add On G2211 Diagnoses Spondylosis of cervical joint without myelopathy M47.812 Trapezius muscle strain S46.819A intermediate designer (current) use of opiate analgesic Z79.891 Chronic pain syndrome G89.4 Postlaminectomy syndrome, not elsewhere classified M96.1 Chronic back pain greater than 3 months duration M54.9; G89.29 Cervicalgia M54.2 Sacroiliac joint pain M53.3
== END 2025-08-11 12:03 | disposition home or self-care (01) ==
LOC: HO.PMC 11:44
PROVIDERS: PCP Internal Medicine; Visit Provider Registered Nurse Emergency
DX: M47.812 Spondylosis without myelopathy or radiculopathy, cervical region (principal); S46.819A Strain of other muscles, fascia and tendons at shoulder and upper arm level, unspecified arm, initial encounter; Z79.891 Long term (current) use of opiate analgesic; G89.4 Chronic pain syndrome; M96.1 Postlaminectomy syndrome, not elsewhere classified; M54.9 Dorsalgia, unspecified; G89.29 Other chronic pain; M54.2 Cervicalgia; M53.3 Sacrococcygeal disorders, not elsewhere classified
CPT/HCPCS: 99213

== ENCOUNTER 2025-09-08 11:44 | Outpatient (AMB) | payer OTHER, SELFPAY ==
[2025-09-08 11:56] VITALS: BP 108/69; PULSE 66; RESP 16; O2SAT 97; BMI 29.6
--- NOTE | 2025-09-08 11:56 | A.OFFVIS_ITS ---
Vital Signs 09/08/25 11:56 Height 5 ft 8 in Weight 195 lb BMI 29.6 BP 108/69 Blood Pressure Location Lt brachial Position Sitting Respiration 16 Pulse 66 Pulse Source Pulse Oximeter Pulse Oximetry (%) 97 Oxygen Delivery Method Room Air Intake Visit Reasons: PILL COUNT Intake Note: Patient here for a pill count of Oxycodone per directions patient should have 56 pills patient presented 62 pills. Last took 8:30am Transport Nurse Required: No Accompanied by: Self / Same As Patient Allergies dicyclomine Allergy (Mild, Verified 09/08/25 11:58) Rash Penicillins Allergy (Unknown, Verified 09/08/25 11:58) Hives HPI Comments Details: Tierra presents to the office today for follow up chronic pain and chronic opioid medication management Patient is prescribed oxycodone 5mg tablets Q6H PRN. She arrived today with the expectation of having 56 pills, she presented 62 pills which were counted in the presence of two staff members and returned to the patient in the original prescription bottle. This demonstrates responsible attitude toward patient's opioid medications. Pain is reported today as 6/10 and last dose of pain medication was taken this morning at 08:30. Denies abdominal pain, shortness of breath, lethargy, confusion. Patient c/o pain along lateral left thigh over GTB. Tender to palpation. Had recent hip xrays and was told to follow up with our office by her pcp. [facility] Medical History Complex ovarian cyst Abnormal uterine bleeding (AUB) Ovarian cyst Facial rash Leukocytosis Constipation Ileitis GERD (gastroesophageal reflux disease) Anxiety Obese Cholelithiasis Insomnia [facility]PC (current) use of opiate analgesic Personal history of other diseases of the musculoskeletal system and connective tissue Chronic pain syndrome Postlaminectomy syndrome, not elsewhere classified Chronic back pain greater than 3 months duration Scoliosis Surgical History Hx of cholecystectomy Hx of tubal ligation Previous back surgery Family History Mother Diabetes Father Diabetes Social History Household Members: Family Housing: Apartment 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 a 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 other at home: Yes (children ages-7,11,18) Do you presently have visiting nurse or other home services: No Alcohol intake: never Patient Tobacco Use Status: Former Tobacco user Tobacco use type: Cigarette e-Cigarette/Vaping Use: Never Used Second Hand Smoke Exposure: No Substance Use Type: Marijuana service: No Current occupational status: unemployed Cognitive needs: No Hearing needs: No Vision needs: No Female Reproductive History Menstrual Age of Menarche: 11 Review of Systems Const All systems reviewed & are unremarkable except as noted in HPI and below Physical Exam Exam Exam: General: awake, alert, oriented. Answers questions appropriately. Fully engaged in examination. Skin: warm, dry, intact without visible rashes or lesions. HEENT: Normocephalic. Conjuntivae clear without exudate. Sclera non-icteric. Hearing intact. Cardiac: External chest normal in appearance. Respiratory: No signs of trauma. No signs of respiratory distress. No cough, audible wheezing or stridor. Abdomen: without gross distension. MS: No obvious swelling or deformities. Ambulates with steady gait, unassisted. Bilateral GTB: tenderness to palpation, right worse than left. Neurological: Oriented to person, place, time and situation. Thought process intact. Psychiatric: Appropriate mood and affect. Good judgment and insight. Vital Signs: Last Vital Signs Pulse 66 09/08/25 11:56 Resp 16 09/08/25 11:56 BP 108/69 09/08/25 11:56 Pulse Ox 97 09/08/25 11:56 Oxygen Delivery Method Room Air 09/08/25 11:56 BMI result Body Mass Index 29.6 Results Reviewed Results Reviewed: 08/11/2025 XR/XR hips NOEMY min 3V FINDINGS: Degenerative changes in the symphysis pubis. No acute cortical disruption or malalignment in either hip. No lytic or blastic lesions. IMPRESSION: Degenerative changes in the symphysis pubis, moderate to severe. No acute fracture or dislocation in either hip. 01/07/24 CERVICAL SPINE: Limited visualization of C7 due to overlying soft tissues. Cervical disc space heights are preserved. Mild retrolisthesis of C4 on C5 with extension reduces with flexion. RIGHT KNEE: No significant joint effusion. Mild narrowing of the medial compartment. Minimal tricompartmental osteophytes. IMPRESSION: 1. Mild retrolisthesis of C4 on C5 with extension reduces with flexion. 2. Mild degenerative changes right knee. 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: Code(s): Z79.891 - [facility]PC (current) use of opiate analgesic Category: Medical (4) Chronic pain syndrome: Code(s): G89.4 - Chronic pain syndrome Category: Medical (5) Postlaminectomy syndrome, not elsewhere classified: Code(s): M96.1 - Postlaminectomy syndrome, not elsewhere classified Category: Medical (6) Chronic back pain greater than 3 months duration: Code(s): M54.9 - Dorsalgia, unspecified; G89.29 - Other chronic pain Category: Medical (7) Cervicalgia: Code(s): M54.2 - Cervicalgia Category: Medical (8) Sacroiliac joint pain: Code(s): M53.3 - Sacrococcygeal disorders, not elsewhere classified Category: Medical (9) Greater trochanteric bursitis of both hips: Code(s): M70.61 - Trochanteric bursitis, right hip; M70.62 - Trochanteric bursitis, left hip Category: Medical Plan Masspat was reviewed and without concerns. No obvious signs of diversion, abuse or misuse of the opioid medications. Will send in prescription for oxycodone 5mg po QID PRN. Patient has narcan at home and has been instructed on use. C/W Gabapentin up to three times daily Discussed option for Right GTB injection, patient declines at this time. Advised to start home PT for GTB. Will let the office know if she wishes to proceed with injections in the future. All questions and concerns have been answered and patient agrees with the plan. Patient to follow-up in the office in 1 month, sooner if needed. Medications: Refilled oxycodone 5 mg PO Q6H PRN 120 tabs 0RF pain 30 days G89.4 - Chronic pain syndrome, M46.1 - Sacroiliitis, not elsewhere classified, M47.812 - Spondylosis without myelopathy or radiculopathy, cervical region, M53.3 - Sacrococcygeal disorders, not elsewhere classified, M54.2 - Cervicalgia, M96.1 - Postlaminectomy syndrome, not elsewhere classified, Z79.891 - intermediate project manager (current) use of opiate analgesic Coding Level of Care Code Est Pt Level 4 (80457) Add On Problem Visit Only Diagnoses Spondylosis of cervical joint without myelopathy M47.812 Trapezius muscle strain S46.819A intermediate project manager (current) use of opiate analgesic Z79.891 Chronic pain syndrome G89.4 Postlaminectomy syndrome, not elsewhere classified M96.1 Chronic back pain greater than 3 months duration M54.9; G89.29 Cervicalgia M54.2 Sacroiliac joint pain M53.3 Greater trochanteric bursitis of both hips M70.61; M70.62
== END 2025-09-08 12:08 | disposition home or self-care (01) ==
LOC: HO.PMC 11:45
PROVIDERS: PCP Internal Medicine; Visit Provider Registered Nurse Emergency
DX: M47.812 Spondylosis without myelopathy or radiculopathy, cervical region (principal); S46.819A Strain of other muscles, fascia and tendons at shoulder and upper arm level, unspecified arm, initial encounter; Z79.891 Long term (current) use of opiate analgesic; G89.4 Chronic pain syndrome; M96.1 Postlaminectomy syndrome, not elsewhere classified; M54.9 Dorsalgia, unspecified; G89.29 Other chronic pain; M54.2 Cervicalgia; M53.3 Sacrococcygeal disorders, not elsewhere classified; M70.61 Trochanteric bursitis, right hip; M70.62 Trochanteric bursitis, left hip
CPT/HCPCS: 99214

== ENCOUNTER → 2025-09-08 11:44 | Outpatient (BNVA) | payer OTHER, SELFPAY | PROVIDERS: PCP Internal Medicine; Visit Provider Registered Nurse Emergency | DX: M47.812 Spondylosis without myelopathy or radiculopathy, cervical region (principal); G89.4 Chronic pain syndrome; S46.819A Strain of other muscles, fascia and tendons at shoulder and upper arm level, unspecified arm, initial encounter; X58.XXXA Exposure to other specified factors, initial encounter; Y93.9 Activity, unspecified; Y92.9 Unspecified place or not applicable; Y99.9 Unspecified external cause status; M96.1 Postlaminectomy syndrome, not elsewhere classified; M54.9 Dorsalgia, unspecified; M54.2 Cervicalgia; M53.3 Sacrococcygeal disorders, not elsewhere classified; M70.61 Trochanteric bursitis, right hip; M70.62 Trochanteric bursitis, left hip; Z79.891 Long term (current) use of opiate analgesic | CPT/HCPCS: 99212 ==

== ENCOUNTER 2025-09-22 11:25 | Outpatient (REF) | payer OTHER, SELFPAY ==
--- OUTSIDE RECORDS SUMMARY | 2024-12-23 07:40 | XMS_ITS ---
Author Organization [facility] Address [address] [place] [address] Care Team Providers Care Surveillance Systems Engineer Name Role Phone Erika Bowman Primary Care Provider Gadiel Elias Jr REASON FOR VISIT ILEITIS Encounters Encounter Location Date Provider Diagnosis [facility] Inpatient [address] [facility] [place] [id number] 12/23/2024 Gadiel Patel Jr Plan Of Treatment No Information Progress Notes * Tierra BARBERDOB:1985 (40 yo F)Acc No.[id number]:12/23/2024 COLON WITH MAC Patient: Tierra Tello Provider: Rakan Patel MD :1985 A ge:39 Y S ex:Female Date:12/23/2024 Address:[address] [facility] Pcp:Erika Khalil Subjective: * Chief Complaints: * I LEITIS Billing Information: * Procedure Codes: * The named appointment provid er may or may not be the originator of this progress note, and it is not deemed complete until electronically signed by the appointment provider. Sign off status: Pending * Provider: Rakan Patel MD Date: 0 12/23/2024 Generated for Miri adamson/Giorgio/Edinitting on: 11/23/2024 11:29 AM EST
--- NOTE | ~2025-09-22 | US_ITS ---
CLINICAL HISTORY: N83.299 - Other ovarian cyst, unspecified side Ultrasound of the female pelvis Comparison: US/SR - US PELVIS TRANSABDOMINAL AND TRANSVAGINAL - 05/17/25 14:01 EDT Technique: Grayscale ultrasound with assistance of color Doppler. Transabdominal scanning performed for overall anatomy. Transvaginal scanning performed for better anatomic delineation. Findings: Anteverted uterus measures 10.1 x 5.8 x 6.5 cm. Unremarkable myometrium, no mass is seen. Unremarkable endometrium, 10 mm in thickness. Unremarkable cervix. Normal right ovary, 3.9 x 2.5 x 2.7 cm. 2.1 cm dominant follicle noted. No abnormal vascular flow. Left ovary is not well seen and only visualized transabdominally, grossly unremarkable, 2.3 x 1.2 x 2.1 cm. No abnormal vascular flow. No free fluid. Impression: Grossly normal exam. This document has been electronically signed by: Elizabeth Alejandro MD on 09/22/2025 16:35:43
--- OUTSIDE RECORDS SUMMARY | 2025-09-22 11:29 | XMS_ITS | Patient Health Record ---
Author Organization [facility] Address [address] [place] [address] Care Team Providers Care Photographic Restorer Name Role Phone Erika Bowman Primary Care Provider Gadiel Elias Jr Results Component Value Reference Range Notes Pathology Reviewed date:12/31/2024 03:19:14 PM Interpretation: Performing Lab:[facility], [address] [place] [phone] Notes/Report: Reason For Referral No Information Encounters Encounter Location Date Provider Diagnosis [facility] [place] [address] [place] [id number] 12/23/2024 Gadiel Patel Jr [facility] [address] [place] [phone] 12/31/2024 Gadiel Patel Jr Plan Of Treatment No Information Insurance Providers Payer Name Payer Address Payer Phone Subscriber Number Group Number Insured Name Patient Relationship to Insured Coverage Start Date Coverage End Date [facility] [employer] [facility] [address] [address] [place], [place] [id number] Tierra Frazier Self - patient is the insured
== END 2025-09-22 11:26 | disposition home or self-care (01) ==
LOC: HO.US 11:25
PROVIDERS: PCP Internal Medicine; Visit Provider Advanced Practice Midwife
DX: N93.9 Abnormal uterine and vaginal bleeding, unspecified (principal); N83.299 Other ovarian cyst, unspecified side
CPT/HCPCS: 76830; 76856

== ENCOUNTER → 2025-09-22 11:27 | Outpatient (BNV) | payer OTHER, SELFPAY | PROVIDERS: PCP Internal Medicine; Visit Provider Radiology Diagnostic Radiology | DX: N83.01 Follicular cyst of right ovary (principal) | CPT/HCPCS: 76830; 76856 ==